=== PATIENT | female | born 1935 | race Caucasian/White ===

== ENCOUNTER 2016-07-18 23:09 | Inpatient (IN) ==
--- NOTE | 2016-07-18 23:34 | Emergency Department Note ---
Disposition Clinical Impression: Atrial fibrillation with RVR, COPD exacerbation, Hypoxia Disposition: Admitted As Inpatient Condition: Fair General Adult HPI - General Chief complaint: ED Shortness of Breath/Dyspnea Stated complaint: congestion,olivia,fever Time Seen by Provider: 07/18/16 23:32 Source: patient, family Limitations: no limitations - History of Present Illness Pain Scale: 4 - Related Data Home Medications Medication Instructions Recorded Confirmed Aclidinium [place] [Tudorza 400 mcg IH BID 09/21/15 03/23/16 Pressair] Albuterol Neb [Proventil Neb] 2.5 mg IH Q4HR 09/21/15 03/23/16 Albuterol Sulfate [Albuterol 2 puff IH Q6H PRN 09/21/15 03/23/16 Inhaler] Aspirin Enteric Coated [Aspirin EC] 81 mg PO DAILY 09/21/15 03/23/16 Lisinopril [Zestril] 20 mg PO DAILY 09/21/15 03/23/16 Sertraline [Zoloft] 50 mg PO HS 09/21/15 03/23/16 Tamsulosin [Flomax] 0.4 mg PO DAILY 09/21/15 03/23/16 Temazepam [Restoril] 15 mg PO HS 09/21/15 03/23/16 Previous Rx's Medication Instructions Recorded Docusate [Colace] 100 mg PO BID #30 capsule 09/21/15 Hydrocodone/Acetaminophen [[place] 1 tab PO Q6H PRN #25 tab 09/21/15 5-325 Tablet] HYDROcodone/Acet 5/325 mg [[place] 1 tab PO Q6H #20 tab 03/23/16 5-325 mg] Allergies Allergy/AdvReac Type Severity Reaction Status Date / Time No Known Allergies Allergy Verified 09/21/15 10:42 Past Medical History - Past Medical History Medical history: Reports: asthma, cancer, COPD, coronary artery disease, hypertension, valvular heart disease Surgical history: Reports: hysterectomy, other Psychiatric history: Reports: anxiety, bipolar, depression - Social History Smoking Status: Current every day smoker Smokeless Tobacco Status: No Alcohol use: Reports: none Drug use: Reports: none Physical Exam - General Limitations: no limitations General appearance: alert, in no apparent distress Course Vital Signs Temperature 98.7 F 07/18/16 23:11 Pulse Rate 106 07/18/16 23:11 Respiratory Rate 20 07/18/16 23:11 Blood Pressure 167/89 07/18/16 23:11 O2 Sat by Pulse Oximetry 94 07/18/16 23:11 Temperature 98.8 F 07/19/16 03:36 Pulse Rate 88 07/19/16 05:50 Respiratory Rate 16 07/19/16 03:36 Blood Pressure 121/63 07/19/16 05:50 O2 Sat by Pulse Oximetry 95 07/19/16 05:50 Oxygen Delivery Oxygen Delivery Nasal Cannula Medical Decision Making - Lab Data Result diagrams: 07/19/16 05:17 07/19/16 00:15 Lab Results 07/19/16 07/19/16 07/19/16 Range/Units 00:15 00:15 00:15 WBC 14.5 H (4.3-11.1) K/mcL RBC 4.08 (3.82-4.97) M/mcL Hgb 12.5 (11.5-15.4) g/dL Hct 38.0 (35.3-44.9) % MCV 93.1 (83.0-100.0) fL MCH 30.6 (28.0-33.3) pg MCHC 32.9 (31.6-35.5) g/dL RDW 14.1 (11.5-14.5) % Plt Count 384 (140-400) K/mcL MPV 10.1 (9.4-12.4) fL Immature Gran % 0.3 (0-4) % Seg Neutrophils % 85.1 % Lymphocytes % 7.5 % Monocytes % 6.4 % Eosinophils % 0.6 % Basophils % 0.1 % Neutrophils # 12.3 H (1.6-8.9) K/mcL Lymphocytes # 1.1 (0.6-4.6) K/mcL Monocytes # 0.9 (0.0-1.3) K/mcL Eosinophils # 0.1 (0.0-0.6) K/mcL Basophils # 0.0 (0.0-0.2) K/mcL Sodium 144 (136-145) mEq/L Potassium 4.1 (3.5-4.5) mEq/L Chloride 107 (98-109) mEq/L Carbon Dioxide 26 (19-29) mEq/L BUN 19 (7-20) mg/dL Creatinine 0.80 (0.57-1.11) mg/dL Est GFR ( Amer) > 60 (> 60) Est GFR (Non-Af Amer) > 60 (> 60) BUN/Creatinine Ratio 24 (6-26) Glucose 140 H (70-99) mg/dL Calculated Osmolality 303 H (280-300) Calcium 9.7 (8.6-10.8) mg/dL Troponin I 0.00 (0-0.03) ng/mL B-Natriuretic Peptide (0-100) pg/mL 07/19/16 Range/Units 00:15 WBC (4.3-11.1) K/mcL RBC (3.82-4.97) M/mcL Hgb (11.5-15.4) g/dL Hct (35.3-44.9) % MCV (83.0-100.0) fL MCH (28.0-33.3) pg MCHC (31.6-35.5) g/dL RDW (11.5-14.5) % Plt Count (140-400) K/mcL MPV (9.4-12.4) fL Immature Gran % (0-4) % Seg Neutrophils % % Lymphocytes % % Monocytes % % Eosinophils % % Basophils % % Neutrophils # (1.6-8.9) K/mcL Lymphocytes # (0.6-4.6) K/mcL Monocytes # (0.0-1.3) K/mcL Eosinophils # (0.0-0.6) K/mcL Basophils # (0.0-0.2) K/mcL Sodium (136-145) mEq/L Potassium (3.5-4.5) mEq/L Chloride (98-109) mEq/L Carbon Dioxide (19-29) mEq/L BUN (7-20) mg/dL Creatinine (0.57-1.11) mg/dL Est GFR ( Amer) (> 60) Est GFR (Non-Af Amer) (> 60) BUN/Creatinine Ratio (6-26) Glucose (70-99) mg/dL Calculated Osmolality (280-300) Calcium (8.6-10.8) mg/dL Troponin I (0-0.03) ng/mL B-Natriuretic Peptide 111 H (0-100) pg/mL Critical Care Time Critical Care Time: Yes Total Critical Care Time: 45 Attestation: Patient presented with dyspnea. ECG showed atrial fibrillation with rapid ventricular response. IV Cardizem drip initiated. Attestation Statement - Attestation Attestation: I examined this patient and my medical decision-making was reviewed with the HUMAN CAPITAL ANALYST/PA/Advanced Practice Nurse/Resident Physician. I agree with the documented findings, disposition and treatment plan as described except to the extent set forth below. [id number] time provided Patient presents with dyspnea. She has a history of non oxygen-dependent COPD. Appears in no acute respiratory distress on exam. Patient seen and evaluated in conjunction with resident physician Dr. Fabian
[2016-07-18] MEDS ORDERED: methylPREDNISolone 125 MG/2 ML VIAL IVP ONE (23:57)
[2016-07-18] MEDS ORDERED: Ipratropium/Albuterol Neb 3 ML IH ONE (23:58)
--- NOTE | 2016-07-19 00:03 | Emergency Department Note ---
Disposition Clinical Impression: Atrial fibrillation with RVR, COPD exacerbation, Hypoxia Disposition: Admitted As Inpatient Condition: Fair Referrals: NO,PCP [Primary Care Provider] - Forms: ED Satisfaction Letter SOB HPI - General Chief Complaint: ED Shortness of Breath/Dyspnea Stated Complaint: congestion,olivia,fever Time Seen by Provider: 07/18/16 23:32 Source: patient, family Limitations: no limitations Nursing Notes Reviewed: Yes Vital Signs Reviewed: Yes - History of Present Illness 80-year-old female with a history of COPD since to the emergency department with a chief complaint of shortness of breath. This has been progressive for months but over the last 2-3 weeks as become significant. She reports cough with thick, yellow sputum. Her was recently in the hospital with pneumonia. She does not want oxygen at home. No history of heart attack but was told she had a valvular problem. Denies any lower extremity swelling or calf pain. She reports subjective fevers and chills over the last 3 days. She reports significant shortness of breath at rest and with exertion. She reports a history of blood clot in her leg that happened years ago. She never had to be on blood thinners and she thinks it was in the distal lower leg. Denies any chest pain or pressure. Denies any syncope. - Related Data Home Medications Medication Instructions Recorded Confirmed Aclidinium [place] [Tudorza 400 mcg IH BID 09/21/15 03/23/16 Pressair] Albuterol Neb [Proventil Neb] 2.5 mg IH Q4HR 09/21/15 03/23/16 Albuterol Sulfate [Albuterol 2 puff IH Q6H PRN 09/21/15 03/23/16 Inhaler] Aspirin Enteric Coated [Aspirin EC] 81 mg PO DAILY 09/21/15 03/23/16 Lisinopril [Zestril] 20 mg PO DAILY 09/21/15 03/23/16 Sertraline [Zoloft] 50 mg PO HS 09/21/15 03/23/16 Tamsulosin [Flomax] 0.4 mg PO DAILY 09/21/15 03/23/16 Temazepam [Restoril] 15 mg PO HS 09/21/15 03/23/16 Previous Rx's Medication Instructions Recorded Docusate [Colace] 100 mg PO BID #30 capsule 09/21/15 Hydrocodone/Acetaminophen [[place] 1 tab PO Q6H PRN #25 tab 09/21/15 5-325 Tablet] HYDROcodone/Acet 5/325 mg [[place] 1 tab PO Q6H #20 tab 03/23/16 5-325 mg] Allergies Allergy/AdvReac Type Severity Reaction Status Date / Time No Known Allergies Allergy Verified 09/21/15 10:42 All systems ED: reviewed and negative except as stated. Constitutional: Reports: fever, chills Cardiovascular: Reports: dyspnea on exertion. Denies: chest pain Respiratory: Reports: cough, dyspnea, wheezes Gastrointestinal: Denies: abdominal pain, nausea, vomiting Musculoskeletal: Denies: neck pain Neurological: Denies: headache, weakness, numbness Endocrine: Reports: fatigue Past Medical History - Past Medical History Medical history: Reports: asthma, cancer, COPD, coronary artery disease, hypertension, valvular heart disease Surgical history: Reports: hysterectomy, other Psychiatric history: Reports: anxiety, bipolar, depression - Social History Smoking Status: Current every day smoker Smokeless Tobacco Status: No Alcohol use: Reports: none Drug use: Reports: none Physical Exam General: Elderly appearing female, thin and frail she is alert and oriented 3 Cardiovascular: Tachycardic but regular, S1, S2. No murmurs, rubs or gallops. Respiratory: Significantly diminished breath sounds bilaterally. Expiratory wheezing. Very tight. Breathing approximately 30 times per minute. No stridor. Breath sounds are present bilaterally Abdomen: Soft, nontender. No guarding, rebound or rigidity. Eyes: Conjunctivae are clear without drainage or discharge HENT: Moist mucous membranes, no oral mucosal lesions Neuro: Cranial nerves intact. No motor or sensory deficit. Musculoskeletal: There is no lower 70 swelling, edema, calf tenderness, asymmetry or any signs of DVT. Skin: No lesions. No diaphoresis. Normal turgor. Normal color Psych: Appropriate - General Limitations: no limitations General appearance: alert, in no apparent distress Course Course Narrative: 80-year-old presents with progressive dyspnea over the last several months. She is requiring supplemental O2 to remain above 90%. She is not oxygen dependent at home. History of COPD and continues to smoke. She was given several breathing treatments with some improvement. She was initially in a sinus rhythm but went into atrial fibrillation with a rate of 150. She was started on Cardizem which controlled her rate down to 100. No history of A. fib in the past. She was given aspirin. X-ray shows emphysema but no other acute changes. Patient will be treated with breathing treatments, IV steroids and antibiotics for COPD exacerbation. Patient will require admission for new onset atrial fibrillation, COPD exacerbation and hypoxia. I discussed with the on-call hospitalist Dr Nguyen who accepted for admission, no further orders at this time Vital Signs Temperature 98.7 F 07/18/16 23:11 Pulse Rate 106 07/18/16 23:11 Respiratory Rate 20 07/18/16 23:11 Blood Pressure 167/89 07/18/16 23:11 O2 Sat by Pulse Oximetry 94 07/18/16 23:11 Temperature 98.3 F 07/19/16 02:03 Pulse Rate 112 07/19/16 02:03 Respiratory Rate 30 07/19/16 02:03 Blood Pressure 137/80 07/19/16 02:03 O2 Sat by Pulse Oximetry 93 07/19/16 02:03 Oxygen Delivery Oxygen Delivery Nasal Cannula Shortness of Breath/Dyspnea - Lab Data Result diagrams: 07/19/16 00:15 07/19/16 00:15 Lab Results 07/19/16 07/19/16 07/19/16 Range/Units 00:15 00:15 00:15 WBC 14.5 H (4.3-11.1) K/mcL RBC 4.08 (3.82-4.97) M/mcL Hgb 12.5 (11.5-15.4) g/dL Hct 38.0 (35.3-44.9) % MCV 93.1 (83.0-100.0) fL MCH 30.6 (28.0-33.3) pg MCHC 32.9 (31.6-35.5) g/dL RDW 14.1 (11.5-14.5) % Plt Count 384 (140-400) K/mcL MPV 10.1 (9.4-12.4) fL Immature Gran % 0.3 (0-4) % Seg Neutrophils % 85.1 % Lymphocytes % 7.5 % Monocytes % 6.4 % Eosinophils % 0.6 % Basophils % 0.1 % Neutrophils # 12.3 H (1.6-8.9) K/mcL Lymphocytes # 1.1 (0.6-4.6) K/mcL Monocytes # 0.9 (0.0-1.3) K/mcL Eosinophils # 0.1 (0.0-0.6) K/mcL Basophils # 0.0 (0.0-0.2) K/mcL Sodium 144 (136-145) mEq/L Potassium 4.1 (3.5-4.5) mEq/L Chloride 107 (98-109) mEq/L Carbon Dioxide 26 (19-29) mEq/L BUN 19 (7-20) mg/dL Creatinine 0.80 (0.57-1.11) mg/dL Est GFR ( Amer) > 60 (> 60) Est GFR (Non-Af Amer) > 60 (> 60) BUN/Creatinine Ratio 24 (6-26) Glucose 140 H (70-99) mg/dL Calculated Osmolality 303 H (280-300) Calcium 9.7 (8.6-10.8) mg/dL Troponin I 0.00 (0-0.03) ng/mL B-Natriuretic Peptide (0-100) pg/mL 07/19/16 Range/Units 00:15 WBC (4.3-11.1) K/mcL RBC (3.82-4.97) M/mcL Hgb (11.5-15.4) g/dL Hct (35.3-44.9) % MCV (83.0-100.0) fL MCH (28.0-33.3) pg MCHC (31.6-35.5) g/dL RDW (11.5-14.5) % Plt Count (140-400) K/mcL MPV (9.4-12.4) fL Immature Gran % (0-4) % Seg Neutrophils % % Lymphocytes % % Monocytes % % Eosinophils % % Basophils % % Neutrophils # (1.6-8.9) K/mcL Lymphocytes # (0.6-4.6) K/mcL Monocytes # (0.0-1.3) K/mcL Eosinophils # (0.0-0.6) K/mcL Basophils # (0.0-0.2) K/mcL Sodium (136-145) mEq/L Potassium (3.5-4.5) mEq/L Chloride (98-109) mEq/L Carbon Dioxide (19-29) mEq/L BUN (7-20) mg/dL Creatinine (0.57-1.11) mg/dL Est GFR ( Amer) (> 60) Est GFR (Non-Af Amer) (> 60) BUN/Creatinine Ratio (6-26) Glucose (70-99) mg/dL Calculated Osmolality (280-300) Calcium (8.6-10.8) mg/dL Troponin I (0-0.03) ng/mL B-Natriuretic Peptide 111 H (0-100) pg/mL
[2016-07-19 00:21] LABS: Basophils % 0.1 %; Eosinophils # 0.1 K/mcL (0.0-0.6); Eosinophils % 0.6 %; Hemoglobin 12.5 g/dL (11.5-15.4); Immature Granulocytes % 0.3 % (0-4); Lymphocytes # 1.1 K/mcL (0.6-4.6); Lymphocytes % 7.5 %; Mean Corpuscular HGB Conc 32.9 g/dL (31.6-35.5); Mean Corpuscular Hemoglobin 30.6 pg (28.0-33.3); Mean Corpuscular Volume 93.1 fL (83.0-100.0); Mean Platelet Volume 10.1 fL (9.4-12.4); Monocytes # 0.9 K/mcL (0.0-1.3); Monocytes % 6.4 %; Neutrophils # 12.3 K/mcL (1.6-8.9); Platelet Count 384 K/mcL (140-400); Red Blood Count 4.08 M/mcL (3.82-4.97); Red Cell Distribution Width 14.1 % (11.5-14.5); Segmented Neutrophils % 85.1 %
[2016-07-19 00:35] LABS: BUN/Creatinine Ratio 24 (6-26); Blood Urea Nitrogen 19 mg/dL (7-20); Calcium 9.7 mg/dL (8.6-10.8); Carbon Dioxide 26 mEq/L (19-29); Chloride 107 mEq/L (98-109); Glucose 140 mg/dL (70-99); Osmolality,Calculated 303 (280-300); Potassium 4.1 mEq/L (3.5-4.5); Sodium 144 mEq/L (136-145); eGFR For African Americans > 60 (> 60); eGFR For Non-African Americans > 60 (> 60)
[2016-07-19] MEDS ORDERED: Aspirin 325 MG TABLET PO ONE (01:35)
[2016-07-19] MEDS ORDERED: *HR* HYDROcodone/Acet 10/325 mg TABLET PO ONE (02:11)
[2016-07-19] MEDS ORDERED: levoFLOXacin 500 MG TABLET PO ONE (03:09)
--- NOTE | 2016-07-19 04:36 | Internal Med History&Physical ---
Date of Encounter: 07/19/16 Time of Encounter: 04:34 Assessment and Plan (1) Atrial fibrillation with RVR Current visit: Yes Status: Acute In the context of COPD exacerbation and acute respiratory failure. Pt received multiple bronchodilators (pt was in sinus rhythm at presentation to the ER). Pt is on diltiazem infusion - continue and titrate. Check TSH level and troponin (2) COPD exacerbation Current visit: Yes Status: Acute Treat with solumedrol, levofloxacin, xopenex, mucinex. smoking cessation advised (3) Acute respiratory failure Current visit: Yes Status: Acute Likely due to COPD exacerbation versus CHF. Will obtain echocardiogram. Qualifiers: Respiratory failure complication: hypoxia Qualified Code(s): J96.01 - Acute respiratory failure with hypoxia (4) Leucocytosis Current visit: Yes Status: Acute Likely due to infective exacerbation of COPD. Continue antibiotics and monitor WBC count. CHeck CRP Qualifiers: Leukocytosis type: unspecified Qualified Code(s): D72.829 - Elevated white blood cell count, unspecified (5) Elevated brain natriuretic peptide (BNP) level Current visit: Yes Status: Acute Will obtain Echocardiogram (6) DVT prophylaxis Current visit: Yes Status: Acute Subcutaneous heparin Internal Medicine - H&P: HPI Chief complaint: Shortness of breath Admitted From: Emergency Dept Plans for Post Hospital Care: Home History of present illness: Ms. Cleainng is a 80 year old female With h/o COPD current smoker and is not on home oxygen, coronary artery disease, hypertension. She apparently has shortness of breath since the beginning of this year which got worse in the last week and again significantly worsened prior to this presentation. She was apparently wheezy and was struggling for breath prior to this presentation. She reports cough with greenish expectoration. She reports some back pain with cough, but no chest pain. She denies fever, chills, nausea, vomiting, abdominal pain, dysuria, hematuria, changes in bowel pattern. She was evaluated in the emergency department and was thought to have acute exacerbation of COPD. She was given multiple breathing treatments, with improvement of shortness of breath. She was noted to have atrial fibrillation with rapid ventricular response with heart rate of 150s. She was started on diltiazem infusion and admitted to the hospitalist service for further management. Past Med Surg Social Fam HX - Past Medical History Medical history: asthma, cancer, COPD, coronary artery disease, hypertension, valvular heart disease Psychiatric history: anxiety, depression - Past Surgical History Surgical History: hysterectomy, other - Social History Smoking Status: Current every day smoker Packs per day: 1 Smokeless Tobacco Status: No Alcohol use: none Drug use: none - Family History Mother Hx Family Cardiac Disorders: Yes Hx Family Endocrine Disorder: Yes (diabetes) Father Hx Family Cardiac Disorders: Yes Son Hx Family Cancer: Yes (lung) Hx Family Medical Disorders: Yes (blood clot) Internal Medicine - H&P: Meds Aclidinium [place] [Tudorza Pressair] 400 mcg IH BID 09/21/15 [History] Albuterol Neb [Proventil Neb] 2.5 mg IH Q4HR 09/21/15 [History] Albuterol Sulfate [Albuterol Inhaler] 2 puff IH Q6H PRN 09/21/15 [History] Aspirin Enteric Coated [Aspirin EC] 81 mg PO DAILY 09/21/15 [History] Docusate [Colace] 100 mg PO BID #30 capsule 09/21/15 [Rx] Hydrocodone/Acetaminophen [[place] 5-325 Tablet] 1 tab PO Q6H PRN #25 tab [Rx] Lisinopril [Zestril] 20 mg PO DAILY 09/21/15 [History] Sertraline [Zoloft] 50 mg PO HS 09/21/15 [History] Tamsulosin [Flomax] 0.4 mg PO DAILY 09/21/15 [History] Temazepam [Restoril] 15 mg PO HS 09/21/15 [History] HYDROcodone/Acet 5/325 mg [[place] 5-325 mg] 1 tab PO Q6H #20 tab 03/23/16 [Rx] Allergies No Known Allergies Allergy (Verified 09/21/15 10:42) All Systems PM: A 10-system review of systems was performed and is negative for pertinent findings except as documented above in the HPI. - Constitutional Vitals: Temp Pulse Resp BP Pulse Ox 98.8 F 100 16 148/74 95 07/19/16 03:36 07/19/16 03:36 07/19/16 03:36 07/19/16 03:36 07/19/16 04:03 Exam: General: Not in acute distress at the time of my evaluation. Thin built with BMI of 15 HEENT: Oral mucosa is moist. No conjunctival palor or scleral icterus Neck: No obvious neck swellings Lungs: Bilateral basal crackles. Occasional wheeze bilaterally. Cardiac: Irregular rate and rhythm. No significant murmurs Abdomen: Soft, non tender. Bowel sounds present Genitourinary: No rzao catheter Neurological: Alert and oriented. No gross localizing deficits Psych: Not aggressive or agitated Extremities: no significant leg edema Skin: No generalized rash Internal Med - H&P Results - Labs CBC & Chem 7: 07/19/16 00:15 07/19/16 00:15 - EKG Data -: EKG Interpreted by Myself - EKG Data EKG comments: Atrial fibrillation with rapid ventricular response 07/19/16 04:36 - Impressions ITS Impressions Chest X-Ray 07/19/16 23:58 IMPRESSION: No acute cardiopulmonary process. Emphysematous changes. D/ / Zain Figueroa MD / Zain Figueroa MD Interpreting Provider: Zain Figueroa MD
[2016-07-19] MEDS ORDERED: Naloxone 0.4 MG/ML INJ IVP PRN (04:39)
[2016-07-19] MEDS ORDERED: 0.9 % Sodium Chloride 250 ML ONE (05:09)
[2016-07-19] MEDS: MethylPREDNISolone 40 MG/ML VIAL IVP SCH ×2 (05:20→18:01)
[2016-07-19] MEDS: Levalbuterol Neb 1.25 MG/3 ML IH SCH ×4 (05:22→21:15)
[2016-07-19 05:56] LABS: Basophils % 0.1 %; Hematocrit 34.8 % (35.3-44.9); Hemoglobin 11.2 g/dL (11.5-15.4); Immature Granulocytes % 0.6 % (0-4); Lymphocytes # 0.3 K/mcL (0.6-4.6); Lymphocytes % 1.9 %; Mean Corpuscular HGB Conc 32.2 g/dL (31.6-35.5); Mean Corpuscular Volume 93.3 fL (83.0-100.0); Mean Platelet Volume 10.2 fL (9.4-12.4); Monocytes # 0.1 K/mcL (0.0-1.3); Monocytes % 0.9 %; Neutrophils # 15.7 K/mcL (1.6-8.9); Platelet Count 349 K/mcL (140-400); Red Blood Count 3.73 M/mcL (3.82-4.97); Red Cell Distribution Width 14.1 % (11.5-14.5); Segmented Neutrophils % 96.5 %
[2016-07-19 05:57] LABS: INR 1.2; Prothrombin Time 13.5 Seconds (9.4-12.1)
[2016-07-19] MEDS ORDERED: *HR* Heparin 5,000 UNIT/ML VIAL SQ SCH (06:00)
[2016-07-19 06:06] LABS: Magnesium 2.3 mg/dL (1.6-2.6)
[2016-07-19 06:09] LABS: Hemoglobin A1C 5.3 %
[2016-07-19 06:33] LABS: Thyroid Stimulating Hormone 1.025 mcIU/mL (0.350-4.840)
[2016-07-19] MEDS ORDERED: *HR* Heparin 5,000 UNIT/ML VIAL IVP ONE (11:26)
--- NOTE | 2016-07-19 11:29 | ECHO - Doppler Report ---
Echocardiogram Name: Estela Cleaning Date of Study: 07/19/2016 Date: 1935 Ht: 64.0 in Medical Record#: [id number] Age: 80 Wt: 91.0 lb Gender: Female BSA: 1.4 Order #: [id number] Location: [facility] Room #: 2A38 Reading Physician: Cassi Luna DO Stock Handler Floorperson: Graciela Shoemaker RVT Ordering Physician: Sheila Suggs MD Primary Physician: None Indications: A-fib with RVR, Possible CHF Impressions: LVEF 60%. Normal left ventricular size and systolic function. Indeterminate left venticular diastoic function Normal right ventricular size and function. Mild mitral regurgitation. No pulmonary hypertension. Left Ventricular Wall Motion: Rest Echo Findings All wall segments showed normal motion. Findings: Study Quality * Technically challenging exam. ECG Findings * Normal sinus rhythm. Left Atrium * Normal left atrial size. Mitral Valve * Normal mitral valve structure. * No mitral stenosis. * Mild mitral annular calcification * Mild mitral regurgitation. Tricuspid Valve * Trace tricuspid regurgitation. * Normal tricuspid valve structure. * Estimated RA pressure is 3 mmHg. * Estimated RVSP is 26 mmHg. * No pulmonary hypertension. Pulmonic Valve * Pulmonic valve is not well visualized. * No pulmonic stenosis. * No pulmonic regurgitation. Pulmonary Artery * Pulmonary artery not well visualized. Aortic Valve * Trileaflet (seen in SAX subcostal view). * Mild aortic regurgitation. * No aortic stenosis. * Mild to moderately calcified aortic valve leaflets. Right Ventricle * Normal right ventricular structure and function. Right Atrium * Normal right atrial size. Left Ventricle * LVEF 60%. * Normal LV chamber size, wall thickness and function. * Indeterminate diastolic function. Interatrial Septum * No evidence of PFO by color Doppler. Pericardium * There is no pericardial effusion present. IVC * The IVC is not dilated. * < 50% respiratory change. Aorta * Not well visualized. History Hypertension History of CAD/PTCA 11/22/2011 a Previous Echo was performed. Measurements: BP: 121/ 63 2D Normal Values RVIDd: 1.60 cm <2.7 cm IVSd: 1.20 cm 0.6 - 1.0 cm LVIDd: 3.90 cm 3.7 - 5.6 cm LVPWd: 1.20 cm 0.6 - 1.1 cm LVIDs: 2.30 cm 1.5 - 3.6 cm AO: 2.70 cm < 4.0 cm LA: 3.20 cm 2.0 - 4.0cm %FS: 41.00 cm >25 % LA volume: 30 Mitral Valve Peak E:1.04 m/sec Peak A:1.01 m/sec E/A Ratio:1 Peak E' Lat Diego:7.99 cm/s Peak E' Med [place]:5.85 cm/s E/E' Lat Ratio:13 E/E' Med Ratio:17.8 Tricuspid Valve TV Regurg Peak Grad: 23.00mmHg TV Regurg Peak Diego: 2.38m/sec Updated by Cassi Luna on 07/19/2016 11:23:09 AM electronically signed on 07/19/2016 11:24:51 AM with status of Final Wall Motion Bobby: 1=Normal, 2=Hypokinesis, 3=Akinesis, 4=Dyskinesis, 5=Aneurysmal, 6=Hyperkinetic, X=Not Visualized (Blank)=Missing
--- NOTE | 2016-07-19 11:34 | Event Note ---
Date of Encounter: 07/19/16 Time of Encounter: 11:32 Patient seen and examined at bedside. Resting in bed and reports of having history of Afib in the past during her prior hospitalization. Currently remains in afib but rate controlled on Cardizem gtt. Respiratory status improved. Pt noted to have CHADVASC: 5, will start anticoagulation with heparin gtt. Will obtain cardiology consultation. Will continue Systemic steroids and bronchodilator support for COPD exacerbation.
[2016-07-19 12:37] LABS: Hematocrit 34.4 % (35.3-44.9); Hemoglobin 11.2 g/dL (11.5-15.4); Mean Corpuscular HGB Conc 32.6 g/dL (31.6-35.5); Mean Corpuscular Hemoglobin 30.5 pg (28.0-33.3); Mean Corpuscular Volume 93.7 fL (83.0-100.0); Mean Platelet Volume 10.4 fL (9.4-12.4); Platelet Count 344 K/mcL (140-400); Red Blood Count 3.67 M/mcL (3.82-4.97); Red Cell Distribution Width 14.2 % (11.5-14.5)
[2016-07-19 12:40] LABS: INR 1.3; Prothrombin Time 14.6 Seconds (9.4-12.1)
[2016-07-19 12:42] LABS: Activated Partial Thrombo Time 31.8 Seconds (26.0-36.0)
[2016-07-19] MEDS: Heparin 25,000 UNIT/500 ML D5W 25,000 UNIT/500 ML MLS IVC SCH (12:54)
--- NOTE | 2016-07-19 14:03 | Cardiology Consult Note ---
Date of Encounter: 07/19/16 Time of Encounter: 13:59 Assessment and Plan (1) Atrial fibrillation with RVR Current Visit: Yes Status: Acute Presented in atrial fibrillation with RVR. Timing unknown. Denies palpitations. HR currently 80's on oral cardizem. AVg HR 88 bpm over last 12 hours. Convert to long acting prior to d/c. TTE EF 60%, mild MR. She is a CHADS VASc 5. Anticoagulation with coumadin or NOAC is recommended. I discussed coumadin or NOAC indication, risks, benefits, and alternatives with daughter and patient. They are agreeable to anticoagulation. They prefer NOAC once a day. I will send xarelto RX to [facility] to marshall check. CrCl is 44.9. Rx sent for xarelto 15 mg daily. Currently on heparin gtt. Discussion w patient/family: The assessment and plan as outlined above was discussed with the patient and/or family members who expressed understanding and agreement. All questions were answered. Thank you for involving us in the care of your patient. Please call with any questions. Assessment and plan discussed with Dr. William who will see patient. Changes to plan will be made as needed. History of Present Illness Consult date: 07/19/16 Requesting physician: Natalia Silva Consult reason: New onset atrial fibrillation Chief complaint: SOB History of present illness: Ms. Cleaning is a 80 year old female who presented with increasing SOB and cough productive of yellow sputum. She was admitted for COPD Exacerbation. She was noted to have atrial fibrillation with RVR HR in the 150's. She denies previous history. She has a past medical history of COPD, tobacco use, and hypertension. She denies chest pain or palpitations. Previous Cardiac Testing: [facility] 10/2011- Minimal CAD. Past Med Surg Social Fam HX - Past Medical History Medical history: asthma, cancer, COPD, coronary artery disease, hypertension, valvular heart disease Psychiatric history: anxiety, bipolar, depression - Past Surgical History Surgical History: hysterectomy, other - Social History Smoking Status: Current every day smoker Packs per day: 1 Smokeless Tobacco Status: No Alcohol use: none Drug use: none - Family History Mother Hx Family Cardiac Disorders: Yes Hx Family Endocrine Disorder: Yes (diabetes) Father Hx Family Cardiac Disorders: Yes Son Hx Family Cancer: Yes (lung) Hx Family Medical Disorders: Yes (blood clot) Medications and Allergies Aclidinium [place] [Tudorza Pressair] 400 mcg IH BID 09/21/15 [History] Albuterol Neb [Proventil Neb] 2.5 mg IH Q4HR 09/21/15 [History] Albuterol Sulfate [Albuterol Inhaler] 2 puff IH Q6H PRN 09/21/15 [History] Aspirin Enteric Coated [Aspirin EC] 81 mg PO DAILY 09/21/15 [History] Lisinopril [Zestril] 20 mg PO DAILY 09/21/15 [History] Sertraline [Zoloft] 50 mg PO HS 09/21/15 [History] Tamsulosin [Flomax] 0.4 mg PO DAILY 09/21/15 [History] Temazepam [Restoril] 15 mg PO HS 09/21/15 [History] Budesonide/Formoterol 160/4.5 [Symbicort 160/4.5] 2 puff IH BIDR 07/19/16 [ History] Allergies No Known Allergies Allergy (Verified 09/21/15 10:42) All Systems Review: A 10-system review of systems was performed and is negative for pertinent findings except as documented above in the HPI. Physical Examination Vital Signs, Last 4 Hours Temp Pulse Resp BP Pulse Ox 07/19/16 12:01 97.6 F 86 21 126/70 95 General: Conversant, No Apparent Distress, Other (Frail elderly female. ) HEENT: Atraumatic, Normocephaly, Mucus Membranes Moist Neck: No JVD, Normal carotid pulses Cardiac: Other (Irregularly irregular) Lungs: Normal Breath Sounds, No Wheeze, Rales, Rhonchi Neuro: Alert and responsive, No focal deficits noted Abdomen: Soft, Non-Tender Skin: No rashes noted on visualized skin Musculoskeletal: No Chest Wall Tenderness Extremities: No Clubbing, No Cyanosis, No Edema, Normal Pulses Results 07/19/16 11:55 07/19/16 00:15 Lab Results 07/19/16 07/19/16 07/19/16 05:17 05:17 05:19 WBC 16.3 H Hgb 11.2 L Hct 34.8 L Plt Count 349 INR 1.2 APTT Magnesium Troponin I 0.02 TSH 07/19/16 07/19/16 07/19/16 05:26 11:55 11:55 WBC 14.3 H Hgb 11.2 L Hct 34.4 L Plt Count 344 INR 1.3 APTT 31.8 Magnesium 2.3 Troponin I TSH 1.025 - Imaging and Cardiology Echo: report reviewed - EKG Interpretation EKG results cardiology: personally reviewed (atrial fibrillation with RVR, HR 152) Consult Discharge Plan - Plan Referrals: NO,PCP [Primary Care Provider] -
[2016-07-19] MEDS: Ipratropium Neb 0.5 MG NEBULIZER IH SCH ×2 (16:13→21:15)
[2016-07-19] MEDS ORDERED: 0.9 % Sodium Chloride 500 ML ONE (17:16)
--- NOTE | 2016-07-19 17:34 | Electrocardiograph Report ---
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
[2016-07-19] MEDS: Temazepam 15 MG CAPSULE PO SCH (20:16)
[2016-07-19] MEDS: *HR* Heparin 5,000 UNIT/ML VIAL IVP PRN (22:21)
[2016-07-20] MEDS: Levofloxacin 500 MG/100 ML 500 MG/100 ML BAG IVPB SCH (03:38)
[2016-07-20] MEDS: Ipratropium Neb 0.5 MG NEBULIZER IH SCH ×4 (03:52→21:47)
[2016-07-20] MEDS: Levalbuterol Neb 1.25 MG/3 ML IH SCH ×4 (03:52→21:47)
[2016-07-20 05:21] LABS: Basophils % 0.1 %; Hematocrit 32.3 % (35.3-44.9); Hemoglobin 10.5 g/dL (11.5-15.4); Immature Granulocytes % 0.8 % (0-4); Lymphocytes # 0.6 K/mcL (0.6-4.6); Lymphocytes % 3.5 %; Mean Corpuscular HGB Conc 32.5 g/dL (31.6-35.5); Mean Corpuscular Hemoglobin 30.6 pg (28.0-33.3); Mean Corpuscular Volume 94.2 fL (83.0-100.0); Mean Platelet Volume 10.5 fL (9.4-12.4); Monocytes # 0.4 K/mcL (0.0-1.3); Monocytes % 2.6 %; Neutrophils # 15.7 K/mcL (1.6-8.9); Platelet Count 359 K/mcL (140-400); Red Blood Count 3.43 M/mcL (3.82-4.97); Red Cell Distribution Width 14.3 % (11.5-14.5)
[2016-07-20 05:34] LABS: BUN/Creatinine Ratio 38 (6-26); Blood Urea Nitrogen 27 mg/dL (7-20); Calcium 9.1 mg/dL (8.6-10.8); Carbon Dioxide 26 mEq/L (19-29); Chloride 104 mEq/L (98-109); Glucose 173 mg/dL (70-99); Magnesium 1.8 mg/dL (1.6-2.6); Osmolality,Calculated 293 (280-300); Phosphorous 3.3 mg/dL (2.3-4.7); Potassium 4.2 mEq/L (3.5-4.5); Sodium 137 mEq/L (136-145); eGFR For African Americans > 60 (> 60); eGFR For Non-African Americans > 60 (> 60)
[2016-07-20] MEDS: MethylPREDNISolone 40 MG/ML VIAL IVP SCH ×2 (05:34→16:47)
[2016-07-20] MEDS: *HR* Heparin 5,000 UNIT/ML VIAL IVP PRN ×3 (05:34→20:57)
[2016-07-20] MEDS: Diltiazem CD (24hr) 120 MG CAPSULE PO SCH (09:28)
[2016-07-20] MEDS: Aspirin Enteric Coated 81 MG Tablet PO SCH (09:28)
[2016-07-20] MEDS: Lisinopril 20 MG TABLET PO SCH (09:29)
--- NOTE | 2016-07-20 11:24 | Electrocardiograph Report ---
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
--- NOTE | 2016-07-20 11:26 | Cardiology Progress Note ---
Date of Encounter: 07/20/16 Time of Encounter: 11:22 Assessment and Plan (1) Atrial fibrillation with RVR Current Visit: Yes Status: Acute Presented in atrial fibrillation with RVR. onset unknown. Denies palpitations. HR currently 80's on oral cardizem. Changed to long acting this morning. AVg HR 88 bpm over last 12 hours. TTE EF 60%, mild MR. She is a CHADS VASc 5. Anticoagulation with coumadin or NOAC is recommended. I discussed coumadin or NOAC indication, risks, benefits, and alternatives with daughters and patient yesterday. She has six living children. They are not all agreeable and patient is relying on them to make decision. At this point she strongly agrees that she does not want to take coumadin d/t frequent blood draws and concern for bleeding. Xarelto sent to [facility] yesterday and cost was $ 130 . I called for patient today to double check if they ran it through both insurances. Marshall is still 130$. I also sent to [facility] and marshall is 438 $ and the marshall will go up the next month. Continue asa for now. Increased risk of CVA discussed with patient and son's and they voiced understanding. Out patient f/u will be made for 1-2 weeks with [facility]. Call with questions. Cardiology will sign off. Discussion w patient/family: The assessment and plan as outlined above was discussed with the patient and/or family members who expressed understanding and agreement. All questions were answered. Thank you for involving us in the care of your patient. Please call with any questions. Assessment and plan discussed with Dr. William who will see patient. Changes to plan will be made as needed. Subjective Principal diagnosis: COPD, atrial fibrillation with RVR Interval history: Patient c/o increased SOB this morning that improved after 3 breathing treatments. Objective Vital Signs, Last 4 Hours Temp Pulse Resp BP Pulse Ox 07/20/16 10:52 98 F 92 18 165/80 94 07/20/16 10:08 20 95 07/20/16 07:26 97.4 F L 73 18 122/74 91 General: Conversant, No Apparent Distress HEENT: Atraumatic, Normocephaly, Mucus Membranes Moist Neck: No JVD, Normal carotid pulses Cardiac: Other (irregularly irregular) Lungs: Normal Breath Sounds, No Wheeze, Rales, Rhonchi Neuro: Alert and responsive, No focal deficits noted Abdomen: Soft, Non-Tender Skin: No rashes noted on visualized skin Musculoskeletal: No Chest Wall Tenderness Extremities: No Clubbing, No Cyanosis, No Edema, Normal Pulses Results 07/20/16 04:41 07/20/16 04:41 Lab Results 07/19/16 07/19/16 07/19/16 11:55 11:55 20:10 WBC 14.3 H Hgb 11.2 L Hct 34.4 L Plt Count 344 INR 1.3 APTT 31.8 28.8 Sodium Potassium Chloride Carbon Dioxide BUN Creatinine Glucose Calcium Magnesium 07/20/16 07/20/16 07/20/16 04:41 04:41 04:41 WBC 16.9 H Hgb 10.5 L Hct 32.3 L Plt Count 359 INR APTT 39.0 H Sodium 137 Potassium 4.2 Chloride 104 Carbon Dioxide 26 BUN 27 H Creatinine 0.71 Glucose 173 H Calcium 9.1 Magnesium 1.8 Consult Discharge Plan - Plan Referrals: NO,PCP [Primary Care Provider] -
[2016-07-20] MEDS: Heparin 25,000 UNIT/500 ML D5W 25,000 UNIT/500 ML MLS IVC SCH ×2 (13:27→23:53)
--- NOTE | 2016-07-20 14:46 | Internal Med Progress Note ---
Date of Encounter: 07/20/16 Time of Encounter: 12:25 - Assessment and plan (1) Atrial fibrillation with RVR Current Visit: Yes Status: Acute Assessment and plan: Pt and family in agreement to starting Coumadin therapy Will bridge with heparin and coumadin, to attain INR of 2-3 Rate controlled with Cardizem cardiology input appreciated 2D echo reported LVEF of 60% with mild MR. (2) COPD exacerbation Current Visit: Yes Status: Acute Assessment and plan: continue systemic steroids and bronchodilator support O2 supplementation O2 saturation goal: 89-92% Levofloxacin Guaifenesin/Dextromorphan prn will switch to Prednisone in am PT eval (3) DVT prophylaxis Current Visit: Yes Status: Acute Assessment and plan: anticoagulated with heparin gtt - Subjective Interval history: Pt seen and examined at bedside. Resting in bed and states that her daughter Vera Self takes care of all her medical issues and to consult her in regards to continuation of ferry terminal agent anticoagulation. I had a detailed discussion with Vera Self, the patient and the family were under the impression that the patient will need daily blood draws after discharge, once she was told that it would be on a weekly basis, she was in agreement to starting Coumadin therapy today. - Constitutional Vitals: Temp Pulse Resp BP Pulse Ox 98 F 92 18 165/80 95 07/20/16 10:52 07/20/16 10:52 07/20/16 10:52 07/20/16 10:52 07/20/16 11:58 General appearance: Present: A&O X 3, no acute distress, underweight, answers questions appropriately - Head Head exam: Present: atraumatic, normocephalic - Eye Eye exam: Present: normal appearance, conjuntiva pink, sclera anicteric - Respiratory Respiratory exam: Present: decreased breath sounds. Absent: accessory muscle use, rales, rhonchi, wheezes - Cardiovascular Cardiovascular exam: Present: RRR, +S1, +S2. Absent: diastolic murmur, gallop, rubs, systolic murmur - GI/Abdominal GI/Abdominal exam: Present: normal bowel sounds, soft, no peritoneal signs. Absent: distended, tenderness - Extremities Exam Extremities exam: Present: warm, radial pulses palpable and symetrical. Absent : calf tenderness, cyanotic, pedal edema - Neurological Exam Neurological exam: Present: alert, oriented X3 - Psychiatric Psychiatric exam: Present: normal affect, normal mood Internal Medicine: Result - Labs CBC & Chem 7: 07/20/16 04:41 07/20/16 04:41 Labs: Short CBC 07/20/16 Range/Units 04:41 WBC 16.9 H (4.3-11.1) K/mcL Hgb 10.5 L (11.5-15.4) g/dL Hct 32.3 L (35.3-44.9) % Plt Count 359 (140-400) K/mcL Neutrophils # 15.7 H (1.6-8.9) K/mcL BMP 07/20/16 04:41 Sodium 137 Potassium 4.2 Chloride 104 Carbon Dioxide 26 BUN 27 H Creatinine 0.71 Glucose 173 H Calcium 9.1 - ABG Interpretation ABG results: PT/INR, D-dimer PT 14.6 Seconds (9.4-12.1) H 07/19/16 11:55 Consult Discharge Plan - Plan Referrals: NO,PCP [Primary Care Provider] -
[2016-07-20] MEDS ORDERED: Warfarin perPT PO PRN (18:00)
[2016-07-20] MEDS ORDERED: *HR* Warfarin 3 MG TABLET PO SCH (18:00)
[2016-07-20] MEDS: Temazepam 15 MG CAPSULE PO SCH (20:56)
[2016-07-20] MEDS ORDERED: 0.9 % Sodium Chloride 500 ML ONE (23:49)
[2016-07-21 03:20] LABS: INR 1.1
[2016-07-21 03:28] LABS: BUN/Creatinine Ratio 43 (6-26); Blood Urea Nitrogen 32 mg/dL (7-20); Carbon Dioxide 28 mEq/L (19-29); Chloride 104 mEq/L (98-109); Glucose 296 mg/dL (70-99); Magnesium 1.7 mg/dL (1.6-2.6); Osmolality,Calculated 304 (280-300); Phosphorous 2.1 mg/dL (2.3-4.7); Potassium 3.9 mEq/L (3.5-4.5); Sodium 138 mEq/L (136-145); eGFR For African Americans > 60 (> 60); eGFR For Non-African Americans > 60 (> 60)
[2016-07-21 03:38] LABS: Basophils % 0.1 %; Hematocrit 31.1 % (35.3-44.9); Immature Granulocytes % 1.1 % (0-4); Lymphocytes # 0.6 K/mcL (0.6-4.6); Lymphocytes % 3.1 %; Mean Corpuscular HGB Conc 32.2 g/dL (31.6-35.5); Mean Corpuscular Hemoglobin 30.1 pg (28.0-33.3); Mean Corpuscular Volume 93.7 fL (83.0-100.0); Mean Platelet Volume 10.2 fL (9.4-12.4); Monocytes # 0.7 K/mcL (0.0-1.3); Monocytes % 3.9 %; Neutrophils # 16.2 K/mcL (1.6-8.9); Platelet Count 382 K/mcL (140-400); Red Blood Count 3.32 M/mcL (3.82-4.97); Red Cell Distribution Width 14.2 % (11.5-14.5); Segmented Neutrophils % 91.8 %
[2016-07-21] MEDS: Levofloxacin 500 MG/100 ML 500 MG/100 ML BAG IVPB SCH (03:48)
[2016-07-21] MEDS: Ipratropium Neb 0.5 MG NEBULIZER IH SCH ×4 (03:59→21:29)
[2016-07-21] MEDS: Levalbuterol Neb 1.25 MG/3 ML IH SCH ×4 (03:59→21:29)
[2016-07-21] MEDS: Lisinopril 20 MG TABLET PO SCH (09:42)
[2016-07-21] MEDS: predniSONE 20 MG TABLET PO SCH (09:42)
[2016-07-21] MEDS: Aspirin Enteric Coated 81 MG Tablet PO SCH (09:42)
[2016-07-21] MEDS: Diltiazem CD (24hr) 120 MG CAPSULE PO SCH (09:42)
[2016-07-21] MEDS ORDERED: *HR* Warfarin 5 MG TABLET PO ONE ×2 (11:48→18:00)
[2016-07-21] MEDS: Heparin 25,000 UNIT/500 ML D5W 25,000 UNIT/500 ML MLS IVC SCH (12:26)
--- NOTE | 2016-07-21 12:26 | Internal Med Progress Note ---
Date of Encounter: 07/21/16 Time of Encounter: 12:26 - Assessment and plan (1) Atrial fibrillation with RVR Current Visit: Yes Status: Acute Assessment and plan: Continue Coumadin Will bridge with heparin and coumadin, to attain INR of 2-3 Rate controlled with Cardizem cardiology input appreciated 2D echo reported LVEF of 60% with mild MR. (2) COPD exacerbation Current Visit: Yes Status: Acute Assessment and plan: continue systemic steroids and bronchodilator support O2 supplementation O2 saturation goal: 89-92% Levofloxacin Guaifenesin/Dextromorphan prn Started Prednisone (Day 03/05) (3) Hypertension Current Visit: Yes Status: Acute Assessment and plan: Noted to be hypertensive continue home medications added Hydralazine 10mg IV q6h PRN SBP>160 will closely monitor, if remains hypertensive, will adjust home medications accordingly Qualifiers: Hypertension type: essential hypertension Qualified Code(s): I10 - Essential (primary) hypertension (4) DVT prophylaxis Current Visit: Yes Status: Acute Assessment and plan: anticoagulated with heparin gtt - Subjective Interval history: Pt seen and examined at bedside. Reports of feeling better. No overnight issues reported. Started Coumadin therapy yesterday. Pt ambulating well around the room without discomfort. Discharge pending achievement of INR within therapeutic range - Constitutional Vitals: Temp Pulse Resp BP Pulse Ox 98.0 F 76 18 152/69 99 07/21/16 07:09 07/21/16 07:09 07/21/16 10:40 07/21/16 07:09 07/21/16 10:40 General appearance: Present: A&O X 3, no acute distress, underweight, answers questions appropriately - Head Head exam: Present: atraumatic, normocephalic - Eye Eye exam: Present: normal appearance, conjuntiva pink, sclera anicteric - Respiratory Respiratory exam: Absent: respiratory distress, wheezes - Cardiovascular Cardiovascular exam: Present: RRR, +S1, +S2. Absent: diastolic murmur, gallop, rubs, systolic murmur - GI/Abdominal GI/Abdominal exam: Present: normal bowel sounds, soft, no peritoneal signs. Absent: distended, tenderness - Extremities Exam Extremities exam: Present: warm, radial pulses palpable and symetrical. Absent : calf tenderness, cyanotic, pedal edema - Neurological Exam Neurological exam: Present: alert, oriented X3 - Psychiatric Psychiatric exam: Present: normal affect, normal mood Internal Medicine: Result - Labs CBC & Chem 7: 07/21/16 03:06 07/21/16 03:06 Labs: Short CBC 07/21/16 Range/Units 03:06 WBC 17.6 H (4.3-11.1) K/mcL Hgb 10.0 L (11.5-15.4) g/dL Hct 31.1 L (35.3-44.9) % Plt Count 382 (140-400) K/mcL Neutrophils # 16.2 H (1.6-8.9) K/mcL BMP 07/21/16 03:06 Sodium 138 Potassium 3.9 Chloride 104 Carbon Dioxide 28 BUN 32 H Creatinine 0.75 Glucose 296 H Calcium 9.0 - ABG Interpretation ABG results: PT/INR, D-dimer PT 12.0 Seconds (9.4-12.1) 07/21/16 03:06 Consult Discharge Plan - Plan Referrals: NO,PCP [Primary Care Provider] -
[2016-07-21] MEDS ORDERED: *HR* OxyCODONE/APAP 5/325 TABLET PO ONE (17:17)
[2016-07-21] MEDS: Temazepam 15 MG CAPSULE PO SCH (20:10)
[2016-07-22] MEDS: Heparin 25,000 UNIT/500 ML D5W 25,000 UNIT/500 ML MLS IVC SCH (02:12)
[2016-07-22] MEDS: Levofloxacin 500 MG/100 ML 500 MG/100 ML BAG IVPB SCH (03:00)
[2016-07-22] MEDS: Ipratropium Neb 0.5 MG NEBULIZER IH SCH ×4 (03:40→21:33)
[2016-07-22] MEDS: Levalbuterol Neb 1.25 MG/3 ML IH SCH ×4 (03:40→21:33)
[2016-07-22 05:21] LABS: INR 1.3; Prothrombin Time 13.7 Seconds (9.4-12.1)
[2016-07-22 07:59] LABS: Basophils % 0.3 %; Hematocrit 34.2 % (35.3-44.9); Hemoglobin 11.1 g/dL (11.5-15.4); Immature Granulocytes % 2.8 % (0-4); Lymphocytes # 1.6 K/mcL (0.6-4.6); Lymphocytes % 12.2 %; Mean Corpuscular HGB Conc 32.5 g/dL (31.6-35.5); Mean Corpuscular Hemoglobin 30.7 pg (28.0-33.3); Mean Corpuscular Volume 94.5 fL (83.0-100.0); Mean Platelet Volume 10.8 fL (9.4-12.4); Monocytes # 1.1 K/mcL (0.0-1.3); Neutrophils # 10.1 K/mcL (1.6-8.9); Platelet Count 388 K/mcL (140-400); Red Blood Count 3.62 M/mcL (3.82-4.97); Red Cell Distribution Width 14.4 % (11.5-14.5); Segmented Neutrophils % 76.7 %
[2016-07-22 08:06] LABS: BUN/Creatinine Ratio 31 (6-26); Calcium 8.9 mg/dL (8.6-10.8); Carbon Dioxide 30 mEq/L (19-29); Chloride 100 mEq/L (98-109); Glucose 123 mg/dL (70-99); Magnesium 1.7 mg/dL (1.6-2.6); Osmolality,Calculated 288 (280-300); Phosphorous 2.5 mg/dL (2.3-4.7); Potassium 3.8 mEq/L (3.5-4.5); Sodium 137 mEq/L (136-145); eGFR For African Americans > 60 (> 60); eGFR For Non-African Americans > 60 (> 60)
[2016-07-22 08:07] LABS: Blood Urea Nitrogen 21 mg/dL (7-20)
[2016-07-22] MEDS: Aspirin Enteric Coated 81 MG Tablet PO SCH (09:00)
[2016-07-22] MEDS: Diltiazem CD (24hr) 120 MG CAPSULE PO SCH (09:00)
[2016-07-22] MEDS: Lisinopril 20 MG TABLET PO SCH (09:00)
[2016-07-22] MEDS: predniSONE 20 MG TABLET PO SCH (09:00)
--- NOTE | 2016-07-22 10:20 | Internal Med Progress Note ---
Date of Encounter: 07/22/16 Time of Encounter: 09:25 - Assessment and plan (1) Atrial fibrillation with RVR Current Visit: Yes Status: Acute Assessment and plan: Continue Coumadin Will bridge with heparin and coumadin, to attain INR of 2-3 Rate controlled with Cardize cardiology input appreciated 2D echo reported LVEF of 60% with mild MR. (2) COPD exacerbation Current Visit: Yes Status: Acute Assessment and plan: continue systemic steroids and bronchodilator support O2 supplementation O2 saturation goal: 89-92% Levofloxacin Guaifenesin/Dextromorphan prn Continue Prednisone (Day 2/7) (3) Hypertension Current Visit: Yes Status: Acute Assessment and plan: BP better controlled continue home medications continue Hydralazine 10mg IV q6h PRN SBP>160 will closely monitor, if remains hypertensive, will adjust home medications accordingly Qualifiers: Hypertension type: essential hypertension Qualified Code(s): I10 - Essential (primary) hypertension (4) DVT prophylaxis Current Visit: Yes Status: Acute Assessment and plan: anticoagulated with heparin gtt (5) Back pain Current Visit: Yes Status: Acute Assessment and plan: Will obtain XRay of L spine Percocet 5/325 PO q6h prn moderate to severe pain pt encouraged to ambulate and get out of bed to chair Qualifiers: Back pain location: low back pain Chronicity: unspecified Back pain laterality: unspecified Sciatica presence: without sciatica Qualified Code(s ): M54.5 - Low back pain - Subjective Interval history: Pt seen and examined at bedside. Reports of worsening lower back pain. Patient encouraged to ambulate and get out of bed to chair. Received one time dose of Percocet 5/325 PO yesterday with adequate pain relief. No overnight issues were reproted. Discharge pending achievement of INR within therapeutic range - Constitutional Vitals: Temp Pulse Resp BP Pulse Ox 97.8 F 92 16 151/81 93 07/22/16 07:21 07/22/16 07:21 07/22/16 07:21 07/22/16 07:21 07/22/16 07:21 General appearance: Present: A&O X 3, no acute distress, underweight, answers questions appropriately - Head Head exam: Present: atraumatic, normocephalic - Eye Eye exam: Present: normal appearance, conjuntiva pink, sclera anicteric - Respiratory Respiratory exam: Present: CTAB. Absent: accessory muscle use, rales, rhonchi, wheezes - Cardiovascular Cardiovascular exam: Present: RRR, +S1, +S2. Absent: diastolic murmur, gallop, rubs, systolic murmur - GI/Abdominal GI/Abdominal exam: Present: normal bowel sounds, soft, no peritoneal signs. Absent: distended, tenderness - Extremities Exam Extremities exam: Present: warm, radial pulses palpable and symetrical. Absent : calf tenderness, cyanotic, pedal edema - Back Exam Back exam: Absent: paraspinal tenderness, tenderness, vertebral tenderness - Neurological Exam Neurological exam: Present: alert, oriented X3 - Psychiatric Psychiatric exam: Present: normal affect, normal mood Internal Medicine: Result - Labs CBC & Chem 7: 07/22/16 04:42 07/22/16 04:42 Labs: Short CBC 07/22/16 Range/Units 04:42 WBC 13.2 H (4.3-11.1) K/mcL Hgb 11.1 L (11.5-15.4) g/dL Hct 34.2 L (35.3-44.9) % Plt Count 388 (140-400) K/mcL Neutrophils # 10.1 H (1.6-8.9) K/mcL BMP 07/22/16 04:42 Sodium 137 Potassium 3.8 Chloride 100 Carbon Dioxide 30 H BUN 21 H D Creatinine 0.68 Glucose 123 H Calcium 8.9 - ABG Interpretation ABG results: PT/INR, D-dimer PT 13.7 Seconds (9.4-12.1) H 07/22/16 04:42 Consult Discharge Plan - Plan Referrals: NO,PCP [Primary Care Provider] -
[2016-07-22] MEDS: *HR* OxyCODONE/APAP 5/325 TABLET PO PRN ×2 (11:46→21:40)
[2016-07-22 14:04] LABS: Bilirubin,Urine Negative (Negative); Blood,Urine Negative (Negative); Clarity,Urine Clear (Clear); Color,Urine Yellow (Yellow); Glucose,Urine (UA) 100 mg/dL (Normal); Ketones,Urine Negative (Negative); Leukocyte Esterase,Urine Negative (Negative); Nitrite,Urine Negative (Negative); PH,Urine 7.5 pH Units (5.0-8.0); Protein,Urine Negative (Neg-Trace); Specific Gravity,Urine 1.014 (1.010-1.025); Urobilinogen,Urine Normal (Normal)
[2016-07-22] MEDS ORDERED: *HR* Warfarin 3 MG TABLET PO ONE (18:00)
[2016-07-22] MEDS: Temazepam 15 MG CAPSULE PO SCH (21:39)
[2016-07-23 01:29] LABS: Basophils % 0.3 %; Hematocrit 31.6 % (35.3-44.9); Hemoglobin 10.4 g/dL (11.5-15.4); Immature Granulocytes % 3.6 % (0-4); Lymphocytes # 1.1 K/mcL (0.6-4.6); Lymphocytes % 11.7 %; Mean Corpuscular HGB Conc 32.9 g/dL (31.6-35.5); Mean Corpuscular Hemoglobin 30.3 pg (28.0-33.3); Mean Corpuscular Volume 92.1 fL (83.0-100.0); Mean Platelet Volume 9.5 fL (9.4-12.4); Monocytes # 0.7 K/mcL (0.0-1.3); Neutrophils # 7.6 K/mcL (1.6-8.9); Platelet Count 329 K/mcL (140-400); Red Blood Count 3.43 M/mcL (3.82-4.97); Red Cell Distribution Width 14.3 % (11.5-14.5); Segmented Neutrophils % 77.4 %
[2016-07-23 01:39] LABS: INR 1.5; Prothrombin Time 16.3 Seconds (9.4-12.1)
[2016-07-23 01:43] LABS: BUN/Creatinine Ratio 36 (6-26); Blood Urea Nitrogen 28 mg/dL (7-20); Calcium 8.6 mg/dL (8.6-10.8); Carbon Dioxide 31 mEq/L (19-29); Chloride 100 mEq/L (98-109); Glucose 148 mg/dL (70-99); Magnesium 2.1 mg/dL (1.6-2.6); Osmolality,Calculated 290 (280-300); Phosphorous 3.5 mg/dL (2.3-4.7); Potassium 4.4 mEq/L (3.5-4.5); Sodium 136 mEq/L (136-145); eGFR For African Americans > 60 (> 60); eGFR For Non-African Americans > 60 (> 60)
[2016-07-23] MEDS ORDERED: 0.9 % Sodium Chloride 500 ML ONE (02:47)
[2016-07-23] MEDS: Levofloxacin 500 MG/100 ML 500 MG/100 ML BAG IVPB SCH (02:51)
[2016-07-23] MEDS: Heparin 25,000 UNIT/500 ML D5W 25,000 UNIT/500 ML MLS IVC SCH (03:15)
[2016-07-23] MEDS: Levalbuterol Neb 1.25 MG/3 ML IH SCH ×4 (04:34→22:04)
[2016-07-23] MEDS: Ipratropium Neb 0.5 MG NEBULIZER IH SCH ×4 (04:34→22:04)
[2016-07-23] MEDS: predniSONE 20 MG TABLET PO SCH (09:39)
[2016-07-23] MEDS: Aspirin Enteric Coated 81 MG Tablet PO SCH (09:40)
[2016-07-23] MEDS: Diltiazem CD (24hr) 120 MG CAPSULE PO SCH (09:40)
[2016-07-23] MEDS: Lisinopril 20 MG TABLET PO SCH (09:40)
--- NOTE | 2016-07-23 11:44 | Internal Med Progress Note ---
Date of Encounter: 07/23/16 Time of Encounter: 11:42 - Assessment and plan (1) Atrial fibrillation with RVR Current Visit: Yes Status: Acute Assessment and plan: Continue Coumadin Will bridge with heparin and coumadin, to attain INR of 2-3 Rate controlled with Cardize cardiology input appreciated 2D echo reported LVEF of 60% with mild MR. Discharge pending INR between 2-3 (2) COPD exacerbation Current Visit: Yes Status: Acute Assessment and plan: continue systemic steroids and bronchodilator support O2 supplementation O2 saturation goal: 89-92% Levofloxacin (day 5/7) Guaifenesin/Dextromorphan prn Continue Prednisone (Day 3/7) (3) Hypertension Current Visit: Yes Status: Acute Assessment and plan: BP better controlled continue home medications continue Hydralazine 10mg IV q6h PRN SBP>160 will closely monitor, if remains hypertensive, will adjust home medications accordingly Qualifiers: Hypertension type: essential hypertension Qualified Code(s): I10 - Essential (primary) hypertension (4) DVT prophylaxis Current Visit: Yes Status: Acute Assessment and plan: anticoagulated with heparin gtt (5) Back pain Current Visit: Yes Status: Acute Assessment and plan: XRay of L spine: no acute abnormalities, chronic degenerative changes reported continue Percocet 5/325 PO q6h prn moderate to severe pain pt encouraged to ambulate and get out of bed to chair Qualifiers: Back pain location: low back pain Chronicity: unspecified Back pain laterality: unspecified Sciatica presence: without sciatica Qualified Code(s ): M54.5 - Low back pain - Subjective Interval history: Pt seen and examined at bedside. Pain better controlled. Denies any discomfort at this time. No overnight issues were reported. Discharge pending achievement of INR within therapeutic range - Constitutional Vitals: Temp Pulse Resp BP Pulse Ox 98.2 F 98 17 137/63 93 07/23/16 10:33 07/23/16 10:33 07/23/16 10:33 07/23/16 10:33 07/23/16 10:33 General appearance: Present: A&O X 3, no acute distress, underweight, answers questions appropriately - Head Head exam: Present: atraumatic, normocephalic - Eye Eye exam: Present: conjuntiva pink, sclera anicteric - Respiratory Respiratory exam: Present: CTAB. Absent: accessory muscle use, rales, rhonchi, wheezes - Cardiovascular Cardiovascular exam: Present: RRR, +S1, +S2. Absent: diastolic murmur, gallop, rubs, systolic murmur - GI/Abdominal GI/Abdominal exam: Present: normal bowel sounds, soft, no peritoneal signs. Absent: distended, tenderness - Extremities Exam Extremities exam: Present: warm, radial pulses palpable and symetrical. Absent : calf tenderness, cyanotic, pedal edema - Neurological Exam Neurological exam: Present: alert, oriented X3 - Psychiatric Psychiatric exam: Present: normal affect, normal mood Internal Medicine: Result - Labs CBC & Chem 7: 07/23/16 01:21 07/23/16 01:21 Labs: Short CBC 07/23/16 Range/Units 01:21 WBC 9.8 (4.3-11.1) K/mcL Hgb 10.4 L (11.5-15.4) g/dL Hct 31.6 L (35.3-44.9) % Plt Count 329 (140-400) K/mcL Neutrophils # 7.6 (1.6-8.9) K/mcL BMP 07/23/16 01:21 Sodium 136 Potassium 4.4 Chloride 100 Carbon Dioxide 31 H BUN 28 H Creatinine 0.78 Glucose 148 H Calcium 8.6 Urine 07/22/16 Range/Units 12:15 Urine Color Yellow (Yellow) Urine Clarity Clear (Clear) Urine pH 7.5 (5.0-8.0) pH Units Ur Specific [place] 1.014 (1.010-1.025) Urine Protein Negative (Neg-Trace) mg/dL Urine Glucose (UA) 100 H (Normal) mg/dL - ABG Interpretation ABG results: PT/INR, D-dimer PT 16.3 Seconds (9.4-12.1) H 07/23/16 01:21 - Impressions Impressions Lumbar Spine X-Ray 07/22/16 10:16 IMPRESSION: No acute abnormality in the lumbar spine. Mild facet degenerative changes in the lower lumbar spine. D/ / 07/22/2016 11:45:09 Anthony Dixon MD / ramya Interpreting Provider: Anthony Dixon MD Consult Discharge Plan - Plan Referrals: Michaela Torres, [employer] [Advanced Practice Nurse] - (web request sent on 07/22/16 )
[2016-07-23] MEDS: Temazepam 15 MG CAPSULE PO SCH (21:18)
[2016-07-24] MEDS: Heparin 25,000 UNIT/500 ML D5W 25,000 UNIT/500 ML MLS IVC SCH (03:29)
[2016-07-24 03:43] LABS: Basophils # 0.1 K/mcL (0.0-0.2); Basophils % 0.5 %; Eosinophils % 0.2 %; Hematocrit 33.5 % (35.3-44.9); Hemoglobin 10.6 g/dL (11.5-15.4); Immature Granulocytes % 4.8 % (0-4); Lymphocytes # 1.6 K/mcL (0.6-4.6); Lymphocytes % 15.5 %; Mean Corpuscular HGB Conc 31.6 g/dL (31.6-35.5); Mean Corpuscular Hemoglobin 29.7 pg (28.0-33.3); Mean Corpuscular Volume 93.8 fL (83.0-100.0); Mean Platelet Volume 9.7 fL (9.4-12.4); Monocytes # 0.8 K/mcL (0.0-1.3); Monocytes % 7.4 %; Neutrophils # 7.4 K/mcL (1.6-8.9); Nucleated Red Blood Cells 0.2 /100 WBC (0); Platelet Count 381 K/mcL (140-400); Red Blood Count 3.57 M/mcL (3.82-4.97); Red Cell Distribution Width 14.4 % (11.5-14.5); Segmented Neutrophils % 71.6 %
[2016-07-24] MEDS: Levofloxacin 250 MG/50 ML 250 MG/50 ML BAG IVPB SCH (03:45)
[2016-07-24 03:48] LABS: INR 1.5; Prothrombin Time 16.6 Seconds (9.4-12.1)
[2016-07-24 03:58] LABS: BUN/Creatinine Ratio 39 (6-26); Blood Urea Nitrogen 30 mg/dL (7-20); Calcium 8.8 mg/dL (8.6-10.8); Carbon Dioxide 31 mEq/L (19-29); Chloride 102 mEq/L (98-109); Glucose 110 mg/dL (70-99); Magnesium 2.1 mg/dL (1.6-2.6); Osmolality,Calculated 295 (280-300); Phosphorous 3.6 mg/dL (2.3-4.7); Potassium 4.2 mEq/L (3.5-4.5); Sodium 139 mEq/L (136-145); eGFR For African Americans > 60 (> 60); eGFR For Non-African Americans > 60 (> 60)
[2016-07-24] MEDS: Levalbuterol Neb 1.25 MG/3 ML IH SCH ×4 (04:06→22:04)
[2016-07-24] MEDS: Ipratropium Neb 0.5 MG NEBULIZER IH SCH ×4 (04:06→22:04)
[2016-07-24 04:07] LABS: Platelet Estimate Normal (Normal); Reactive Lymphocytes Present (Not Present)
[2016-07-24 04:11] LABS: Poikilocytosis 1+ (Not Present); Schistocytes 1+ (Not Present)
[2016-07-24] MEDS ORDERED: *HR* Warfarin 5 MG TABLET PO ONE (08:30)
[2016-07-24] MEDS: Aspirin Enteric Coated 81 MG Tablet PO SCH (08:44)
[2016-07-24] MEDS: Diltiazem CD (24hr) 120 MG CAPSULE PO SCH (08:44)
[2016-07-24] MEDS: predniSONE 20 MG TABLET PO SCH (08:44)
[2016-07-24] MEDS: Lisinopril 20 MG TABLET PO SCH (08:45)
--- NOTE | 2016-07-24 11:13 | Internal Med Progress Note ---
Date of Encounter: 07/24/16 Time of Encounter: 11:11 - Assessment and plan (1) Atrial fibrillation with RVR Current Visit: Yes Status: Acute Assessment and plan: Continue Coumadin Will bridge with heparin and coumadin, to attain INR of 2-3 Rate controlled with Cardize cardiology input appreciated 2D echo reported LVEF of 60% with mild MR. Discharge pending INR between 2-3 (2) COPD exacerbation Current Visit: Yes Status: Acute Assessment and plan: continue systemic steroids and bronchodilator support O2 supplementation O2 saturation goal: 89-92% Levofloxacin (day 6/7) Guaifenesin/Dextromorphan prn Continue Prednisone (Day 4/7) (3) Hypertension Current Visit: Yes Status: Acute Assessment and plan: BP better controlled continue home medications continue Hydralazine 10mg IV q6h PRN SBP>160 will closely monitor, if remains hypertensive, will adjust home medications accordingly Qualifiers: Hypertension type: essential hypertension Qualified Code(s): I10 - Essential (primary) hypertension (4) DVT prophylaxis Current Visit: Yes Status: Acute Assessment and plan: anticoagulated with heparin gtt (5) Back pain Current Visit: Yes Status: Acute Assessment and plan: XRay of L spine: no acute abnormalities, chronic degenerative changes reported continue Percocet 5/325 PO q6h prn moderate to severe pain pt encouraged to ambulate and get out of bed to chair Qualifiers: Back pain location: low back pain Chronicity: unspecified Back pain laterality: unspecified Sciatica presence: without sciatica Qualified Code(s ): M54.5 - Low back pain - Subjective Interval history: Pt seen and examined at bedside. Resting in bed and reports of ambulating around the room and sitting in the chair. Pt was reported of not receiving her coumadin dose last night for unknown reason. PTT within therapeutic range and pt currently receiving heparin gtt. Discharge pending achievement of INR within therapeutic range - Constitutional Vitals: Temp Pulse Resp BP Pulse Ox 98.2 F 105 16 133/68 90 07/24/16 11:00 07/24/16 11:00 07/24/16 11:00 07/24/16 11:00 07/24/16 11:00 General appearance: Present: A&O X 3, no acute distress, underweight, answers questions appropriately - Head Head exam: Present: atraumatic, normocephalic - Eye Eye exam: Present: normal appearance, conjuntiva pink, sclera anicteric - Respiratory Respiratory exam: Present: CTAB. Absent: accessory muscle use, rales, rhonchi, wheezes - Cardiovascular Cardiovascular exam: Present: RRR, +S1, +S2. Absent: diastolic murmur, gallop, rubs, systolic murmur - GI/Abdominal GI/Abdominal exam: Present: normal bowel sounds, soft, no peritoneal signs. Absent: distended, tenderness - Extremities Exam Extremities exam: Present: warm, radial pulses palpable and symetrical. Absent : calf tenderness, cyanotic, pedal edema - Neurological Exam Neurological exam: Present: alert, oriented X3 - Psychiatric Psychiatric exam: Present: normal affect, normal mood Internal Medicine: Result - Labs CBC & Chem 7: 07/24/16 03:27 07/24/16 03:27 Labs: Short CBC 07/24/16 Range/Units 03:27 WBC 10.3 (4.3-11.1) K/mcL Hgb 10.6 L (11.5-15.4) g/dL Hct 33.5 L (35.3-44.9) % Plt Count 381 (140-400) K/mcL Neutrophils # 7.4 (1.6-8.9) K/mcL BMP 07/24/16 03:27 Sodium 139 Potassium 4.2 Chloride 102 Carbon Dioxide 31 H BUN 30 H Creatinine 0.77 Glucose 110 H Calcium 8.8 - ABG Interpretation ABG results: PT/INR, D-dimer PT 16.6 Seconds (9.4-12.1) H 07/24/16 03:27 Consult Discharge Plan - Plan Referrals: Michaela Torres, MILITARY TECHNOLOGY MANAGER [Advanced Practice Nurse] - (web request sent on 07/22/16 )
[2016-07-24] MEDS: Temazepam 15 MG CAPSULE PO SCH (21:30)
[2016-07-25] MEDS: Levalbuterol Neb 1.25 MG/3 ML IH SCH ×4 (03:55→21:24)
[2016-07-25] MEDS: Ipratropium Neb 0.5 MG NEBULIZER IH SCH ×4 (03:55→21:24)
[2016-07-25] MEDS: Levofloxacin 250 MG/50 ML 250 MG/50 ML BAG IVPB SCH (04:29)
[2016-07-25] MEDS: Heparin 25,000 UNIT/500 ML D5W 25,000 UNIT/500 ML MLS IVC SCH (05:17)
[2016-07-25 05:28] LABS: Hematocrit 33.2 % (35.3-44.9); Hemoglobin 10.8 g/dL (11.5-15.4); Mean Corpuscular HGB Conc 32.5 g/dL (31.6-35.5); Mean Corpuscular Hemoglobin 30.3 pg (28.0-33.3); Mean Corpuscular Volume 93.3 fL (83.0-100.0); Mean Platelet Volume 10.2 fL (9.4-12.4); Platelet Count 389 K/mcL (140-400); Red Blood Count 3.56 M/mcL (3.82-4.97); Red Cell Distribution Width 14.7 % (11.5-14.5)
[2016-07-25 05:34] LABS: INR 1.7; Prothrombin Time 18.2 Seconds (9.4-12.1)
[2016-07-25 06:19] LABS: Lymphocytes # 2.2 K/mcL (0.6-4.6); Monocytes # 1.2 K/mcL (0.0-1.3); Neutrophils # 6.7 K/mcL (1.6-8.9)
[2016-07-25 06:20] LABS: Platelet Estimate Normal (Normal); Reactive Lymphocytes Present (Not Present)
[2016-07-25 06:21] LABS: BUN/Creatinine Ratio 39 (6-26); Blood Urea Nitrogen 28 mg/dL (7-20); Calcium 8.6 mg/dL (8.6-10.8); Carbon Dioxide 31 mEq/L (19-29); Chloride 103 mEq/L (98-109); Glucose 98 mg/dL (70-99); Macrocytosis Present (Not Present); Magnesium 2.1 mg/dL (1.6-2.6); Osmolality,Calculated 295 (280-300); Phosphorous 4.1 mg/dL (2.3-4.7); Potassium 4.1 mEq/L (3.5-4.5); Sodium 140 mEq/L (136-145); eGFR For African Americans > 60 (> 60); eGFR For Non-African Americans > 60 (> 60)
[2016-07-25 06:22] LABS: Poikilocytosis 1+ (Not Present); Polychromasia 1+ (Not Present); Schistocytes 1+ (Not Present)
[2016-07-25] MEDS: Aspirin Enteric Coated 81 MG Tablet PO SCH (08:30)
[2016-07-25] MEDS: predniSONE 20 MG TABLET PO SCH (08:30)
[2016-07-25] MEDS: Diltiazem CD (24hr) 120 MG CAPSULE PO SCH (08:30)
[2016-07-25] MEDS: Lisinopril 20 MG TABLET PO SCH (08:30)
--- NOTE | 2016-07-25 13:22 | Internal Med Progress Note ---
Date of Encounter: 07/25/16 Time of Encounter: 12:30 - Assessment and plan (1) Atrial fibrillation with RVR Current Visit: Yes Status: Acute Assessment and plan: Continue Coumadin Will bridge with heparin and coumadin, to attain INR of 2-3 Rate controlled with Cardize cardiology input appreciated 2D echo reported LVEF of 60% with mild MR. Discharge pending INR between 2-3 (2) COPD exacerbation Current Visit: Yes Status: Acute Assessment and plan: continue systemic steroids and bronchodilator support O2 supplementation O2 saturation goal: 89-92% Levofloxacin (day 7) Guaifenesin/Dextromorphan prn Continue Prednisone (Day 07/03) (3) Hypertension Current Visit: Yes Status: Acute Assessment and plan: BP better controlled continue home medications continue Hydralazine 10mg IV q6h PRN SBP>160 will closely monitor, if remains hypertensive, will adjust home medications accordingly Qualifiers: Hypertension type: essential hypertension Qualified Code(s): I10 - Essential (primary) hypertension (4) DVT prophylaxis Current Visit: Yes Status: Acute Assessment and plan: anticoagulated with heparin gtt (5) Back pain Current Visit: Yes Status: Acute Assessment and plan: XRay of L spine: no acute abnormalities, chronic degenerative changes reported continue Percocet 5/325 PO q6h prn moderate to severe pain pt encouraged to ambulate and get out of bed to chair Qualifiers: Back pain location: low back pain Chronicity: unspecified Back pain laterality: unspecified Sciatica presence: without sciatica Qualified Code(s ): M54.5 - Low back pain - Subjective Interval history: Pt seen and examined at bedside. Resting in bed and reports of ambulating around the room and sitting in the chair. NO overnight issues reported Discharge pending achievement of INR within therapeutic range - Constitutional Vitals: Temp Pulse Resp BP Pulse Ox 98.3 F 104 16 150/80 92 07/25/16 10:42 07/25/16 10:42 07/25/16 10:42 07/25/16 10:42 07/25/16 10:42 General appearance: Present: A&O X 3, no acute distress, underweight, answers questions appropriately - Head Head exam: Present: atraumatic, normocephalic - Eye Eye exam: Present: normal appearance, conjuntiva pink, sclera anicteric - Respiratory Respiratory exam: Present: CTAB. Absent: accessory muscle use, rales, rhonchi, wheezes - Cardiovascular Cardiovascular exam: Present: RRR, +S1, +S2. Absent: diastolic murmur, gallop, rubs, systolic murmur - GI/Abdominal GI/Abdominal exam: Present: normal bowel sounds, soft, no peritoneal signs. Absent: distended, tenderness - Extremities Exam Extremities exam: Present: warm, radial pulses palpable and symetrical. Absent : calf tenderness, cyanotic, pedal edema - Neurological Exam Neurological exam: Present: alert, oriented X3 - Psychiatric Psychiatric exam: Present: normal affect, normal mood Internal Medicine: Result - Labs CBC & Chem 7: 07/25/16 04:18 07/25/16 04:18 Labs: Short CBC 07/25/16 Range/Units 04:18 WBC 10.1 (4.3-11.1) K/mcL Hgb 10.8 L (11.5-15.4) g/dL Hct 33.2 L (35.3-44.9) % Plt Count 389 (140-400) K/mcL Neutrophils # 6.7 (1.6-8.9) K/mcL BMP 07/25/16 04:18 Sodium 140 Potassium 4.1 Chloride 103 Carbon Dioxide 31 H BUN 28 H Creatinine 0.72 Glucose 98 Calcium 8.6 - ABG Interpretation ABG results: PT/INR, D-dimer PT 18.2 Seconds (9.4-12.1) H 07/25/16 04:18 Consult Discharge Plan - Plan Referrals: Michaela Torres, COMPLIANCE TECHNICIAN [Advanced Practice Nurse] - (web request sent on 07/22/16 )
[2016-07-25] MEDS ORDERED: *HR* Warfarin 3 MG TABLET PO ONE (18:00)
[2016-07-25 20:30] LABS: Activated Partial Thrombo Time 111.3 Seconds (26.0-36.0)
[2016-07-25 20:35] LABS: Heparin anti-factor XA UFH 0.82 IU/mL (0.30-0.70)
[2016-07-25] MEDS: Temazepam 15 MG CAPSULE PO SCH (21:58)
[2016-07-26] MEDS: Levofloxacin 250 MG/50 ML 250 MG/50 ML BAG IVPB SCH (03:09)
[2016-07-26 03:37] LABS: Basophils % 0.3 %; Eosinophils % 0.2 %; Hematocrit 32.5 % (35.3-44.9); Hemoglobin 10.5 g/dL (11.5-15.4); Immature Granulocytes % 4.6 % (0-4); Lymphocytes # 1.8 K/mcL (0.6-4.6); Lymphocytes % 16.8 %; Mean Corpuscular HGB Conc 32.3 g/dL (31.6-35.5); Mean Corpuscular Hemoglobin 30.2 pg (28.0-33.3); Mean Corpuscular Volume 93.4 fL (83.0-100.0); Mean Platelet Volume 9.7 fL (9.4-12.4); Monocytes # 0.9 K/mcL (0.0-1.3); Monocytes % 8.9 %; Neutrophils # 7.3 K/mcL (1.6-8.9); Platelet Count 364 K/mcL (140-400); Red Blood Count 3.48 M/mcL (3.82-4.97); Red Cell Distribution Width 14.9 % (11.5-14.5); Segmented Neutrophils % 69.2 %
[2016-07-26 03:43] LABS: INR 1.7; Prothrombin Time 18.1 Seconds (9.4-12.1)
[2016-07-26 03:45] LABS: Activated Partial Thrombo Time 83.3 Seconds (26.0-36.0)
[2016-07-26 03:53] LABS: BUN/Creatinine Ratio 40 (6-26); Blood Urea Nitrogen 29 mg/dL (7-20); Calcium 8.7 mg/dL (8.6-10.8); Carbon Dioxide 27 mEq/L (19-29); Chloride 103 mEq/L (98-109); Glucose 111 mg/dL (70-99); Magnesium 2.1 mg/dL (1.6-2.6); Osmolality,Calculated 295 (280-300); Phosphorous 4.3 mg/dL (2.3-4.7); Potassium 4.2 mEq/L (3.5-4.5); Sodium 139 mEq/L (136-145); eGFR For African Americans > 60 (> 60); eGFR For Non-African Americans > 60 (> 60)
[2016-07-26] MEDS: Ipratropium Neb 0.5 MG NEBULIZER IH SCH ×4 (05:23→21:52)
[2016-07-26] MEDS: Levalbuterol Neb 1.25 MG/3 ML IH SCH ×4 (05:23→21:52)
[2016-07-26] MEDS: Lisinopril 20 MG TABLET PO SCH (07:57)
[2016-07-26] MEDS: Diltiazem CD (24hr) 120 MG CAPSULE PO SCH (07:57)
[2016-07-26] MEDS: Aspirin Enteric Coated 81 MG Tablet PO SCH (07:57)
[2016-07-26] MEDS: predniSONE 20 MG TABLET PO SCH (07:58)
[2016-07-26] MEDS: Heparin 25,000 UNIT/500 ML D5W 25,000 UNIT/500 ML MLS IVC SCH (10:58)
[2016-07-26] MEDS ORDERED: 0.9 % Sodium Chloride 500 ML ONE (11:05)
--- NOTE | 2016-07-26 14:28 | Internal Med Progress Note ---
Date of Encounter: 07/26/16 Time of Encounter: 14:26 - Assessment and plan (1) Atrial fibrillation with RVR Current Visit: Yes Status: Acute Assessment and plan: Continue Coumadin Will bridge with heparin and coumadin, to attain INR of 2-3 Rate controlled with Cardize cardiology input appreciated 2D echo reported LVEF of 60% with mild MR. Discharge pending INR between 2-3 (2) COPD exacerbation Current Visit: Yes Status: Acute Assessment and plan: continue systemic steroids and bronchodilator support O2 supplementation O2 saturation goal: 89-92% Levofloxacin (day 09/02)-finished abx therapy Guaifenesin/Dextromorphan prn Continue Prednisone (Day 67) (3) Hypertension Current Visit: Yes Status: Acute Assessment and plan: BP better controlled continue home medications continue Hydralazine 10mg IV q6h PRN SBP>160 will closely monitor, if remains hypertensive, will adjust home medications accordingly Qualifiers: Hypertension type: essential hypertension Qualified Code(s): I10 - Essential (primary) hypertension (4) DVT prophylaxis Current Visit: Yes Status: Acute Assessment and plan: anticoagulated with heparin gtt (5) Back pain Current Visit: Yes Status: Acute Assessment and plan: XRay of L spine: no acute abnormalities, chronic degenerative changes reported continue Percocet 5/325 PO q6h prn moderate to severe pain pt encouraged to ambulate and get out of bed to chair added Senna plus PO BID for constipation and Miralax PRN Qualifiers: Back pain location: low back pain Chronicity: unspecified Back pain laterality: unspecified Sciatica presence: without sciatica Qualified Code(s ): M54.5 - Low back pain - Subjective Interval history: Pt seen and examined at bedside. Resting in bed and reports of ambulating around the room and sitting in the chair. NO overnight issues reported. Reports of being constipated. Discharge pending achievement of INR within therapeutic range - Constitutional Vitals: Temp Pulse Resp BP Pulse Ox 98.2 F 100 18 124/65 93 07/26/16 12:01 07/26/16 12:01 07/26/16 12:01 07/26/16 12:01 07/26/16 12:01 General appearance: Present: A&O X 3, no acute distress, underweight, answers questions appropriately - Head Head exam: Present: atraumatic, normocephalic - Eye Eye exam: Present: normal appearance, conjuntiva pink, sclera anicteric - Respiratory Respiratory exam: Present: CTAB. Absent: accessory muscle use, rales, rhonchi, wheezes - Cardiovascular Cardiovascular exam: Present: RRR, +S1, +S2. Absent: diastolic murmur, gallop, rubs, systolic murmur - GI/Abdominal GI/Abdominal exam: Present: normal bowel sounds, soft, no peritoneal signs. Absent: distended, tenderness - Extremities Exam Extremities exam: Present: warm, radial pulses palpable and symetrical. Absent : calf tenderness, cyanotic, pedal edema - Neurological Exam Neurological exam: Present: alert, oriented X3. Absent: pronater drift, facial droop, speech deficit - Psychiatric Psychiatric exam: Present: normal affect, normal mood Internal Medicine: Result - Labs CBC & Chem 7: 07/26/16 03:19 07/26/16 03:19 Labs: Short CBC 07/26/16 Range/Units 03:19 WBC 10.5 (4.3-11.1) K/mcL Hgb 10.5 L (11.5-15.4) g/dL Hct 32.5 L (35.3-44.9) % Plt Count 364 (140-400) K/mcL Neutrophils # 7.3 (1.6-8.9) K/mcL BMP 07/26/16 03:19 Sodium 139 Potassium 4.2 Chloride 103 Carbon Dioxide 27 BUN 29 H Creatinine 0.73 Glucose 111 H Calcium 8.7 - ABG Interpretation ABG results: PT/INR, D-dimer PT 18.1 Seconds (9.4-12.1) H 07/26/16 03:19 Consult Discharge Plan - Plan Referrals: Afshan Grimes ALMOND GRINDER [Advanced Practice Nurse] - 07/28/16 1:00 pm
[2016-07-26] MEDS ORDERED: *HR* Warfarin 5 MG TABLET PO ONE (18:00)
[2016-07-26] MEDS: Sennosides/Docusate Sodium TABLET PO SCH (19:57)
[2016-07-26] MEDS: Temazepam 15 MG CAPSULE PO SCH (19:57)
[2016-07-27 01:09] LABS: Basophils % 0.2 %; Eosinophils % 0.1 %; Hematocrit 30.9 % (35.3-44.9); Hemoglobin 10.1 g/dL (11.5-15.4); Immature Granulocytes % 4.4 % (0-4); Lymphocytes # 1.6 K/mcL (0.6-4.6); Lymphocytes % 14.9 %; Mean Corpuscular HGB Conc 32.7 g/dL (31.6-35.5); Mean Corpuscular Hemoglobin 30.5 pg (28.0-33.3); Mean Corpuscular Volume 93.4 fL (83.0-100.0); Mean Platelet Volume 10.1 fL (9.4-12.4); Monocytes # 1.1 K/mcL (0.0-1.3); Monocytes % 10.6 %; Neutrophils # 7.3 K/mcL (1.6-8.9); Platelet Count 370 K/mcL (140-400); Red Blood Count 3.31 M/mcL (3.82-4.97); Red Cell Distribution Width 14.8 % (11.5-14.5); Segmented Neutrophils % 69.8 %
[2016-07-27 01:19] LABS: INR 1.6; Prothrombin Time 17.8 Seconds (9.4-12.1)
[2016-07-27 01:22] LABS: BUN/Creatinine Ratio 47 (6-26); Blood Urea Nitrogen 35 mg/dL (7-20); Calcium 8.8 mg/dL (8.6-10.8); Carbon Dioxide 29 mEq/L (19-29); Chloride 101 mEq/L (98-109); Glucose 130 mg/dL (70-99); Osmolality,Calculated 296 (280-300); Phosphorous 4.6 mg/dL (2.3-4.7); Potassium 4.4 mEq/L (3.5-4.5); Sodium 138 mEq/L (136-145); eGFR For African Americans > 60 (> 60); eGFR For Non-African Americans > 60 (> 60)
[2016-07-27] MEDS: Ipratropium Neb 0.5 MG NEBULIZER IH SCH ×4 (04:21→22:41)
[2016-07-27] MEDS: Levalbuterol Neb 1.25 MG/3 ML IH SCH ×4 (04:21→22:41)
[2016-07-27 06:32] LABS: Activated Partial Thrombo Time 91.3 Seconds (26.0-36.0)
[2016-07-27] MEDS: predniSONE 20 MG TABLET PO SCH (08:09)
[2016-07-27] MEDS: Aspirin Enteric Coated 81 MG Tablet PO SCH (08:09)
[2016-07-27] MEDS: Sennosides/Docusate Sodium TABLET PO SCH ×2 (08:09→20:24)
[2016-07-27] MEDS: Diltiazem CD (24hr) 120 MG CAPSULE PO SCH (08:09)
[2016-07-27] MEDS: Lisinopril 20 MG TABLET PO SCH (08:09)
[2016-07-27 08:30] LABS: INR 1.7; Prothrombin Time 18.7 Seconds (9.4-12.1)
[2016-07-27] MEDS: *HR* Enoxaparin 60 MG/0.6 ML SYRINGE SQ SCH ×2 (09:48→20:24)
--- NOTE | 2016-07-27 11:54 | Internal Med Progress Note ---
Date of Encounter: 07/27/16 Time of Encounter: 11:52 - Assessment and plan (1) Atrial fibrillation with RVR Current Visit: Yes Status: Acute Assessment and plan: Continue Coumadin Started Lovenox SQ therapeutic dose BID bridge with coumadin to attain INR: 2-3 Rate controlled with Cardizem 2D echo reported LVEF of 60% with mild MR. Discharge pending INR between 2-3 and ECF placement (2) COPD exacerbation Current Visit: Yes Status: Acute Assessment and plan: continue systemic steroids and bronchodilator support O2 supplementation O2 saturation goal: 89-92% Levofloxacin (day 7)-finished abx therapy Guaifenesin/Dextromorphan prn Continue Prednisone (Day 09/02) (3) Hypertension Current Visit: Yes Status: Acute Assessment and plan: BP better controlled continue home medications continue Hydralazine 10mg IV q6h PRN SBP>160 will closely monitor, if remains hypertensive, will adjust home medications accordingly Qualifiers: Hypertension type: essential hypertension Qualified Code(s): I10 - Essential (primary) hypertension (4) DVT prophylaxis Current Visit: Yes Status: Acute Assessment and plan: lovenox (5) Back pain Current Visit: Yes Status: Acute Assessment and plan: XRay of L spine: no acute abnormalities, chronic degenerative changes reported continue Percocet 5/325 PO q6h prn moderate to severe pain pt encouraged to ambulate and get out of bed to chair Senna plus PO BID for constipation and Miralax PRN Qualifiers: Back pain location: low back pain Chronicity: unspecified Back pain laterality: unspecified Sciatica presence: without sciatica Qualified Code(s ): M54.5 - Low back pain - Subjective Interval history: Pt seen and examined at bedside. Denies any discomfort at this time d/c heparin SQ start therapeutic lovenox d/c planning ECF placement - Constitutional Vitals: Temp Pulse Resp BP Pulse Ox 98.0 F 98 16 106/67 93 07/27/16 11:23 07/27/16 11:23 07/27/16 11:23 07/27/16 11:23 07/27/16 11:23 General appearance: Present: A&O X 3 (frail appearing elderly female ), no acute distress, underweight, answers questions appropriately - Head Head exam: Present: atraumatic, normocephalic - Eye Eye exam: Present: normal appearance, conjuntiva pink, sclera anicteric - Respiratory Respiratory exam: Present: CTAB. Absent: respiratory distress, wheezes - Cardiovascular Cardiovascular exam: Present: RRR, +S1, +S2. Absent: diastolic murmur, gallop, rubs, systolic murmur - GI/Abdominal GI/Abdominal exam: Present: normal bowel sounds, soft, no peritoneal signs. Absent: distended, tenderness - Extremities Exam Extremities exam: Present: warm, radial pulses palpable and symetrical. Absent : calf tenderness, cyanotic, pedal edema Internal Medicine: Result - Labs CBC & Chem 7: 07/27/16 00:36 07/27/16 00:36 Labs: Short CBC 07/27/16 Range/Units 00:36 WBC 10.5 (4.3-11.1) K/mcL Hgb 10.1 L (11.5-15.4) g/dL Hct 30.9 L (35.3-44.9) % Plt Count 370 (140-400) K/mcL Neutrophils # 7.3 (1.6-8.9) K/mcL BMP 07/27/16 00:36 Sodium 138 Potassium 4.4 Chloride 101 Carbon Dioxide 29 BUN 35 H Creatinine 0.75 Glucose 130 H Calcium 8.8 - ABG Interpretation ABG results: PT/INR, D-dimer PT 18.7 Seconds (9.4-12.1) H 07/27/16 05:59 - Impressions Impressions Chest X-Ray 07/19/16 23:58 IMPRESSION: No acute cardiopulmonary process. Emphysematous changes. D/ / 07/19/2016 04:41:24 Zain Figueroa MD / kristy Interpreting Provider: Zain Figueroa MD Consult Discharge Plan - Plan Instructions: Warfarin (By mouth) Referrals: Afshan Grimes CNP [Advanced Practice Nurse] - 07/28/16 1:00 pm
[2016-07-27] MEDS ORDERED: *HR* Warfarin 5 MG TABLET PO ONE (18:00)
[2016-07-27] MEDS: Temazepam 15 MG CAPSULE PO SCH (20:24)
[2016-07-28] MEDS: Levalbuterol Neb 1.25 MG/3 ML IH SCH ×2 (03:53→10:11)
[2016-07-28] MEDS: Ipratropium Neb 0.5 MG NEBULIZER IH SCH ×2 (03:53→10:11)
[2016-07-28 06:36] LABS: Basophils % 0.2 %; Eosinophils % 0.4 %; Hematocrit 31.9 % (35.3-44.9); Hemoglobin 10.3 g/dL (11.5-15.4); Immature Granulocytes % 4.4 % (0-4); Lymphocytes # 2.2 K/mcL (0.6-4.6); Lymphocytes % 22.6 %; Mean Corpuscular HGB Conc 32.3 g/dL (31.6-35.5); Mean Corpuscular Hemoglobin 30.2 pg (28.0-33.3); Mean Corpuscular Volume 93.5 fL (83.0-100.0); Mean Platelet Volume 9.4 fL (9.4-12.4); Monocytes % 10.2 %; Platelet Count 359 K/mcL (140-400); Red Blood Count 3.41 M/mcL (3.82-4.97); Red Cell Distribution Width 15.2 % (11.5-14.5); Segmented Neutrophils % 62.2 %
[2016-07-28 06:46] LABS: BUN/Creatinine Ratio 36 (6-26); Blood Urea Nitrogen 29 mg/dL (7-20); Carbon Dioxide 34 mEq/L (19-29); Chloride 101 mEq/L (98-109); Glucose 92 mg/dL (70-99); Magnesium 2.1 mg/dL (1.6-2.6); Osmolality,Calculated 291 (280-300); Phosphorous 4.1 mg/dL (2.3-4.7); Potassium 4.7 mEq/L (3.5-4.5); Sodium 138 mEq/L (136-145); eGFR For African Americans > 60 (> 60); eGFR For Non-African Americans > 60 (> 60)
[2016-07-28] MEDS: Aspirin Enteric Coated 81 MG Tablet PO SCH (09:01)
[2016-07-28] MEDS: Sennosides/Docusate Sodium TABLET PO SCH (09:01)
[2016-07-28] MEDS: Lisinopril 20 MG TABLET PO SCH (09:01)
[2016-07-28] MEDS: Diltiazem CD (24hr) 120 MG CAPSULE PO SCH (09:02)
[2016-07-28] MEDS: *HR* Enoxaparin 60 MG/0.6 ML SYRINGE SQ SCH (09:02)
[2016-07-28 09:09] LABS: INR 2.1; Prothrombin Time 23.2 Seconds (9.4-12.1)
--- NOTE | 2016-07-28 10:39 | Discharge Summary ---
Date of Encounter: 07/28/16 Time of Encounter: 10:34 - Discharge Diagnosis (1) Atrial fibrillation with RVR Priority: Primary Status: Acute (2) COPD exacerbation Priority: Primary Status: Acute (3) Hypertension Priority: Secondary Status: Chronic Qualifiers: Hypertension type: essential hypertension Qualified Code(s): I10 - Essential (primary) hypertension (4) DVT prophylaxis Priority: Secondary Status: Acute (5) Back pain Priority: Secondary Status: Chronic Qualifiers: Back pain location: low back pain Chronicity: unspecified Back pain laterality: unspecified Sciatica presence: without sciatica Qualified Code(s ): M54.5 - Low back pain - Discharge Medications Prescriptions: Diltiazem CD (24hr) [Cardizem CD] 120 mg PO DAILY #30 cap.er.24h Sennosides/Docusate Sodium [Senna Plus] 2 each PO BID PRN #30 tablet PRN Reason: Constipation Warfarin [Coumadin] 4 mg PO DAILY #30 tablet Home Medications: Aclidinium [place] [Tudorza Pressair] 400 mcg IH BID 09/21/15 [History] Albuterol Neb [Proventil Neb] 2.5 mg IH Q4HR 09/21/15 [History] Albuterol Sulfate [Albuterol Inhaler] 2 puff IH Q6H PRN 09/21/15 [History] Aspirin Enteric Coated [Aspirin EC] 81 mg PO DAILY 09/21/15 [History] Lisinopril [Zestril] 20 mg PO DAILY 09/21/15 [History] Sertraline [Zoloft] 50 mg PO HS 09/21/15 [History] Tamsulosin [Flomax] 0.4 mg PO DAILY 09/21/15 [History] Temazepam [Restoril] 15 mg PO HS 09/21/15 [History] Budesonide/Formoterol 160/4.5 [Symbicort 160/4.5] 2 puff IH BIDR 07/19/16 [ History] Diltiazem CD (24hr) [Cardizem CD] 120 mg PO DAILY #30 cap.er.24h 07/28/16 [Rx] Sennosides/Docusate Sodium [Senna Plus] 2 each PO BID PRN #30 tablet 07/28/16 [ Rx] Warfarin [Coumadin] 4 mg PO DAILY #30 tablet 07/28/16 [Rx] Allergies/Adverse Reactions: Allergies No Known Allergies Allergy (Verified 09/21/15 10:42) Date of admission: 07/19/16 04:39 Primary care physician: PCP NO Consults: 07/26/16 10:51 Consult to Occupational Therapy [CONS] Routine Comment: Evaluate, develop and implement POC Reason for Consult: eval home needs Consult to Physical Therapy [CONS] Routine Comment: Evaluate, develop and implement POC Reason for Consult: eval home needs Discharging clinician: Natalia Silva Anticipated date of discharge: 07/28/16 - Patient Status Disposition: Home Health Service Condition: Good Functional capacity at discharge: uses cane/walker Overall status at discharge: patient is back to baseline - Discharge Instructions Instructions: Warfarin (By mouth) Follow Up With: Afshan Grimes CNP [Advanced Practice Nurse] - 07/28/16 1:00 pm Additional Instructions: Please follow up with your primary care physician within five days after your discharge from the hospital. Please follow up with Coumadin clinic within five days after your discharge from the hospital. Please follow up with cardiology within one to two weeks after your discharge from the hospital. Diltiazem 120mg once a day has been added to your home medications. Coumadin 4mg once a day has been added to your home medications. Please take these medications as prescribed. Your coumadin dose will be managed by the Coumadin clinic. If your notice any acute bleeding, please discontinue coumadin and seek medical help immediately. Please resume all your other home medications as prescribed by your primary care physician. - Diet and Activity Activity: as per physical therapy Diet: low salt diet Hospital course: Ms. Cleaning is a 80 year old female with PMH of COPD, CAD, HTN who was admitted for management of COPD exacerbation and was found to have new onset AFib with RVR. She was started on O2 supplementation, IV steroids, and bronchodilators. She was also started on heparin gtt for anticoagulation and HR was controlled with cardizem. Her hospital course was prolonged due to delay in achievement of therapeutic INR. She underwent O2 qualification test and she did not qualify for home oxygen. She was evaluated by physical therapy, initially she was recommended to go to ECF however after further evaluation, home health was recommended. Patient is hemodynamically stable, saturating well on room, finished her abx and steroid course, HR controlled, and INR within therapeutic range. She will be discharged to home with home health. Her coumadin clinic appt would be set up prior to her discharge. Patient demonstrates understanding of her diagnosis and agrees with the discharge care and plan. - Time Spent with Patient Total time spent providing and/or coordinating discharge services: Greater than 30 minutes - Constitutional Vitals: Temp Pulse Resp BP Pulse Ox 98.1 F 79 16 150/77 96 07/28/16 08:07 07/28/16 08:07 07/28/16 08:07 07/28/16 08:07 07/28/16 08:07 General appearance: Present: A&O X 3 (frail appearing elderly female ), no acute distress, underweight, answers questions appropriately - Head Head exam: Present: atraumatic, normocephalic - Eye Eye exam: Present: normal appearance, conjuntiva pink, sclera anicteric - Respiratory Respiratory exam: Present: CTAB. Absent: accessory muscle use, rales, rhonchi, wheezes - Cardiovascular Cardiovascular exam: Present: RRR, +S1, +S2. Absent: diastolic murmur, gallop, rubs, systolic murmur - GI/Abdominal GI/Abdominal exam: Present: normal bowel sounds, soft, no peritoneal signs. Absent: distended, tenderness - Extremities Exam Extremities exam: Present: warm, radial pulses palpable and symetrical. Absent : calf tenderness, pedal edema - Neurological Exam Neurological exam: Present: alert, oriented X3 - Psychiatric Psychiatric exam: Present: normal affect, normal mood
--- NOTE | 2016-07-28 10:53 | Physician Discharge Referral ---
Home Health/Hosp Referral Info Transfer to: Home Health Provider in Charge Post Discharge: PCP - Diagnosis (1) Atrial fibrillation with RVR Priority: Primary Status: Acute (2) COPD exacerbation Priority: Primary Status: Acute (3) Hypertension Priority: Secondary Status: Chronic (4) DVT prophylaxis Priority: Secondary Status: Acute (5) Back pain Priority: Secondary Status: Chronic - Respiratory Orders Smoking Cessation: Smoking cessation has been advised. For more information, call the [place] Tobacco Quit Line at 8-547-MFEU-NOW. - Services Needed Following services are medically necessary services: Nursing, Home Health Aide, Physical Therapy, Occupational Therapy - Transfer Medications Prescriptions: Diltiazem CD (24hr) [Cardizem CD] 120 mg PO DAILY #30 cap.er.24h Sennosides/Docusate Sodium [Senna Plus] 2 each PO BID PRN #30 tablet PRN Reason: Constipation Warfarin [Coumadin] 4 mg PO DAILY #30 tablet Home Medications: Aclidinium [place] [Tudorza Pressair] 400 mcg IH BID 09/21/15 [History] Albuterol Neb [Proventil Neb] 2.5 mg IH Q4HR 09/21/15 [History] Albuterol Sulfate [Albuterol Inhaler] 2 puff IH Q6H PRN 09/21/15 [History] Aspirin Enteric Coated [Aspirin EC] 81 mg PO DAILY 09/21/15 [History] Lisinopril [Zestril] 20 mg PO DAILY 09/21/15 [History] Sertraline [Zoloft] 50 mg PO HS 09/21/15 [History] Tamsulosin [Flomax] 0.4 mg PO DAILY 09/21/15 [History] Temazepam [Restoril] 15 mg PO HS 09/21/15 [History] Budesonide/Formoterol 160/4.5 [Symbicort 160/4.5] 2 puff IH BIDR 07/19/16 [ History] Diltiazem CD (24hr) [Cardizem CD] 120 mg PO DAILY #30 cap.er.24h 07/28/16 [Rx] Sennosides/Docusate Sodium [Senna Plus] 2 each PO BID PRN #30 tablet 07/28/16 [ Rx] Warfarin [Coumadin] 4 mg PO DAILY #30 tablet 07/28/16 [Rx] Allergies/Adverse Reactions: Allergies No Known Allergies Allergy (Verified 09/21/15 10:42) Certification: Further, I certify that my clinical findings support that this patient is homebound (i.e. absences from home require considerable and taxing effort and are for medical reasons or buddhism services or infrequently or short duration when for other reasons) because: Homebound Reason: Patient requires assistance of a person or device to safely leave home Attestation: My signature below is to certify that this patient is under my care and that I, or nurse practitioner, or a physician's ophthalmic surgical assistant working with me, has a face-to -face encounter with this patient.
[2016-07-28 11:31] VITALS: BP 119/69
[2016-07-28] MEDS ORDERED: *HR* Warfarin 4 MG TABLET PO ONE (18:00)
== END 2016-07-28 14:50 | disposition home health service (06) | DRG 308 ==
LOC: EMEROO 23:09 → 2ANU 23:09 → SUATTDRO 07-19 04:39
PROVIDERS: ADMIT Internal Medicine; ATTEND Internal Medicine

== ENCOUNTER 2016-10-06 19:36 | Inpatient (IN) ==
[2016-10-06 21:49] LABS: Basophils % 0.2 %; Eosinophils # 0.1 K/mcL (0.0-0.6); Eosinophils % 0.9 %; Hematocrit 37.1 % (35.3-44.9); Hemoglobin 11.7 g/dL (11.5-15.4); Immature Granulocytes % 0.3 % (0-4); Lymphocytes # 1.5 K/mcL (0.6-4.6); Lymphocytes % 22.9 %; Mean Corpuscular HGB Conc 31.5 g/dL (31.6-35.5); Mean Corpuscular Hemoglobin 29.3 pg (28.0-33.3); Mean Corpuscular Volume 92.8 fL (83.0-100.0); Mean Platelet Volume 10.4 fL (9.4-12.4); Monocytes # 0.5 K/mcL (0.0-1.3); Monocytes % 7.2 %; Neutrophils # 4.4 K/mcL (1.6-8.9); Platelet Count 286 K/mcL (140-400); Red Cell Distribution Width 15.1 % (11.5-14.5); Segmented Neutrophils % 68.5 %
[2016-10-06 21:54] LABS: INR 2.7; Prothrombin Time 30.3 Seconds (9.4-12.1)
[2016-10-06 21:57] LABS: Activated Partial Thrombo Time 42.1 Seconds (26.0-36.0)
[2016-10-06 22:03] LABS: BUN/Creatinine Ratio 26 (6-26); Blood Urea Nitrogen 22 mg/dL (7-20); Calcium 9.1 mg/dL (8.6-10.8); Carbon Dioxide 27 mEq/L (19-29); Chloride 107 mEq/L (98-109); Glucose 193 mg/dL (70-99); Osmolality,Calculated 301 (280-300); Sodium 141 mEq/L (136-145); eGFR For African Americans > 60 (> 60); eGFR For Non-African Americans > 60 (> 60)
[2016-10-06 22:36] LABS: Bilirubin,Urine Negative (Negative); Blood,Urine Negative (Negative); Clarity,Urine Turbid (Clear); Color,Urine Yellow (Yellow); Glucose,Urine (UA) Normal (Normal); Ketones,Urine Negative (Negative); Leukocyte Esterase,Urine Moderate (Negative); Nitrite,Urine Positive (Negative); PH,Urine 7.5 pH Units (5.0-8.0); Protein,Urine 30 mg/dL (Neg-Trace); Specific Gravity,Urine 1.022 (1.010-1.025); Urobilinogen,Urine Normal (Normal)
[2016-10-06 22:38] LABS: Bacteria,Urine Many per hpf (None-Few); Hyaline Casts,Urine None Seen per lpf (None-Few); RBC,Urine 0-3 per hpf (0-3); Squamous Epithelial Cell,Urine Many per lpf (None-Few); WBC,Urine 50-100 per hpf (0-3)
--- NOTE | 2016-10-06 23:11 | Emergency Department Note ---
Disposition Referrals: Michaela Torres CNP [Primary Care Provider] - Forms: ED Satisfaction Letter General Adult HPI - General Chief complaint: ED GI Bleed Stated complaint: Rectal Bleeding Time Seen by Provider: 10/06/16 19:50 Source: patient, family Mode of arrival: ambulatory Limitations: no limitations Nursing Notes Reviewed: Yes Vital Signs Reviewed: Yes - History of Present Illness HPI Narrative: Patient presents emergency room from home which he described as blood clots from her rectum. She has never had any like this before which she is currently on Coumadin secondary to A. fib. She has had issues of bleeding in the past and had an EGD and colonoscopy performed. They could not find any focal source to the bleeding at that time. Patient denies any recent trauma or injuries. Denies fevers chills nausea vomiting or diarrhea. Denies headache vision changes chest pain or shortness of breath. Onset (ago): day(s) Radiation: non-radiation Pain Severity: mild Pain Scale: 0 Consistency: intermittent Improves with: nothing Worsens with: nothing Associated symptoms: Reports: loss of appetite, malaise. Denies: chest pain, cough, diaphoresis, fever/chills, headaches, nausea/vomiting Treatments Prior to Arrival: none - Related Data Home Medications Medication Instructions Recorded Confirmed Aclidinium [place] [Tudorza 400 mcg IH BID 09/21/15 07/19/16 Pressair] Albuterol Neb [Proventil Neb] 2.5 mg IH Q4HR 09/21/15 07/19/16 Albuterol Sulfate [Albuterol 2 puff IH Q6H PRN 09/21/15 07/19/16 Inhaler] Aspirin Enteric Coated [Aspirin EC] 81 mg PO DAILY 09/21/15 07/19/16 Lisinopril [Zestril] 20 mg PO DAILY 09/21/15 07/19/16 Sertraline [Zoloft] 50 mg PO HS 09/21/15 07/19/16 Tamsulosin [Flomax] 0.4 mg PO DAILY 09/21/15 07/19/16 Temazepam [Restoril] 15 mg PO HS 09/21/15 07/19/16 Budesonide/Formoterol 160/4.5 2 puff IH BIDR 07/19/16 07/19/16 [Symbicort 160/4.5] Previous Rx's Medication Instructions Recorded Diltiazem CD (24hr) [Cardizem CD] 120 mg PO DAILY #30 cap.er.24h 07/28/16 Sennosides/Docusate Sodium [Senna 2 each PO BID PRN #30 tablet 07/28/16 Plus] Warfarin [Coumadin] 4 mg PO DAILY #30 tablet 07/28/16 Allergies Allergy/AdvReac Type Severity Reaction Status Date / Time No Known Allergies Allergy Verified 09/21/15 10:42 All systems ED: reviewed and negative except as stated. Review of Systems: As Per HPI Constitutional: Denies: fever, chills, weakness Cardiovascular: Denies: chest pain, palpitations, dyspnea on exertion Respiratory: Denies: cough, dyspnea, wheezes Gastrointestinal: Reports: abdominal pain, hematochezia. Denies: nausea, vomiting, diarrhea, constipation, hematemesis, melena Genitourinary: Denies: urgency, dysuria, frequency Musculoskeletal: Denies: back pain, neck pain Neurological: Denies: headache Endocrine: Denies: fatigue Hematological/Lymphatic: Reports: easy bleeding Past Medical History - Past Medical History Attestation: Yes The following information was validated with the patient. Source: patient Medical history: Reports: asthma, cancer, COPD, coronary artery disease, hypertension, valvular heart disease Surgical history: Reports: hysterectomy, other Psychiatric history: Reports: anxiety, bipolar, depression - Social History Smoking Status: Current every day smoker Smokeless Tobacco Status: No Alcohol use: Reports: none Drug use: Reports: none Physical Exam - General Limitations: no limitations General appearance: alert, in no apparent distress - Eye Eye exam: Present: normal appearance, PERRL, EOMI - Neck Neck exam: Present: normal inspection, full ROM, trachea midline - Chest Chest inspection: Present: normal inspection, symmetric chest wall rise. Absent : tenderness - Respiratory Respiratory exam: Present: normal lung sounds bilaterally. Absent: respiratory distress, accessory muscle use - Cardiovascular Cardiovascular exam: Present: regular rate, normal rhythm, normal heart sounds - Abdominal Exam Abdominal exam: Present: soft, Non-Tender, normal bowel sounds. Absent: tenderness, distention, guarding, rebound, rigidity, Lutz's sign, Rovsing's sign, tenderness at McBurney's Point - Extremities Exam Extremities exam: Present: normal inspection, full ROM, normal capillary refill. Absent: tenderness - Back Exam Back exam: Present: normal inspection, full ROM. Absent: tenderness - Neurological Exam Neurological exam: Present: alert, oriented X3, CN II-XII intact, normal gait - Psychiatric Psychiatric exam: Present: normal affect, normal mood - Skin Skin exam: Present: warm, dry, intact, normal color Course Vital Signs Temperature 98.4 F 10/06/16 19:37 Pulse Rate 92 10/06/16 19:37 Respiratory Rate 16 10/06/16 19:37 Blood Pressure 123/73 10/06/16 19:37 O2 Sat by Pulse Oximetry 94 10/06/16 19:37 Temperature 98.4 F 10/06/16 19:37 Pulse Rate 92 10/06/16 19:37 Respiratory Rate 16 10/06/16 19:37 Blood Pressure 123/73 10/06/16 19:37 O2 Sat by Pulse Oximetry 94 10/06/16 19:37 Oxygen Delivery Oxygen Delivery Room Air Medical Decision Making - Lab Data Result diagrams: 10/06/16 21:38 10/06/16 21:38 Lab Results 10/06/16 10/06/16 10/06/16 Range/Units 21:38 21:38 21:38 WBC 6.4 (4.3-11.1) K/mcL RBC 4.00 (3.82-4.97) M/mcL Hgb 11.7 (11.5-15.4) g/dL Hct 37.1 (35.3-44.9) % MCV 92.8 (83.0-100.0) fL MCH 29.3 (28.0-33.3) pg MCHC 31.5 L (31.6-35.5) g/dL RDW 15.1 H (11.5-14.5) % Plt Count 286 (140-400) K/mcL MPV 10.4 (9.4-12.4) fL Immature Gran % 0.3 (0-4) % Seg Neutrophils % 68.5 % Lymphocytes % 22.9 % Monocytes % 7.2 % Eosinophils % 0.9 % Basophils % 0.2 % Neutrophils # 4.4 (1.6-8.9) K/mcL Lymphocytes # 1.5 (0.6-4.6) K/mcL Monocytes # 0.5 (0.0-1.3) K/mcL Eosinophils # 0.1 (0.0-0.6) K/mcL Basophils # 0.0 (0.0-0.2) K/mcL PT 30.3 H (9.4-12.1) Seconds INR 2.7 APTT 42.1 H (26.0-36.0) Seconds Sodium 141 (136-145) mEq/L Potassium 4.0 (3.5-4.5) mEq/L Chloride 107 (98-109) mEq/L Carbon Dioxide 27 (19-29) mEq/L BUN 22 H (7-20) mg/dL Creatinine 0.86 (0.57-1.11) mg/dL Est GFR ( Amer) > 60 (> 60) Est GFR (Non-Af Amer) > 60 (> 60) BUN/Creatinine Ratio 26 (6-26) Glucose 193 H (70-99) mg/dL Calculated Osmolality 301 H (280-300) Calcium 9.1 (8.6-10.8) mg/dL Urine Color (Yellow) Urine Clarity (Clear) Urine pH (5.0-8.0) pH Units Ur Specific [place] (1.010-1.025) Urine Protein (Neg-Trace) mg/dL Urine Glucose (UA) (Normal) mg/dL Urine Ketones (Negative) mg/dL Urine Blood (Negative) Urine Nitrite (Negative) Urine Bilirubin (Negative) Urine Urobilinogen (Normal) mg/dL Ur Leukocyte Esterase (Negative) Urine Microscopic RBC (0-3) per hpf Urine Microscopic WBC (0-3) per hpf Ur Squamous Epith Cells (None-Few) per lpf Urine Bacteria (None-Few) per hpf Hyaline Casts (None-Few) per lpf Urine Yeast Ur Culture Indicated? (NO) Blood Type Antibody Screen 10/06/16 10/06/16 Range/Units 21:38 22:16 WBC (4.3-11.1) K/mcL RBC (3.82-4.97) M/mcL Hgb (11.5-15.4) g/dL Hct (35.3-44.9) % MCV (83.0-100.0) fL MCH (28.0-33.3) pg MCHC (31.6-35.5) g/dL RDW (11.5-14.5) % Plt Count (140-400) K/mcL MPV (9.4-12.4) fL Immature Gran % (0-4) % Seg Neutrophils % % Lymphocytes % % Monocytes % % Eosinophils % % Basophils % % Neutrophils # (1.6-8.9) K/mcL Lymphocytes # (0.6-4.6) K/mcL Monocytes # (0.0-1.3) K/mcL Eosinophils # (0.0-0.6) K/mcL Basophils # (0.0-0.2) K/mcL PT (9.4-12.1) Seconds INR APTT (26.0-36.0) Seconds Sodium (136-145) mEq/L Potassium (3.5-4.5) mEq/L Chloride (98-109) mEq/L Carbon Dioxide (19-29) mEq/L BUN (7-20) mg/dL Creatinine (0.57-1.11) mg/dL Est GFR ( Amer) (> 60) Est GFR (Non-Af Amer) (> 60) BUN/Creatinine Ratio (6-26) Glucose (70-99) mg/dL Calculated Osmolality (280-300) Calcium (8.6-10.8) mg/dL Urine Color Yellow (Yellow) Urine Clarity Turbid A (Clear) Urine pH 7.5 (5.0-8.0) pH Units Ur Specific [place] 1.022 (1.010-1.025) Urine Protein 30 H (Neg-Trace) mg/dL Urine Glucose (UA) Normal (Normal) mg/dL Urine Ketones Negative (Negative) mg/dL Urine Blood Negative (Negative) Urine Nitrite Positive A (Negative) Urine Bilirubin Negative (Negative) Urine Urobilinogen Normal (Normal) mg/dL Ur Leukocyte Esterase Moderate H (Negative) Urine Microscopic RBC 0-3 (0-3) per hpf Urine Microscopic WBC 50-100 H (0-3) per hpf Ur Squamous Epith Cells Many H (None-Few) per lpf Urine Bacteria Many H (None-Few) per hpf Hyaline Casts None Seen (None-Few) per lpf Urine Yeast Test Not Performed Ur Culture Indicated? YES A (NO) Blood Type O POSITIVE Antibody Screen NEGATIVE
[2016-10-07] MEDS ORDERED: Naloxone 0.4 MG/ML INJ IVP PRN (01:14)
--- NOTE | 2016-10-07 01:19 | Emergency Department Note ---
Disposition Clinical Impression: Hematochezia, Melena, Urinary tract infection Disposition: Admitted As Inpatient Condition: Good Referrals: Michaela Torres, PABLO [Primary Care Provider] - Forms: ED Satisfaction Letter Time of Disposition: 00:45 GI Bleed HPI - General Chief complaint: ED GI Bleed Stated complaint: Rectal Bleeding Time Seen by Provider: 10/06/16 19:50 Source: patient, family Mode of arrival: ambulatory Limitations: no limitations Nursing Notes Reviewed: Yes Vital Signs Reviewed: Yes - History of Present Illness HPI Narrative: Patient presents emergency room with abdominal pain as well as dark scar at school. She is concerned about possible GI bleed. She is currently on Coumadin and INR was elevated yesterday. Pt Subjective Complaint: melena, blood streaked stool Onset (ago): day(s) Number of episodes: 3 Consistency: constant Severity: severe Improves with: bowel movement Worsens with: nothing Context: anticoagulant use Associated symptoms: Reports: abdominal pain Treatments Prior to Arrival: none - Related Data Home Medications Medication Instructions Recorded Confirmed Aclidinium [place] [Tudorza 400 mcg IH BID 09/21/15 07/19/16 Pressair] Albuterol Neb [Proventil Neb] 2.5 mg IH Q4HR 09/21/15 07/19/16 Albuterol Sulfate [Albuterol 2 puff IH Q6H PRN 09/21/15 07/19/16 Inhaler] Aspirin Enteric Coated [Aspirin EC] 81 mg PO DAILY 09/21/15 07/19/16 Lisinopril [Zestril] 20 mg PO DAILY 09/21/15 07/19/16 Sertraline [Zoloft] 50 mg PO HS 09/21/15 07/19/16 Tamsulosin [Flomax] 0.4 mg PO DAILY 09/21/15 07/19/16 Temazepam [Restoril] 15 mg PO HS 09/21/15 07/19/16 Budesonide/Formoterol 160/4.5 2 puff IH BIDR 07/19/16 07/19/16 [Symbicort 160/4.5] Previous Rx's Medication Instructions Recorded Diltiazem CD (24hr) [Cardizem CD] 120 mg PO DAILY #30 cap.er.24h 07/28/16 Sennosides/Docusate Sodium [Senna 2 each PO BID PRN #30 tablet 07/28/16 Plus] Warfarin [Coumadin] 4 mg PO DAILY #30 tablet 07/28/16 Allergies Allergy/AdvReac Type Severity Reaction Status Date / Time No Known Allergies Allergy Verified 09/21/15 10:42 All systems ED: reviewed and negative except as stated. Review of Systems: As Per HPI Constitutional: Denies: fever, chills, weakness Cardiovascular: Denies: chest pain, palpitations, dyspnea on exertion Respiratory: Denies: cough, dyspnea, wheezes Gastrointestinal: Reports: abdominal pain, hematochezia. Denies: nausea, vomiting, diarrhea, constipation, hematemesis, melena Genitourinary: Denies: urgency, dysuria, frequency Musculoskeletal: Denies: back pain, neck pain Neurological: Denies: headache Endocrine: Denies: fatigue Hematological/Lymphatic: Reports: easy bleeding Past Medical History - Past Medical History Attestation: Yes The following information was validated with the patient. Source: patient Medical history: Reports: asthma, cancer, COPD, coronary artery disease, hypertension, valvular heart disease Surgical history: Reports: hysterectomy, other Psychiatric history: Reports: anxiety, bipolar, depression - Social History Smoking Status: Current every day smoker Smokeless Tobacco Status: No Alcohol use: Reports: none Drug use: Reports: none Physical Exam - General Limitations: no limitations General appearance: alert, in no apparent distress - Neck Neck exam: Present: normal inspection, full ROM, trachea midline. Absent: tenderness - Chest Chest inspection: Present: normal inspection, symmetric chest wall rise. Absent : tenderness - Respiratory Respiratory exam: Present: normal lung sounds bilaterally. Absent: respiratory distress, wheezes, accessory muscle use - Cardiovascular Cardiovascular exam: Present: regular rate, normal rhythm, normal heart sounds - Abdominal Exam Abdominal exam: Present: soft, Non-Tender, normal bowel sounds. Absent: tenderness, distention, guarding, rebound, rigidity - Extremities Exam Extremities exam: Present: normal inspection, full ROM, normal capillary refill. Absent: tenderness - Back Exam Back exam: Present: normal inspection, full ROM. Absent: tenderness - Neurological Exam Neurological exam: Present: alert, oriented X3, CN II-XII intact, normal gait - Skin Skin exam: Present: warm, dry, intact, normal color Course Course Narrative: Patient seen and examined the time of arrival. See history of present illness. 81-year-old female presents to our emergency room today with complaint of lower GI bleed. She had blood on her stool as well as dark-colored stool last several days. She is currently on Coumadin secondary to atrial fibrillation. Her most recent INR was greater than 3. Patient was concerned about the bleeding and wanted to have it evaluated here today. She denied any other symptoms or complaints. She has had generalized malaise but otherwise denied fevers chills nausea vomiting or diarrhea. Denied headache vision changes chest pain or shortness of breath. Her only complaint at this time is a hematochezia. Denies any recent abdominal trauma or injury. Vital signs reviewed and are otherwise stable. Patient is afebrile. Physical exam is benign this is a frail cachectic pale-appearing female that presents emergency room for evaluation of the abdominal discomfort possible GI bleed. Lungs are clear heart is regular abdomen is soft there is mild lower abdominal discomfort but no specific guarding rigidity or peritoneal like symptoms. Patient was off 4 extremities with purpose she has palpable pulses and she appears to be in no specific distress at this time. Patient will have CBC chemistry Hemoccult testing along with CT imaging of the abdomen fluids nausea medication type and screen completed. Urinalysis will also be resulted. Disposition pending this workup and treatment course. Expect patient will most likely need admission at the symptoms are consistent with a GI bleed. - Reevaluation(s) Reevaluation #1: Patient found to have an elevated INR 2.7 today. Her labs are otherwise unremarkable her hemoglobin is stable. Her kidney function is appropriate. She does not have any other acute pathology. CT imaging of the abdomen is negative for acute issues at this time. Urinalysis does not show any signs of blood but there is gross infection at this time. Hemoccult testing is still pending at this point. Patient has positive for blood in the stool that most likely she will require admission secondary to being on blood thinners with an infection. Patient family understands concerned patient is debating whether or not she was to be admitted. Will discuss the admission process once the Hemoccult testing is resulted Time: 23:55 Reevaluation #2: Patient found a grossly positive Hemoccult testing at this time. Proximal attendance is spent at the bedside with the family discussing the concern for GI bleed along with infectious etiology and her complaint of generalized malaise. Eventually the patient and the family accommodated with the admission requested this point. She understands my concern appreciates our efforts and concerning in the emergency room. Patient will be admitted to the hospitalist for definitive management. Patient was reviewed with the on-call hospitalist Dr. garrido. We reviewed the symptoms history medical intervention as well as the INR here today. No recommendation for reversal agent of the blood that at this point. Patient will be monitored to see if the bleeding resolved on its own. Otherwise urinary tract infection will be treated with antibiotics here in the emergency room. Patient family for their comfortable with this plan. Patient is otherwise stable and resting comfortably in the bed will be admitted to the hospitalist at this time Time: 00:35 Vital Signs Temperature 98.4 F 10/06/16 19:37 Pulse Rate 92 10/06/16 19:37 Respiratory Rate 16 10/06/16 19:37 Blood Pressure 123/73 10/06/16 19:37 O2 Sat by Pulse Oximetry 94 10/06/16 19:37 Temperature 98.4 F 10/06/16 19:37 Pulse Rate 65 10/07/16 00:15 Respiratory Rate 16 10/07/16 01:15 Blood Pressure 148/84 10/07/16 01:15 O2 Sat by Pulse Oximetry 96 10/07/16 00:15 Oxygen Delivery Oxygen Delivery Room Air GI Bleed - MDM Narrative Medical decision making narrative: GI bleed, elevated INR, urinary tract infection - Medical Records Medical records reviewed: Yes I reviewed the patient's medical records. - Lab Data Lab results reviewed: Yes I reviewed the patient's lab results. Result diagrams: 10/06/16 21:38 10/06/16 21:38 Lab Results 10/06/16 10/06/16 10/06/16 Range/Units 21:38 21:38 21:38 WBC 6.4 (4.3-11.1) K/mcL RBC 4.00 (3.82-4.97) M/mcL Hgb 11.7 (11.5-15.4) g/dL Hct 37.1 (35.3-44.9) % MCV 92.8 (83.0-100.0) fL MCH 29.3 (28.0-33.3) pg MCHC 31.5 L (31.6-35.5) g/dL RDW 15.1 H (11.5-14.5) % Plt Count 286 (140-400) K/mcL MPV 10.4 (9.4-12.4) fL Immature Gran % 0.3 (0-4) % Seg Neutrophils % 68.5 % Lymphocytes % 22.9 % Monocytes % 7.2 % Eosinophils % 0.9 % Basophils % 0.2 % Neutrophils # 4.4 (1.6-8.9) K/mcL Lymphocytes # 1.5 (0.6-4.6) K/mcL Monocytes # 0.5 (0.0-1.3) K/mcL Eosinophils # 0.1 (0.0-0.6) K/mcL Basophils # 0.0 (0.0-0.2) K/mcL PT 30.3 H (9.4-12.1) Seconds INR 2.7 APTT 42.1 H (26.0-36.0) Seconds Sodium 141 (136-145) mEq/L Potassium 4.0 (3.5-4.5) mEq/L Chloride 107 (98-109) mEq/L Carbon Dioxide 27 (19-29) mEq/L BUN 22 H (7-20) mg/dL Creatinine 0.86 (0.57-1.11) mg/dL Est GFR ( Amer) > 60 (> 60) Est GFR (Non-Af Amer) > 60 (> 60) BUN/Creatinine Ratio 26 (6-26) Glucose 193 H (70-99) mg/dL Calculated Osmolality 301 H (280-300) Calcium 9.1 (8.6-10.8) mg/dL Urine Color (Yellow) Urine Clarity (Clear) Urine pH (5.0-8.0) pH Units Ur Specific [place] (1.010-1.025) Urine Protein (Neg-Trace) mg/dL Urine Glucose (UA) (Normal) mg/dL Urine Ketones (Negative) mg/dL Urine Blood (Negative) Urine Nitrite (Negative) Urine Bilirubin (Negative) Urine Urobilinogen (Normal) mg/dL Ur Leukocyte Esterase (Negative) Urine Microscopic RBC (0-3) per hpf Urine Microscopic WBC (0-3) per hpf Ur Squamous Epith Cells (None-Few) per lpf Urine Bacteria (None-Few) per hpf Hyaline Casts (None-Few) per lpf Urine Yeast Ur Culture Indicated? (NO) Stool Occult Blood (Negative) Blood Type Antibody Screen 08/10/17 08/10/17 08/10/17 Range/Units 21:38 22:16 22:16 WBC (4.3-11.1) K/mcL RBC (3.82-4.97) M/mcL Hgb (11.5-15.4) g/dL Hct (35.3-44.9) % MCV (83.0-100.0) fL MCH (28.0-33.3) pg MCHC (31.6-35.5) g/dL RDW (11.5-14.5) % Plt Count (140-400) K/mcL MPV (9.4-12.4) fL Immature Gran % (0-4) % Seg Neutrophils % % Lymphocytes % % Monocytes % % Eosinophils % % Basophils % % Neutrophils # (1.6-8.9) K/mcL Lymphocytes # (0.6-4.6) K/mcL Monocytes # (0.0-1.3) K/mcL Eosinophils # (0.0-0.6) K/mcL Basophils # (0.0-0.2) K/mcL PT (9.4-12.1) Seconds INR APTT (26.0-36.0) Seconds Sodium (136-145) mEq/L Potassium (3.5-4.5) mEq/L Chloride (98-109) mEq/L Carbon Dioxide (19-29) mEq/L BUN (7-20) mg/dL Creatinine (0.57-1.11) mg/dL Est GFR ( Amer) (> 60) Est GFR (Non-Af Amer) (> 60) BUN/Creatinine Ratio (6-26) Glucose (70-99) mg/dL Calculated Osmolality (280-300) Calcium (8.6-10.8) mg/dL Urine Color Yellow (Yellow) Urine Clarity Turbid A (Clear) Urine pH 7.5 (5.0-8.0) pH Units Ur Specific [place] 1.022 (1.010-1.025) Urine Protein 30 H (Neg-Trace) mg/dL Urine Glucose (UA) Normal (Normal) mg/dL Urine Ketones Negative (Negative) mg/dL Urine Blood Negative (Negative) Urine Nitrite Positive A (Negative) Urine Bilirubin Negative (Negative) Urine Urobilinogen Normal (Normal) mg/dL Ur Leukocyte Esterase Moderate H (Negative) Urine Microscopic RBC 0-3 (0-3) per hpf Urine Microscopic WBC 50-100 H (0-3) per hpf Ur Squamous Epith Cells Many H (None-Few) per lpf Urine Bacteria Many H (None-Few) per hpf Hyaline Casts None Seen (None-Few) per lpf Urine Yeast Test Not Performed Ur Culture Indicated? YES A (NO) Stool Occult Blood Positive A (Negative) Blood Type O POSITIVE Antibody Screen NEGATIVE - Radiology Data Radiology results reviewed: Yes I reviewed the patient's radiology results. CT imaging the abdomen is negative for acute pathology at this time. - EKG Data EKG attestation: Yes I reviewed and interpreted this EKG. Rhythm: A.Fib When compared to previous EKG there are: no significant changes Interpretation: no acute changes, unchanged when compared to prior tracing (date ) (07/19/16)
--- NOTE | 2016-10-07 01:27 | Internal Med History&Physical ---
Date of Encounter: 10/07/16 Time of Encounter: 01:23 Assessment and Plan (1) Gastrointestinal hemorrhage with melena Current visit: Yes Status: Acute consult GI. Protonix gtt, IVF, NPO, type and screen, trend H&Hq6 for now (2) Afib Current visit: Yes Status: Acute continue dilt. Hold coumadin, ASA due to bleed Qualifiers: Qualified Code(s): I48.91 - Unspecified atrial fibrillation (3) Supratherapeutic INR Current visit: Yes Status: Acute trend INR. monitor off coumadin (4) Depression Current visit: Yes Status: Acute continue med Qualifiers: Depression Type: unspecified Qualified Code(s): F32.9 - Major depressive disorder, single episode, unspecified (5) Hypertension Current visit: No Status: Chronic continue medication Qualifiers: Hypertension type: essential hypertension Qualified Code(s): I10 - Essential (primary) hypertension Internal Medicine - H&P: HPI Chief complaint: GI bleed History of present illness: Ms. Cleaning is a 81 year old female with a history of iron deficiency anemia, A. fib on Coumadin who presents with acute episode of melena with some BRBPR suspicious for UGIB with some mixed LGIB. She is with the coumadin clinic with INR in the 3 s recently and developed acute onset dark melanotic stool this afternoon at around 330 pm associated with dark black clots. Of note, she had also been on Fe pills. However, in the ED she large a large BM with dark melanotic stool with some red tinged blood associated. She denies any belly ache. CT A/P was w/o acute findings. 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 PT check at 2.7, Hb 11.7. On review, her dtr suggested that she had fallen but repeated direct questioning to patient denied fall. She do not report of any body aches/pain/ ROM issues. Past Med Surg Social Fam HX - Past Medical History Medical history: asthma, cancer, COPD, coronary artery disease, hypertension, valvular heart disease Psychiatric history: anxiety, bipolar, depression - Past Surgical History Surgical History: hysterectomy, other - Social History Smoking Status: Current every day smoker Smokeless Tobacco Status: No Alcohol use: none Drug use: none - Family History Mother Hx Family Cardiac Disorders: Yes Hx Family Endocrine Disorder: Yes (diabetes) Father Hx Family Cardiac Disorders: Yes Son Hx Family Cancer: Yes (lung) Internal Medicine - H&P: Meds Aclidinium Winside [Tudorza Pressair] 400 mcg IH BID 09/21/15 [History] Albuterol Neb [Proventil Neb] 2.5 mg IH Q4HR 09/21/15 [History] Albuterol Sulfate [Albuterol Inhaler] 2 puff IH Q6H PRN 09/21/15 [History] Aspirin Enteric Coated [Aspirin EC] 81 mg PO DAILY 09/21/15 [History] Lisinopril [Zestril] 20 mg PO DAILY 09/21/15 [History] Sertraline [Zoloft] 50 mg PO HS 09/21/15 [History] Tamsulosin [Flomax] 0.4 mg PO DAILY 09/21/15 [History] Temazepam [Restoril] 15 mg PO HS 09/21/15 [History] Budesonide/Formoterol 160/4.5 [Symbicort 160/4.5] 2 puff IH BIDR 07/19/16 [ History] Diltiazem CD (24hr) [Cardizem CD] 120 mg PO DAILY #30 cap.er.24h 07/28/16 [Rx] Sennosides/Docusate Sodium [Senna Plus] 2 each PO BID PRN #30 tablet 07/28/16 [ Rx] Warfarin [Coumadin] 4 mg PO DAILY #30 tablet 07/28/16 [Rx] Allergies No Known Allergies Allergy (Verified 09/21/15 10:42) All Systems PM: A 10-system review of systems was performed and is negative for pertinent findings except as documented above in the HPI. Review of systems: ROS 14 point review of systems reviewed as best as possible given presentation. Pertinent positive or negative as per HPI or otherwise reviewed as negative - Constitutional Vitals: Temp Pulse Resp BP Pulse Ox 98.4 F 65 16 148/84 96 10/06/16 19:37 10/07/16 00:15 10/07/16 01:15 10/07/16 01:15 10/07/16 00:15 Exam: General - AAO x 3 Psych - Appropriate affect/speech. No agitation Eyes - KAMRAN. Eye lids intact. No scleral icterus ENT - Oral mucosa pink, dentition intact. External ear clear/dry/intact. No thyromegaly Lymphatics - No cervical/inguinal lympadenopathy Neuro - No gross peripheral or central neuro deficits with intact CN 2-12 exam Heart - Sinus. RRR. S1 and S2 present. No added HS/murmurs appreciated. No elevated JVD appreciated. No calf swellings/erythema Lung - Adequate air entry b/l, No crackes/wheezes appreciated GI - Soft, non-tender. No hepatosplenomegaly/ascities. BS+ - No CVA/suprapubic tenderness or palpable bladder distension Skin - skin dry MSK - Joints with normal ROM. No joint swellings Internal Med - H&P Results - Labs CBC & Chem 7: 10/06/16 21:38 10/06/16 21:38 - VTE Reasons for not Prescribing Prophylaxis: Not indicated-Anticoagulated or INR therapeutic
[2016-10-07] MEDS ORDERED: Pantoprazole 80 MG in 0.9 % Sodium Chloride 50 ML IVPB ONE (01:30)
[2016-10-07] MEDS: Ringers Solution, Lactated 1,000 ML IVC SCH ×2 (03:27→21:45)
[2016-10-07 03:36] LABS: Basophils % 0.3 %; Eosinophils # 0.1 K/mcL (0.0-0.6); Hematocrit 33.3 % (35.3-44.9); Hemoglobin 10.9 g/dL (11.5-15.4); Immature Granulocytes % 0.2 % (0-4); Lymphocytes # 1.9 K/mcL (0.6-4.6); Mean Corpuscular HGB Conc 32.7 g/dL (31.6-35.5); Mean Corpuscular Hemoglobin 30.3 pg (28.0-33.3); Mean Corpuscular Volume 92.5 fL (83.0-100.0); Mean Platelet Volume 10.9 fL (9.4-12.4); Monocytes # 0.6 K/mcL (0.0-1.3); Monocytes % 9.6 %; Neutrophils # 3.4 K/mcL (1.6-8.9); Platelet Count 250 K/mcL (140-400); Segmented Neutrophils % 55.9 %
[2016-10-07 03:42] LABS: INR 2.4; Prothrombin Time 27.1 Seconds (9.4-12.1)
[2016-10-07 03:51] LABS: BUN/Creatinine Ratio 28 (6-26); Blood Urea Nitrogen 21 mg/dL (7-20); Calcium 8.7 mg/dL (8.6-10.8); Carbon Dioxide 27 mEq/L (19-29); Chloride 108 mEq/L (98-109); Glucose 94 mg/dL (70-99); Osmolality,Calculated 295 (280-300); Potassium 3.6 mEq/L (3.5-4.5); Sodium 141 mEq/L (136-145); eGFR For African Americans > 60 (> 60); eGFR For Non-African Americans > 60 (> 60)
[2016-10-07] MEDS: Albuterol 2.5 MG/3 ML NEBULIZER IH SCH ×3 (03:53→10:50)
[2016-10-07] MEDS ORDERED: Temazepam 15 MG CAPSULE PO ONE (04:22)
[2016-10-07] MEDS: Pantoprazole 40 MG in 0.9 % Sodium Chloride Mini Bag 100 ML IVC SCH ×5 (07:07→21:57)
[2016-10-07] MEDS: Budesonide/Formoterol 160/4.5 MDI IH SCH ×2 (07:41→21:30)
[2016-10-07 07:58] LABS: Hematocrit 30.2 % (35.3-44.9); Hemoglobin 9.7 g/dL (11.5-15.4)
[2016-10-07] MEDS: Diltiazem CD (24hr) 120 MG CAPSULE PO SCH (08:29)
[2016-10-07] MEDS: Lisinopril 20 MG TABLET PO SCH (08:29)
[2016-10-07] MEDS: Tudorza Pressair 400 MCG IH SCH ×2 (10:20→21:42)
[2016-10-07] MEDS: Ipratropium/Albuterol Neb 3 ML IH SCH ×3 (10:54→21:30)
--- NOTE | 2016-10-07 10:54 | Event Note ---
<Sanket Mendoza - Last Filed: 10/07/16 12:42> Date of Encounter: 10/07/16 Time of Encounter: 10:51 Patient seen and examined. Reports feeling weak and tired. Denies BM since admission. Denies fevers/chills, chest pain, hematemesis, hemoptysis, N/V/D, dysuria, or leg pain/swelling. GI consulted. No abdominal tenderness/rigidity, normal bowel sounds. Will stop antibiotics since no urinary symptoms. Reports a possible increase from baseline sputum production, but denies increased dyspnea or cough. Will start scheduled duonebs Q6H. Afebrile, no elevated WBC. Lungs sound diminished with expiratory wheezes throughout. <Seng Luna - Last Filed: 10/07/16 17:30> Date of Encounter: 10/07/16 Pt admitted early this AM with acute GI bleed. She currently denies pain or other symptoms. Exam Alert an comfortable Abd soft H/H decreased - Plan Endoscopy tomorrow Vit K FFP Blood transfusion.
--- NOTE | 2016-10-07 11:45 | Gastroenterology Consult Note ---
<Dawit Murray Maude - Last Filed: 10/07/16 11:42> Date of Encounter: 10/07/16 Time of Encounter: 10:20 - Assessment and plan (1) GI bleed Current Visit: Yes Status: Acute Assessment and plan: Patient with melena and BRBPR. CT A/P with no acute findings. Plan for EGD and colonoscopy. INR will need to be 1.5 or less. Pt refused to sign concent for EGD and colonoscopy until her daughter was notified. I spoke to patient's daughter, Savanah Self, per patient request. I explained EGD and colonoscopy, and daughter is agreeable to procedures. Qualifiers: GI bleed type/associated pathology: unspecified gastrointestinal hemorrhage type Qualified Code(s): K92.2 - Gastrointestinal hemorrhage, unspecified (2) Supratherapeutic INR Current Visit: Yes Status: Acute Assessment and plan: INR 2.4, will need to be 1.5 or less for EGD/colonoscopy. Give 5 mg Vitamin K today. - Time Spent With Patient Total time spent is greater than 50% in coordination of care (as documented) at patient's floor/unit and/or counseling patient: GI History of Present Illness - Data of Consult Patient: new to practice Consult date: 10/07/16 Requesting Physician: Seng Luna DO - Consult Narrative Reason for consult: UGIB, some LGIB History of present illness: Ms. Cleaning is a 81 year old female with PMHx of iron deficiency anemia, A. fib on Coumadin, CAD, hypertension, COPD who presents with melena and some BRBPR. She developed acute onset dark melanotic stool yesterday afternoon associated with dark black clots. She had also been on Fe pills. However, in the ED she had a large BM with dark melanotic stool with some red tinged blood associated. She denies any fever, chills, chest pain, abdominal pain, nausea, vomiting, or diarrhea. CT A/P was with no acute findings. Procedures: EGD 08/22/2016 Dr. Vasquez: Hemorrhagic gastropathy NSAIDs: None Anticoagulation: Coumadin Past Med Surg Social Fam HX - Past Medical History Medical history: asthma, cancer, COPD, coronary artery disease, hypertension, valvular heart disease Psychiatric history: anxiety, bipolar, depression - Past Surgical History Surgical History: hysterectomy, other - Social History Smoking Status: Current every day smoker Packs per day: 1/2 Smokeless Tobacco Status: No Alcohol use: none Drug use: none - Family History Mother History Unknown: Yes Adopted: [place]: Padmaja Voss Age: 87 Family Member Ethnicity: Non- Living Status: Age at : 87 Hx Family Cardiac Disorders: (thinks she had heart issues but unsure) Hx Family Respiratory Disorders: No Hx Family Cancer: No Hx Family GI Disorders: No Hx Family Genitourinary Disorders: No Hx Family Endocrine Disorder: Yes Hx Family Musculoskeletal Disorders: No Hx Family Neuromuscular Disorders: No Hx Family Neurologic Disorders: No Hx Family HEENT Disorders: No Hx Family Autoimmune Disorders: No Hx Family Reproductive Disorders: No Hx Family Psychosocial Disorders: No Hx Family Medical Disorders: No Father Hx Family Cardiac Disorders: Yes Son History Unknown: Yes Adopted: [place]: Oskar Singh Age: 57 Family Member Ethnicity: Non- Living Status: Still Living Age at : 57 Hx Family Cardiac Disorders: No Hx Family Respiratory Disorders: No Hx Family Cancer: Yes (lung cancer) Hx Family GI Disorders: No Hx Family Genitourinary Disorders: No Hx Family Endocrine Disorder: No Hx Family Musculoskeletal Disorders: No Hx Family Neuromuscular Disorders: No Hx Family Neurologic Disorders: No Hx Family HEENT Disorders: No Hx Family Autoimmune Disorders: No Hx Family Reproductive Disorders: No Hx Family Psychosocial Disorders: No Hx Family Medical Disorders: No - Gastrointestinal Gastrointestinal: Present: as per HPI - Constitutional Constitutional: as per HPI - EENT Eyes: as per HPI Ears: Present: as per HPI Nose, mouth and throat: Present: as per HPI - Cardiovascular Cardiovascular ROS: Present: as per HPI - Respiratory Respiratory IM: Present: as per HPI - Genitourinary Genitourinary: Absent: change in color, Urinary frequency - Neurological ROS Neurological GI: Present: as per HPI - Hematologic/Lymphatic Hematologic/Lymphatic pediatric: Present: as per HPI - Musculoskeletal Musculoskeletal ROS GI: Present: as per HPI - Integumentary Integumentary GI: Present: as per HPI - Psychiatric ROS Psychiatric GI: Present: as per HPI - Endocrine Endocrine IM: Present: as per HPI - Constitutional Vitals: Temp Pulse Resp BP Pulse Ox 97.7 F 81 18 122/66 95 10/07/16 11:19 10/07/16 11:19 10/07/16 11:19 10/07/16 11:19 10/07/16 11:19 General appearance: Present: cooperative, A&O X 3, no acute distress, answers questions appropriately - Head Head exam: Present: atraumatic, normocephalic - Eye Eye exam: Present: normal appearance, sclera anicteric - ENT ENT exam: Present: mucous membranes dry - Neck Neck exam general surgery: Present: normal inspection, trachea midline - Respiratory Respiratory exam: Present: CTAB. Absent: rales, rhonchi - Cardiovascular Cardiovascular exam: Present: RRR, +S1, +S2 - GI/Abdominal GI/Abdominal exam: Present: soft, no peritoneal signs. Absent: distended, firm , guarding, tenderness - Rectal Rectal exam: Present: deferred - Extremities Exam Extremities exam: Present: warm - Neurological Exam Neurological exam: Present: no focal deficits - Psychiatric Psychiatric exam: Present: normal affect, normal mood - Skin Skin exam: Present: dry, intact, normal color, warm Results - Labs CBC & Chem 7: 10/07/16 07:42 10/07/16 03:22 Labs: Last Result Calcium 8.7 mg/dL (8.6-10.8) 10/07/16 03:22 Stool Occult Blood Positive (Negative) A 10/06/16 22:16 Entire Visit Hgb 9.7 g/dL (11.5-15.4) L 10/07/16 07:42 Hct 30.2 % (35.3-44.9) L 10/07/16 07:42 PT 27.1 Seconds (9.4-12.1) H 10/07/16 03:22 - ABG ABG results: PT/INR, D-dimer PT 27.1 Seconds (9.4-12.1) H 10/07/16 03:22 Consult Discharge Plan - Plan Referrals: Michaela Torres, WELDING MACHINE OPERATOR/TENDER [Primary Care Provider] - <Remberto Avalos - Last Filed: 10/07/16 12:41> Date of Encounter: 10/07/16 Time of Encounter: 11:00 - Time Spent With Patient Total time spent is greater than 50% in coordination of care (as documented) at patient's floor/unit and/or counseling patient: GI History of Present Illness - Data of Consult Requesting Physician: Seng Luna, DO - Consult Narrative History of present illness: Ms. Cleaning is a 81 year old female - Constitutional Vitals: Temp Pulse Resp BP Pulse Ox 97.7 F 81 18 122/66 95 10/07/16 11:19 10/07/16 11:19 10/07/16 11:19 10/07/16 11:19 10/07/16 11:19 Results - Labs CBC & Chem 7: 10/07/16 07:42 10/07/16 03:22 Labs: Last Result Calcium 8.7 mg/dL (8.6-10.8) 10/07/16 03:22 Stool Occult Blood Positive (Negative) A 10/06/16 22:16 Entire Visit Hgb 9.7 g/dL (11.5-15.4) L 10/07/16 07:42 Hct 30.2 % (35.3-44.9) L 10/07/16 07:42 PT 27.1 Seconds (9.4-12.1) H 10/07/16 03:22 - ABG ABG results: PT/INR, D-dimer PT 27.1 Seconds (9.4-12.1) H 10/07/16 03:22 - Attending Attestation I examined this patient and my medical decision-making was reviewed with the Resident Physician. I agree with the documented findings, disposition and treatment plan as described except to the extent set forth below. Patient with rectal bleeding. Bleeding seemed to be colonic in origin. Recommendation: Correction of her INR and EGD/Colon in the morning
[2016-10-07 14:21] LABS: Hemoglobin 8.5 g/dL (11.5-15.4)
--- NOTE | 2016-10-07 16:17 | Electrocardiograph Report ---
[place] [id number] Test Date: 2016-10-06 Pat Name: Estela Cleaning Department: 104 Room: [facility] Gender: F Geochemical Manager: BEAR : 1935 Requested By: Ismael Jackson Order Number: [id number] Reading MD: Kimberly Montgomery Measurements Intervals [place] Rate: 103 P: CT: 0 QRS: -11 QRSD: 94 T: 73 QT: 365 QTc: 425 Interpretive Statements NORMAL SINUS RHYTHM WITH PREMATURE SUPRAVENTRICULAR COMPLEXES POSSIBLE SEPTAL MYOCARDIAL INFARCTION, OF INDETERMINATE AGE Electronically Signed On 10-07-2016 16:15:41 EDT by Kimberly Montgomery
[2016-10-07] MEDS ORDERED: SODIUM CHLORIDE/NAHCO3/KCL/PEG 4,000 ML SOLN.RECON PO ONE (17:00)
[2016-10-07] MEDS ORDERED: 0.9 % Sodium Chloride 250 ML ONE ×2 (17:01→22:17)
[2016-10-07] MEDS: Temazepam 15 MG CAPSULE PO SCH ×2 (21:45→21:50)
[2016-10-08] MEDS ORDERED: 0.9 % Sodium Chloride 250 ML ONE (02:21)
[2016-10-08] MEDS: Ipratropium/Albuterol Neb 3 ML IH SCH ×3 (03:16→16:45)
[2016-10-08] MEDS: Ringers Solution, Lactated 1,000 ML IVC SCH (05:22)
[2016-10-08] MEDS: Pantoprazole 40 MG VIAL IVP SCH ×2 (05:22→17:36)
[2016-10-08 07:15] LABS: INR 1.5; Prothrombin Time 16.4 Seconds (9.4-12.1)
[2016-10-08 07:23] LABS: BUN/Creatinine Ratio 13 (6-26); Calcium 8.8 mg/dL (8.6-10.8); Carbon Dioxide 25 mEq/L (19-29); Chloride 112 mEq/L (98-109); Glucose 85 mg/dL (70-99); Osmolality,Calculated 294 (280-300); Potassium 3.4 mEq/L (3.5-4.5); Sodium 143 mEq/L (136-145); eGFR For African Americans > 60 (> 60); eGFR For Non-African Americans > 60 (> 60)
[2016-10-08 07:30] LABS: Blood Urea Nitrogen 9 mg/dL (7-20)
[2016-10-08 08:06] LABS: Hematocrit 37.3 % (35.3-44.9); Mean Corpuscular HGB Conc 32.2 g/dL (31.6-35.5); Mean Corpuscular Hemoglobin 29.4 pg (28.0-33.3); Mean Corpuscular Volume 91.4 fL (83.0-100.0); Mean Platelet Volume 10.3 fL (9.4-12.4); Platelet Count 218 K/mcL (140-400); Red Blood Count 4.08 M/mcL (3.82-4.97); Red Cell Distribution Width 15.9 % (11.5-14.5)
[2016-10-08] MEDS ORDERED: *HR* Midazolam HCl 5 MG/5 ML VIAL IVP ONE (08:25)
[2016-10-08] MEDS ORDERED: *HR* FentaNYL (PF) 100 MCG/2 ML VIAL ONE (08:25)
[2016-10-08] MEDS ORDERED: Simethicone 40 MG/0.6 ML MLS IR ONE (08:35)
[2016-10-08] MEDS ORDERED: Tetracaine/Benzocaine/Butamben 200MG/SPRAY (100SPY/BOT) MM ONE (08:35)
[2016-10-08] MEDS: *HR* FentaNYL (PF) 100 MCG/2 ML VIAL IVP PRN ×3 (08:52→09:04)
[2016-10-08] MEDS: *HR* Midazolam HCl 5 MG/5 ML VIAL IVP PRN ×3 (08:53→09:04)
[2016-10-08] MEDS: Diltiazem CD (24hr) 120 MG CAPSULE PO SCH (09:58)
[2016-10-08] MEDS: Lisinopril 20 MG TABLET PO SCH (09:58)
[2016-10-08] MEDS: Tudorza Pressair 400 MCG IH SCH (10:02)
--- NOTE | 2016-10-08 10:32 | Internal Med Progress Note ---
<Sanket Mendoza - Last Filed: 10/08/16 16:04> Date of Encounter: 10/08/16 Time of Encounter: 10:30 - Assessment and plan (1) Gastrointestinal hemorrhage with melena Current Visit: Yes Status: Acute Assessment and plan: Hx of melena with bright red blood presnent. Stool last PM: melena with dark red blood present Hgb dropped >3 in less than 24 hours -2 U pRBCs and 1 U FFP infused last PM - Hgb stable 12.0 then 11.9 - continue to monitor GI consulted: Endoscopy showed no acute bleeding or evidence of bleeding. Colonoscopy showed 2, 5mm non-bleeding polpys and diverticulosis throughout without abscess or bleeding Continue protonix. Hold coumadin and ASA for now - INR 1.5 currently (from 2.4) Plan for d/c tomorrow (2) Afib Current Visit: Yes Status: Acute Assessment and plan: Continue Diltiazem. Hold coumadin and ASA for now. Qualifiers: Atrial fibrillation type: unspecified Qualified Code(s): I48.91 - Unspecified atrial fibrillation (3) Hypertension Current Visit: No Status: Chronic Assessment and plan: Continue home meds. Hydralazine PRN Qualifiers: Hypertension type: essential hypertension Qualified Code(s): I10 - Essential (primary) hypertension (4) Depression Current Visit: Yes Status: Acute Assessment and plan: Continue Zoloft Add hydroxyzine for itching and anxiety Qualifiers: Depression Type: unspecified Qualified Code(s): F32.9 - Major depressive disorder, single episode, unspecified - Subjective Interval history: Patient seen and examined. Reports she stills feels weak and tired, but has no other complaints. Denies syncope, chest pain, dyspnea, cough, abdominal pain, N/ V/D, dysuria, or leg pain/swelling. - Constitutional Vitals: Temp Pulse Resp BP Pulse Ox 97.2 F L 55 16 157/80 97 10/08/16 08:44 10/08/16 09:50 10/08/16 09:50 10/08/16 09:50 10/08/16 09:50 General appearance: Present: A&O X 3, no acute distress, answers questions appropriately - Head Head exam: Present: atraumatic, normocephalic - Eye Eye exam: Present: sclera anicteric - ENT ENT exam: Present: mucous membranes moist - Respiratory Respiratory exam: Present: CTAB, wheezes (expiratory throughout). Absent: rales - Cardiovascular Cardiovascular exam: Present: RRR, +S1, +S2. Absent: diastolic murmur, systolic murmur - GI/Abdominal GI/Abdominal exam: Present: normal bowel sounds, soft. Absent: distended, rigid , tenderness - Extremities Exam Extremities exam: Present: warm. Absent: pedal edema, tenderness - Neurological Exam Neurological exam: Present: alert, CN II-XII intact, no focal deficits Internal Medicine: Result - Labs CBC & Chem 7: 10/08/16 13:33 10/08/16 06:52 Labs: Short CBC 10/07/16 10/08/16 Range/Units 13:37 06:52 WBC 5.8 (4.3-11.1) K/mcL Hgb 8.5 L 12.0 D (11.5-15.4) g/dL Hct 27.0 L 37.3 (35.3-44.9) % Plt Count 218 (140-400) K/mcL BMP 10/08/16 06:52 Sodium 143 Potassium 3.4 L Chloride 112 H Carbon Dioxide 25 BUN 9 D Creatinine 0.68 Glucose 85 Calcium 8.8 - ABG Interpretation ABG results: PT/INR, D-dimer PT 16.4 Seconds (9.4-12.1) H 10/08/16 06:52 - VTE Reasons for not Prescribing Prophylaxis: Not indicated-Anticoagulated or INR therapeutic Consult Discharge Plan - Plan Additional Instructions: Do NOT take Coumadin or aspirin until follow-up visit with your primary care provider Increase your activity as tolerated Eat and drink adequately to maintain strength Return to the hospital if your symptoms return or worsen Referrals: Michaela Torres, ADVERTISING PHOTOGRAPHER [Primary Care Provider] - <Seng Luna - Last Filed: 10/08/16 18:31> Date of Encounter: 10/08/16 - Constitutional Vitals: Temp Pulse Resp BP Pulse Ox 98.6 F 65 16 155/87 92 10/08/16 17:08 10/08/16 17:08 10/08/16 17:08 10/08/16 17:08 10/08/16 17:08 Internal Medicine: Result - Labs CBC & Chem 7: 10/08/16 13:33 10/08/16 06:52 Labs: Short CBC 10/08/16 10/08/16 Range/Units 06:52 13:33 WBC 5.8 (4.3-11.1) K/mcL Hgb 12.0 D 11.9 (11.5-15.4) g/dL Hct 37.3 37.3 (35.3-44.9) % Plt Count 218 (140-400) K/mcL BMP 10/08/16 06:52 Sodium 143 Potassium 3.4 L Chloride 112 H Carbon Dioxide 25 BUN 9 D Creatinine 0.68 Glucose 85 Calcium 8.8 - ABG Interpretation ABG results: PT/INR, D-dimer PT 16.4 Seconds (9.4-12.1) H 10/08/16 06:52 - Attending Attestation Please see discharge summary of this date.
[2016-10-08] MEDS: Budesonide/Formoterol 160/4.5 MDI IH SCH (11:22)
[2016-10-08 13:58] LABS: Hematocrit 37.3 % (35.3-44.9); Hemoglobin 11.9 g/dL (11.5-15.4)
[2016-10-08 17:08] VITALS: BP 155/87
--- NOTE | 2016-10-08 17:49 | Discharge Summary ---
<Sanket Mendoza R - Last Filed: 10/08/16 18:24> Date of Encounter: 10/08/16 Time of Encounter: 17:47 - Discharge Diagnosis (1) Gastrointestinal hemorrhage with melena Priority: Primary Status: Acute (2) Afib Priority: Secondary Status: Acute Qualifiers: Atrial fibrillation type: unspecified Qualified Code(s): I48.91 - Unspecified atrial fibrillation (3) Hypertension Priority: Secondary Status: Chronic Qualifiers: Hypertension type: essential hypertension Qualified Code(s): I10 - Essential (primary) hypertension (4) Depression Priority: Secondary Status: Acute Qualifiers: Depression Type: unspecified Qualified Code(s): F32.9 - Major depressive disorder, single episode, unspecified - Discharge Medications Home Medications: Aclidinium [place] [Tudorza Pressair] 400 mcg IH BID 09/21/15 [History] Albuterol Neb [Proventil Neb] 2.5 mg IH Q4HR 09/21/15 [History] Albuterol Sulfate [Albuterol Inhaler] 2 puff IH Q6H PRN 09/21/15 [History] Lisinopril [Zestril] 20 mg PO DAILY 09/21/15 [History] Sertraline [Zoloft] 50 mg PO HS 09/21/15 [History] Tamsulosin [Flomax] 0.4 mg PO DAILY 09/21/15 [History] Temazepam [Restoril] 15 mg PO HS 09/21/15 [History] Budesonide/Formoterol 160/4.5 [Symbicort 160/4.5] 2 puff IH BIDR 07/19/16 [ History] Diltiazem CD (24hr) [Cardizem CD] 120 mg PO DAILY #30 cap.er.24h 07/28/16 [Rx] Ferrous Sulfate [Iron] 325 mg PO DAILY 10/07/16 [History] Omeprazole 20 mg PO DAILY 10/07/16 [History] Allergies/Adverse Reactions: Allergies No Known Allergies Allergy (Verified 09/21/15 10:42) Date of admission: 10/07/16 01:32 Primary care physician: Michaela Torres CNP Consults: 10/07/16 02:58 Consult to Nutrition [CONS] Routine Comment: Consulting Provider: NUTRITION Reason for Dietary Consult: MST Score Consult to Glass Crusher [CONS] Routine Reason for SW Consult: Potential need for ECF Discharging clinician: Sanket Mendoza Anticipated date of discharge: 10/08/16 - Patient Status Disposition: Home, Self-Care Condition: Good Functional capacity at discharge: independent ambulation Overall status at discharge: patient is progressing back to baseline - Discharge Instructions Follow Up With: Michaela Torres CNP [Primary Care Provider] - Forms: ED Satisfaction Letter Additional Instructions: Do NOT take Coumadin or aspirin until follow-up visit with your primary care provider Increase your activity as tolerated Eat and drink adequately to maintain strength Return to the hospital if your symptoms return or worsen - Diet and Activity Activity: increase activity as tolerated, resume usual activities as tolerated Diet: advance to your usual diet Interval History: Patient seen and examined. Reports that she is feeling well with no complaints. Denies light-headedness, chest pain, dyspnea, cough, abdominal pain, N/V/D, melena, hematochezia, dysuria, or leg pain/swelling. Hospital course: Ms. Cleaning is a 81 year old female with melena, hematochezia, and acute blood loss. Coumadin and ASA held upon admission. She was given 2 U pRBCs and 1 U FFP during her hospitalization for a drop in Hgb from 11.7 to 8.5 in less than 24 hours. She was evaluated by GI. EGD showed no acute bleeding or evidence of bleeding. Colonoscopy showed 2, 5mm non-bleeding polpys and diverticulosis throughout without abscess or bleeding. Patient remained hemodynamically stable and Hgb remained stable after endoscopy. Given a GI bleed in the setting of Coumadin, we recommend holding the coumadin until follow-up evaluation as an out -patient can be completed. - Time Spent with Patient Total time spent providing and/or coordinating discharge services: - Constitutional Vitals: Temp Pulse Resp BP Pulse Ox 98.6 F 65 16 155/87 92 10/08/16 17:08 10/08/16 17:08 10/08/16 17:08 10/08/16 17:08 10/08/16 17:08 General appearance: Present: A&O X 3, no acute distress, answers questions appropriately - Head Head exam: Present: atraumatic, normocephalic - Eye Eye exam: Present: sclera anicteric - ENT ENT exam: Present: mucous membranes moist - Respiratory Respiratory exam: Present: CTAB, wheezes (expiratory throughout). Absent: rales , rhonchi - Cardiovascular Cardiovascular exam: Present: RRR, +S1, +S2. Absent: diastolic murmur, systolic murmur - GI/Abdominal GI/Abdominal exam: Present: normal bowel sounds, soft. Absent: distended, rigid , tenderness - Neurological Exam Neurological exam: Present: alert, CN II-XII intact, oriented X3, no focal deficits - VTE Reasons for not Prescribing Prophylaxis: Not indicated-Anticoagulated or INR therapeutic <Seng Luna - Last Filed: 10/08/16 18:38> Date of Encounter: 10/08/16 - Discharge Diagnosis (1) Diverticular hemorrhage Priority: Primary Status: Acute (2) Gastrointestinal hemorrhage with melena Status: Acute (3) Afib Status: Acute Qualifiers: Atrial fibrillation type: chronic Qualified Code(s): I48.2 - Chronic atrial fibrillation (4) Supratherapeutic INR Priority: Secondary Status: Resolved (5) Hypertension Status: Chronic Qualifiers: Hypertension type: essential hypertension Qualified Code(s): I10 - Essential (primary) hypertension (6) Depression Status: Acute Qualifiers: Depression Type: unspecified Qualified Code(s): F32.9 - Major depressive disorder, single episode, unspecified Date of admission: 10/07/16 01:32 Primary care physician: Michaela Torres CNP Consults: 10/07/16 02:58 Consult to Nutrition [CONS] Routine Comment: Consulting Provider: NUTRITION Reason for Dietary Consult: MST Score Consult to Glass Crusher [CONS] Routine Reason for SW Consult: Potential need for ECF Hospital course: Ms. Cleaning is a 81 year old female - Time Spent with Patient Total time spent providing and/or coordinating discharge services: 28 min - Constitutional Vitals: Temp Pulse Resp BP Pulse Ox 98.6 F 65 16 155/87 92 10/08/16 17:08 10/08/16 17:08 10/08/16 17:08 10/08/16 17:08 10/08/16 17:08 - Attending Attestation I examined this patient and my medical decision-making was reviewed with the Resident Physician on 10/08/16. I agree with the documented findings, disposition and treatment plan as described except to the extent set forth below. Ms. Cleaning was admitted for acute GI bleed. She underwent endoscopy and no acute bleeding noted. Presumed diverticular bleed that has stopped. Her hemoglobin improved post transfusion. She is afebrile with stable vitals and will be discharged home. Exam Alert. Comfortable Heart irreg Lungs clear Abd soft Plan D/C home Follow up Hold anticoag until seen by PCP Of note she was admitted inpatient at the time of admission as the assumption was that she would require 2 midnights. She has responded well to transfusion and has had no further bleeding therefore will be discharged prior to second midnight.
== END 2016-10-08 18:52 | disposition home or self-care (01) | DRG 378 ==
LOC: 3NENU 19:36 → EMEROO 19:36 → 3NENU 10-07 01:08 → SUATTDRO 10-07 01:32 → 3NENU 10-07 02:28
PROVIDERS: ADMIT Internal Medicine Hematology & Oncology; ATTEND Internal Medicine

== ENCOUNTER 2017-05-08 01:46 | Observation (INO) ==
[2017-05-08 02:31] LABS: Basophils % 0.1 %; Hematocrit 32.2 % (35.3-44.9); Hemoglobin 9.9 g/dL (11.5-15.4); Immature Granulocytes % 0.9 % (0-4); Lymphocytes # 0.3 K/mcL (0.6-4.6); Lymphocytes % 3.9 %; Mean Corpuscular HGB Conc 30.7 g/dL (31.6-35.5); Mean Corpuscular Hemoglobin 26.5 pg (28.0-33.3); Mean Corpuscular Volume 86.3 fL (83.0-100.0); Mean Platelet Volume 10.4 fL (9.4-12.4); Monocytes # 0.1 K/mcL (0.0-1.3); Monocytes % 0.9 %; Neutrophils # 8.2 K/mcL (1.6-8.9); Platelet Count 370 K/mcL (140-400); Red Blood Count 3.73 M/mcL (3.82-4.97); Red Cell Distribution Width 16.7 % (11.5-14.5); Segmented Neutrophils % 94.2 %
[2017-05-08] MEDS ORDERED: MethylPREDNISolone 40 MG/ML VIAL IVP ONE (02:39)
[2017-05-08] MEDS ORDERED: Ipratropium/Albuterol Neb 3 ML IH ONE (02:39)
--- NOTE | 2017-05-08 02:45 | Emergency Department Note ---
Disposition Clinical Impression: COPD exacerbation Dyspnea Qualifiers: Dyspnea type: unspecified Qualified Code(s): R06.00 - Dyspnea, unspecified Disposition: Admitted As Inpatient Condition: Good Time of Disposition: 04:02 SOB HPI - General Chief Complaint: ED Shortness of Breath/Dyspnea Stated Complaint: copd,back pain Time Seen by Provider: 05/08/17 01:58 Source: patient Limitations: no limitations Nursing Notes Reviewed: Yes Vital Signs Reviewed: Yes - History of Present Illness Pt Subjective Complaint: shortness of breath Onset (ago): day(s) Context: recent illness Consistency/Duration: constant Improves with: oxygen Worsens with: nothing Known history of: COPD Associated symptoms: Reports: cough, sputum production, other (Back pain). Denies: chest pain, pain with inspiration, fever, lower extremity pain, polyuria , polydipsia Treatment prior to arrival: bronchodilator, other (previous ED visit 2 days ago) Cough present: No - Related Data Home Medications Medication Instructions Recorded Confirmed Aclidinium [place] [Tudorza 400 mcg IH BID 09/21/15 10/07/16 Pressair] Albuterol Neb [Proventil Neb] 2.5 mg IH Q4HR 09/21/15 10/07/16 Albuterol Sulfate [Albuterol 2 puff IH Q6H PRN 09/21/15 10/07/16 Inhaler] Lisinopril [Zestril] 20 mg PO DAILY 09/21/15 10/07/16 Sertraline [Zoloft] 50 mg PO HS 09/21/15 10/07/16 Tamsulosin [Flomax] 0.4 mg PO DAILY 09/21/15 10/07/16 Temazepam [Restoril] 15 mg PO HS 09/21/15 10/07/16 Budesonide/Formoterol 160/4.5 2 puff IH BIDR 07/19/16 10/07/16 [Symbicort 160/4.5] Ferrous Sulfate [Iron] 325 mg PO DAILY 10/07/16 10/07/16 Omeprazole 20 mg PO DAILY 10/07/16 10/07/16 Previous Rx's Medication Instructions Recorded Diltiazem CD (24hr) [Cardizem CD] 120 mg PO DAILY #30 cap.er.24h 07/28/16 Amoxicillin 875 mg PO BID #14 tablet 01/12/17 predniSONE [PredniSONE] 0 mg PO DAILY #15 tablet 01/12/17 Doxycycline 100 mg PO BID #20 capsule 05/05/17 predniSONE [Prednisone] 50 mg PO DAILY #5 tablet 05/05/17 Allergies Allergy/AdvReac Type Severity Reaction Status Date / Time No Known Allergies Allergy Verified 05/05/17 01:17 All systems ED: reviewed and negative except as stated. Review of Systems: As Per HPI Constitutional: Denies: fever, chills Eyes: Denies: vision change ENT ED: Denies: throat pain Cardiovascular: Denies: palpitations Respiratory: Denies: dyspnea Gastrointestinal: Denies: abdominal pain, nausea, vomiting Genitourinary: Denies: dysuria Musculoskeletal: Reports: back pain Integumentary: Denies: rash Neurological: Denies: weakness Psychiatric: Denies: depression Endocrine: Denies: fatigue Hematological/Lymphatic: Denies: easy bleeding Allergic/Immunologic: Denies: facial swelling Past Medical History - Past Medical History Medical history: Reports: atrial fibrillation, cancer, COPD, other Surgical history: Reports: hysterectomy, other Psychiatric history: Reports: anxiety, bipolar, depression WIRE FRAME DIPPER history: Reports: no WIRE FRAME DIPPER history - Social History Smoking Status: Current every day smoker Smokeless Tobacco Status: No Alcohol use: Reports: none Drug use: Reports: none Physical Exam - General Limitations: no limitations General appearance: alert, in no apparent distress - Head Head exam: normocephalic - Eye Eye exam: Present: EOMI. Absent: conjunctival injection - ENT ENT exam: mucous membranes moist - Neck Neck exam: Present: normal inspection, full ROM - Chest Chest inspection: Present: symmetric chest wall rise - Respiratory Respiratory exam: Present: wheezes. Absent: respiratory distress - Cardiovascular Cardiovascular exam: Present: regular rate, normal rhythm - Abdominal Exam Abdominal exam: Present: soft, Non-Tender - Extremities Exam Extremities exam: Present: normal inspection, full ROM - Back Exam Back exam: Present: full ROM - Neurological Exam Neurological exam: Present: alert - Psychiatric Psychiatric exam: Present: normal affect, normal mood - Skin Skin exam: Present: warm, dry, intact, normal color. Absent: rash, cyanosis, diaphoresis Course Course Narrative: 81-year-old female with known history of COPD presents with difficulty breathing. She states she had been evaluated in this emergency department 2 days ago, and at that time she mentioned she was offered admission but declined due to her son currently fighting cancer. She now presents with similar symptoms, She mentions right flank pain. Patient denies any chest pain, fevers and chills. Pt has had sob related to her COPD but describes worsening in the past month. She says its worse with exertion. She limits the use of her inhalers because she doesn't like how it makes her feel. Otherwise she claims compliance with her medications. She denies CP. She mentions wt loss over the past year, increased stress related to her son's fight with stage 4 cancer. Patient was evaluated and diagnosed and discharged for COPD exacerbation, and UTI three days ago, as well as a mechanical fall that occured two days prior to being seen two days ago. CT head negative. . She was placed on doxycycline and prednisone patient states she has been compliant with these. Pt has c/o of some mild back pain. She fell approx 5 days ago. She also had a nitrite positive UA two days ago. She mentions her back pain is worse on her right flank. She has no midline tenderness, no neuro deficits, no bowel or bladder incontinence. Pt c/o RLE pain. There is a small 3cm skin tear on her right anterior ankle, she states is from her fall. It appears to be healing, with no concerning signs of infection. no bony tenderness or deformities to her extremities. Pt has chronic a-fib on coumadin and diltiazem. Workup initiated. Dueneb, solumedrol ordered. - Reevaluation(s) Reevaluation #1: Discussed EKG with Dr. Anne Almeida who is concerned for Wellens pattern on V2 V3. Comparison to EKG from three days ago shows bimodal Twave in V3 and can be seen in V2. Plan will be to admit to hospitalist after consult to cardiology. Time: 02:48 Reevaluation #2: CXR shows left lower lung capacity, radiologist has rec'd f/u CT. pt stable, denies, CP. CT ordered. Time: 03:33 Reevaluation #3: Pt discussed with and accepted by hospitalist Dr. Bhatia, who also requested lopressor or hydralyzine for elevated BP. Pt CT scan is still pending. Her vitals are stable. Pt safe for transfer to floor for further eval and treatment. Time: 04:02 - Consultations Consultation #1: Discussed pt and EKG with occupational therapist home based, Dr. Ulises Montgomery, who advised to continue with cardiac enzymes monitoring otherwise would not add anything different at this point. Time: 03:45 Vital Signs Temperature 98.2 F 05/08/17 02:02 Pulse Rate 80 05/08/17 02:02 Respiratory Rate 18 05/08/17 02:02 Blood Pressure 164/86 05/08/17 02:02 O2 Sat by Pulse Oximetry 98 05/08/17 02:02 Temperature 98.2 F 05/08/17 02:02 Pulse Rate 80 05/08/17 04:00 Respiratory Rate 18 05/08/17 04:36 Blood Pressure 179/87 05/08/17 04:36 O2 Sat by Pulse Oximetry 97 05/08/17 04:00 Oxygen Delivery Oxygen Delivery Nasal Cannula Shortness of Breath/Dyspnea - Lab Data Lab results reviewed: Yes I reviewed the patient's lab results. Result diagrams: 05/08/17 02:20 05/08/17 02:20 Lab Results 05/08/17 05/08/17 05/08/17 Range/Units 02:20 02:20 02:20 WBC 8.7 (4.3-11.1) K/mcL RBC 3.73 L (3.82-4.97) M/mcL Hgb 9.9 L (11.5-15.4) g/dL Hct 32.2 L (35.3-44.9) % MCV 86.3 (83.0-100.0) fL MCH 26.5 L (28.0-33.3) pg MCHC 30.7 L (31.6-35.5) g/dL RDW 16.7 H (11.5-14.5) % Plt Count 370 (140-400) K/mcL MPV 10.4 (9.4-12.4) fL Immature Gran % 0.9 (0-4) % Seg Neutrophils % 94.2 % Lymphocytes % 3.9 % Monocytes % 0.9 % Eosinophils % 0.0 % Basophils % 0.1 % Neutrophils # 8.2 (1.6-8.9) K/mcL Lymphocytes # 0.3 L (0.6-4.6) K/mcL Monocytes # 0.1 (0.0-1.3) K/mcL Eosinophils # 0.0 (0.0-0.6) K/mcL Basophils # 0.0 (0.0-0.2) K/mcL PT (9.4-12.1) Seconds INR APTT (26.0-36.0) Seconds Sodium 140 (136-145) mEq/L Potassium 3.8 (3.5-5.1) mEq/L Chloride 107 (98-107) mEq/L Carbon Dioxide 25 (23-29) mEq/L BUN 30 H (8-23) mg/dL Creatinine 1.02 (0.60-1.20) mg/dL Est GFR ( Amer) > 60 (> 60) Est GFR (Non-Af Amer) 52 L (> 60) BUN/Creatinine Ratio 29 H (6-26) Glucose 209 H (70-105) mg/dL Calculated Osmolality 302 H (280-300) Lactic Acid (0.5-2.2) mmol/L Calcium 9.4 (8.6-10.3) mg/dL Troponin I < 0.03 (< 0.04) ng/mL B-Natriuretic Peptide 191 H (Less than 100) pg/mL Urine Color (Yellow) Urine Clarity (Clear) Urine pH (5.0-8.0) pH Units Ur Specific Weir (1.010-1.025) Urine Protein (Neg-Trace) mg/dL Urine Glucose (UA) (Normal) mg/dL Urine Ketones (Negative) mg/dL Urine Blood (Negative) Urine Nitrite (Negative) Urine Bilirubin (Negative) Urine Urobilinogen (Normal) mg/dL Ur Leukocyte Esterase (Negative) Urine Microscopic RBC (0-3) per hpf Urine Microscopic WBC (0-3) per hpf Ur Squamous Epith Cells (None-Few) per lpf Urine Bacteria (None-Few) per hpf Hyaline Casts (None-Few) per lpf Ur Culture Indicated? (NO) 05/08/17 05/08/17 05/08/17 Range/Units 02:47 02:51 02:51 WBC (4.3-11.1) K/mcL RBC (3.82-4.97) M/mcL Hgb (11.5-15.4) g/dL Hct (35.3-44.9) % MCV (83.0-100.0) fL MCH (28.0-33.3) pg MCHC (31.6-35.5) g/dL RDW (11.5-14.5) % Plt Count (140-400) K/mcL MPV (9.4-12.4) fL Immature Gran % (0-4) % Seg Neutrophils % % Lymphocytes % % Monocytes % % Eosinophils % % Basophils % % Neutrophils # (1.6-8.9) K/mcL Lymphocytes # (0.6-4.6) K/mcL Monocytes # (0.0-1.3) K/mcL Eosinophils # (0.0-0.6) K/mcL Basophils # (0.0-0.2) K/mcL PT 24.9 H (9.4-12.1) Seconds INR 2.3 APTT 34.9 (26.0-36.0) Seconds Sodium (136-145) mEq/L Potassium (3.5-5.1) mEq/L Chloride (98-107) mEq/L Carbon Dioxide (23-29) mEq/L BUN (8-23) mg/dL Creatinine (0.60-1.20) mg/dL Est GFR ( Amer) (> 60) Est GFR (Non-Af Amer) (> 60) BUN/Creatinine Ratio (6-26) Glucose (70-105) mg/dL Calculated Osmolality (280-300) Lactic Acid 2.5 H (0.5-2.2) mmol/L Calcium (8.6-10.3) mg/dL Troponin I (< 0.04) ng/mL B-Natriuretic Peptide (Less than 100) pg/mL Urine Color Yellow (Yellow) Urine Clarity Cloudy A (Clear) Urine pH 6.0 (5.0-8.0) pH Units Ur Specific Weir 1.026 H (1.010-1.025) Urine Protein Trace (Neg-Trace) mg/dL Urine Glucose (UA) 100 H (Normal) mg/dL Urine Ketones Negative (Negative) mg/dL Urine Blood Trace H (Negative) Urine Nitrite Negative (Negative) Urine Bilirubin Negative (Negative) Urine Urobilinogen Normal (Normal) mg/dL Ur Leukocyte Esterase Small H (Negative) Urine Microscopic RBC 5-15 H (0-3) per hpf Urine Microscopic WBC 15-30 H (0-3) per hpf Ur Squamous Epith Cells Many H (None-Few) per lpf Urine Bacteria Few (None-Few) per hpf Hyaline Casts None Seen (None-Few) per lpf Ur Culture Indicated? NO. (NO) - Radiology Data Radiology results reviewed: Yes I reviewed the patient's radiology results. - EKG Data EKG attestation: Yes I reviewed and interpreted this EKG. EKG results narrative: Sinus rhythm, ventricular rate 75, [place] interval 199, QRS duration 100 QT/QTc 428/ 456 symmetric biphasic inverted t-waves in v2 and v3, that appear more pronounced than the inverted t-waves seen in EKG two days ago
[2017-05-08 02:55] LABS: BUN/Creatinine Ratio 29 (6-26); Blood Urea Nitrogen 30 mg/dL (8-23); Calcium 9.4 mg/dL (8.6-10.3); Carbon Dioxide 25 mEq/L (23-29); Chloride 107 mEq/L (98-107); Glucose 209 mg/dL (70-105); Osmolality,Calculated 302 (280-300); Potassium 3.8 mEq/L (3.5-5.1); Sodium 140 mEq/L (136-145); Troponin I < 0.03 ng/mL (< 0.04); eGFR For African Americans > 60 (> 60); eGFR For Non-African Americans 52 (> 60)
[2017-05-08 02:55] LABS: Bilirubin,Urine Negative (Negative); Blood,Urine Trace (Negative); Clarity,Urine Cloudy (Clear); Color,Urine Yellow (Yellow); Glucose,Urine (UA) 100 mg/dL (Normal); Ketones,Urine Negative (Negative); Leukocyte Esterase,Urine Small (Negative); Nitrite,Urine Negative (Negative); Protein,Urine Trace mg/dL (Neg-Trace); Specific Gravity,Urine 1.026 (1.010-1.025); Urobilinogen,Urine Normal (Normal)
[2017-05-08 02:57] LABS: Bacteria,Urine Few per hpf (None-Few); Hyaline Casts,Urine None Seen per lpf (None-Few); Squamous Epithelial Cell,Urine Many per lpf (None-Few); WBC,Urine 15-30 per hpf (0-3)
--- NOTE | 2017-05-08 02:59 | Emergency Department Note ---
START Narrative - START START: For this encounter, I have reviewed the LENS DOTTER or PA documentation, treatment plan, and medical decision making; and I have had face to face time with this patient. 81 yaer old female who was seen here a few days ago for COPD And chest pain and was advised to be admitted but she could no due to family issues presents to the ED again for chest pain and back pain with COPD. EKG is concerning for wellen's like pattern and we will admit to medicine after cardiopulmonary workup and consulting with cards for possible need for anticoagualtion therapy secondary to wellens like pattern on EKG which is present in V2,3 when compared to 05/05/17 this was not present on V2.
[2017-05-08 04:01] LABS: INR 2.3; Prothrombin Time 24.9 Seconds (9.4-12.1)
[2017-05-08 04:04] LABS: Activated Partial Thrombo Time 34.9 Seconds (26.0-36.0)
[2017-05-08] MEDS ORDERED: Albuterol 2.5 MG/3 ML NEBULIZER IH PRN (06:01)
[2017-05-08] MEDS ORDERED: Naloxone 0.4 MG/ML INJ IVP PRN (06:01)
[2017-05-08] MEDS ORDERED: *HR* HYDROcodone/Acet 5/325 mg TABLET PO PRN (06:01)
--- NOTE | 2017-05-08 06:19 | Internal Med History&Physical ---
Date of Encounter: 05/08/17 Time of Encounter: 06:12 Assessment and Plan (1) Pneumonia Current visit: Yes Status: Acute 1. Blood cultures obtained in ER. 2. Will place on IV Rocephin and Zithromax. 3. Wean oxygen as able. 4. IV steroids and scheduled aerosols for COPD symptoms exacerbated by pneumonia. Qualifiers: Pneumonia type: due to unspecified organism Laterality: right Lung location: lower lobe of lung Qualified Code(s): J18.1 - Lobar pneumonia, unspecified organism (2) Lung nodules Current visit: Yes Status: Acute 1. Outpatient follow up CT within 3 months. 2. To be arranged by PCP. 3. Patient and daughter both voiced understanding and agreement with the plan. (3) Weight loss Current visit: Yes Status: Acute 1. Given that she has unintentional weight loss, nodular densities in CT, and chronic smoking history, I worry that she may have underlying lung cancer. 2. I discussed with patient and her daughter that she needs close follow up with her PCP with follow up chest CT within 3 months. They both voiced understanding. 3. Smoking cessation well advised. (4) Urinary tract infection Current visit: Yes Status: Acute 1. I ordered STAT urine culture as it was not done in ER. 2. Antibiotics as above. Qualifiers: Urinary tract infection type: site unspecified Hematuria presence: without hematuria Qualified Code(s): N39.0 - Urinary tract infection, site not specified (5) Hypertension Current visit: No Status: Chronic 1. Continue home meds as appropriate once verified and updated. 2. Hydralazine PRN also ordered with parameters. 3. Monitor BP and adjust as necessary. Qualifiers: Hypertension type: essential hypertension Qualified Code(s): I10 - Essential (primary) hypertension (6) DVT prophylaxis Current visit: No Status: Acute 1. Patient on Coumadin chronically. 2. Will continue per pharmacy dosing. Internal Medicine - H&P: HPI Chief complaint: cough; fever; SOB; dysuria Admitted From: Emergency Dept Plans for Post Hospital Care: Home History of present illness: Ms. Cleaning is a 81 year old female who presents with a one to two-week history of coughing, fever, shortness of breath, weakness, malaise, and dysuria. She also has had a several month history of appetite and weight loss. Her daughter also reports a several year long history of dyspnea and coughing. Regarding acute events, it was very difficult to obtain details and symptom onset from patient and her daughter as they are both very vague and had a whole list of complaints going on for years. When I tried to narrow the complaints and specifics to the acute events that led to this ER visit, they still would not and could not give me appropriate details. As to what I can decipher was patient has been having worsening symptoms for roughly 1-2 weeks and dysuria for about the same time frame. Respiratory symptoms included coughing, fever, shortness of breath, wheezing, and appetite loss. Dysuria and decreased urine output and flank pain have been about the same timeframe as well. She also she has had some chest pain and tightness over last 2-3 days. Patient and her daughter also state she has had right leg calf pain and swelling after recent fall. 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 Past Med Surg Social Fam HX - Past Medical History Attestation: Yes The following information was validated with the patient. Source: patient, old records reviewed, obtained from family Medical history: atrial fibrillation, cancer, COPD, DVT Psychiatric history: anxiety, depression - Past Surgical History Surgical History: hysterectomy - Social History Smoking Status: Current every day smoker Packs per day: 1 Smokeless Tobacco Status: No Alcohol use: none Drug use: none Current living situation: Home, With Family Activity Level: Independent ambulation Recent Out of Country Travel Within the Last 8 Weeks: No - Family History Mother Adopted: No Family Member Ethnicity: Non- Living Status: Hx Family Cardiac Disorders: (thinks she had heart issues but unsure) Hx Family Respiratory Disorders: No Hx Family Cancer: No Hx Family GI Disorders: No Hx Family Endocrine Disorder: Yes Hx Family Neuromuscular Disorders: No Hx Family Neurologic Disorders: No Hx Family HEENT Disorders: No Hx Family Autoimmune Disorders: No Father Hx Family Cardiac Disorders: Yes Son Adopted: No Family Member Ethnicity: Non- Living Status: Still Living Hx Family Cardiac Disorders: No Hx Family Respiratory Disorders: No Hx Family Cancer: Yes (lung cancer) Hx Family GI Disorders: No Hx Family Endocrine Disorder: No Hx Family Neuromuscular Disorders: No Hx Family Neurologic Disorders: No Hx Family HEENT Disorders: No Hx Family Autoimmune Disorders: No Internal Medicine - H&P: Meds Aclidinium [place] [Tudorza Pressair] 400 mcg IH BID 09/21/15 [History] Albuterol Neb [Proventil Neb] 2.5 mg IH Q4HR 09/21/15 [History] Albuterol Sulfate [Albuterol Inhaler] 2 puff IH Q6H PRN 09/21/15 [History] Lisinopril [Zestril] 20 mg PO DAILY 09/21/15 [History] Sertraline [Zoloft] 50 mg PO HS 09/21/15 [History] Tamsulosin [Flomax] 0.4 mg PO DAILY 09/21/15 [History] Temazepam [Restoril] 15 mg PO HS 09/21/15 [History] Budesonide/Formoterol 160/4.5 [Symbicort 160/4.5] 2 puff IH BIDR 07/19/16 [ History] Diltiazem CD (24hr) [Cardizem CD] 120 mg PO DAILY #30 cap.er.24h 07/28/16 [Rx] Ferrous Sulfate [Iron] 325 mg PO DAILY 10/07/16 [History] Omeprazole 20 mg PO DAILY 10/07/16 [History] Amoxicillin 875 mg PO BID #14 tablet 01/12/17 [Rx] predniSONE [PredniSONE] 0 mg PO DAILY #15 tablet 01/12/17 [Rx] Doxycycline 100 mg PO BID #20 capsule 05/05/17 [Rx] predniSONE [Prednisone] 50 mg PO DAILY #5 tablet 05/05/17 [Rx] 3 Allergy/AdvReac Type Severity Reaction Status Date / Time No Known Allergies Allergy Verified 05/05/17 01:17 - Constitutional Constitutional: anorexia, chills, fever(s), malaise, weight loss, no night sweats - EENT Eyes: no blurry vision, no change in vision Ears: no ear pain, no tinnitus Nose, mouth and throat: no nasal congestion, no sinus pressure, no sore throat - Cardiovascular Cardiovascular ROS IM: chest pain, dyspnea, dyspnea on exertion, no palpitations , no paroxysmal nocturnal dyspnea, no syncope - Respiratory Respiratory: cough, dyspnea, dyspnea on exertion, wheezing, chest congestion, excessive phlegm production, change in phlegm color, pain with cough, no hemoptysis - Gastrointestinal Gastrointestinal: early satiety, nausea, no abdominal pain, no diarrhea, no hematemesis, no hematochezia, no melena, no vomiting - Genitourinary Genitourinary: no dysuria, no flank pain, no hematuria - Musculoskeletal Musculoskeletal ROS IM: no arthralgias, no back pain - Integumentary Integumentary IM: no rash, no jaundice - Neurological Neurological ROS: no dizziness, no focal weakness, no frequent falls, no headache(s), no weakness - Psychiatric Psychiatric: no anxiety, no depression - Endocrine Endocrine IM: cold intolerance, no heat intolerance, no polydipsia, no polyuria - Hematologic/Lymphatic Hematologic/Lymphatic: easy bruising, no lymphadenopathy - Allergic/Immunologic Allergic/Immunologic: wheezing, no GI upset with certain foods - Constitutional Vitals: Temp Pulse Resp BP Pulse Ox 98.0 F 68 18 180/81 98 05/08/17 05:08 05/08/17 05:08 05/08/17 05:08 05/08/17 05:08 05/08/17 05:08 General appearance: Present: cachectic, cooperative, mild distress, A&O X 3, pleasant, loss of weight - Head Head exam: Present: atraumatic, normal inspection - Eye Eye exam: Present: EOMI, normal appearance, PERRL. Absent: scleral icterus Pupils: Present: normal accommodation - ENT ENT exam: Present: mucous membranes dry, normal exam, normal oropharynx - Neck Neck exam general surgery: Present: full ROM, supple. Absent: lymphadenopathy, tenderness, nuchal rigidity - Respiratory Respiratory exam: Present: prolonged expiratory phase, rales (mostly right base) , rhonchi. Absent: chest wall tenderness, CTAB, respiratory distress - Cardiovascular Cardiovascular exam: Present: RRR, +S1, +S2. Absent: diastolic murmur, systolic murmur - GI/Abdominal GI/Abdominal exam: Present: normal bowel sounds, soft. Absent: hepatomegaly, mass, splenomegaly, tenderness - Extremities Exam Extremities exam: Present: calf tenderness (right calf), full ROM, normal capillary refill, pedal edema (R leg), warm, radial pulses palpable and symmetrical. Absent: joint swelling - Back Exam Back exam: Absent: CVA tenderness (L), CVA tenderness (R) - Neurological Exam Neurological exam: Present: alert, CN II-XII intact, oriented X3, strengths equal and symetr throughout - Psychiatric Psychiatric exam: Present: normal affect, normal mood - Skin Skin exam: Present: dry, warm Internal Med - H&P Results - Labs CBC & Chem 7: 05/08/17 02:20 05/08/17 02:20 - Diagnostic Studies CT scan - chest Status: image reviewed by me (nodular infiltrates RLL and lingula; report reviewed)
[2017-05-08] MEDS: 0.9 % Sodium Chloride w KCl 20 MEQ/1,000 ML MLS IVC SCH ×2 (06:37→09:01)
[2017-05-08] MEDS: Azithromycin 500 MG in D5% in Water 250 ML IVPB SCH (06:37)
[2017-05-08] MEDS: Ipratropium/Albuterol Neb 3 ML IH SCH ×4 (07:32→22:24)
[2017-05-08] MEDS: cefTRIAXone 1,000 MG in Water for inj. (sterile) 20 ML 10 ML IVP SCH (09:00)
[2017-05-08] MEDS: Lisinopril 20 MG TABLET PO SCH (12:50)
--- NOTE | 2017-05-08 17:08 | Internal Med Progress Note ---
Date of Encounter: 05/08/17 Time of Encounter: 11:50 - Assessment and plan (1) COPD exacerbation Current Visit: Yes Status: Acute Assessment and plan: Improving start tapering her IV steroids Cont JADE Duoneb + O 2 try to wean her off the oxygen as she tolerates (2) Acute respiratory failure with hypoxia Current Visit: Yes Status: Acute Assessment and plan: due to PNA + COPD exacerbation (3) Pneumonia Current Visit: Yes Status: Acute Assessment and plan: Reviewed CXr showed LLL PNA mostly bacteria cont empirical abx Rocephin + Azithromycin Qualifiers: Pneumonia type: due to unspecified organism Laterality: right Lung location: lower lobe of lung Qualified Code(s): J18.1 - Lobar pneumonia, unspecified organism (4) Paroxysmal A-fib Current Visit: Yes Status: Acute Assessment and plan: Rate controlled on Coumadin for anti coag (5) Lung nodules Current Visit: Yes Status: Acute Assessment and plan: Need close f/u as an out pt f.u CT of Chest (6) Urinary tract infection Current Visit: Yes Status: Acute Assessment and plan: Abnormal UA cont empirical abx Qualifiers: Urinary tract infection type: site unspecified Hematuria presence: without hematuria Qualified Code(s): N39.0 - Urinary tract infection, site not specified (7) Weight loss Current Visit: Yes Status: Acute (8) Tobacco dependence Current Visit: Yes Status: Acute Assessment and plan: Counseled to quit smoking placed on nicotine patch (9) Protein-calorie malnutrition, severe Current Visit: Yes Status: Acute Assessment and plan: Watch Engineer consulted for caloric count cont external nutritional supplements - Subjective Interval history: Ms. Cleaning is a 81 year old female with known past medical history of hypertension, Paroxysmal fibrillation, COPD, not on home oxygen dependent, DVT on Coumadin for anticoagulation pt who presented to ER with two-week history of coughing, fever, shortness of breath. Pt was admitted in the hospital for LLL Pneumonia and COPD exacerbation. She still smokes 1/2 PPD. Pt stated she is feeling litle better today. Still has moderate SOB and TAMAYO. Cough with expectoration +. - Constitutional Vitals: Temp Pulse Resp BP Pulse Ox 98.3 F 58 16 135/69 99 05/08/17 10:27 05/08/17 10:27 05/08/17 15:58 05/08/17 10:27 05/08/17 15:58 General appearance: Present: cachectic, A&O X 3, loss of weight - Head Head exam: Present: atraumatic, normal inspection - Neck Neck exam general surgery: Present: supple - Respiratory Respiratory exam: Present: decreased breath sounds. Absent: rales, respiratory distress, rhonchi, wheezes - Cardiovascular Cardiovascular exam: Present: RRR, +S1, +S2. Absent: tachycardia - GI/Abdominal GI/Abdominal exam: Present: normal bowel sounds, soft. Absent: rebound, rigid, tenderness - Extremities Exam Extremities exam: Absent: calf tenderness, pedal edema, tenderness - Back Exam Back exam: Absent: CVA tenderness (L), CVA tenderness (R) - Neurological Exam Neurological exam: Present: alert, oriented X3, no focal deficits - Psychiatric Psychiatric exam: Present: normal affect, normal mood Internal Medicine: Result - Labs CBC & Chem 7: 05/08/17 02:20 05/08/17 02:20 Labs: Cardiac Enzymes 05/08/17 05/08/17 Range/Units 07:49 13:48 Troponin I < 0.03 < 0.03 (< 0.04) ng/mL - ABG Interpretation ABG results: PT/INR, D-dimer PT 24.9 Seconds (9.4-12.1) H 05/08/17 02:51 Consult Discharge Plan - Plan
[2017-05-08] MEDS ORDERED: *HR* Warfarin 2 MG TABLET PO ONE (18:00)
[2017-05-08] MEDS ORDERED: methylPREDNISolone 125 MG/2 ML VIAL IVP SCH (18:00)
[2017-05-08] MEDS ORDERED: Warfarin perPT PO PRN (18:00)
[2017-05-08] MEDS: MethylPREDNISolone 40 MG/ML VIAL IVP SCH (18:10)
[2017-05-08] MEDS: *HR* Heparin 5,000 UNIT/ML VIAL SQ SCH (18:11)
--- NOTE | 2017-05-08 20:23 | Electrocardiograph Report ---
[address] [address] Test Date: 2017-05-08 Pat Name: Estela Cleaning Department: [id number] Room: 2A37 Gender: F Visual Designer: : 1935 Requested By: Louise Almeida Order Number: [id number] Reading MD: Giancarlo William MD Measurements Intervals [place] Rate: 75 P: 88 AL: 199 QRS: 25 QRSD: 100 T: 58 QT: 428 QTc: 456 Interpretive Statements SINUS RHYTHM BASELINE ARTIFACT Electronically Signed On 05-08-2017 20:21:46 EDT by Giancarlo William MD
[2017-05-09] MEDS ORDERED: 0.9 % Sodium Chloride w KCl 20 MEQ/1,000 ML MLS IVC ONE (00:18)
[2017-05-09] MEDS: Temazepam 15 MG CAPSULE PO PRN ×2 (00:21→20:59)
[2017-05-09] MEDS: Ipratropium/Albuterol Neb 3 ML IH SCH ×4 (04:23→21:37)
[2017-05-09] MEDS: MethylPREDNISolone 40 MG/ML VIAL IVP SCH (05:39)
[2017-05-09] MEDS: *HR* Heparin 5,000 UNIT/ML VIAL SQ SCH (05:39)
[2017-05-09 06:56] LABS: Basophils % 0.1 %; Hematocrit 27.1 % (35.3-44.9); Immature Granulocytes % 0.5 % (0-4); Lymphocytes # 0.7 K/mcL (0.6-4.6); Lymphocytes % 7.1 %; Mean Corpuscular HGB Conc 30.6 g/dL (31.6-35.5); Mean Corpuscular Hemoglobin 26.2 pg (28.0-33.3); Mean Corpuscular Volume 85.5 fL (83.0-100.0); Monocytes # 0.4 K/mcL (0.0-1.3); Monocytes % 4.3 %; Neutrophils # 8.6 K/mcL (1.6-8.9); Platelet Count 308 K/mcL (140-400); Red Blood Count 3.17 M/mcL (3.82-4.97); Red Cell Distribution Width 16.5 % (11.5-14.5)
[2017-05-09 06:59] LABS: INR 2.1
[2017-05-09 07:02] LABS: Hemoglobin 8.3 g/dL (11.5-15.4)
[2017-05-09 07:15] LABS: Alanine Aminotransferase 15 Units/L (7-52); Alkaline Phosphatase 75 Units/L (34-104); Aspartate Amino Transferase 14 Units/L (13-39); BUN/Creatinine Ratio 49 (6-26); Bilirubin,Total 0.2 mg/dL (0.3-1.0); Blood Urea Nitrogen 30 mg/dL (8-23); Carbon Dioxide 26 mEq/L (23-29); Chloride 107 mEq/L (98-107); Chol/HDL Ratio 3.1 (0-4.9); Cholesterol 135 mg/dL (< 200); Glucose 164 mg/dL (70-105); HDL Cholesterol 43 mg/dL (40-59); LDL Cholesterol,Calculated 81 mg/dL (0-99); Magnesium 2.1 mg/dL (1.6-2.6); Osmolality,Calculated 296 (280-300); Potassium 4.1 mEq/L (3.5-5.1); Sodium 138 mEq/L (136-145); Triglycerides 53 mg/dL (< 150); eGFR For African Americans > 60 (> 60); eGFR For Non-African Americans > 60 (> 60)
[2017-05-09] MEDS: Azithromycin 500 MG in D5% in Water 250 ML IVPB SCH (07:57)
[2017-05-09] MEDS: cefTRIAXone 1,000 MG in Water for inj. (sterile) 20 ML 10 ML IVP SCH (07:58)
[2017-05-09] MEDS: Lisinopril 20 MG TABLET PO SCH (07:58)
--- NOTE | 2017-05-09 17:06 | Internal Med Progress Note ---
Date of Encounter: 05/09/17 Time of Encounter: 11:20 - Assessment and plan (1) COPD exacerbation Current Visit: Yes Status: Acute Assessment and plan: Improving start tapering her IV steroids Cont JADE Duoneb + O 2 try to wean her off the oxygen as she tolerates (2) Acute respiratory failure with hypoxia Current Visit: Yes Status: Acute Assessment and plan: due to PNA + COPD exacerbation (3) Pneumonia Current Visit: Yes Status: Acute Assessment and plan: mostly bacteria cont empirical abx Rocephin + Azithromycin Qualifiers: Pneumonia type: due to unspecified organism Laterality: right Lung location: lower lobe of lung Qualified Code(s): J18.1 - Lobar pneumonia, unspecified organism (4) Paroxysmal A-fib Current Visit: Yes Status: Acute Assessment and plan: Rate controlled on Coumadin for anti coag INR therapeutic (5) Lung nodules Current Visit: Yes Status: Acute Assessment and plan: 1.6 x 1.3 CM size Rt upper lobe sub pleural nodule 0.9 x 0.9 cm size RLL Nodule (6) Urinary tract infection Current Visit: Yes Status: Acute Assessment and plan: Urine cx growing E . COli cont Abx Rocephin Qualifiers: Urinary tract infection type: site unspecified Hematuria presence: without hematuria Qualified Code(s): N39.0 - Urinary tract infection, site not specified (7) Weight loss Current Visit: Yes Status: Acute (8) Tobacco dependence Current Visit: Yes Status: Acute Assessment and plan: Counseled to quit smoking placed on nicotine patch (9) Protein-calorie malnutrition, severe Current Visit: Yes Status: Acute Assessment and plan: Physical Therapy Aide consulted for caloric count cont external nutritional supplements (10) Physical deconditioning Current Visit: Yes Status: Acute Assessment and plan: PT / OT eval May need ECF placement - Subjective Interval history: Ms. Cleaning is a 81 year old female with known past medical history of hypertension, Paroxysmal fibrillation, COPD, not on home oxygen dependent, DVT on Coumadin for anticoagulation pt who presented to ER with two-week history of coughing, fever, shortness of breath. Pt was admitted in the hospital for LLL Pneumonia and COPD exacerbation. She still smokes 1/2 PPD. Pt stated she is feeling little better today. Still has moderate SOB and TAMAYO. Cough with expectoration +. No events over night. - Constitutional Vitals: Temp Pulse Resp BP Pulse Ox 98.1 F 75 16 148/62 97 05/09/17 15:57 05/09/17 15:57 05/09/17 15:57 05/09/17 15:57 05/09/17 15:57 General appearance: Present: cachectic, A&O X 3, loss of weight - Head Head exam: Present: atraumatic, normal inspection - Neck Neck exam general surgery: Present: supple - Respiratory Respiratory exam: Present: decreased breath sounds, wheezes (moderate). Absent : rales, respiratory distress, rhonchi - Cardiovascular Cardiovascular exam: Present: RRR, +S1, +S2. Absent: tachycardia - GI/Abdominal GI/Abdominal exam: Present: normal bowel sounds, soft. Absent: rebound, rigid, tenderness - Extremities Exam Extremities exam: Absent: calf tenderness, pedal edema, tenderness - Back Exam Back exam: Absent: CVA tenderness (L), CVA tenderness (R) - Neurological Exam Neurological exam: Present: alert, oriented X3 - Psychiatric Psychiatric exam: Present: normal affect, normal mood - Skin Skin exam: Absent: rash Internal Medicine: Result - Labs CBC & Chem 7: 05/09/17 06:36 05/09/17 06:36 Labs: Short CBC 05/09/17 Range/Units 06:36 WBC 9.8 (4.3-11.1) K/mcL Hgb 8.3 L D (11.5-15.4) g/dL Hct 27.1 L (35.3-44.9) % Plt Count 308 (140-400) K/mcL Neutrophils # 8.6 (1.6-8.9) K/mcL BMP 05/09/17 06:36 Sodium 138 Potassium 4.1 Chloride 107 Carbon Dioxide 26 BUN 30 H Creatinine 0.61 Glucose 164 H Calcium 9.0 Liver Function 05/09/17 Range/Units 06:36 Total Bilirubin 0.2 L (0.3-1.0) mg/dL AST 14 (13-39) Units/L ALT 15 (7-52) Units/L Alkaline Phosphatase 75 (34-104) Units/L Albumin 3.0 L (3.5-5.7) g/dL - ABG Interpretation ABG results: PT/INR, D-dimer PT 23.0 Seconds (9.4-12.1) H 05/09/17 06:36 Consult Discharge Plan - Plan Referrals: Michaela Torres, [employer] SYSTEMS MAINTAINER [Primary Care Provider] -
[2017-05-09] MEDS: predniSONE 20 MG TABLET PO SCH (17:18)
[2017-05-09] MEDS ORDERED: predniSONE 20 MG TABLET PO SCH (18:00)
[2017-05-09] MEDS ORDERED: *HR* Warfarin 3 MG TABLET PO ONE (18:00)
[2017-05-09] MEDS ORDERED: *HR* Warfarin 2.5 MG TABLET PO ONE (18:00)
[2017-05-09] MEDS: Acetaminophen 325 MG TABLET PO PRN (21:02)
[2017-05-10] MEDS: Ipratropium/Albuterol Neb 3 ML IH SCH ×2 (04:38→10:17)
[2017-05-10 05:29] LABS: Basophils % 0.1 %; Hematocrit 27.8 % (35.3-44.9); Hemoglobin 8.8 g/dL (11.5-15.4); Immature Granulocytes % 1.3 % (0-4); Lymphocytes # 0.7 K/mcL (0.6-4.6); Lymphocytes % 6.4 %; Mean Corpuscular HGB Conc 31.7 g/dL (31.6-35.5); Mean Corpuscular Hemoglobin 26.7 pg (28.0-33.3); Mean Corpuscular Volume 84.2 fL (83.0-100.0); Mean Platelet Volume 10.8 fL (9.4-12.4); Monocytes # 0.5 K/mcL (0.0-1.3); Neutrophils # 9.3 K/mcL (1.6-8.9); Platelet Count 320 K/mcL (140-400); Red Cell Distribution Width 16.5 % (11.5-14.5); Segmented Neutrophils % 87.2 %
[2017-05-10 05:39] LABS: INR 1.6; Prothrombin Time 17.5 Seconds (9.4-12.1)
[2017-05-10] MEDS ORDERED: Azithromycin 250 MG TABLET PO SCH (09:00)
[2017-05-10] MEDS: predniSONE 20 MG TABLET PO SCH (09:20)
[2017-05-10] MEDS: cefTRIAXone 1,000 MG in Water for inj. (sterile) 20 ML 10 ML IVP SCH (09:20)
[2017-05-10] MEDS: Lisinopril 20 MG TABLET PO SCH (09:20)
[2017-05-10] MEDS: Acetaminophen 325 MG TABLET PO PRN (09:37)
--- NOTE | 2017-05-10 09:50 | Discharge Summary ---
- NOTES TO OUTPATIENT PROVIDER Notes to Outpatient Provider: Need to f/u with PCP in one week. You do have lung nodules 1.6 x 1.3 CM size Rt upper lobe sub pleural nodule, 0.9 x 0.9 cm size RLL Nodule found on CT of Chest, so you need f/u CT o Chest in 6- 8 weeks..Please talk to your PCP. Please quit smoking. Go for PT / INR in AM and dose COumadin accordingly Orders not resulted at time of discharge: Pending orders 05/11/17 07:00 PT/INR [Prothrombin Time INR] [COAG] DAILY 05/12/17 07:00 PT/INR [Prothrombin Time INR] [COAG] DAILY 05/13/17 07:00 PT/INR [Prothrombin Time INR] [COAG] DAILY Date of Encounter: 05/10/17 Time of Encounter: 09:48 - Discharge Diagnosis (1) COPD exacerbation Priority: Primary Status: Acute (2) Acute respiratory failure with hypoxia Priority: Primary Status: Acute (3) Pneumonia Priority: Primary Status: Acute Qualifiers: Pneumonia type: due to unspecified organism Laterality: right Lung location: lower lobe of lung Qualified Code(s): J18.1 - Lobar pneumonia, unspecified organism (4) Paroxysmal A-fib Priority: Secondary Status: Acute (5) Lung nodules Priority: Secondary Status: Acute (6) Urinary tract infection Priority: Secondary Status: Acute Qualifiers: Urinary tract infection type: site unspecified Hematuria presence: without hematuria Qualified Code(s): N39.0 - Urinary tract infection, site not specified (7) Weight loss Priority: Secondary Status: Acute (8) Tobacco dependence Priority: Secondary Status: Acute (9) Protein-calorie malnutrition, severe Priority: Secondary Status: Acute (10) Physical deconditioning Priority: Secondary Status: Acute Hospital course: Ms. Cleaning is a 81 year old female with known past medical history of hypertension, Paroxysmal fibrillation, COPD, not on home oxygen dependent, DVT on Coumadin for anticoagulation pt who presented to ER with two-week history of coughing, fever, shortness of breath. Pt was admitted in the hospital for LLL Pneumonia and COPD exacerbation. She still smokes 1/2 PPD. Pt stated she is feeling little better today. Still has moderate SOB and TAMAYO. Cough with expectoration +. No events over night. Patient was started on empirical antibiotic with the Rocephin and azithromycin. Also patient was placed on high-dose IV steroids for COPD exacerbation. Patient symptoms seems to be improving slowly. Patient also have urinary tract infection with culture growing E. coli. Patient's symptoms improved. She is tolerating PO intake well. Patient still on 2 liter oxygen. Patient does have severe physical deconditioning for which she was evaluated with PT, OT and recommended for ECF placement for short-term physical therapy. So we will discharge her to ECF today in a stable condition. She does have lung nodules on the CT of the chest 1.6 x 1.3 CM size Rt upper lobe sub pleural nodule 0.9 x 0.9 cm size RLL Nodule. [place] to quit smoking and follow up with PCP for follow-up CT of the chest in 6-8 weeks. - Time Spent with Patient Total time spent providing and/or coordinating discharge services: - Discharge Medications Home Medications: Aclidinium [place] [Tudorza Pressair] 400 mcg IH BID 09/21/15 [History] Albuterol Neb [Proventil Neb] 2.5 mg IH Q4HR 09/21/15 [History] Albuterol Sulfate [Albuterol Inhaler] 2 puff IH Q6H PRN 09/21/15 [History] Lisinopril [Zestril] 20 mg PO DAILY 09/21/15 [History] Sertraline [Zoloft] 50 mg PO HS 09/21/15 [History] Tamsulosin [Flomax] 0.4 mg PO DAILY 09/21/15 [History] Temazepam [Restoril] 15 mg PO HS 09/21/15 [History] Budesonide/Formoterol 160/4.5 [Symbicort 160/4.5] 2 puff IH BIDR 07/19/16 [ History] Omeprazole 20 mg PO DAILY 10/07/16 [History] Warfarin [Coumadin] 2 mg PO SUMOWEFR 05/08/17 [History] Warfarin [Coumadin] 4 mg PO TUTHSA 05/08/17 [History] Albuterol Neb [Proventil Neb] 2.5 mg IH Q4H PRN inhsol 05/10/17 [Rx] Doxycycline 100 mg PO BID 4 Days #8 capsule 05/10/17 [Rx] Ipratropium/Albuterol Neb [Duoneb] 3 ml IH Q4HR PRN 14 Days inhsol 05/10/17 [Rx ] predniSONE [PredniSONE] 40 mg PO DAILY #10 tablet 05/10/17 [Rx] Allergies/Adverse Reactions: 3 Allergy/AdvReac Type Severity Reaction Status Date / Time No Known Allergies Allergy Verified 05/08/17 10:47 Date of admission: 05/08/17 06:03 Primary care physician: Michaela Torres CNP Consults: 05/08/17 11:54 Consult to Physical Therapy [CONS] Routine Comment: Evaluate, develop and implement POC Reason for Consult: Generalized weakness Does patient have active BEDREST order?: Yes Is patient medically & hemodynamically stable?: Yes OT [Consult to Occupational Therapy] [CONS] Routine Comment: Evaluate, develop and implement POC Reason for Consult: Generalized weakness Does patient have active BEDREST order?: Yes Is patient medically & hemodynamically stable?: Yes - Constitutional Vitals: Temp Pulse Resp BP Pulse Ox 98.8 F 73 16 174/79 98 05/10/17 07:29 05/10/17 07:29 05/10/17 07:29 05/10/17 07:29 05/10/17 09:25 General appearance: Present: cachectic, A&O X 3, loss of weight - Head Head exam: Present: atraumatic, normal inspection - Neck Neck exam general surgery: Present: supple - Respiratory Respiratory exam: Present: decreased breath sounds, wheezes (mild). Absent: respiratory distress, stridor - Cardiovascular Cardiovascular exam: Present: RRR, +S1, +S2. Absent: tachycardia - GI/Abdominal GI/Abdominal exam: Present: normal bowel sounds, soft. Absent: rigid, tenderness - Extremities Exam Extremities exam: Absent: calf tenderness, pedal edema, tenderness - Back Exam Back exam: Absent: CVA tenderness (L), CVA tenderness (R) - Psychiatric Psychiatric exam: Present: depressed - Patient Status Disposition: Transfer SNF Condition: Good Overall status at discharge: patient is back to baseline - Discharge Instructions Follow Up With: Michaela Torres CNP [Primary Care Provider] - Forms: ED Satisfaction Letter - Diet and Activity Activity: as per physical therapy, increase activity as tolerated, wear oxygen at all times (2 lit) Diet: low salt diet
--- NOTE | 2017-05-10 09:58 | Physician Discharge Referral ---
ExtendedCare Referral Info Transfer To: ECF Provider in Charge after Transfer: PCP Institutional Level of Care: Skilled (Daily weights Check PT / INR tomorrow) - Diagnosis (1) COPD exacerbation Status: Acute (2) Acute respiratory failure with hypoxia Status: Acute (3) Pneumonia Status: Acute (4) Paroxysmal A-fib Status: Acute (5) Lung nodules Status: Acute (6) Urinary tract infection Status: Acute (7) Weight loss Status: Acute (8) Tobacco dependence Status: Acute (9) Protein-calorie malnutrition, severe Status: Acute (10) Physical deconditioning Status: Acute - Transfer Medications Home Medications: Aclidinium [place] [Tudorza Pressair] 400 mcg IH BID 09/21/15 [History] Albuterol Neb [Proventil Neb] 2.5 mg IH Q4HR 09/21/15 [History] Albuterol Sulfate [Albuterol Inhaler] 2 puff IH Q6H PRN 09/21/15 [History] Lisinopril [Zestril] 20 mg PO DAILY 09/21/15 [History] Sertraline [Zoloft] 50 mg PO HS 09/21/15 [History] Tamsulosin [Flomax] 0.4 mg PO DAILY 09/21/15 [History] Temazepam [Restoril] 15 mg PO HS 09/21/15 [History] Budesonide/Formoterol 160/4.5 [Symbicort 160/4.5] 2 puff IH BIDR 07/19/16 [ History] Omeprazole 20 mg PO DAILY 10/07/16 [History] Warfarin [Coumadin] 2 mg PO SUMOWEFR 05/08/17 [History] Warfarin [Coumadin] 4 mg PO TUTHSA 05/08/17 [History] Albuterol Neb [Proventil Neb] 2.5 mg IH Q4H PRN inhsol 05/10/17 [Rx] Doxycycline 100 mg PO BID 4 Days #8 capsule 05/10/17 [Rx] Ipratropium/Albuterol Neb [Duoneb] 3 ml IH Q4HR PRN 14 Days inhsol 05/10/17 [Rx ] predniSONE [PredniSONE] 40 mg PO DAILY #10 tablet 05/10/17 [Rx] Allergies/Adverse Reactions: 3 Allergy/AdvReac Type Severity Reaction Status Date / Time No Known Allergies Allergy Verified 05/08/17 10:47 - Respiratory Orders Smoking Cessation: Smoking cessation has been advised. For more information, call the [place] Tobacco Quit Line at 0-645-XNAG-NOW. CERTIFICATION: I certify that the transfer of the above named patient to an Extended Care Facility is necessary for the continuing treatment of the diagnosis listed. The above information is true and accurate reflection of patient's current condition. Confidential - Redisclosure prohibited without a patient's written consent.
[2017-05-10 11:58] VITALS: BP 143/62
--- NOTE | 2017-05-10 12:42 | Physician Discharge Referral ---
Home Health/Hosp Referral Info Transfer to: Home Health Provider in Charge Post Discharge: PCP - Diagnosis (1) COPD exacerbation Status: Acute (2) Acute respiratory failure with hypoxia Status: Acute (3) Pneumonia Status: Acute (4) Paroxysmal A-fib Status: Acute (5) Lung nodules Status: Acute (6) Urinary tract infection Status: Acute (7) Weight loss Status: Acute (8) Tobacco dependence Status: Acute (9) Protein-calorie malnutrition, severe Status: Acute (10) Physical deconditioning Status: Acute - Respiratory Orders Smoking Cessation: Smoking cessation has been advised. For more information, call the [place] Tobacco Quit Line at 4-856-SMWS-NOW. - Services Needed Following services are medically necessary services: Nursing, Physical Therapy, Occupational Therapy - Transfer Medications Home Medications: Aclidinium [place] [Tudorza Pressair] 400 mcg IH BID 09/21/15 [History] Albuterol Neb [Proventil Neb] 2.5 mg IH Q4HR 09/21/15 [History] Albuterol Sulfate [Albuterol Inhaler] 2 puff IH Q6H PRN 09/21/15 [History] Lisinopril [Zestril] 20 mg PO DAILY 09/21/15 [History] Sertraline [Zoloft] 50 mg PO HS 09/21/15 [History] Tamsulosin [Flomax] 0.4 mg PO DAILY 09/21/15 [History] Temazepam [Restoril] 15 mg PO HS 09/21/15 [History] Budesonide/Formoterol 160/4.5 [Symbicort 160/4.5] 2 puff IH BIDR 07/19/16 [ History] Omeprazole 20 mg PO DAILY 10/07/16 [History] Warfarin [Coumadin] 2 mg PO SUMOWEFR 05/08/17 [History] Warfarin [Coumadin] 4 mg PO TUTHSA 05/08/17 [History] Albuterol Neb [Proventil Neb] 2.5 mg IH Q4H PRN inhsol 05/10/17 [Rx] Doxycycline 100 mg PO BID 4 Days #8 capsule 05/10/17 [Rx] Ipratropium/Albuterol Neb [Duoneb] 3 ml IH Q4HR PRN 14 Days inhsol 05/10/17 [Rx ] predniSONE [PredniSONE] 40 mg PO DAILY #10 tablet 05/10/17 [Rx] Allergies/Adverse Reactions: 3 Allergy/AdvReac Type Severity Reaction Status Date / Time No Known Allergies Allergy Verified 05/08/17 10:47 Certification: Further, I certify that my clinical findings support that this patient is homebound (i.e. absences from home require considerable and taxing effort and are for medical reasons or synagogue services or infrequently or short duration when for other reasons) because: Homebound Reason: Patient requires assistance of a person or device to safely leave home Attestation: My signature below is to certify that this patient is under my care and that I, or nurse practitioner, or a physician's surgeon's assistant working with me, has a face-to -face encounter with this patient.
[2017-05-10] MEDS ORDERED: *HR* Warfarin 4 MG TABLET PO ONE (14:00)
== END 2017-05-10 15:30 | disposition home health service (06) | DRG 193 ==
LOC: 2ANU 01:46 → EMEROO 01:46 → 2ANU 04:37
PROVIDERS: ADMIT Internal Medicine; ATTEND Internal Medicine

== ENCOUNTER 2017-07-04 18:01 | Observation (INO) ==
[2017-07-04] MEDS ORDERED: methylPREDNISolone 125 MG/2 ML VIAL IVP ONE (18:17)
[2017-07-04] MEDS ORDERED: Ipratropium/Albuterol Neb 3 ML IH ONE (18:17)
--- NOTE | 2017-07-04 18:33 | Emergency Department Note ---
Disposition Clinical Impression: COPD exacerbation, Chest pain Disposition: Admitted As Inpatient Condition: Fair General Adult HPI - General Chief complaint: ED Chest Pain Stated complaint: CP / ADELE Time Seen by Provider: 07/04/17 18:09 - History of Present Illness Pain Scale: 9 - Related Data Home Medications Medication Instructions Recorded Confirmed Aclidinium [place] [Tudorza 400 mcg IH BID 09/21/15 07/04/17 Pressair] Albuterol Sulfate [Albuterol 2 puff IH Q6H PRN 09/21/15 07/04/17 Inhaler] Lisinopril [Zestril] 20 mg PO DAILY 09/21/15 07/04/17 Sertraline [Zoloft] 50 mg PO HS 09/21/15 07/04/17 Tamsulosin [Flomax] 0.4 mg PO DAILY 09/21/15 07/04/17 Temazepam [Restoril] 15 mg PO HS 09/21/15 07/04/17 Budesonide/Formoterol 160/4.5 2 puff IH BIDR 07/19/16 07/04/17 [Symbicort 160/4.5] Warfarin [Coumadin] 2 mg PO TUSA 05/08/17 07/04/17 Warfarin [Coumadin] 4 mg PO SUMOWETHFR 05/08/17 07/04/17 Diltiazem HCl [Diltiazem 12Hr ER] 120 mg PO DAILY 07/04/17 07/04/17 Previous Rx's Medication Instructions Recorded Albuterol Neb [Proventil Neb] 2.5 mg IH Q4H PRN inhsol 05/10/17 Ipratropium/Albuterol Neb [Duoneb] 3 ml IH Q4HR PRN 14 Days inhsol 05/10/17 Allergies Allergy/AdvReac Type Severity Reaction Status Date / Time No Known Allergies Allergy Verified 07/04/17 18:59 Past Medical History - Past Medical History Medical history: Reports: atrial fibrillation, cancer, COPD, DVT Surgical history: Reports: hysterectomy Psychiatric history: Reports: anxiety, depression 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 CASHIER 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 history - Social History Smoking Status: Current every day smoker Smokeless Tobacco Status: No Alcohol use: Reports: none Drug use: Reports: none Course Vital Signs Temperature 98.1 F 07/04/17 18:06 Pulse Rate 88 07/04/17 18:06 Respiratory Rate 16 07/04/17 18:06 Blood Pressure 170/77 07/04/17 18:06 O2 Sat by Pulse Oximetry 95 07/04/17 18:06 Temperature 98.0 F 07/05/17 00:03 Pulse Rate 85 07/05/17 00:03 Respiratory Rate 24 07/05/17 00:03 Blood Pressure 145/68 07/05/17 00:03 O2 Sat by Pulse Oximetry 98 07/05/17 00:03 Oxygen Delivery Oxygen Delivery Room Air Medical Decision Making - Lab Data Result diagrams: 07/04/17 18:29 07/04/17 18:29 Lab Results 07/04/17 07/04/17 07/04/17 Range/Units 18:28 18:28 18:29 WBC (4.3-11.1) K/mcL RBC (3.82-4.97) M/mcL Hgb (11.5-15.4) g/dL Hct (35.3-44.9) % MCV (83.0-100.0) fL MCH (28.0-33.3) pg MCHC (31.6-35.5) g/dL RDW (11.5-14.5) % Plt Count (140-400) K/mcL MPV (9.4-12.4) fL Immature Gran % (0-4) % Seg Neutrophils % % Lymphocytes % % Monocytes % % Eosinophils % % Basophils % % Neutrophils # (1.6-8.9) K/mcL Lymphocytes # (0.6-4.6) K/mcL Monocytes # (0.0-1.3) K/mcL Eosinophils # (0.0-0.6) K/mcL Basophils # (0.0-0.2) K/mcL Nucleated RBCs/100 WBC (0) /100 WBC PT 18.4 H (9.4-12.1) Seconds INR 1.7 Sodium (136-145) mEq/L Potassium (3.5-5.1) mEq/L Chloride (98-107) mEq/L Carbon Dioxide (23-29) mEq/L BUN (8-23) mg/dL Creatinine (0.60-1.20) mg/dL Est GFR ( Amer) (> 60) Est GFR (Non-Af Amer) (> 60) BUN/Creatinine Ratio (6-26) Glucose (70-105) mg/dL Calculated Osmolality (280-300) Lactic Acid 1.5 (0.5-2.2) mmol/L Calcium (8.6-10.3) mg/dL Troponin I (< 0.04) ng/mL B-Natriuretic Peptide 293 H (Less than 100) pg/mL 07/04/17 07/04/17 Range/Units 18:29 18:29 WBC 7.3 (4.3-11.1) K/mcL RBC 3.57 L (3.82-4.97) M/mcL Hgb 9.7 L (11.5-15.4) g/dL Hct 30.2 L (35.3-44.9) % MCV 84.6 (83.0-100.0) fL MCH 27.2 L (28.0-33.3) pg MCHC 32.1 (31.6-35.5) g/dL RDW 17.5 H (11.5-14.5) % Plt Count 282 (140-400) K/mcL MPV 9.5 (9.4-12.4) fL Immature Gran % 0.3 (0-4) % Seg Neutrophils % 75.5 % Lymphocytes % 13.0 % Monocytes % 5.9 % Eosinophils % 5.2 % Basophils % 0.1 % Neutrophils # 5.5 (1.6-8.9) K/mcL Lymphocytes # 1.0 (0.6-4.6) K/mcL Monocytes # 0.4 (0.0-1.3) K/mcL Eosinophils # 0.4 (0.0-0.6) K/mcL Basophils # 0.0 (0.0-0.2) K/mcL Nucleated RBCs/100 WBC 0.3 H (0) /100 WBC PT (9.4-12.1) Seconds INR Sodium 141 (136-145) mEq/L Potassium 3.9 (3.5-5.1) mEq/L Chloride 109 H (98-107) mEq/L Carbon Dioxide 24 (23-29) mEq/L BUN 16 (8-23) mg/dL Creatinine 0.71 (0.60-1.20) mg/dL Est GFR ( Amer) > 60 (> 60) Est GFR (Non-Af Amer) > 60 (> 60) BUN/Creatinine Ratio 23 (6-26) Glucose 119 H (70-105) mg/dL Calculated Osmolality 294 (280-300) Lactic Acid (0.5-2.2) mmol/L Calcium 8.8 (8.6-10.3) mg/dL Troponin I < 0.03 (< 0.04) ng/mL B-Natriuretic Peptide (Less than 100) pg/mL Attestation Statement - Attestation Attestation: I examined this patient and my medical decision-making was reviewed with the Resident Physician. I agree with the documented findings, disposition and treatment plan as described except to the extent set forth below. [id number] time provided Patient arrives complaining of dyspnea. She has a history of COPD, oxygen dependent. She appears mildly dyspneic on exam. Home neb therapy ineffective and completely abating her symptoms
[2017-07-04 18:42] LABS: Basophils % 0.1 %; Eosinophils # 0.4 K/mcL (0.0-0.6); Eosinophils % 5.2 %; Hematocrit 30.2 % (35.3-44.9); Hemoglobin 9.7 g/dL (11.5-15.4); Immature Granulocytes % 0.3 % (0-4); Mean Corpuscular HGB Conc 32.1 g/dL (31.6-35.5); Mean Corpuscular Hemoglobin 27.2 pg (28.0-33.3); Mean Corpuscular Volume 84.6 fL (83.0-100.0); Mean Platelet Volume 9.5 fL (9.4-12.4); Monocytes # 0.4 K/mcL (0.0-1.3); Monocytes % 5.9 %; Neutrophils # 5.5 K/mcL (1.6-8.9); Nucleated Red Blood Cells 0.3 /100 WBC (0); Platelet Count 282 K/mcL (140-400); Red Blood Count 3.57 M/mcL (3.82-4.97); Red Cell Distribution Width 17.5 % (11.5-14.5); Segmented Neutrophils % 75.5 %
[2017-07-04 19:03] LABS: Troponin I < 0.03 ng/mL (< 0.04)
[2017-07-04 19:04] LABS: BUN/Creatinine Ratio 23 (6-26); Blood Urea Nitrogen 16 mg/dL (8-23); Calcium 8.8 mg/dL (8.6-10.3); Carbon Dioxide 24 mEq/L (23-29); Chloride 109 mEq/L (98-107); Glucose 119 mg/dL (70-105); Osmolality,Calculated 294 (280-300); Potassium 3.9 mEq/L (3.5-5.1); Sodium 141 mEq/L (136-145); eGFR For African Americans > 60 (> 60); eGFR For Non-African Americans > 60 (> 60)
[2017-07-04] MEDS ORDERED: Levofloxacin 500 MG/100 ML 500 MG/100 ML BAG IVPB ONE (19:10)
--- NOTE | 2017-07-04 19:12 | Emergency Department Note ---
Disposition Clinical Impression: COPD exacerbation Chest pain Qualifiers: Chest pain type: unspecified Qualified Code(s): R07.9 - Chest pain, unspecified Disposition: Admitted As Inpatient Condition: Fair Forms: ED Satisfaction Letter Time of Disposition: 19:47 Chest Pain HPI - General Chief Complaint: ED Chest Pain Stated Complaint: CP / ADELE Time Seen by Provider: 07/04/17 18:09 Vital Signs Reviewed: Yes Nursing Notes Reviewed: Yes - History of Present Illness HPI Narrative: Patient is a 81-year-old female who presents to [facility] ED with a chief complaint of chest pain and difficulty breathing. Past medical history significant for COPD in which she is on albuterol nebulizers and 2 L nasal cannula oxygen. Patient states that her breathing has been worsening over the last couple days. Also started having some chest pains yesterday evening. Denies any nausea, vomiting, fever or chills. Patient states she thinks she has pneumonia. No abdominal pain, problems with urination or bowel movements. Pt complaint: chest pain Onset (ago): day(s) (2) Duration: constant Onset: during rest Pain Location: substernal Severity: moderate Severity scale (1-10): 9 Quality: tightness Pain Radiation: none Improves with: nothing Worsens with: nothing Associated symptoms: Reports: dyspnea, cough. Denies: nausea, vomiting Treatments prior to arrival chest pain: none - Related Data Home Medications Medication Instructions Recorded Confirmed Aclidinium [place] [Tudorza 400 mcg IH BID 09/21/15 05/08/17 Pressair] Albuterol Sulfate [Albuterol 2 puff IH Q6H PRN 09/21/15 05/08/17 Inhaler] Lisinopril [Zestril] 20 mg PO DAILY 09/21/15 05/08/17 Sertraline [Zoloft] 50 mg PO HS 09/21/15 05/08/17 Tamsulosin [Flomax] 0.4 mg PO DAILY 09/21/15 05/08/17 Temazepam [Restoril] 15 mg PO HS 09/21/15 05/08/17 Budesonide/Formoterol 160/4.5 2 puff IH BIDR 07/19/16 05/08/17 [Symbicort 160/4.5] Warfarin [Coumadin] 2 mg PO SUMOWEFR 05/08/17 05/08/17 Warfarin [Coumadin] 4 mg PO TUTHSA 05/08/17 05/08/17 Diltiazem HCl [Diltiazem 12Hr ER] 120 mg PO DAILY 07/04/17 07/04/17 Previous Rx's Medication Instructions Recorded Albuterol Neb [Proventil Neb] 2.5 mg IH Q4H PRN inhsol 05/10/17 Ipratropium/Albuterol Neb [Duoneb] 3 ml IH Q4HR PRN 14 Days inhsol 05/10/17 Allergies Allergy/AdvReac Type Severity Reaction Status Date / Time No Known Allergies Allergy Verified 07/04/17 18:59 All systems ED: reviewed and negative except as stated. 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 - Social History Smoking Status: Current every day smoker Alcohol use: Reports: none Drug use: Reports: none Physical Exam - General Limitations: no limitations General appearance: alert, in no apparent distress - Head Head exam: atraumatic, normocephalic, normal inspection - Eye Eye exam: Present: normal appearance, EOMI - ENT ENT exam: normal exam, normal oropharynx, mucous membranes moist - Neck Neck exam: Present: normal inspection, full ROM, trachea midline - Chest Chest inspection: Present: normal inspection, symmetric chest wall rise - Respiratory Respiratory exam: Present: wheezes - Cardiovascular Cardiovascular exam: Present: regular rate, normal rhythm, normal heart sounds - Abdominal Exam Abdominal exam: Present: soft, Non-Tender. Absent: tenderness, distention, guarding, rebound, rigidity - Extremities Exam Extremities exam: Present: normal inspection, full ROM. Absent: tenderness, pedal edema - Back Exam Back exam: Present: normal inspection, full ROM. Absent: tenderness - Neurological Exam Neurological exam: Present: alert, oriented X3 - Psychiatric Psychiatric exam: Present: normal affect, normal mood - Skin Skin exam: Present: warm, dry, intact, normal color Course Course Narrative: Patient seen and examined. Difficulty breathing and chest pain on the last couple days. History of COPD. Triple DuoNeb ordered as well as 125 mg of Solu- Medrol. Cardiopulmonary workup initiated. - Reevaluation(s) Reevaluation #1: Labwork shows signs of anemia that appears to be chronic. No other acute abnormalities. Chest x-ray shows improving infiltrate. Levaquin ordered. We will admit for COPD exacerbation and chest pain. I discussed with the hospitalist who has accepted patient for admission. Time: 19:45 Vital Signs Temperature 98.1 F 07/04/17 18:06 Pulse Rate 88 07/04/17 18:06 Respiratory Rate 16 07/04/17 18:06 Blood Pressure 170/77 07/04/17 18:06 O2 Sat by Pulse Oximetry 95 07/04/17 18:06 Temperature 98.1 F 07/04/17 18:06 Pulse Rate 88 07/04/17 18:06 Respiratory Rate 16 07/04/17 18:32 Blood Pressure 170/77 07/04/17 18:06 O2 Sat by Pulse Oximetry 95 07/04/17 18:32 Oxygen Delivery Oxygen Delivery Room Air Chest Pain - Medical Records Medical records reviewed: Yes I reviewed the patient's medical records. - Lab Data Lab results reviewed: Yes I reviewed the patient's lab results. - Radiology Data Radiology results reviewed: Yes I reviewed the patient's radiology results. Chest X-Ray 07/04/17 18:16 IMPRESSION: Previously noted focal opacity in the left perihilar region is less conspicuous on today's study. Nodules/nodular opacities seen on prior chest are also not well seen on this study. No other acute cardiopulmonary findings. D/ / 07/04/2017 18:47:53 Amanda Odonnell MD / ilir Interpreting Provider: Amanda Odonnell MD - EKG Data EKG attestation: Yes I reviewed and interpreted this EKG. EKG results narrative: EKG done at 1813 shows normal sinus rhythm with a rate of [address] elevation or depression noted. Normal axis. Unchanged from prior EKG done 01/2018. Heart Score - Score History: Slightly Suspicious EKG: Normal Age: Greater than 65 Risk Factors: Equal/Greater than 3 risk factor or history of atherosclerotic disease Troponin: Less than normal limit HEART Score Total: 4
[2017-07-04] MEDS ORDERED: Naloxone 0.4 MG/ML INJ IVP PRN (20:26)
[2017-07-04] MEDS ORDERED: Ipratropium/Albuterol Neb 3 ML IH PRN (20:33)
--- NOTE | 2017-07-04 20:54 | Internal Med History&Physical ---
Date of Encounter: 07/04/17 Time of Encounter: 19:30 Internal Medicine - H&P: HPI Chief complaint: Shortness of breath Admitted From: Home Plans for Post Hospital Care: Home History of present illness: Ms. Cleaning is a 81 year old female present to ER for shortness of breath. Past medical history is significant for hypertension, A. fib, breast cancer, UTI , and COPD. Patient said she has increased the shortness of breath and increased oxygen requirement for several days, gradually getting worse. Patient also has a mild dry cough. She denies fever. Patient also complaining of chest pain, the pain located on left chest, sharp, constant, no radiation. Patient denies nausea. Patient has sometimes diaphoresis. In the emergency room, patient was found wheezing, she was treated with antibiotic, IV steroids, and DuoNeb. After treatment, her shortness of breath has improved. EKG unremarkable. Patient was admitted for COPD exacerbation. Past Med Surg Social Fam HX - Past Medical History Medical history: atrial fibrillation, cancer, COPD, DVT Psychiatric history: anxiety, depression - Past Surgical History Surgical History: hysterectomy - Social History Smoking Status: Current every day smoker Smokeless Tobacco Status: No Alcohol use: none Drug use: none - Family History Mother Adopted: No Family Member Ethnicity: Non- Living Status: Hx Family Cardiac Disorders: (thinks she had heart issues but unsure) Hx Family Respiratory Disorders: No Hx Family Cancer: No Hx Family GI Disorders: No Hx Family Endocrine Disorder: Yes Hx Family Neuromuscular Disorders: No Hx Family Neurologic Disorders: No Hx Family HEENT Disorders: No Hx Family Autoimmune Disorders: No Father Hx Family Cardiac Disorders: Yes Son Adopted: No Family Member Ethnicity: Non- Living Status: Still Living Hx Family Cardiac Disorders: No Hx Family Respiratory Disorders: No Hx Family Cancer: Yes (lung cancer) Hx Family GI Disorders: No Hx Family Endocrine Disorder: No Hx Family Neuromuscular Disorders: No Hx Family Neurologic Disorders: No Hx Family HEENT Disorders: No Hx Family Autoimmune Disorders: No Internal Medicine - H&P: Meds Aclidinium [place] [Tudorza Pressair] 400 mcg IH BID 09/21/15 [History] Albuterol Sulfate [Albuterol Inhaler] 2 puff IH Q6H PRN 09/21/15 [History] Lisinopril [Zestril] 20 mg PO DAILY 09/21/15 [History] Sertraline [Zoloft] 50 mg PO HS 09/21/15 [History] Tamsulosin [Flomax] 0.4 mg PO DAILY 09/21/15 [History] Temazepam [Restoril] 15 mg PO HS 09/21/15 [History] Budesonide/Formoterol 160/4.5 [Symbicort 160/4.5] 2 puff IH BIDR 07/19/16 [ History] Warfarin [Coumadin] 2 mg PO TUSA 05/08/17 [History] Warfarin [Coumadin] 4 mg PO SUMOWETHFR 05/08/17 [History] Albuterol Neb [Proventil Neb] 2.5 mg IH Q4H PRN inhsol 05/10/17 [Rx] Ipratropium/Albuterol Neb [Duoneb] 3 ml IH Q4HR PRN 14 Days inhsol 05/10/17 [Rx ] Diltiazem HCl [Diltiazem 12Hr ER] 120 mg PO DAILY 07/04/17 [History] 3 Allergy/AdvReac Type Severity Reaction Status Date / Time No Known Allergies Allergy Verified 07/04/17 18:59 All Systems PM: A 10-system review of systems was performed and is negative for pertinent findings except as documented above in the HPI. - Constitutional Vitals: Temp Pulse Resp BP Pulse Ox 98.7 F 90 28 157/73 97 07/04/17 20:32 07/04/17 20:32 07/04/17 20:32 07/04/17 20:32 07/04/17 20:32 General appearance: Present: mild distress, A&O X 3, answers questions appropriately - Head Head exam: Present: atraumatic, normocephalic - Eye Eye exam: Present: PERRL, conjuntiva pink, sclera anicteric Pupils: Present: PERRL - Neck Neck exam general surgery: Present: supple, trachea midline. Absent: lymphadenopathy - Respiratory Respiratory exam: Present: chest wall tenderness (On the left side chest wall), CTAB, wheezes (Bilateral diffused wheezes). Absent: accessory muscle use, rales , rhonchi - Cardiovascular Cardiovascular exam: Present: RRR, +S1, +S2. Absent: diastolic murmur, gallop, rubs, systolic murmur - GI/Abdominal GI/Abdominal exam: Present: normal bowel sounds, soft, no peritoneal signs. Absent: distended, tenderness - Extremities Exam Extremities exam: Present: warm, radial pulses palpable and symmetrical. Absent : calf tenderness, cyanotic, pedal edema - Neurological Exam Neurological exam: Present: CN II-XII intact, oriented X3, no focal deficits. Absent: pronater drift, facial droop, speech deficit - Skin Skin exam: Present: dry, intact Internal Med - H&P Results - Labs CBC & Chem 7: 07/04/17 18:29 07/04/17 18:29 - Assessment and plan (1) COPD exacerbation Current Visit: No Status: Acute Assessment and plan: Patient has increased shortness of breath with bilateral wheezes. History of COPD and smoking. Consider COPD exacerbation. - We will treat patient with antibiotic, steroid, and bronchodilator. - Closely monitor patient. (2) Acute respiratory failure Current Visit: No Status: Acute Assessment and plan: Due to COPD exacerbation. Will closely monitor patient and treat underlying disease. Qualifiers: Respiratory failure complication: hypoxia Qualified Code(s): J96.01 - Acute respiratory failure with hypoxia (3) DVT prophylaxis Current Visit: No Status: Acute Assessment and plan: Patient is on Coumadin. Will closely monitor PT/INR. (4) Hypertension Current Visit: No Status: Chronic Assessment and plan: Continue home medications Qualifiers: Hypertension type: essential hypertension Qualified Code(s): I10 - Essential (primary) hypertension (5) Afib Current Visit: No Status: Acute Assessment and plan: Heart rate is well controlled. Will continue Cardizem and Coumadin. Qualifiers: Atrial fibrillation type: paroxysmal Qualified Code(s): I48.0 - Paroxysmal atrial fibrillation (6) Tobacco dependence Current Visit: No Status: Acute Assessment and plan: Smoking cessation education. Nicotine patch (7) Chest pain Current Visit: Yes Status: Acute Assessment and plan: Patient has constant chest pain with chest wall tenderness. Most likely muscular pain due to cough or labored breathing. Patient has no history of CAD. - We will continuous monitor patient in telemetry. - Track 3 sets of troponin. - Pain control as needed Qualifiers: Chest pain type: intercostal pain Qualified Code(s): R07.82 - Intercostal pain - Time Spent With Patient Total time spent is greater than 50% in coordination of care (as documented) at patient's floor/unit and/or counseling patient: 40 minutes Greater than 35 minutes
[2017-07-04 21:00] LABS: INR 1.7; Prothrombin Time 18.4 Seconds (9.4-12.1)
[2017-07-04] MEDS: Ipratropium/Albuterol Neb 3 ML IH SCH (21:42)
[2017-07-04] MEDS: Budesonide/Formoterol 160/4.5 MDI IH SCH (21:43)
[2017-07-04] MEDS: Nicotine 14 MG PATCH.TD24 TD SCH (21:43)
[2017-07-04] MEDS: Acetaminophen 325 MG TABLET PO PRN (22:53)
[2017-07-04] MEDS: Temazepam 15 MG CAPSULE PO SCH (22:53)
[2017-07-04] MEDS: methylPREDNISolone 125 MG/2 ML VIAL IVP SCH (22:53)
[2017-07-05 01:13] LABS: Basophils % 0.2 %; Hematocrit 27.9 % (35.3-44.9); Hemoglobin 8.6 g/dL (11.5-15.4); Immature Granulocytes % 0.2 % (0-4); Lymphocytes # 0.1 K/mcL (0.6-4.6); Lymphocytes % 2.4 %; Mean Corpuscular HGB Conc 30.8 g/dL (31.6-35.5); Mean Corpuscular Hemoglobin 26.2 pg (28.0-33.3); Mean Corpuscular Volume 85.1 fL (83.0-100.0); Mean Platelet Volume 11.1 fL (9.4-12.4); Monocytes % 0.4 %; Platelet Count 259 K/mcL (140-400); Red Blood Count 3.28 M/mcL (3.82-4.97); Red Cell Distribution Width 17.4 % (11.5-14.5); Segmented Neutrophils % 96.8 %
[2017-07-05 01:18] LABS: Neutrophils # 5.1 K/mcL (1.6-8.9)
[2017-07-05 01:19] LABS: Prothrombin Time 21.7 Seconds (9.4-12.1)
[2017-07-05 01:29] LABS: BUN/Creatinine Ratio 24 (6-26); Blood Urea Nitrogen 19 mg/dL (8-23); Calcium 8.6 mg/dL (8.6-10.3); Carbon Dioxide 24 mEq/L (23-29); Chloride 107 mEq/L (98-107); Glucose 254 mg/dL (70-105); Magnesium 1.9 mg/dL (1.6-2.6); Osmolality,Calculated 297 (280-300); Potassium 3.7 mEq/L (3.5-5.1); Sodium 138 mEq/L (136-145); eGFR For African Americans > 60 (> 60); eGFR For Non-African Americans > 60 (> 60)
[2017-07-05 01:55] LABS: Anisocytosis 1+ (Not Present); Hypochromasia Present (Not Present); Platelet Estimate Normal (Normal)
[2017-07-05] MEDS: Ipratropium/Albuterol Neb 3 ML IH SCH ×4 (03:12→22:22)
[2017-07-05] MEDS: methylPREDNISolone 125 MG/2 ML VIAL IVP SCH ×4 (05:47→23:41)
[2017-07-05] MEDS: Diltiazem CD (24hr) 120 MG CAPSULE PO SCH (07:54)
[2017-07-05] MEDS: Nicotine 14 MG PATCH.TD24 TD SCH (07:54)
[2017-07-05] MEDS: Budesonide/Formoterol 160/4.5 MDI IH SCH ×2 (10:28→22:21)
[2017-07-05] MEDS: Lisinopril 20 MG TABLET PO SCH (11:10)
--- NOTE | 2017-07-05 11:10 | Internal Med Progress Note ---
Date of Encounter: 07/05/17 Time of Encounter: 11:00 - Assessment and plan (1) COPD exacerbation Current Visit: No Status: Acute Assessment and plan: Has diffuse wheezes bilaterally. Start on nebs, steroids and antibiotics (2) Acute respiratory failure Current Visit: No Status: Acute Assessment and plan: Due to COPD exacerbation. Will closely monitor patient and treat underlying disease. Continue nebs , steroids Qualifiers: Respiratory failure complication: hypoxia Qualified Code(s): J96.01 - Acute respiratory failure with hypoxia (3) DVT prophylaxis Current Visit: No Status: Acute Assessment and plan: Patient is on Coumadin. Will closely monitor PT/INR. (4) Hypertension Current Visit: No Status: Chronic Assessment and plan: Continue home medications Qualifiers: Hypertension type: essential hypertension Qualified Code(s): I10 - Essential (primary) hypertension (5) Afib Current Visit: No Status: Acute Assessment and plan: Heart rate is well controlled. Will continue Cardizem and Coumadin. Qualifiers: Atrial fibrillation type: paroxysmal Qualified Code(s): I48.0 - Paroxysmal atrial fibrillation (6) Tobacco dependence Current Visit: No Status: Acute Assessment and plan: Smoking cessation education. Nicotine patch (7) Chest pain Current Visit: Yes Status: Acute Assessment and plan: Likely musculoskeletal. Troponins negative. Pain control PRN Qualifiers: Chest pain type: intercostal pain Qualified Code(s): R07.82 - Intercostal pain - Time Spent With Patient Total time spent is greater than 50% in coordination of care (as documented) at patient's floor/unit and/or counseling patient: - Subjective Interval history: No acute events overnight - Constitutional Vitals: Temp Pulse Resp BP Pulse Ox 97.6 F 78 20 146/68 98 07/05/17 10:37 07/05/17 10:37 07/05/17 10:37 07/05/17 10:37 07/05/17 10:37 General appearance: Present: mild distress, A&O X 3, answers questions appropriately - Head Head exam: Present: atraumatic, normocephalic - Eye Eye exam: Present: PERRL, conjuntiva pink, sclera anicteric Pupils: Present: PERRL - Neck Neck exam general surgery: Present: supple, trachea midline. Absent: lymphadenopathy - Respiratory Respiratory exam: Absent: accessory muscle use, rales, rhonchi, wheezes Additional comments: Has expiratory wheezes bilaterally - Cardiovascular Cardiovascular exam: Present: RRR, +S1, +S2. Absent: diastolic murmur, gallop, rubs, systolic murmur - GI/Abdominal GI/Abdominal exam: Present: normal bowel sounds, soft, no peritoneal signs. Absent: distended, tenderness - Extremities Exam Extremities exam: Present: warm, radial pulses palpable and symmetrical. Absent : calf tenderness, cyanotic, pedal edema - Neurological Exam Neurological exam: Present: CN II-XII intact, oriented X3, no focal deficits. Absent: pronater drift, facial droop, speech deficit - Skin Skin exam: Present: dry, intact Internal Medicine: Result - Labs CBC & Chem 7: 07/05/17 00:58 07/05/17 00:58 Labs: Short CBC 07/05/17 Range/Units 00:58 WBC 5.3 (4.3-11.1) K/mcL Hgb 8.6 L (11.5-15.4) g/dL Hct 27.9 L (35.3-44.9) % Plt Count 259 (140-400) K/mcL Neutrophils # 5.1 (1.6-8.9) K/mcL BMP 07/05/17 00:58 Sodium 138 Potassium 3.7 Chloride 107 Carbon Dioxide 24 BUN 19 Creatinine 0.79 Glucose 254 H Calcium 8.6 Cardiac Enzymes 07/05/17 07/05/17 Range/Units 00:58 05:22 Troponin I < 0.03 < 0.03 (< 0.04) ng/mL - ABG Interpretation ABG results: PT/INR, D-dimer PT 21.7 Seconds (9.4-12.1) H 07/05/17 00:58 Consult Discharge Plan - Plan Referrals: Micheala Torres, JIG HAND [Primary Care Provider] -
[2017-07-05] MEDS: levoFLOXacin 500 MG TABLET PO SCH (17:50)
[2017-07-05] MEDS ORDERED: Warfarin perPT PO PRN (18:00)
[2017-07-05] MEDS ORDERED: *HR* Warfarin 2 MG TABLET PO ONE (18:00)
[2017-07-05] MEDS ORDERED: Levofloxacin 750 MG/150 ML 750 MG/150 ML BAG IVPB SCH (19:00)
[2017-07-05] MEDS: Acetaminophen 325 MG TABLET PO PRN (22:12)
[2017-07-05] MEDS: Temazepam 15 MG CAPSULE PO SCH (22:12)
[2017-07-06 01:59] LABS: Basophils % 0.1 %; Hematocrit 25.3 % (35.3-44.9); Immature Granulocytes % 0.7 % (0-4); Lymphocytes # 0.3 K/mcL (0.6-4.6); Mean Corpuscular HGB Conc 31.6 g/dL (31.6-35.5); Mean Corpuscular Hemoglobin 26.9 pg (28.0-33.3); Mean Corpuscular Volume 85.2 fL (83.0-100.0); Mean Platelet Volume 11.2 fL (9.4-12.4); Monocytes # 0.3 K/mcL (0.0-1.3); Monocytes % 2.1 %; Platelet Count 281 K/mcL (140-400); Red Blood Count 2.97 M/mcL (3.82-4.97); Red Cell Distribution Width 17.5 % (11.5-14.5); Segmented Neutrophils % 95.1 %
[2017-07-06] MEDS: Ipratropium/Albuterol Neb 3 ML IH SCH ×4 (04:25→21:48)
[2017-07-06 06:02] LABS: INR 2.2; Prothrombin Time 24.3 Seconds (9.4-12.1)
[2017-07-06] MEDS: methylPREDNISolone 125 MG/2 ML VIAL IVP SCH (06:10)
[2017-07-06 06:11] LABS: Neutrophils # 14.7 K/mcL (1.6-8.9)
[2017-07-06 07:38] LABS: BUN/Creatinine Ratio 41 (6-26); Blood Urea Nitrogen 33 mg/dL (8-23); Calcium 8.9 mg/dL (8.6-10.3); Carbon Dioxide 25 mEq/L (23-29); Chloride 105 mEq/L (98-107); Glucose 178 mg/dL (70-105); Magnesium 1.9 mg/dL (1.6-2.6); Osmolality,Calculated 300 (280-300); Phosphorous 2.2 mg/dL (2.7-4.5); Potassium 4.1 mEq/L (3.5-5.1); Sodium 139 mEq/L (136-145); eGFR For African Americans > 60 (> 60); eGFR For Non-African Americans > 60 (> 60)
--- NOTE | 2017-07-06 08:38 | Internal Med Progress Note ---
Date of Encounter: 07/06/17 Time of Encounter: 08:30 - Assessment and plan (1) COPD exacerbation Current Visit: No Status: Acute Assessment and plan: Has diffuse wheezes bilaterally. Start on nebs, steroids and antibiotics. SOB improved this am (2) Acute respiratory failure Current Visit: No Status: Acute Assessment and plan: Due to COPD exacerbation. Will closely monitor patient and treat underlying disease. Continue nebs , steroids Qualifiers: Respiratory failure complication: hypoxia Qualified Code(s): J96.01 - Acute respiratory failure with hypoxia (3) DVT prophylaxis Current Visit: No Status: Acute Assessment and plan: Patient is on Coumadin. Will closely monitor PT/INR. (4) Hypertension Current Visit: No Status: Chronic Assessment and plan: Continue home medications Qualifiers: Hypertension type: essential hypertension Qualified Code(s): I10 - Essential (primary) hypertension (5) Afib Current Visit: No Status: Acute Assessment and plan: Heart rate is well controlled. Will continue Cardizem and Coumadin. Qualifiers: Atrial fibrillation type: paroxysmal Qualified Code(s): I48.0 - Paroxysmal atrial fibrillation (6) Tobacco dependence Current Visit: No Status: Acute Assessment and plan: Smoking cessation education. Nicotine patch (7) Chest pain Current Visit: Yes Status: Acute Assessment and plan: Likely musculoskeletal. Troponins negative. Pain control PRN Qualifiers: Chest pain type: intercostal pain Qualified Code(s): R07.82 - Intercostal pain - Time Spent With Patient Total time spent is greater than 50% in coordination of care (as documented) at patient's floor/unit and/or counseling patient: - Subjective Interval history: No acute events overnight - Constitutional Vitals: Temp Pulse Resp BP Pulse Ox 97.9 F 83 18 137/68 93 07/06/17 07:37 07/06/17 07:37 07/06/17 07:37 07/06/17 07:37 07/06/17 07:37 General appearance: Present: mild distress, A&O X 3, answers questions appropriately Exam: Frail elderly lady. No acute distress - Head Head exam: Present: atraumatic, normocephalic - Respiratory Additional comments: mild wheezing. No accessory muscle use - Cardiovascular Cardiovascular exam: Present: RRR, +S1, +S2. Absent: diastolic murmur, gallop, rubs, systolic murmur - Extremities Exam Extremities exam: Present: warm, radial pulses palpable and symmetrical. Absent : calf tenderness, cyanotic, pedal edema Internal Medicine: Result - Labs CBC & Chem 7: 07/06/17 01:07 07/06/17 01:07 Labs: Short CBC 07/06/17 Range/Units 01:07 WBC 15.4 H D (4.3-11.1) K/mcL Hgb 8.0 L (11.5-15.4) g/dL Hct 25.3 L (35.3-44.9) % Plt Count 281 (140-400) K/mcL Neutrophils # 14.7 H (1.6-8.9) K/mcL BMP 07/06/17 01:07 Sodium 139 Potassium 4.1 Chloride 105 Carbon Dioxide 25 BUN 33 H Creatinine 0.80 Glucose 178 H Calcium 8.9 - ABG Interpretation ABG results: PT/INR, D-dimer PT 24.3 Seconds (9.4-12.1) H 07/06/17 01:07 Consult Discharge Plan - Plan Referrals: Michaela Torres TOOL PLANER SET UP OPERATOR [Primary Care Provider] -
[2017-07-06] MEDS: Nicotine 14 MG PATCH.TD24 TD SCH (08:50)
[2017-07-06] MEDS: Lisinopril 20 MG TABLET PO SCH (08:50)
[2017-07-06] MEDS: Diltiazem CD (24hr) 120 MG CAPSULE PO SCH (08:50)
[2017-07-06] MEDS: predniSONE 20 MG TABLET PO SCH (08:50)
[2017-07-06] MEDS: Budesonide/Formoterol 160/4.5 MDI IH SCH ×2 (10:26→21:48)
--- NOTE | 2017-07-06 15:21 | Electrocardiograph Report ---
[address] [place] [address] Test Date: 2017-07-04 Pat Name: Estela Cleaning Department: 103 Room: 2A36 Gender: F Chocolate Molder: : 1935 Requested By: Aliyah Coleman Order Number: [id number] Reading MD: Cassi Luna Measurements Intervals [place] Rate: 89 P: OR: 0 QRS: 12 QRSD: 97 T: 78 QT: 389 QTc: 435 Interpretive Statements ATRIAL FIBRILLATION ANTEROSEPTAL MYOCARDIAL INFARCTION [40+ ms Q WAVE IN V1-V4], OF INDETERMINATE AGE Electronically Signed On 07-06-2017 15:20:02 EDT by Cassi Luna
[2017-07-06] MEDS ORDERED: *HR* Warfarin 2 MG TABLET PO ONE (18:00)
[2017-07-06] MEDS: levoFLOXacin 500 MG TABLET PO SCH (18:09)
[2017-07-06] MEDS: Temazepam 15 MG CAPSULE PO SCH (22:01)
[2017-07-07] MEDS: Ipratropium/Albuterol Neb 3 ML IH SCH ×2 (03:46→11:07)
[2017-07-07 04:28] LABS: Basophils % 0.1 %; Hematocrit 24.9 % (35.3-44.9); Immature Granulocytes % 0.8 % (0-4); Lymphocytes # 0.6 K/mcL (0.6-4.6); Lymphocytes % 4.4 %; Mean Corpuscular HGB Conc 32.1 g/dL (31.6-35.5); Mean Corpuscular Volume 84.1 fL (83.0-100.0); Mean Platelet Volume 11.6 fL (9.4-12.4); Monocytes # 0.6 K/mcL (0.0-1.3); Monocytes % 4.3 %; Neutrophils # 13.1 K/mcL (1.6-8.9); Platelet Count 294 K/mcL (140-400); Red Blood Count 2.96 M/mcL (3.82-4.97); Red Cell Distribution Width 17.5 % (11.5-14.5); Segmented Neutrophils % 90.4 %
[2017-07-07 04:32] LABS: INR 1.7; Prothrombin Time 18.5 Seconds (9.4-12.1)
[2017-07-07 04:50] LABS: BUN/Creatinine Ratio 53 (6-26); Blood Urea Nitrogen 33 mg/dL (8-23); Calcium 8.7 mg/dL (8.6-10.3); Carbon Dioxide 29 mEq/L (23-29); Chloride 105 mEq/L (98-107); Glucose 142 mg/dL (70-105); Osmolality,Calculated 298 (280-300); Potassium 3.8 mEq/L (3.5-5.1); Sodium 139 mEq/L (136-145); eGFR For African Americans > 60 (> 60); eGFR For Non-African Americans > 60 (> 60)
[2017-07-07 07:15] VITALS: BP 120/55
--- NOTE | 2017-07-07 08:08 | Discharge Summary ---
Orders not resulted at time of discharge: Pending orders 07/07/17 08:04 POC Urinalysis [POC] Routine Date of Encounter: 07/07/17 Time of Encounter: 08:00 - Discharge Diagnosis (1) COPD exacerbation Priority: Primary Status: Acute Assessment and Plan: Pt came in with shortness of breath and diffuse wheezes bilaterally. She was started on nebs, steroids and antibiotics. Her IV steroids were tapered to PO and she was discharged home in a stable condition (2) Acute respiratory failure Priority: Secondary Status: Acute Assessment and Plan: Due to COPD exacerbation. Will closely monitor patient and treat underlying disease. Continue nebs , steroids Qualifiers: Respiratory failure complication: hypoxia Qualified Code(s): J96.01 - Acute respiratory failure with hypoxia (3) DVT prophylaxis Priority: Secondary Status: Acute Assessment and Plan: Patient is on Coumadin. Will closely monitor PT/INR. (4) Hypertension Priority: Secondary Status: Chronic Assessment and Plan: Continue home medications Qualifiers: Hypertension type: essential hypertension Qualified Code(s): I10 - Essential (primary) hypertension (5) Afib Priority: Secondary Status: Acute Assessment and Plan: Heart rate is well controlled. Will continue Cardizem and Coumadin. Qualifiers: Atrial fibrillation type: paroxysmal Qualified Code(s): I48.0 - Paroxysmal atrial fibrillation (6) Tobacco dependence Priority: Secondary Status: Acute Assessment and Plan: Smoking cessation education. Nicotine patch (7) Chest pain Priority: Secondary Status: Acute Assessment and Plan: Likely musculoskeletal. Troponins negative. Pain control PRN Qualifiers: Chest pain type: intercostal pain Qualified Code(s): R07.82 - Intercostal pain (8) Urinary tract infection Priority: Secondary Status: Acute Assessment and Plan: She was discharged on a course of bactrim Qualifiers: Urinary tract infection type: acute cystitis Qualified Code(s): N30.00 - Acute cystitis without hematuria Hospital course: Ms. Cleaning is a 81 year old female - Time Spent with Patient Total time spent providing and/or coordinating discharge services: - Discharge Medications Prescriptions: Nicotine Patch [Nicoderm] 14 mg TD DAILY #60 patch.td24 predniSONE [PredniSONE] 40 mg PO DAILY #5 tablet Sulfamethoxazole/Trimeth DS [Bactrim DS] 1 each PO BID 3 Days #6 tablet Home Medications: Aclidinium [place] [Tudorza Pressair] 400 mcg IH BID 09/21/15 [History] Albuterol Sulfate [Albuterol Inhaler] 2 puff IH Q6H PRN 09/21/15 [History] Lisinopril [Zestril] 20 mg PO DAILY 09/21/15 [History] Sertraline [Zoloft] 50 mg PO HS 09/21/15 [History] Tamsulosin [Flomax] 0.4 mg PO DAILY 09/21/15 [History] Temazepam [Restoril] 15 mg PO HS 09/21/15 [History] Budesonide/Formoterol 160/4.5 [Symbicort 160/4.5] 2 puff IH BIDR 07/19/16 [ History] Warfarin [Coumadin] 2 mg PO TUSA 05/08/17 [History] Warfarin [Coumadin] 4 mg PO SUMOWETHFR 05/08/17 [History] Albuterol Neb [Proventil Neb] 2.5 mg IH Q4H PRN inhsol 05/10/17 [Rx] Ipratropium/Albuterol Neb [Duoneb] 3 ml IH Q4HR PRN 14 Days inhsol 05/10/17 [Rx ] Diltiazem HCl [Diltiazem 12Hr ER] 120 mg PO DAILY 07/04/17 [History] Nicotine Patch [Nicoderm] 14 mg TD DAILY #60 patch.td24 07/07/17 [Rx] Sulfamethoxazole/Trimeth DS [Bactrim DS] 1 each PO BID 3 Days #6 tablet [Rx] predniSONE [PredniSONE] 40 mg PO DAILY #5 tablet 07/07/17 [Rx] Allergies/Adverse Reactions: 3 Allergy/AdvReac Type Severity Reaction Status Date / Time No Known Allergies Allergy Verified 07/04/17 18:59 Date of admission: 07/04/17 19:25 Primary care physician: Michaela Torres CNP Consults: 07/04/17 22:13 Consult to Nutrition [CONS] Routine Comment: Consulting Provider: NUTRITION Reason for Dietary Consult: MST Score Consult to Podiatric Medicine Doctor [CONS] Routine Reason for SW Consult: Finicial concerns with billing - Constitutional Vitals: Temp Pulse Resp BP Pulse Ox 98.2 F 59 16 120/55 99 07/07/17 07:14 07/07/17 07:14 07/07/17 07:14 07/07/17 07:14 07/07/17 07:14 General appearance: Present: mild distress, A&O X 3, answers questions appropriately - Patient Status Disposition: Home, Self-Care Condition: Fair - Discharge Instructions Instructions: Chronic Obstructive Pulmonary Disease (DC) Follow Up With: Michaela Torres CNP [Primary Care Provider] - (web request 07/07/2017)
[2017-07-07] MEDS: Lisinopril 20 MG TABLET PO SCH (08:09)
[2017-07-07] MEDS: Nicotine 14 MG PATCH.TD24 TD SCH (08:09)
[2017-07-07] MEDS: predniSONE 20 MG TABLET PO SCH (08:09)
[2017-07-07] MEDS: Diltiazem CD (24hr) 120 MG CAPSULE PO SCH (08:09)
[2017-07-07] MEDS: Budesonide/Formoterol 160/4.5 MDI IH SCH (11:07)
[2017-07-07] MEDS ORDERED: *HR* Warfarin 4 MG TABLET PO ONE (18:00)
== END 2017-07-07 11:39 | disposition home or self-care (01) ==
LOC: 2ANU 18:01 → EMEROO 18:01 → 2ANU 20:27
PROVIDERS: ADMIT Internal Medicine; ATTEND Internal Medicine

== ENCOUNTER 2017-09-30 18:36 | Inpatient (IN) ==
[2017-09-30] MEDS ORDERED: Isovue-370 500 ML INFUS..BTL IV ONE (19:04)
[2017-09-30] MEDS ORDERED: Ipratropium/Albuterol Neb 3 ML IH ONE (19:11)
[2017-09-30] MEDS ORDERED: predniSONE 20 MG TABLET PO ONE (19:13)
--- NOTE | 2017-09-30 19:17 | Emergency Department Note ---
Disposition Clinical Impression: Back pain of thoracolumbar region Dyspnea Qualifiers: Dyspnea type: shortness of breath Qualified Code(s): R06.02 - Shortness of breath; R06.00 - Dyspnea, unspecified; R06.01 - Orthopnea Fall Qualifiers: Encounter type: initial encounter Qualified Code(s): W19.XXXA - Unspecified fall, initial encounter Disposition: Still a Patient Condition: Fair Referrals: Michaela Torres LOZENGE DOUGH MIXER [Primary Care Provider] - Forms: ED Satisfaction Letter Time of Disposition: 20:21 General Adult HPI - General Chief complaint: ED Back Pain/Injury Stated complaint: "Fall/back pain,olivia" Time Seen by Provider: 09/30/17 18:41 Source: patient, family Mode of arrival: private vehicle Limitations: no limitations Nursing Notes Reviewed: Yes Vital Signs Reviewed: Yes - History of Present Illness HPI Narrative: 82 year old white female presents for fall with back pain and difficulty in breathing. She fell around 2-3pm today while walking around the house. According to family, house is crowded and patient thinks she tripped over something. She hit coffee table and hurt her back. She denies loss of consciousness and denies hitting her head. Patient states she started having difficulty breathing after the fall. Family states that she's also been "sick" and "not eating great" for about a week. Patient believes she has pneumonia. She is coughing productive for green sputum, and reports fever and chills. Family states they believe she's had a 10 pound weight loss. Medical history of COPD on home O2 - 2L, Afib on coumadin, fall requiring vertebroplasty, and breast cancer. Last smoked 3-4 weeks ago. Denies chest pain, abdominal pain, pain in extremities. Pain Scale: 9 - Related Data Home Medications Medication Instructions Recorded Confirmed Aclidinium [place] [Tudorza 400 mcg IH BID 09/21/15 08/24/17 Pressair] Albuterol Sulfate [Albuterol 2 puff IH Q6H PRN 09/21/15 08/24/17 Inhaler] Lisinopril [Zestril] 20 mg PO DAILY 09/21/15 08/24/17 Sertraline [Zoloft] 50 mg PO HS 09/21/15 08/24/17 Tamsulosin [Flomax] 0.4 mg PO DAILY 09/21/15 08/24/17 Temazepam [Restoril] 15 mg PO HS 09/21/15 08/24/17 Budesonide/Formoterol 160/4.5 2 puff IH BIDR 07/19/16 08/24/17 [Symbicort 160/4.5] Warfarin [Coumadin] 2 mg PO TUSA 05/08/17 08/24/17 Warfarin [Coumadin] 4 mg PO SUMOWETHFR 05/08/17 08/24/17 Diltiazem HCl [Diltiazem 12Hr ER] 120 mg PO DAILY 07/04/17 08/24/17 Previous Rx's Medication Instructions Recorded Albuterol Neb [Proventil Neb] 2.5 mg IH Q4H PRN inhsol 05/10/17 Ipratropium/Albuterol Neb [Duoneb] 3 ml IH Q4HR PRN 14 Days inhsol 05/10/17 Nicotine Patch [Nicoderm] 14 mg TD DAILY #60 patch.td24 07/07/17 Sulfamethoxazole/Trimeth DS 1 each PO BID 3 Days #6 tablet 07/07/17 [Bactrim DS] predniSONE [PredniSONE] 40 mg PO DAILY #5 tablet 07/07/17 PredniSONE [Deltasone] 20 mg PO DAILY #12 tablet 08/24/17 Allergies Allergy/AdvReac Type Severity Reaction Status Date / Time No Known Allergies Allergy Verified 08/24/17 20:02 All systems ED: reviewed and negative except as stated. Past Medical History - Past Medical History Medical history: Reports: COPD, coronary artery disease, other Surgical history: Reports: hysterectomy Psychiatric history: Reports: anxiety, depression HOTEL LOBBY CONCIERGE history: Reports: no HOTEL LOBBY CONCIERGE history - Social History Smoking Status: Former smoker Smokeless Tobacco Status: No Alcohol use: Reports: none Drug use: Reports: none Physical Exam - General Limitations: no limitations General appearance: alert, other (Appears frail and weak ) - Head Head exam: atraumatic, normocephalic, normal inspection - Chest Chest inspection: Present: normal inspection, symmetric chest wall rise - Respiratory Respiratory exam: Present: wheezes, other (Dyspneic, difficulty speaking due to dyspnea. Crackles bilaterally, worse in R mid-lung). Absent: normal lung sounds bilaterally - Cardiovascular Cardiovascular exam: Present: regular rate, normal rhythm, normal heart sounds - Abdominal Exam Abdominal exam: Present: soft, Non-Tender, normal bowel sounds. Absent: tenderness, distention, guarding, rebound, rigidity - Extremities Exam Extremities exam: Present: normal inspection, full ROM, other (Sensation intact. Motor strength 5/5 bilaterally. Still able to walk. ). Absent: tenderness, pedal edema - Back Exam Back exam: Present: tenderness (tender to palpation along right thoracic and lumbar back) - Neurological Exam Neurological exam: Present: alert, oriented X3 - Psychiatric Psychiatric exam: Present: normal affect, normal mood - Skin Skin exam: Present: warm, dry, intact, normal color Course Course Narrative: 82 year old female presents for fall with back pain and difficulty breathing. Patient has history of COPD on home oxygen, Afib on coumadin, and previous fall requiring vertebroplasty. Patient is alert and oriented and hemodynamically stable, but is dyspneic with difficulty speaking due to shortness of breath. Patient complains of pain to right back with even light palpation. Patient does not report pain anywhere else. Has increased crackles in right lung. Will order CXR, CT head/neck/thoracic/lumbar, CTA chest, and labwork. Will order DuoNeb and steroid for dyspnea. Tylenol and lidoderm patch available for pain. - Reevaluation(s) Reevaluation #1: Elevated WBC 18.6, will provide levaquin for presumed community acquired pneumonia. Checking on patient at 20:17, patient is no longer dyspneic and appears comfortable laying in bed. Will sign out to Dr. Ashwin Almeida. Time: 20:18 Vital Signs Temperature 97.7 F 09/30/17 18:39 Pulse Rate 109 09/30/17 18:39 Respiratory Rate 20 09/30/17 18:39 Blood Pressure 125/69 09/30/17 18:39 O2 Sat by Pulse Oximetry 93 09/30/17 18:39 Temperature 97.7 F 09/30/17 18:48 Pulse Rate 100 09/30/17 18:56 Respiratory Rate 24 09/30/17 18:56 Blood Pressure 131/79 09/30/17 18:56 O2 Sat by Pulse Oximetry 98 09/30/17 18:56 Oxygen Delivery Oxygen Delivery Nasal Cannula Medical Decision Making - Medical Records Medical records reviewed: Yes I reviewed the patient's medical records. - Lab Data Lab results reviewed: Yes I reviewed the patient's lab results. Result diagrams: 09/30/17 19:31 09/30/17 19:31 Lab Results 09/30/17 09/30/17 09/30/17 Range/Units 19:31 19:31 19:31 WBC 18.6 H (4.3-11.1) K/mcL RBC 2.95 L (3.82-4.97) M/mcL Hgb 7.0 L (11.5-15.4) g/dL Hct 23.1 L (35.3-44.9) % MCV 78.3 L (83.0-100.0) fL MCH 23.7 L (28.0-33.3) pg MCHC 30.3 L (31.6-35.5) g/dL RDW 19.1 H (11.5-14.5) % Plt Count 515 H (140-400) K/mcL MPV 10.2 (9.4-12.4) fL Immature Gran % 1.5 (0-4) % Seg Neutrophils % 89.5 % Lymphocytes % 3.9 % Monocytes % 4.9 % Eosinophils % 0.1 % Basophils % 0.1 % Neutrophils # 16.6 H (1.6-8.9) K/mcL Lymphocytes # 0.7 (0.6-4.6) K/mcL Monocytes # 0.9 (0.0-1.3) K/mcL Eosinophils # 0.0 (0.0-0.6) K/mcL Basophils # 0.0 (0.0-0.2) K/mcL Sodium 138 (136-145) mEq/L Potassium 3.8 (3.5-5.1) mEq/L Chloride 102 (98-107) mEq/L Carbon Dioxide 27 (23-29) mEq/L BUN 24 H (8-23) mg/dL Creatinine 0.69 (0.60-1.20) mg/dL Est GFR ( Amer) > 60 (> 60) Est GFR (Non-Af Amer) > 60 (> 60) BUN/Creatinine Ratio 35 H (6-26) Glucose 160 H (70-105) mg/dL Calculated Osmolality 293 (280-300) Lactic Acid 1.5 (0.5-2.2) mmol/L Calcium 9.1 (8.6-10.3) mg/dL - Radiology Data Radiology results reviewed: Yes I reviewed the patient's radiology results. CXR 09/30/2017. Chronic changes of COPD. No acute process. - EKG Data EKG #1 EKG attestation: Yes I reviewed and interpreted this EKG. EKG results narrative: EKG 09/30/2017 19:42. Atrial fibrillation. Heart rate 103. No ST segment depression or elevation. No comparison EKG.
[2017-09-30 19:45] LABS: Basophils % 0.1 %; Eosinophils % 0.1 %; Hematocrit 23.1 % (35.3-44.9); Immature Granulocytes % 1.5 % (0-4); Lymphocytes # 0.7 K/mcL (0.6-4.6); Lymphocytes % 3.9 %; Mean Corpuscular HGB Conc 30.3 g/dL (31.6-35.5); Mean Corpuscular Hemoglobin 23.7 pg (28.0-33.3); Mean Corpuscular Volume 78.3 fL (83.0-100.0); Mean Platelet Volume 10.2 fL (9.4-12.4); Monocytes # 0.9 K/mcL (0.0-1.3); Monocytes % 4.9 %; Neutrophils # 16.6 K/mcL (1.6-8.9); Platelet Count 515 K/mcL (140-400); Red Blood Count 2.95 M/mcL (3.82-4.97); Red Cell Distribution Width 19.1 % (11.5-14.5); Segmented Neutrophils % 89.5 %
[2017-09-30] MEDS ORDERED: levoFLOXacin 500 MG TABLET PO ONE (19:50)
--- NOTE | 2017-09-30 19:55 | Emergency Department Note ---
Disposition Clinical Impression: Sepsis Qualifiers: Sepsis type: sepsis due to unspecified organism Qualified Code(s): A41.9 - Sepsis, unspecified organism Disposition: Admitted As Inpatient Referrals: Michaela Torres CNP [Primary Care Provider] - Forms: ED Satisfaction Letter General Adult HPI - General Chief complaint: ED Back Pain/Injury Stated complaint: "Fall/back pain,adele" Time Seen by Provider: 09/30/17 18:41 Source: patient, family Mode of arrival: private vehicle Limitations: no limitations - History of Present Illness Pain Scale: 9 - Related Data Home Medications Medication Instructions Recorded Confirmed Aclidinium [place] [Tudorza 400 mcg IH BID 09/21/15 08/24/17 Pressair] Albuterol Sulfate [Albuterol 2 puff IH Q6H PRN 09/21/15 08/24/17 Inhaler] Lisinopril [Zestril] 20 mg PO DAILY 09/21/15 08/24/17 Sertraline [Zoloft] 50 mg PO HS 09/21/15 08/24/17 Tamsulosin [Flomax] 0.4 mg PO DAILY 09/21/15 08/24/17 Temazepam [Restoril] 15 mg PO HS 09/21/15 08/24/17 Budesonide/Formoterol 160/4.5 2 puff IH BIDR 07/19/16 08/24/17 [Symbicort 160/4.5] Warfarin [Coumadin] 2 mg PO TUSA 05/08/17 08/24/17 [facility]] [facility] 05/08/17 08/24/17 Diltiazem HCl [Diltiazem 12Hr ER] 120 mg PO DAILY 07/04/17 08/24/17 Previous Rx's Medication Instructions Recorded Albuterol Neb [Proventil Neb] 2.5 mg IH Q4H PRN inhsol 05/10/17 Ipratropium/Albuterol Neb [Duoneb] 3 ml IH Q4HR PRN 14 Days inhsol 05/10/17 Nicotine Patch [Nicoderm] 14 mg TD DAILY #60 patch.td24 07/07/17 Sulfamethoxazole/Trimeth DS 1 each PO BID 3 Days #6 tablet 07/07/17 [Bactrim DS] predniSONE [PredniSONE] 40 mg PO DAILY #5 tablet 07/07/17 PredniSONE [Deltasone] 20 mg PO DAILY #12 tablet 08/24/17 Allergies Allergy/AdvReac Type Severity Reaction Status Date / Time No Known Allergies Allergy Verified 08/24/17 20:02 Past Medical History - Past Medical History Medical history: Reports: COPD, coronary artery disease, other Surgical history: Reports: hysterectomy Psychiatric history: Reports: anxiety, depression PHOTOSTAT OPERATOR history: Reports: no PHOTOSTAT OPERATOR history - Social History Smoking Status: Former smoker Smokeless Tobacco Status: No Alcohol use: Reports: none Drug use: Reports: none Physical Exam - General Limitations: no limitations General appearance: alert, other (Appears frail and weak ) Course Vital Signs Temperature 97.7 F 09/30/17 18:39 Pulse Rate 109 09/30/17 18:39 Respiratory Rate 20 09/30/17 18:39 Blood Pressure 125/69 09/30/17 18:39 O2 Sat by Pulse Oximetry 93 09/30/17 18:39 Temperature 97.7 F 09/30/17 18:48 Pulse Rate 100 09/30/17 18:56 Respiratory Rate 24 09/30/17 18:56 Blood Pressure 131/79 09/30/17 18:56 O2 Sat by Pulse Oximetry 98 09/30/17 18:56 Oxygen Delivery Oxygen Delivery Nasal Cannula Medical Decision Making - Lab Data Result diagrams: 09/30/17 19:31 Lab Results 09/30/17 Range/Units 19:31 WBC 18.6 H (4.3-11.1) K/mcL RBC 2.95 L (3.82-4.97) M/mcL Hgb 7.0 L (11.5-15.4) g/dL Hct 23.1 L (35.3-44.9) % MCV 78.3 L (83.0-100.0) fL MCH 23.7 L (28.0-33.3) pg MCHC 30.3 L (31.6-35.5) g/dL RDW 19.1 H (11.5-14.5) % Plt Count 515 H (140-400) K/mcL MPV 10.2 (9.4-12.4) fL Immature Gran % 1.5 (0-4) % Seg Neutrophils % 89.5 % Lymphocytes % 3.9 % Monocytes % 4.9 % Eosinophils % 0.1 % Basophils % 0.1 % Neutrophils # 16.6 H (1.6-8.9) K/mcL Lymphocytes # 0.7 (0.6-4.6) K/mcL Monocytes # 0.9 (0.0-1.3) K/mcL Eosinophils # 0.0 (0.0-0.6) K/mcL Basophils # 0.0 (0.0-0.2) K/mcL Attestation Statement - Attestation Attestation: I examined this patient and my medical decision-making was reviewed with the Resident Physician. I agree with the documented findings, disposition and treatment plan as described except to the extent set forth below. 82 year old female presents to the ED [facility] complaints of ADELE weakness and recent fall with low back pain and is currenlty on blood thinners for afib. Ellyn tats that she felll and is unsure if she hit her head and is having all over spinal pain. Rosenent is tachypneic at bedside and and tachycaridac to 103-109 in chrnic afib and is conerend that she may have pneumoina and now has an elevated wBC. We will start levauqin and now meets SIRS criteria and will be treated for sepsis and admitted to [facility]
[2017-09-30] MEDS ORDERED: Acetaminophen 325 MG TABLET PO ONE (19:59)
[2017-09-30 20:07] LABS: BUN/Creatinine Ratio 35 (6-26); Blood Urea Nitrogen 24 mg/dL (8-23); Calcium 9.1 mg/dL (8.6-10.3); Carbon Dioxide 27 mEq/L (23-29); Chloride 102 mEq/L (98-107); Glucose 160 mg/dL (70-105); Osmolality,Calculated 293 (280-300); Potassium 3.8 mEq/L (3.5-5.1); Sodium 138 mEq/L (136-145); eGFR For Non-African Americans > 60 (> 60)
[2017-09-30 20:08] LABS: Troponin I < 0.03 ng/mL (< 0.04)
[2017-09-30 20:49] LABS: ABG Base Excess 7 mEq/L (-2 to 3); ABG HCO3 32 mEq/L (21-27); ABG Oxygen Saturation 95 % (95-98); ABG PCO2 47 mmHg (35-45); ABG PH 7.44 pH Units (7.32-7.45); ABG PO2 75 mmHg (85-104); ABG TCO2 33 mEq/L (20-26)
[2017-09-30 23:23] LABS: Activated Partial Thrombo Time 54.8 Seconds (26.0-36.0)
[2017-09-30 23:29] LABS: INR 8.8; Prothrombin Time 99.6 Seconds (9.4-12.1)
[2017-09-30] MEDS ORDERED: *HR* FentaNYL (PF) 100 MCG/2 ML VIAL IVP ONE (23:29)
[2017-09-30] MEDS ORDERED: Naloxone 0.4 MG/ML INJ IVP PRN (23:50)
--- NOTE | 2017-10-01 00:04 | Emergency Department Note ---
Disposition Clinical Impression: Back pain of thoracolumbar region, Acute bronchitis with COPD, Supratherapeutic INR Dyspnea Qualifiers: Dyspnea type: shortness of breath Qualified Code(s): R06.02 - Shortness of breath Fall Qualifiers: Encounter type: initial encounter Qualified Code(s): W19.XXXA - Unspecified fall, initial encounter Pulmonary embolism Qualifiers: Pulmonary embolism type: other Chronicity: acute Acute cor pulmonale presence: without acute cor pulmonale Qualified Code(s): I26.99 - Other pulmonary embolism without acute cor pulmonale Anemia Qualifiers: Anemia type: unspecified type Qualified Code(s): D64.9 - Anemia, unspecified GI bleeding Qualifiers: GI bleed type/associated pathology: unspecified gastrointestinal hemorrhage type Qualified Code(s): K92.2 - Gastrointestinal hemorrhage, unspecified Aortic aneurysm Qualifiers: Aortic location: abdominal aorta Presence of rupture: without rupture Qualified Code(s): I71.4 - Abdominal aortic aneurysm, without rupture Disposition: Admitted As Inpatient Condition: Fair General Adult HPI - General Chief complaint: ED Back Pain/Injury Stated complaint: "Fall/back pain,olivia" Time Seen by Provider: 09/30/17 18:41 Source: patient, family Mode of arrival: private vehicle Limitations: no limitations Nursing Notes Reviewed: Yes Vital Signs Reviewed: Yes - History of Present Illness Pain Scale: 3 - Related Data Home Medications Medication Instructions Recorded Confirmed Aclidinium [place] [Tudorza 400 mcg IH BID 09/21/15 08/24/17 Pressair] Albuterol Sulfate [Albuterol 2 puff IH Q6H PRN 09/21/15 08/24/17 Inhaler] Lisinopril [Zestril] 20 mg PO DAILY 09/21/15 08/24/17 Sertraline [Zoloft] 50 mg PO HS 09/21/15 08/24/17 Tamsulosin [Flomax] 0.4 mg PO DAILY 09/21/15 08/24/17 Temazepam [Restoril] 15 mg PO HS 09/21/15 08/24/17 Budesonide/Formoterol 160/4.5 2 puff IH BIDR 07/19/16 08/24/17 [Symbicort 160/4.5] Warfarin [Coumadin] 2 mg PO TUSA 05/08/17 08/24/17 Warfarin [Coumadin] 4 mg PO SUMOWETHFR 05/08/17 08/24/17 Diltiazem HCl [Diltiazem 12Hr ER] 120 mg PO DAILY 07/04/17 08/24/17 Previous Rx's Medication Instructions Recorded Albuterol Neb [Proventil Neb] 2.5 mg IH Q4H PRN inhsol 05/10/17 Ipratropium/Albuterol Neb [Duoneb] 3 ml IH Q4HR PRN 14 Days inhsol 05/10/17 Nicotine Patch [Nicoderm] 14 mg TD DAILY #60 patch.td24 07/07/17 Sulfamethoxazole/Trimeth DS 1 each PO BID 3 Days #6 tablet 07/07/17 [Bactrim DS] predniSONE [PredniSONE] 40 mg PO DAILY #5 tablet 07/07/17 PredniSONE [Deltasone] 20 mg PO DAILY #12 tablet 08/24/17 Allergies Allergy/AdvReac Type Severity Reaction Status Date / Time No Known Allergies Allergy Verified 08/24/17 20:02 Past Medical History - Past Medical History Medical history: Reports: COPD, coronary artery disease, other Surgical history: Reports: hysterectomy Psychiatric history: Reports: anxiety, depression GYNAECOLOGICAL ONCOLOGIST history: Reports: no GYNAECOLOGICAL ONCOLOGIST history - Social History Smoking Status: Former smoker Smokeless Tobacco Status: No Alcohol use: Reports: none Drug use: Reports: none Physical Exam - General Limitations: no limitations General appearance: alert, other (Appears frail and weak ) Course Vital Signs Temperature 97.7 F 09/30/17 18:39 Pulse Rate 109 09/30/17 18:39 Respiratory Rate 20 09/30/17 18:39 Blood Pressure 125/69 09/30/17 18:39 O2 Sat by Pulse Oximetry 93 09/30/17 18:39 Temperature 97.7 F 10/01/17 00:21 Pulse Rate 119 10/01/17 00:21 Respiratory Rate 19 10/01/17 00:21 Blood Pressure 121/73 10/01/17 00:21 O2 Sat by Pulse Oximetry 97 10/01/17 00:21 Oxygen Delivery Oxygen Delivery Nasal Cannula Medical Decision Making - MDM Narrative Medical decision making narrative: I, Ashwin Almeida, examined this patient and my medical decision-making was reviewed with the CMO & PRESIDENT/PA/Advanced Practice Nurse/Resident Physician. I agree with the documented findings, disposition and treatment plan as described except to the extent set forth below. 82-year-old female received in sign out at 9 PM pending imaging studies to evaluate for possible PE versus cancer. Patient is an 82-year-old female who had a fall earlier today with resultant low back pain but is also complained of increasing shortness of breath over the past few days. Patient has a history of COPD and had significant amount wheezing on initial evaluation. Breathing improved with albuterol treatment in the emergency department. Patient does have elevation of her white blood cell count at 18.6 in the emergency department and she was tachycardic, however chest x-ray and CT did not show evidence of infiltrate. She was given levofloxacin prior to my arrival. A blood cell count may be elevated secondary to the recent use of steroids as outpatient . Patient had multiple CTs performed in the emergency department. She denies have evidence of intracranial hemorrhage or fracture. CT of the cervical, thoracic and lumbar spine did not show evidence of acute traumatic injury however she did have an incidentally noted infrarenal AAA. Chest CTA did show a tiny filling defect identified in the right middle lobe lateral segmental pulmonary artery compatible with a small pulmonary embolism. She does also have evidence of severe emphysema. They were reticulonodular opacities throughout both lungs, greater within the periphery. Some of those likely represented fibrosis per the radiology report as they were visualized previously however they did appear increased on today's exam and had a component of possible infection/inflammation. Patient already takes Coumadin for previous DVTs. Daughter states that her INR dropped to 1.0 for an extended period of time while she is taking antibiotics. They had increased the amount of Coumadin ingestion and now on a repeat laboratory evaluation she has a hemoglobin of 7 which is significantly lower than her previous and her INR is significantly elevated. I did not give vitamin K or attempts to reverse the INR as patient does have a current PE. Rectal exam showed guaiac positive brown formed stool. Patient may require a transfusion for her low hemoglobin while on Coumadin. She will be admitted to the hospital for further care and evaluation. CRITICAL CARE TIME The high probability of a clinically significant, sudden or life threatening deterioration of the cardiovascular, hematologic, respiratory system(s) required my full and direct attention, intervention and personal management. The aggregate critical care time was 31 minutes. This time is in addition to time spent performing reported procedures but includes the following: x Data Review and interpretation x Patient assessment and monitoring of vital signs x Documentation x Medication orders and management - Medical Records Medical records reviewed: Yes I reviewed the patient's medical records. - Lab Data Lab results reviewed: Yes I reviewed the patient's lab results. Result diagrams: 09/30/17 19:31 09/30/17 19:31 Lab Results 09/30/17 09/30/17 09/30/17 Range/Units 19:31 19:31 19:31 WBC 18.6 H (4.3-11.1) K/mcL RBC 2.95 L (3.82-4.97) M/mcL Hgb 7.0 L (11.5-15.4) g/dL Hct 23.1 L (35.3-44.9) % MCV 78.3 L (83.0-100.0) fL MCH 23.7 L (28.0-33.3) pg MCHC 30.3 L (31.6-35.5) g/dL RDW 19.1 H (11.5-14.5) % Plt Count 515 H (140-400) K/mcL MPV 10.2 (9.4-12.4) fL Immature Gran % 1.5 (0-4) % Seg Neutrophils % 89.5 % Lymphocytes % 3.9 % Monocytes % 4.9 % Eosinophils % 0.1 % Basophils % 0.1 % Neutrophils # 16.6 H (1.6-8.9) K/mcL Lymphocytes # 0.7 (0.6-4.6) K/mcL Monocytes # 0.9 (0.0-1.3) K/mcL Eosinophils # 0.0 (0.0-0.6) K/mcL Basophils # 0.0 (0.0-0.2) K/mcL PT (9.4-12.1) Seconds INR APTT (26.0-36.0) Seconds Sample Site ABG pH (7.32-7.45) pH Units ABG pCO2 (35-45) mmHg ABG pO2 (85-104) mmHg ABG HCO3 (21-27) mEq/L ABG Total CO2 (20-26) mEq/L ABG O2 Saturation (95-98) % ABG Base Excess (-2 to 3) mEq/L [place] Test O2 Delivery Device Inspired O2 (1-15=lpm [id number]=%) Sodium 138 (136-145) mEq/L Potassium 3.8 (3.5-5.1) mEq/L Chloride 102 (98-107) mEq/L Carbon Dioxide 27 (23-29) mEq/L BUN 24 H (8-23) mg/dL Creatinine 0.69 (0.60-1.20) mg/dL Est GFR ( Amer) > 60 (> 60) Est GFR (Non-Af Amer) > 60 (> 60) BUN/Creatinine Ratio 35 H (6-26) Glucose 160 H (70-105) mg/dL Calculated Osmolality 293 (280-300) Lactic Acid 1.5 (0.5-2.2) mmol/L Calcium 9.1 (8.6-10.3) mg/dL Troponin I < 0.03 (< 0.04) ng/mL 09/30/17 09/30/17 Range/Units 19:31 20:39 WBC (4.3-11.1) K/mcL RBC (3.82-4.97) M/mcL Hgb (11.5-15.4) g/dL Hct (35.3-44.9) % MCV (83.0-100.0) fL MCH (28.0-33.3) pg MCHC (31.6-35.5) g/dL RDW (11.5-14.5) % Plt Count (140-400) K/mcL MPV (9.4-12.4) fL Immature Gran % (0-4) % Seg Neutrophils % % Lymphocytes % % Monocytes % % Eosinophils % % Basophils % % Neutrophils # (1.6-8.9) K/mcL Lymphocytes # (0.6-4.6) K/mcL Monocytes # (0.0-1.3) K/mcL Eosinophils # (0.0-0.6) K/mcL Basophils # (0.0-0.2) K/mcL PT 99.6 H* (9.4-12.1) Seconds INR 8.8 H* APTT 54.8 H (26.0-36.0) Seconds Sample Site L Radial ABG pH 7.44 (7.32-7.45) pH Units ABG pCO2 47 H (35-45) mmHg ABG pO2 75 L (85-104) mmHg ABG HCO3 32 H (21-27) mEq/L ABG Total CO2 33 H (20-26) mEq/L ABG O2 Saturation 95 (95-98) % ABG Base Excess 7 H (-2 to 3) mEq/L [place]on Test N/A O2 Delivery Device Cannula Inspired O2 28.0 (1-15=lpm [id number]=%) Sodium (136-145) mEq/L Potassium (3.5-5.1) mEq/L Chloride (98-107) mEq/L Carbon Dioxide (23-29) mEq/L BUN (8-23) mg/dL Creatinine (0.60-1.20) mg/dL Est GFR ( Amer) (> 60) Est GFR (Non-Af Amer) (> 60) BUN/Creatinine Ratio (6-26) Glucose (70-105) mg/dL Calculated Osmolality (280-300) Lactic Acid (0.5-2.2) mmol/L Calcium (8.6-10.3) mg/dL Troponin I (< 0.04) ng/mL - Radiology Data Radiology results reviewed: Yes I reviewed the patient's radiology results.
[2017-10-01 00:59] LABS: Hematocrit 21.4 % (35.3-44.9); Hemoglobin 6.5 g/dL (11.5-15.4); Immature Granulocytes % 1.2 % (0-4); Lymphocytes # 0.3 K/mcL (0.6-4.6); Lymphocytes % 1.5 %; Mean Corpuscular HGB Conc 30.4 g/dL (31.6-35.5); Mean Corpuscular Hemoglobin 23.5 pg (28.0-33.3); Mean Corpuscular Volume 77.3 fL (83.0-100.0); Mean Platelet Volume 10.4 fL (9.4-12.4); Monocytes # 0.2 K/mcL (0.0-1.3); Monocytes % 0.9 %; Neutrophils # 16.5 K/mcL (1.6-8.9); Platelet Count 453 K/mcL (140-400); Red Blood Count 2.77 M/mcL (3.82-4.97); Segmented Neutrophils % 96.4 %
--- NOTE | 2017-10-01 01:01 | Internal Med History&Physical ---
Date of Encounter: 10/01/17 Time of Encounter: 00:50 Internal Medicine - H&P: HPI Chief complaint: Fall today, shortness of breath, coughing and wheezing for about 2 weeks History of present illness: Ms. Cleaning is a 82 year old female with pmh of COPD, CAd presenting with complaints of fall today, as well as shortness of breath, coughing and greenish phlegm for about 2 weeks duration. Patient complains of falling over her coffee table today and on to the floor at home. She is unable to say whether she was dizzy or stumbled leading to the fall. She complains of hurting all over. Fall was unwitnessed. She says she was able to get up by herself. She called her daughter who brought her to the ER. She also notes that for the past 2 weeks, she hasn't been feeling well and has been having increased shortness of breath, coughing and wheezing. Her coughing has been productive of green phlegm. About 3-4 weeks ago she experienced similar respiratory symptoms and was at Urgent care. She says she was discharged from urgent care on oral antibiotics and steroids. She also notes that they had told her INR was low and recommended she increase the dose of her coumadin for a week and to resume taking her regular dose afterwards. When she arrived to the ER today, INR was noted to be 8.8 and hemoglobin had dropped to 7.0 from her baseline of 8-9. she denies any active bleeding but hemoccult blood was positive in the ER. A CT scan was also done showing aright middle lobe filling defect. She did not receive any anticoagulation reversal agents in the ED. She is being admitted for further management Past Med Surg Social Fam HX - Past Medical History Medical history: COPD, coronary artery disease, other Additional medical history: breast cancer Psychiatric history: anxiety, depression - Past Surgical History Surgical History: hysterectomy Additional surgical history: breast sx on right side - Social History Smoking Status: Former smoker Smokeless Tobacco Status: No Alcohol use: none Drug use: none - Family History Mother Adopted: No Family Member Ethnicity: Non- Living Status: Hx Family Cardiac Disorders: (thinks she had heart issues but unsure) Hx Family Respiratory Disorders: No Hx Family Cancer: No Hx Family GI Disorders: No Hx Family Endocrine Disorder: Yes Hx Family Neuromuscular Disorders: No Hx Family Neurologic Disorders: No Hx Family HEENT Disorders: No Hx Family Autoimmune Disorders: No Father Hx Family Cardiac Disorders: Yes Son Adopted: No Family Member Ethnicity: Non- Living Status: Still Living Hx Family Cardiac Disorders: No Hx Family Respiratory Disorders: No Hx Family Cancer: Yes (lung cancer) Hx Family GI Disorders: No Hx Family Endocrine Disorder: No Hx Family Neuromuscular Disorders: No Hx Family Neurologic Disorders: No Hx Family HEENT Disorders: No Hx Family Autoimmune Disorders: No Internal Medicine - H&P: Meds Aclidinium [place] [Tudorza Pressair] 400 mcg IH BID 09/21/15 [History] Albuterol Sulfate [Albuterol Inhaler] 2 puff IH Q6H PRN 09/21/15 [History] Lisinopril [Zestril] 20 mg PO DAILY 09/21/15 [History] Sertraline [Zoloft] 50 mg PO HS 09/21/15 [History] Tamsulosin [Flomax] 0.4 mg PO DAILY 09/21/15 [History] Temazepam [Restoril] 15 mg PO HS 09/21/15 [History] Budesonide/Formoterol 160/4.5 [Symbicort 160/4.5] 2 puff IH BIDR 07/19/16 [ History] Warfarin [Coumadin] 2 mg PO TUSA 05/08/17 [History] Warfarin [Coumadin] 4 mg PO SUMOWETHFR 05/08/17 [History] Albuterol Neb [Proventil Neb] 2.5 mg IH Q4H PRN inhsol 05/10/17 [Rx] Ipratropium/Albuterol Neb [Duoneb] 3 ml IH Q4HR PRN 14 Days inhsol 05/10/17 [Rx ] Diltiazem HCl [Diltiazem 12Hr ER] 120 mg PO DAILY 07/04/17 [History] Nicotine Patch [Nicoderm] 14 mg TD DAILY #60 patch.td24 07/07/17 [Rx] Sulfamethoxazole/Trimeth DS [Bactrim DS] 1 each PO BID 3 Days #6 tablet [Rx] predniSONE [PredniSONE] 40 mg PO DAILY #5 tablet 07/07/17 [Rx] PredniSONE [Deltasone] 20 mg PO DAILY #12 tablet 08/24/17 [Rx] 3 Allergy/AdvReac Type Severity Reaction Status Date / Time No Known Allergies Allergy Verified 08/24/17 20:02 All Systems PM: A 10-system review of systems was performed and is negative for pertinent findings except as documented above in the HPI. - Constitutional Constitutional: fatigue, fever(s) - EENT Eyes: no change in vision, no discharge, no pain, no photophobia Ears: no ear discharge, no ear pain, no tinnitus Nose, mouth and throat: no dysphagia, no nasal discharge, no neck pain, no sore throat - Cardiovascular Cardiovascular ROS IM: no chest pain, no diaphoresis, no dyspnea, no lightheadedness, no palpitations, no syncope - Respiratory Respiratory: cough, dyspnea, excessive phlegm production, no wheezing - Gastrointestinal Gastrointestinal: no abdominal pain, no diarrhea, no hematemesis, no hematochezia, no melena, no nausea, no vomiting - Genitourinary Genitourinary: no change in urinary stream, no dysuria, no flank pain, no hematuria - Musculoskeletal Musculoskeletal ROS IM: no numbness, no tingling - Integumentary Integumentary IM: no rash, no unusual bruising - Neurological Neurological ROS: no confusion, no convulsions, no focal weakness, no numbness, no tingling, no tremor(s) - Hematologic/Lymphatic Hematologic/Lymphatic: no easy bruising - Constitutional Vitals: Temp Pulse Resp BP Pulse Ox 97.7 F 119 19 121/73 97 10/01/17 00:21 10/01/17 00:21 10/01/17 00:21 10/01/17 00:21 10/01/17 00:21 Exam: cachectic elderly female - Head Head exam: Present: atraumatic, normocephalic - Eye Eye exam: Present: PERRL, conjuntiva pink, sclera anicteric Pupils: Present: PERRL - Neck Neck exam general surgery: Present: supple, trachea midline. Absent: lymphadenopathy - Respiratory Respiratory exam: Present: wheezes. Absent: accessory muscle use, rales, rhonchi Additional comments: Decreased air entry and diffuse wheezing - Cardiovascular Cardiovascular exam: Present: RRR, +S1, +S2. Absent: diastolic murmur, gallop, rubs, systolic murmur - GI/Abdominal GI/Abdominal exam: Present: normal bowel sounds, soft, no peritoneal signs. Absent: distended, tenderness - Extremities Exam Extremities exam: Present: warm, radial pulses palpable and symmetrical. Absent : calf tenderness, cyanotic, pedal edema - Neurological Exam Neurological exam: Present: CN II-XII intact, oriented X3, no focal deficits. Absent: pronater drift, facial droop, speech deficit - Skin Skin exam: Present: dry, intact Internal Med - H&P Results - Labs CBC & Chem 7: 10/01/17 00:48 09/30/17 19:31 - Assessment and plan (1) Acute GI bleeding Current Visit: Yes Status: Acute Assessment and plan: Pt has positive occult blood with an acute drop in her hemoglobin to 7.0 from 8- 9 on previous admissions. Repeat CBC came back at 6.5 . will transfuse 2 units of PRBC, one unit of FFP. Will start on fluids and pronix 40mg IV BID. Surgery and hematology have been consulted. Obtain CBC q 8hrs (2) Supratherapeutic INR Current Visit: Yes Status: Acute Assessment and plan: Pt notes she was instructed at urgent care about 3-4 weeks ago to increase her dosing of coumadin for one week and return to her regular dosing after her INR was found to be low. INR was 8.8 today. Discussed with hematology. Will transfuse 2 units PRBC and one unit FFP. Repeat INR in am (3) Acute pulmonary embolism Current Visit: Yes Status: Acute Assessment and plan: CT scan in ER showed filling defect within right middle lobe. Patient is supratherapeutic at this time, and PE was noted as a tiny filling defect. Discussed with hematology, will give 1 unit of FFP tonight and 2 units of PRBC , monitor INR. Patient can resume warfarin when clear by hematology Qualifiers: Pulmonary embolism type: other Qualified Code(s): I26.99 - Other pulmonary embolism without acute cor pulmonale (4) Community acquired pneumonia Current Visit: Yes Status: Acute Assessment and plan: Community acquired pneumonia with sepsis. Has bee n on po steroids but pt has a WBC of 18 and is tachycardic and has been complaining of fevers at home. Started on zosyn. Follow up blood cultures, urine legionella and streptococcal antigens. CT chest shows opacities in lower lungs Qualifiers: Lung location: lower lobe of lung Qualified Code(s): J18.1 - Lobar pneumonia, unspecified organism (5) Sepsis Current Visit: Yes Status: Acute Assessment and plan: likely 2/2 to community acquired pneumonia. On zosyn. f/u cultures Qualifiers: Qualified Code(s): A41.9 - Sepsis, unspecified organism (6) COPD exacerbation Current Visit: Yes Status: Acute Assessment and plan: On round the clock nebs, steroids and antibiotics (7) Atrial fibrillation Current Visit: Yes Status: Acute Assessment and plan: Continue diltiazem, hold warfarin Qualifiers: Qualified Code(s): I48.91 - Unspecified atrial fibrillation (8) Hypertension Current Visit: Yes Status: Acute Assessment and plan: Continue lisinopril Qualifiers: Qualified Code(s): I10 - Essential (primary) hypertension (9) DVT prophylaxis Current Visit: Yes Status: Acute Assessment and plan: INR is supratherapeutic - Time Spent With Patient Total time spent is greater than 50% in coordination of care (as documented) at patient's floor/unit and/or counseling patient:
[2017-10-01] MEDS ORDERED: 0.9 % Sodium Chloride 1,000 ML IVC SCH (01:15)
[2017-10-01] MEDS: Pantoprazole 40 MG VIAL IVP SCH ×3 (01:35→17:40)
[2017-10-01] MEDS: Piperacillin/Tazobactam 3.375 GM in 0.9 % Sodium Chloride Mini Bag 100 ML IVPB SCH ×3 (01:36→17:40)
[2017-10-01] MEDS ORDERED: 0.9 % Sodium Chloride 250 ML ONE ×3 (02:19→14:05)
[2017-10-01] MEDS: Ipratropium/Albuterol Neb 3 ML IH SCH ×6 (03:40→23:29)
[2017-10-01] MEDS: Budesonide/Formoterol 160/4.5 MDI IH SCH ×3 (03:41→19:31)
[2017-10-01 04:45] LABS: Basophils % 0.1 %; Monocytes % 0.9 %
[2017-10-01 04:46] LABS: Hematocrit 19.2 % (35.3-44.9); Immature Granulocytes % 1.4 % (0-4); Lymphocytes # 0.3 K/mcL (0.6-4.6); Mean Corpuscular HGB Conc 30.7 g/dL (31.6-35.5); Mean Corpuscular Hemoglobin 23.6 pg (28.0-33.3); Mean Corpuscular Volume 76.8 fL (83.0-100.0); Mean Platelet Volume 10.3 fL (9.4-12.4); Monocytes # 0.2 K/mcL (0.0-1.3); Neutrophils # 15.5 K/mcL (1.6-8.9); Platelet Count 436 K/mcL (140-400); Red Cell Distribution Width 18.9 % (11.5-14.5); Segmented Neutrophils % 95.6 %
[2017-10-01 04:55] LABS: INR 5.4; Prothrombin Time 61.1 Seconds (9.4-12.1)
[2017-10-01 04:57] LABS: Hemoglobin 5.9 g/dL (11.5-15.4)
[2017-10-01 05:05] LABS: BUN/Creatinine Ratio 35 (6-26); Blood Urea Nitrogen 21 mg/dL (8-23); Calcium 8.6 mg/dL (8.6-10.3); Carbon Dioxide 28 mEq/L (23-29); Chloride 104 mEq/L (98-107); Glucose 207 mg/dL (70-105); Osmolality,Calculated 297 (280-300); Potassium 3.8 mEq/L (3.5-5.1); Sodium 139 mEq/L (136-145); eGFR For Non-African Americans > 60 (> 60)
[2017-10-01 05:13] LABS: Anisocytosis 1+ (Not Present); Platelet Estimate Normal (Normal)
[2017-10-01] MEDS: MethylPREDNISolone 40 MG/ML VIAL IVP SCH ×2 (08:02→17:40)
[2017-10-01] MEDS: Lisinopril 20 MG TABLET PO SCH (08:03)
[2017-10-01] MEDS: Diltiazem CD (24hr) 120 MG CAPSULE PO SCH (08:03)
[2017-10-01] MEDS: Nicotine 14 MG PATCH.TD24 TD SCH (08:03)
--- NOTE | 2017-10-01 11:24 | Event Note ---
<Sanket Mendoza - Last Filed: 10/01/17 11:07> Date of Encounter: 10/01/17 Time of Encounter: 11:07 82-year-old female admitted with GI bleed, supratherapeutic INR, PE, and sepsis secondary to pneumonia. This morning she reports fatigue, generalized weakness , dyspnea, productive cough, and back pain. She had a fall at home but she is unsure what led to the fall. No acute fractures found on EGD workup. His dyspnea, cough, and wheezing over the past 3-4 weeks. Previously on by mouth antibiotics and steroids. Urgent care had also increased her Coumadin for a week. She was anemic with hemoglobin of 7.0 initially. She denies hemoptysis, hematemesis, or melena. Last colonoscopy was 1 year ago with 25 mm nonbleeding polyps in the descending colon that were removed, diverticulosis, and otherwise normal mucosa. She is receiving fresh frozen plasma and 2 units PRBCs. She denies other symptoms at this time. Denies fevers, chills, chest pain, abdominal pain, nausea, vomiting, constipation, diarrhea, dysuria, or lower extremity edema. Exam: GEN: No acute distress, cachectic appearing, A&O3 HEAD: Atraumatic, normocephalic EYES: Pupils symmetric, sclera white, conjunctiva pink HEART: RRR, normal S1 and S2, no murmurs LUNGS: Diminished bilaterally, diffuse wheezing ABD: Soft, nontender, nondistended, bowel sounds present EXT: No edema noted, pulses 2/4 NEURO: No focal deficits, cooperative with exam A/P: GI bleed - occult positive stools, hemoglobin down to 5.9, currently receiving 2 units PRBCs, received 1 unit FFP. On fluids and Protonix. Surgery and hematology consult. If repeat H&H is low we will transfuse PRBCs again Supratherapeutic INR - initially 8.8, down to 5.4. If continuing to remain high upon recheck will give vitamin K. Hold Coumadin Pulmonary embolism - small filling defect, supratherapeutic INR. Plan to resume Coumadin when able Sepsis secondary to pneumonia - reticulonodular opacities throughout lungs concerning for infection. On Zosyn. Leukocytosis decreasing. Patient is afebrile - BCx, Legionella, and strep pneumo pending COPD exacerbation - duo nebs, steroids, antibiotics A. fib - appears regular on my exam, rate controlled. Continue diltiazem. Hold Coumadin <Micha New - Last Filed: 10/01/17 15:58> Date of Encounter: 10/01/17 I have seen and examined this patient independently. I have discussed with resident physician Dr. Mendoza regarding the management plan. Agree with the documentation. Appreciated oncology input. Will follow recommendations.
[2017-10-01] MEDS ORDERED: Furosemide 20 MG/2 ML VIAL IVP ONE (11:29)
--- NOTE | 2017-10-01 12:13 | General Surgery Consult Note ---
Date of Encounter: 10/01/17 Time of Encounter: 12:09 Assessment and Plan (1) Melena Current Visit: Yes Status: Acute 82F with concern for LGIB; found to have small PE trend h/h reverse INR currently stable will wait prior to performing any endoscopy until INR and h/h are stable/ improved History of Present Illness Consult date: 10/01/17 Reason for consult: other (Lower GI bleed) History of present illness: Ms. Cleaning is a 82 year old female PMH significant for COPD, CAd presents after falling. She is unable to state whether or not she fell due to dizziness or chest pain or whether it was related to a mechanical fall. She was found to have occult blood on exam, h/h was at 7 and INR at 8. Per the patient, her coumadin dose was doubled for a week prior to her fall. Surgery was consulted for management recommendations; Past Med Surg Social Fam HX - Past Medical History Medical history: COPD, coronary artery disease, other Additional medical history: breast cancer Psychiatric history: anxiety, depression - Past Surgical History Surgical History: hysterectomy Additional surgical history: breast sx on right side - Social History Smoking Status: Former smoker Smokeless Tobacco Status: No Alcohol use: none Drug use: none - Family History Mother Adopted: No Family Member Ethnicity: Non- Living Status: Hx Family Cardiac Disorders: (thinks she had heart issues but unsure) Hx Family Respiratory Disorders: No Hx Family Cancer: No Hx Family GI Disorders: No Hx Family Endocrine Disorder: Yes Hx Family Neuromuscular Disorders: No Hx Family Neurologic Disorders: No Hx Family HEENT Disorders: No Hx Family Autoimmune Disorders: No Father Hx Family Cardiac Disorders: Yes Son Adopted: No Family Member Ethnicity: Non- Living Status: Still Living Hx Family Cardiac Disorders: No Hx Family Respiratory Disorders: No Hx Family Cancer: Yes (lung cancer) Hx Family GI Disorders: No Hx Family Endocrine Disorder: No Hx Family Neuromuscular Disorders: No Hx Family Neurologic Disorders: No Hx Family HEENT Disorders: No Hx Family Autoimmune Disorders: No Medications and Allergies Lisinopril [Zestril] 20 mg PO DAILY 09/21/15 [History] Sertraline [Zoloft] 50 mg PO HS 09/21/15 [History] Temazepam [Restoril] 15 mg PO HS 09/21/15 [History] Budesonide/Formoterol 160/4.5 [Symbicort 160/4.5] 2 puff IH BIDR 07/19/16 [ History] Warfarin [Coumadin] 2 mg PO SUTH 05/08/17 [History] Warfarin [Coumadin] 4 mg PO MOTUWEFRSA 05/08/17 [History] Diltiazem HCl [Diltiazem 12Hr ER] 120 mg PO DAILY 07/04/17 [History] Omeprazole [PriLOSEC] 20 mg PO DAILY 10/01/17 [History] Tamsulosin [Flomax] 0.4 mg PO DAILY 10/01/17 [History] 3 Allergy/AdvReac Type Severity Reaction Status Date / Time No Known Allergies Allergy Verified 08/24/17 20:02 Review of Systems All systems PM: The remainder of the systems were reviewed and are negative General Surgery Exam Initial Vital Signs Temp Pulse Resp BP Pulse Ox 97.7 F 109 20 125/69 93 09/30/17 18:39 09/30/17 18:39 09/30/17 18:39 09/30/17 18:39 09/30/17 18:39 - General physical appearance no distress - Eyes normal ocular movement - ENT normocephalic - Neck no lymphadectomy - Respiratory normal expansion, normal respiratory effort - Abdomen Abdomen general surgery: Present: soft - Neurologic Present: CN 2-12 grossly intact - Psychiatric Psychiatric general surgery: Present: appropriate Exam Initial Vital Signs Temp Pulse Resp BP Pulse Ox 97.7 F 109 20 125/69 93 09/30/17 18:39 09/30/17 18:39 09/30/17 18:39 09/30/17 18:39 09/30/17 18:39 Results - Labs 10/01/17 03:58 10/01/17 03:58 Abnormal lab results WBC 16.2 K/mcL (4.3-11.1) H 10/01/17 03:58 RBC 2.50 M/mcL (3.82-4.97) L 10/01/17 03:58 Hgb 5.9 g/dL (11.5-15.4) L* 10/01/17 03:58 Hct 19.2 % (35.3-44.9) L 10/01/17 03:58 MCV 76.8 fL (83.0-100.0) L 10/01/17 03:58 MCH 23.6 pg (28.0-33.3) L 10/01/17 03:58 MCHC 30.7 g/dL (31.6-35.5) L 10/01/17 03:58 RDW 18.9 % (11.5-14.5) H 10/01/17 03:58 Plt Count 436 K/mcL (140-400) H 10/01/17 03:58 Neutrophils # 15.5 K/mcL (1.6-8.9) H 10/01/17 03:58 Lymphocytes # 0.3 K/mcL (0.6-4.6) L 10/01/17 03:58 Anisocytosis 1+ (Not Present) A 10/01/17 03:58 PT 61.1 Seconds (9.4-12.1) H* 10/01/17 03:58 INR 5.4 H* 10/01/17 03:58 APTT 54.8 Seconds (26.0-36.0) H 09/30/17 19:31 ABG pCO2 47 mmHg (35-45) H 09/30/17 20:39 ABG pO2 75 mmHg (85-104) L 09/30/17 20:39 ABG HCO3 32 mEq/L (21-27) H 09/30/17 20:39 ABG Total CO2 33 mEq/L (20-26) H 09/30/17 20:39 ABG Base Excess 7 mEq/L (-2 to 3) H 09/30/17 20:39 BUN/Creatinine Ratio 35 (6-26) H 10/01/17 03:58 Glucose 207 mg/dL (70-105) H 10/01/17 03:58 Diabetes panel 10/01/17 Range/Units 03:58 Sodium 139 (136-145) mEq/L Potassium 3.8 (3.5-5.1) mEq/L Chloride 104 (98-107) mEq/L Carbon Dioxide 28 (23-29) mEq/L BUN 21 (8-23) mg/dL Creatinine 0.60 (0.60-1.20) mg/dL Glucose 207 H (70-105) mg/dL Calcium 8.6 (8.6-10.3) mg/dL Calcium panel 10/01/17 Range/Units 03:58 Calcium 8.6 (8.6-10.3) mg/dL Phosphorus 3.0 (2.7-4.5) mg/dL Pituitary panel 10/01/17 Range/Units 03:58 Sodium 139 (136-145) mEq/L Potassium 3.8 (3.5-5.1) mEq/L Chloride 104 (98-107) mEq/L Carbon Dioxide 28 (23-29) mEq/L BUN 21 (8-23) mg/dL Creatinine 0.60 (0.60-1.20) mg/dL Glucose 207 H (70-105) mg/dL Calcium 8.6 (8.6-10.3) mg/dL Adrenal panel 10/01/17 Range/Units 03:58 Sodium 139 (136-145) mEq/L Potassium 3.8 (3.5-5.1) mEq/L Chloride 104 (98-107) mEq/L Carbon Dioxide 28 (23-29) mEq/L BUN 21 (8-23) mg/dL Creatinine 0.60 (0.60-1.20) mg/dL Glucose 207 H (70-105) mg/dL Calcium 8.6 (8.6-10.3) mg/dL All other labs normal. - Imaging CT scan - chest: report reviewed, image reviewed Consult Discharge Plan - Plan Referrals: Michaela Torres, PABLO [Primary Care Provider] -
[2017-10-01 12:17] LABS: Basophils % 0.1 %; Hematocrit 26.7 % (35.3-44.9); Immature Granulocytes % 1.3 % (0-4); Lymphocytes # 0.4 K/mcL (0.6-4.6); Mean Corpuscular HGB Conc 31.8 g/dL (31.6-35.5); Mean Corpuscular Hemoglobin 25.8 pg (28.0-33.3); Mean Corpuscular Volume 81.2 fL (83.0-100.0); Mean Platelet Volume 9.9 fL (9.4-12.4); Monocytes # 0.2 K/mcL (0.0-1.3); Monocytes % 1.6 %; Neutrophils # 11.5 K/mcL (1.6-8.9); Platelet Count 360 K/mcL (140-400); Red Blood Count 3.29 M/mcL (3.82-4.97)
[2017-10-01 12:21] LABS: Hemoglobin 8.5 g/dL (11.5-15.4)
[2017-10-01 12:24] LABS: INR 6.4; Prothrombin Time 72.8 Seconds (9.4-12.1)
[2017-10-01] MEDS ORDERED: *HR* Phytonadione 10 MG/ML AMPUL SQ ONE (12:37)
[2017-10-01] MEDS ORDERED: *HR* Phytonadione 5 MG TABLET PO ONE (13:31)
--- NOTE | 2017-10-01 13:49 | Oncology Inp Consult Note ---
Date of Encounter: 10/01/17 Time of Encounter: 13:41 Assessment and Plan (1) Acute GI bleeding Status: Acute Assessment and plan: PLan for endoscopic evaluation with EGD and colonoscopy. (2) Acute pulmonary embolism Status: Acute Assessment and plan: It is small. Recoimmend U/S of the legs. If those are negative then would recommend no further anticoagulation. Qualifiers: Pulmonary embolism type: other Acute cor pulmonale presence: without acute cor pulmonale Qualified Code(s): I26.99 - Other pulmonary embolism without acute cor pulmonale (3) Anemia Status: Acute Assessment and plan: She is microcytic indicating iron deficiency. It does not seem an iron panel was drawn prior to blood transfusion. Recommend transfusing as necessary to maintain stable Hgb > 7.5. Qualifiers: Anemia type: iron deficiency Iron deficiency anemia type: unspecified iron deficiency Qualified Code(s): D50.9 - Iron deficiency anemia, unspecified (4) Atrial fibrillation Status: Acute Assessment and plan: Stop anticoagulation. I ordered oral vitamin K. subcutaneous Vitamin K in general has very unpredictable pharmacokinetics. furthermore, given her body habitus, it would be difficult to exactly ascertain how effective it would be. If there is no DVT, I would recommend discontinuing all anticoagulation in her given her age, her comorbidities, and her active bleeding. Qualifiers: Atrial fibrillation type: paroxysmal Qualified Code(s): I48.0 - Paroxysmal atrial fibrillation - Data of Consult Patient: new to practice Requesting Physician: Maye Lancaster MD Primary Care Provider: Michaela Torres CNP - Consult Narrative Reason for consult: PE and anemia History of present illness: Ms. Cleaning is a 82 year old female with PMH significnat for A-fib on chronic anticoagulation with warfarin and was in NSMS until 2 weeks ago when she went to urgent care. It was difficult eliciting why she went to urgent care and what happened thereafter. However, per the notes, she apparently was on abx and she increased her warfarin dose. On the day of admission, she fell and came to the ER where she was found to have significant anemia and supratherapeutic INR of 8.8. She was also found to have as small incidental PE. We are consulted regarding the anemia and continued anticoagulation. Past Med Surg Social Fam HX - Past Medical History Medical history: COPD, coronary artery disease, other Additional medical history: breast cancer Psychiatric history: anxiety, depression - Past Surgical History Surgical History: hysterectomy Additional surgical history: breast sx on right side - Social History Smoking Status: Former smoker Smokeless Tobacco Status: No Alcohol use: none Drug use: none - Family History Mother Adopted: No Family Member Ethnicity: Non- Living Status: Hx Family Cardiac Disorders: (thinks she had heart issues but unsure) Hx Family Respiratory Disorders: No Hx Family Cancer: No Hx Family GI Disorders: No Hx Family Endocrine Disorder: Yes Hx Family Neuromuscular Disorders: No Hx Family Neurologic Disorders: No Hx Family HEENT Disorders: No Hx Family Autoimmune Disorders: No Father Hx Family Cardiac Disorders: Yes Son Adopted: No Family Member Ethnicity: Non- Living Status: Still Living Hx Family Cardiac Disorders: No Hx Family Respiratory Disorders: No Hx Family Cancer: Yes (lung cancer) Hx Family GI Disorders: No Hx Family Endocrine Disorder: No Hx Family Neuromuscular Disorders: No Hx Family Neurologic Disorders: No Hx Family HEENT Disorders: No Hx Family Autoimmune Disorders: No Medications and Allergies Lisinopril [Zestril] 20 mg PO DAILY 09/21/15 [History] Sertraline [Zoloft] 50 mg PO HS 09/21/15 [History] Temazepam [Restoril] 15 mg PO HS 09/21/15 [History] Budesonide/Formoterol 160/4.5 [Symbicort 160/4.5] 2 puff IH BIDR 07/19/16 [ History] Warfarin [Coumadin] 2 mg PO SUTH 05/08/17 [History] Warfarin [Coumadin] 4 mg PO MOTUWEFRSA 05/08/17 [History] Diltiazem HCl [Diltiazem 12Hr ER] 120 mg PO DAILY 07/04/17 [History] Omeprazole [PriLOSEC] 20 mg PO DAILY 10/01/17 [History] Tamsulosin [Flomax] 0.4 mg PO DAILY 10/01/17 [History] 3 Allergy/AdvReac Type Severity Reaction Status Date / Time No Known Allergies Allergy Verified 08/24/17 20:02 Oncology - Exam - Constitutional Vitals: Temp Pulse Resp BP Pulse Ox 98.2 F 84 14 134/74 96 10/01/17 11:48 10/01/17 11:48 10/01/17 11:48 10/01/17 11:48 10/01/17 11:48 General appearance: thin, no average body habitus Exam: cachectic - Head Head exam: Present: atraumatic - Eye Eye exam: Present: EOMI - Respiratory Respiratory exam: Present: prolonged expiratory phase, tachypnea - Cardiovascular Cardiovascular exam: Present: irregular rhythm - GI/Abdominal GI/Abdominal exam: Present: soft - Extremities Exam Extremities exam: Absent: joint swelling, pedal edema - Neurological Exam Neurological exam: Present: alert, oriented X3 Oncology - Results Labs: 3 10/01/17 10/01/17 10/01/17 12:02 12:02 03:58 WBC 12.2 H RBC 3.29 L Hgb 8.5 L D Hct 26.7 L MCV 81.2 L MCH 25.8 L MCHC 31.8 RDW 18.0 H Plt Count 360 MPV 9.9 Immature Gran % 1.3 Seg Neutrophils % 94.0 Lymphocytes % 3.0 Monocytes % 1.6 Eosinophils % 0.0 Basophils % 0.1 Neutrophils # 11.5 H Lymphocytes # 0.4 L Monocytes # 0.2 Eosinophils # 0.0 Basophils # 0.0 Platelet Estimate Anisocytosis PT 72.8 H* 61.1 H* INR 6.4 H* 5.4 H* Sodium Potassium Chloride Carbon Dioxide BUN Creatinine Est GFR ( Amer) Est GFR (Non-Af Amer) BUN/Creatinine Ratio Glucose Calculated Osmolality Calcium Phosphorus Magnesium Blood Type Antibody Screen Crossmatch 3 10/01/17 10/01/17 10/01/17 03:58 03:58 00:48 WBC 16.2 H RBC 2.50 L Hgb 5.9 L* Hct 19.2 L MCV 76.8 L MCH 23.6 L MCHC 30.7 L RDW 18.9 H Plt Count 436 H MPV 10.3 Immature Gran % 1.4 Seg Neutrophils % 95.6 Lymphocytes % 2.0 Monocytes % 0.9 Eosinophils % 0.0 Basophils % 0.1 Neutrophils # 15.5 H Lymphocytes # 0.3 L Monocytes # 0.2 Eosinophils # 0.0 Basophils # 0.0 Platelet Estimate Normal Anisocytosis 1+ A PT INR Sodium 139 Potassium 3.8 Chloride 104 Carbon Dioxide 28 BUN 21 Creatinine 0.60 Est GFR ( Amer) > 60 Est GFR (Non-Af Amer) > 60 BUN/Creatinine Ratio 35 H Glucose 207 H Calculated Osmolality 297 Calcium 8.6 Phosphorus 3.0 Magnesium 2.0 Blood Type O POSITIVE Antibody Screen NEGATIVE Crossmatch See Detail 3 10/01/17 00:48 WBC 17.1 H RBC 2.77 L Hgb 6.5 L Hct 21.4 L MCV 77.3 L MCH 23.5 L MCHC 30.4 L RDW 19.0 H Plt Count 453 H MPV 10.4 Immature Gran % 1.2 Seg Neutrophils % 96.4 Lymphocytes % 1.5 Monocytes % 0.9 Eosinophils % 0.0 Basophils % 0.0 Neutrophils # 16.5 H Lymphocytes # 0.3 L Monocytes # 0.2 Eosinophils # 0.0 Basophils # 0.0 Platelet Estimate Anisocytosis PT INR Sodium Potassium Chloride Carbon Dioxide BUN Creatinine Est GFR ( Amer) Est GFR (Non-Af Amer) BUN/Creatinine Ratio Glucose Calculated Osmolality Calcium Phosphorus Magnesium Blood Type Antibody Screen Crossmatch Consult Discharge Plan - Plan Referrals: Michaela Torres, [employer] [Primary Care Provider] -
[2017-10-01 18:02] LABS: Basophils % 0.1 %; Hematocrit 26.7 % (35.3-44.9); Hemoglobin 8.6 g/dL (11.5-15.4); Immature Granulocytes % 1.6 % (0-4); Lymphocytes # 0.4 K/mcL (0.6-4.6); Lymphocytes % 3.3 %; Mean Corpuscular HGB Conc 32.2 g/dL (31.6-35.5); Mean Corpuscular Hemoglobin 25.8 pg (28.0-33.3); Mean Corpuscular Volume 80.2 fL (83.0-100.0); Mean Platelet Volume 10.3 fL (9.4-12.4); Monocytes # 0.4 K/mcL (0.0-1.3); Monocytes % 3.3 %; Neutrophils # 10.8 K/mcL (1.6-8.9); Nucleated Red Blood Cells 0.2 /100 WBC (0); Platelet Count 370 K/mcL (140-400); Red Blood Count 3.33 M/mcL (3.82-4.97); Red Cell Distribution Width 17.9 % (11.5-14.5); Segmented Neutrophils % 91.7 %
[2017-10-01] MEDS ORDERED: Temazepam 15 MG CAPSULE PO ONE (21:30)
[2017-10-02] MEDS: MethylPREDNISolone 40 MG/ML VIAL IVP SCH ×3 (00:38→17:05)
[2017-10-02] MEDS: Piperacillin/Tazobactam 3.375 GM in 0.9 % Sodium Chloride Mini Bag 100 ML IVPB SCH ×3 (00:38→17:03)
[2017-10-02 00:53] LABS: Basophils % 0.1 %; Hematocrit 24.3 % (35.3-44.9); Hemoglobin 7.8 g/dL (11.5-15.4); Immature Granulocytes % 1.6 % (0-4); Lymphocytes # 0.4 K/mcL (0.6-4.6); Mean Corpuscular HGB Conc 32.1 g/dL (31.6-35.5); Mean Corpuscular Hemoglobin 25.8 pg (28.0-33.3); Mean Corpuscular Volume 80.5 fL (83.0-100.0); Mean Platelet Volume 9.9 fL (9.4-12.4); Monocytes # 0.4 K/mcL (0.0-1.3); Platelet Count 340 K/mcL (140-400); Red Blood Count 3.02 M/mcL (3.82-4.97); Red Cell Distribution Width 18.2 % (11.5-14.5); Segmented Neutrophils % 92.3 %
[2017-10-02 01:02] LABS: INR 1.4; Prothrombin Time 15.8 Seconds (9.4-12.1)
[2017-10-02 01:10] LABS: BUN/Creatinine Ratio 35 (6-26); Blood Urea Nitrogen 25 mg/dL (8-23); Calcium 8.7 mg/dL (8.6-10.3); Carbon Dioxide 31 mEq/L (23-29); Chloride 103 mEq/L (98-107); Glucose 204 mg/dL (70-105); Osmolality,Calculated 300 (280-300); Potassium 3.4 mEq/L (3.5-5.1); Sodium 140 mEq/L (136-145); eGFR For Non-African Americans > 60 (> 60)
[2017-10-02] MEDS: Ipratropium/Albuterol Neb 3 ML IH SCH ×6 (03:44→23:48)
[2017-10-02] MEDS: Pantoprazole 40 MG VIAL IVP SCH ×2 (05:28→17:05)
[2017-10-02] MEDS: Budesonide/Formoterol 160/4.5 MDI IH SCH ×2 (07:35→19:39)
[2017-10-02 09:00] LABS: Basophils % 0.1 %; Hematocrit 24.6 % (35.3-44.9); Hemoglobin 7.6 g/dL (11.5-15.4); Lymphocytes # 0.4 K/mcL (0.6-4.6); Lymphocytes % 3.1 %; Mean Corpuscular HGB Conc 30.9 g/dL (31.6-35.5); Mean Corpuscular Hemoglobin 24.8 pg (28.0-33.3); Mean Corpuscular Volume 80.1 fL (83.0-100.0); Mean Platelet Volume 10.6 fL (9.4-12.4); Monocytes # 0.3 K/mcL (0.0-1.3); Monocytes % 2.8 %; Neutrophils # 10.8 K/mcL (1.6-8.9); Platelet Count 381 K/mcL (140-400); Red Blood Count 3.07 M/mcL (3.82-4.97); Red Cell Distribution Width 18.6 % (11.5-14.5)
[2017-10-02] MEDS: Lisinopril 20 MG TABLET PO SCH (09:04)
[2017-10-02] MEDS: Diltiazem CD (24hr) 120 MG CAPSULE PO SCH (09:04)
--- NOTE | 2017-10-02 09:08 | General Surgery Progress Note ---
<Ekaterina Jorgensen E - Last Filed: 10/02/17 09:18> Date of Encounter: 10/02/17 Time of Encounter: 09:02 - Assessment and Plan (1) Melena Current Visit: Yes Status: Acute We will continue to trend H&H If this stabilizes Surgery recommends return for outpatient endoscopy and colonoscopy We will continue to follow Subjective Patient reports: no new complaints (Patient states she has not had any bloody bowel movements that she knows of. No stomach pain but having some pain in the left lower ribs after her fall. ) Objective Vital Signs - Last 8 Hours Temp Pulse Resp BP Pulse Ox 10/02/17 07:41 98.6 F 70 16 127/41 98 10/02/17 03:46 16 97 10/02/17 03:45 97.2 F L 70 16 138/75 99 Intake and Output 10/01/17 10/02/17 10/02/17 23:59 07:59 15:59 Intake Total 438 / 438 200 / 200 Balance 438 / 438 200 / 200 Intake: IV Fluids 200 / 200 Zosyn 3.375 GM In 0.9 % Sodium 200 / 200 Chloride (Mini-Bag +) 100 ML @ 25 mls/hr IVPB Q8HR REPLACED BY [facility] Rx#: [id number] Oral 100 / 100 Blood Product 338 / 338 Plasma Unit [id number] 338 / 338 Other: Weight 40.3 kg Patient Weight 10/02/17 23:59 Weight 40.3 kg - General physical appearance well developed, cachectic, chronically ill - Respiratory normal expansion, normal respiratory effort, other crackles: right (lower lobe) - Cardiovascular Cardiovascular exam: Present: RRR, no murmurs/rubs/gallops - Abdomen Abdomen: Present: bowel sounds present, soft, non tender - Integumentary no rash, no growths, no abnormal pigmentation - Musculoskeletal normal posture - Psychiatric oriented to time, oriented to person, oriented to place - Labs 10/02/17 08:29 10/02/17 00:41 Diabetes panel 10/02/17 Range/Units 00:41 Sodium 140 (136-145) mEq/L Potassium 3.4 L (3.5-5.1) mEq/L Chloride 103 (98-107) mEq/L Carbon Dioxide 31 H (23-29) mEq/L BUN 25 H (8-23) mg/dL Creatinine 0.71 (0.60-1.20) mg/dL Glucose 204 H (70-105) mg/dL Calcium 8.7 (8.6-10.3) mg/dL Calcium panel 10/02/17 Range/Units 00:41 Calcium 8.7 (8.6-10.3) mg/dL Pituitary panel 10/02/17 Range/Units 00:41 Sodium 140 (136-145) mEq/L Potassium 3.4 L (3.5-5.1) mEq/L Chloride 103 (98-107) mEq/L Carbon Dioxide 31 H (23-29) mEq/L BUN 25 H (8-23) mg/dL Creatinine 0.71 (0.60-1.20) mg/dL Glucose 204 H (70-105) mg/dL Calcium 8.7 (8.6-10.3) mg/dL Adrenal panel 10/02/17 Range/Units 00:41 Sodium 140 (136-145) mEq/L Potassium 3.4 L (3.5-5.1) mEq/L Chloride 103 (98-107) mEq/L Carbon Dioxide 31 H (23-29) mEq/L BUN 25 H (8-23) mg/dL Creatinine 0.71 (0.60-1.20) mg/dL Glucose 204 H (70-105) mg/dL Calcium 8.7 (8.6-10.3) mg/dL Consult Discharge Plan - Plan Referrals: Michaela Torres, [employer] [Primary Care Provider] - <Chris Hayes - Last Filed: 10/02/17 10:03> Date of Encounter: 10/02/17 - Assessment and Plan (1) Melena Current Visit: Yes Status: Acute Objective Vital Signs - Last 8 Hours Temp Pulse Resp BP Pulse Ox 10/02/17 07:41 98.6 F 70 16 127/41 98 10/02/17 03:46 16 97 10/02/17 03:45 97.2 F L 70 16 138/75 99 Intake and Output 10/01/17 10/02/17 10/02/17 23:59 07:59 15:59 Intake Total 438 / 438 200 / 200 120 / 120 Balance 438 / 438 200 / 200 120 / 120 Intake: IV Fluids 200 / 200 Zosyn 3.375 GM In 0.9 % Sodium 200 / 200 Chloride (Mini-Bag +) 100 ML @ 25 mls/hr IVPB Q8HR REPLACED BY [facility] Rx#: [id number] Oral 100 / 100 120 / 120 Blood Product 338 / 338 Plasma Unit [id number] 338 / 338 Other: # Urine Diapers 1 Weight 40.3 kg Patient Weight 10/02/17 23:59 Weight 40.3 kg - Labs 10/02/17 08:29 10/02/17 00:41 Diabetes panel 10/02/17 Range/Units 00:41 Sodium 140 (136-145) mEq/L Potassium 3.4 L (3.5-5.1) mEq/L Chloride 103 (98-107) mEq/L Carbon Dioxide 31 H (23-29) mEq/L BUN 25 H (8-23) mg/dL Creatinine 0.71 (0.60-1.20) mg/dL Glucose 204 H (70-105) mg/dL Calcium 8.7 (8.6-10.3) mg/dL Calcium panel 10/02/17 Range/Units 00:41 Calcium 8.7 (8.6-10.3) mg/dL Pituitary panel 10/02/17 Range/Units 00:41 Sodium 140 (136-145) mEq/L Potassium 3.4 L (3.5-5.1) mEq/L Chloride 103 (98-107) mEq/L Carbon Dioxide 31 H (23-29) mEq/L BUN 25 H (8-23) mg/dL Creatinine 0.71 (0.60-1.20) mg/dL Glucose 204 H (70-105) mg/dL Calcium 8.7 (8.6-10.3) mg/dL Adrenal panel 10/02/17 Range/Units 00:41 Sodium 140 (136-145) mEq/L Potassium 3.4 L (3.5-5.1) mEq/L Chloride 103 (98-107) mEq/L Carbon Dioxide 31 H (23-29) mEq/L BUN 25 H (8-23) mg/dL Creatinine 0.71 (0.60-1.20) mg/dL Glucose 204 H (70-105) mg/dL Calcium 8.7 (8.6-10.3) mg/dL - Attending Attestation I have personally seen and examined the patient. I have reviewed pertinent labs , imaging, progress notes, including this one. I agree with the above assessment and plan.
[2017-10-02] MEDS: Nicotine 14 MG PATCH.TD24 TD SCH (09:11)
--- NOTE | 2017-10-02 10:30 | Internal Med Progress Note ---
<Emerita Parrishheath Deras - Last Filed: 10/02/17 15:04> Hospitalist Progress Note - Encounter Date of Encounter: 10/02/17 Time of Encounter: 10:28 - Subjective Interval History: Patient is an 82 yo F with history of CHF, cAD, and DM who presented to the ED on 09/30/17 after a fall with complaints of shortness of breath. Today patient is doing well, has been breathing comfortably on 2L NC, patient is on home oxygen at baseline. Patient complains today of right upper rib pain that is sharp and localized, reproducible with palpation. Patient denies vision changes, hearing changes, headaches, fevers, chills, chest pain, SOB, difficulty breathing, sputum production, hemoptysis, abdominal pain, nausea, vomiting, dysuria, joint pain. Patient is still coughing, wheezing , with complains of constipation. - Exam Vitals: Temp Pulse Resp BP Pulse Ox 98.6 F 70 16 127/41 98 10/02/17 07:41 10/02/17 07:41 10/02/17 07:41 10/02/17 07:41 10/02/17 07:41 Exam: General: white cachectic female laying in bed. Conversant, No Apparent Distress , able to speak in full sentences and follow commands. Intermittently pauses after questions, frequently have to repeat questions for her to answer Neck: No JVD, trachea midline HEENT: PERRL, normocephalic, atraumatic Cardiac: irregularly irregular rhythm, normal rate, Normal S1 and S2, No murmurs appreciated Pulmonary: Inspiratory and expiratory wheezing throughout. No Rales or Rhonchi, Not in respiratory distress, on 2L nasal cannula Abdomen: soft, tontender, no bruits, no guarding Neuro: Alert and responsive, No focal deficits noted Vascular: Normal capillary refill Skin: No rashes noted on visualized skin. Musculoskeletal: Right sided posterior chest wall tenderness Extremities: No Clubbing, No Cyanosis, Trace peripheral edema, Normal Pulses Psych: Normal mood, pleasant, conversant - Assessment and Plan (1) COPD exacerbation Current Visit: No Status: Acute Assessment and Plan: * Chronic * Patient on 2L NC, in-patient DuoNebs q 4, continues to have wheezing but not hypoxic * On solumedrol 40mg q 8, will decrease today to BID (2) Acute GI bleeding Current Visit: Yes Status: Acute Assessment and Plan: * Patient positive for occult blood. Patient came in with HgB of 7.0, has received PRBCx2 and FFPx2. * Most recent HgB: 7.8, Hct: 24.3 * Continue to monitor H&H with CBCs q 12, continue IV protonix 40mg BID, per heme/onc will transfuse if Hemoglobin <7.5 * Oncology recommended EGD and Colonoscopy workup. * Surgery recommends EGD and Colonoscopy be done outpatient as a return visit. Surgery continuing to follow H&H. (3) Pulmonary embolism Current Visit: Yes Status: Acute Assessment and Plan: * CTA was done and showed a tiny filling defect in the right middle lobe. Patient's INR is now 1.4. Duplex U/S bilateral LE was normal per preliminary report from highway engineering technician. * Oncology recommended no further anticoagulation for patient given multiple comorbidities, falls, and active GI bleed * Warfarin discontinued (4) Fall Current Visit: Yes Status: Acute Assessment and Plan: * Patient continues to complain of right rib pain, tramadol 50mg QID prn for pain * PT/OT consulted, pending evaluation * Patient lives at home with her son who is being treated for lung cancer, will also obtain social work consult should she require placement * Will follow recommendations for discharge (5) Atrial fibrillation with RVR Current Visit: No Status: Acute Assessment and Plan: * Continue home Diltiazem 120mg * Per oncology recommendation will d/c Coumadin * Start patient on daily aspirin upon discharge given elevated CT/Stroke risk and discontinuance of coumadin (6) Hypokalemia Current Visit: Yes Status: Acute Assessment and Plan: * Patients most recent K 3.4 * Supplemented 40 mEq K, recheck level with BMP. (7) Hypertension Current Visit: No Status: Chronic Assessment and Plan: * Continue home Lisinopril 20mg (8) Supratherapeutic INR Current Visit: Yes Status: Resolved Assessment and Plan: * Upon admission, was 8.8, likely secondary to increased Coumadin dose as instructed by urgent care * Patient has received PRBCx2 and FFPx2, and oral vitamin K while in hospital, oncology has recommended no further anticoagulation * Most recent INR 1.4, continue to monitor daily labs (9) Community acquired pneumonia Current Visit: Yes Status: Acute Assessment and Plan: * Chest CT showed opacities in lower lungs * Patient no longer has chills, fatigue, weakness, fevers, sputum production. Still coughing and wheezing, has underlying COPD. WBC count is trending down, most recent 11.9 but she is notably also on steroids * Continue Zosyn for 1 more day, de-escalate antibiotic coverage pending blood culture results. * Awaiting legionella and strep antigens. (10) DVT prophylaxis Current Visit: Yes Status: Acute Assessment and Plan: * Patient previously on coumadin for Afib, now discontinued due to acute GI bleed (11) Tobacco dependence Current Visit: No Status: Acute Assessment and Plan: * On nicotine patch - Time Spent with Patient Total time spent is greater than 50% in coordination of care (as documented) at patient's floor/unit and/or counseling patient: 25 - 35 minutes Plan of Care Discussed with: patient Internal Medicine: Result - Labs CBC & Chem 7: 10/02/17 08:29 10/02/17 00:41 Labs: Short CBC 10/01/17 10/01/17 10/02/17 Range/Units 12:02 17:54 00:41 WBC 12.2 H 11.8 H 11.9 H (4.3-11.1) K/mcL Hgb 8.5 L D 8.6 L 7.8 L (11.5-15.4) g/dL Hct 26.7 L 26.7 L 24.3 L (35.3-44.9) % Plt Count 360 370 340 (140-400) K/mcL Neutrophils # 11.5 H 10.8 H 11.0 H (1.6-8.9) K/mcL 10/02/17 Range/Units 08:29 WBC 11.6 H (4.3-11.1) K/mcL Hgb 7.6 L (11.5-15.4) g/dL Hct 24.6 L (35.3-44.9) % Plt Count 381 (140-400) K/mcL Neutrophils # 10.8 H (1.6-8.9) K/mcL BMP 10/02/17 00:41 Sodium 140 Potassium 3.4 L Chloride 103 Carbon Dioxide 31 H BUN 25 H Creatinine 0.71 Glucose 204 H Calcium 8.7 - ABG Interpretation ABG results: ABG ABG pH 7.44 pH Units (7.32-7.45) 09/30/17 20:39 ABG pCO2 47 mmHg (35-45) H 09/30/17 20:39 ABG pO2 75 mmHg (85-104) L 09/30/17 20:39 ABG O2 Saturation 95 % (95-98) 09/30/17 20:39 PT/INR, D-dimer PT 15.8 Seconds (9.4-12.1) H D 10/02/17 00:41 Consult Discharge Plan - Plan Referrals: Michaela Torres, STOCK CLERK [employer] [Primary Care Provider] - <Micha New - Last Filed: 10/02/17 17:20> Hospitalist Progress Note - Encounter Date of Encounter: 10/02/17 - Exam Vitals: Temp Pulse Resp BP Pulse Ox 97.9 F 69 16 120/69 99 10/02/17 15:47 10/02/17 15:47 10/02/17 15:47 10/02/17 15:47 10/02/17 15:47 - Assessment and Plan (1) Acute GI bleeding Current Visit: Yes Status: Acute (2) Supratherapeutic INR Current Visit: Yes Status: Acute (3) Acute pulmonary embolism Current Visit: Yes Status: Acute (4) Community acquired pneumonia Current Visit: Yes Status: Acute (5) Sepsis Current Visit: Yes Status: Acute (6) COPD exacerbation Current Visit: Yes Status: Acute (7) Atrial fibrillation Current Visit: Yes Status: Acute (8) Hypertension Current Visit: Yes Status: Acute (9) DVT prophylaxis Current Visit: Yes Status: Acute - Time Spent with Patient Total time spent is greater than 50% in coordination of care (as documented) at patient's floor/unit and/or counseling patient: Internal Medicine: Result - Labs CBC & Chem 7: 10/02/17 15:21 10/02/17 00:41 Labs: Short CBC 10/01/17 10/02/17 10/02/17 Range/Units 17:54 00:41 08:29 WBC 11.8 H 11.9 H 11.6 H (4.3-11.1) K/mcL Hgb 8.6 L 7.8 L 7.6 L (11.5-15.4) g/dL Hct 26.7 L 24.3 L 24.6 L (35.3-44.9) % Plt Count 370 340 381 (140-400) K/mcL Neutrophils # 10.8 H 11.0 H 10.8 H (1.6-8.9) K/mcL 10/02/17 Range/Units 15:21 WBC 13.0 H (4.3-11.1) K/mcL Hgb 8.0 L (11.5-15.4) g/dL Hct 25.5 L (35.3-44.9) % Plt Count 371 (140-400) K/mcL Neutrophils # 12.1 H (1.6-8.9) K/mcL BMP 10/02/17 00:41 Sodium 140 Potassium 3.4 L Chloride 103 Carbon Dioxide 31 H BUN 25 H Creatinine 0.71 Glucose 204 H Calcium 8.7 - ABG Interpretation ABG results: ABG ABG pH 7.44 pH Units (7.32-7.45) 09/30/17 20:39 ABG pCO2 47 mmHg (35-45) H 09/30/17 20:39 ABG pO2 75 mmHg (85-104) L 09/30/17 20:39 ABG O2 Saturation 95 % (95-98) 09/30/17 20:39 PT/INR, D-dimer PT 15.8 Seconds (9.4-12.1) H D 10/02/17 00:41 - Attending Attestation I have seen and examined this patient independently. I have discussed with the resident physician Dr. Keene regarding the management plan. Agree with the documentation. <Micha New - Last Filed: 10/02/17 17:20> (3) Acute pulmonary embolism Qualifiers: Pulmonary embolism type: other Acute cor pulmonale presence: without acute cor pulmonale Qualified Code(s): I26.99 - Other pulmonary embolism without acute cor pulmonale (4) Community acquired pneumonia Qualifiers: Lung location: lower lobe of lung (5) Sepsis Qualifiers: Qualified Code(s): A41.9 - Sepsis, unspecified organism (7) Atrial fibrillation Qualifiers: Atrial fibrillation type: paroxysmal Qualified Code(s): I48.0 - Paroxysmal atrial fibrillation (8) Hypertension Qualifiers: Qualified Code(s): I10 - Essential (primary) hypertension
--- NOTE | 2017-10-02 15:04 | Oncology Inp Progress Note ---
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-also reports no appetite, recent unintended weight loss, history of right breast cancer treated in 2000 with mastectomy/chemotherapy-patient unsure of other diagnosis details Reports increased constipation worsening over past month requiring digital disimpaction at times Plan: Hgb trend shows initial response to PRBC, now with 1 gm drop in past 24 hours Strongly recommend endoscopy evaluation with upper and lower prior to discharge Check nutritional stores in AM with iron profile, ferritin, B12 and folate Continue to monitor CBC, transfuse as needed to maintain hgb >7.5 (2) Acute pulmonary embolism Current Visit: Yes Status: Acute Assessment and plan: CTA reveals Tiny filling defect identified within the right middle lobe lateral segmental pulmonary artery compatible with a small pulmonary embolism. Preliminary bilateral venous doppler LE is negative for DVT. O2 at 2L Primary team treating COPD exacerbation/Community acquired pneumonia Plan: Unable to anticoagulate as she appears to have/recently had acute anemia related to acute blood loss Recommendations as above Plan for anticoagulation TBD pending further workup for acute blood loss anemia Qualifiers: Pulmonary embolism type: other Acute cor pulmonale presence: without acute cor pulmonale Qualified Code(s): I26.99 - Other pulmonary embolism without acute cor pulmonale (3) Atrial fibrillation Current Visit: Yes Status: Acute Assessment and plan: Continues to take home Diltiazem 120mg Anticoagulation on hold at this time secondary to anemia Consider holding AC indefinitely secondary to age, comorbidities and history of bleed Qualifiers: Atrial fibrillation type: paroxysmal Qualified Code(s): I48.0 - Paroxysmal atrial fibrillation Oncology: Subj Interval history: MS. Cleaning is resting in her chair. She reports intermittent right flank pain that is worse with coughing/movement and pain with coughing. She reports SOB on exertion. She denies hemoptysis, nausea, vomiting, confusion, diarrhea or any s/ s bleeding. She has not had a BM since before admission. She is passing gas. - Constitutional Vitals: Vital Signs Temp Pulse Resp BP Pulse Ox 10/02/17 11:19 16 96 10/02/17 11:16 97.9 F 78 16 139/78 96 10/02/17 07:41 98.6 F 70 16 127/41 98 10/02/17 03:46 16 97 10/02/17 03:45 97.2 F L 70 16 138/75 99 10/02/17 00:32 98.2 F 83 16 134/69 95 10/01/17 23:32 16 98 10/01/17 21:30 98 10/01/17 19:41 97.9 F 79 16 141/73 99 10/01/17 19:34 16 98 10/01/17 16:28 98.6 F 96 16 131/66 96 10/01/17 16:00 98.3 F 89 16 136/46 97 10/01/17 15:21 20 98 Intake and Output 10/01/17 10/02/17 10/02/17 23:59 07:59 15:59 Intake Total 438 / 438 200 / 200 700 / 700 Balance 438 / 438 200 / 200 700 / 700 Intake: IV Fluids 200 / 200 100 / 100 Zosyn 3.375 GM In 0.9 % Sodium 200 / 200 100 / 100 Chloride (Mini-Bag +) 100 ML @ 25 mls/hr IVPB Q8HR [facility] Rx#: [id number] Oral 100 / 100 600 / 600 Blood Product 338 / 338 Plasma Unit [id number] 338 / 338 Other: Meal Lunch Percent of Meal Consumed 90% # Urine Diapers 1 Weight 40.3 kg Patient Weight 10/02/17 23:59 Weight 40.3 kg General appearance: cooperative, no acute distress, thin, no febrile Exam: chronically ill appearing, cachectic - Head Head exam: Present: atraumatic - ENT ENT exam: Present: mucous membranes moist - Respiratory Respiratory exam: Present: wheezes. Absent: respiratory distress - Cardiovascular Cardiovascular exam: Present: RRR, +S1, +S2 - GI/Abdominal GI/Abdominal exam: Present: normal bowel sounds, soft. Absent: guarding, rebound, tenderness - Extremities Exam Extremities exam: Absent: calf tenderness - Neurological Exam Neurological exam: Present: alert, oriented X3, no focal deficits, strengths equal and symetr throughout - Psychiatric Psychiatric exam: Present: normal affect, normal mood - Skin Skin exam: Present: dry, intact, pallor, warm Oncology: Obj Data - Labs CBC & Chem 7: 10/02/17 15:21 10/02/17 00:41 - ABG Interpretation ABG results: ABG ABG pH 7.44 pH Units (7.32-7.45) 09/30/17 20:39 ABG pCO2 47 mmHg (35-45) H 09/30/17 20:39 ABG pO2 75 mmHg (85-104) L 09/30/17 20:39 ABG O2 Saturation 95 % (95-98) 09/30/17 20:39 PT/INR, D-dimer PT 15.8 Seconds (9.4-12.1) H D 10/02/17 00:41 Consult Discharge Plan - Plan Referrals: Michaela Torres, INVENTORY CONTROL MANAGER [Primary Care Provider] - <Ray Dickinson S - Last Filed: 10/02/17 21:39> Date of Encounter: 10/02/17 - Constitutional Vitals: Vital Signs Temp Pulse Resp BP Pulse Ox 10/02/17 19:57 98 10/02/17 19:52 98.4 F 84 17 161/69 98 10/02/17 19:43 16 98 10/02/17 15:47 97.9 F 69 16 120/69 99 10/02/17 15:36 16 96 10/02/17 11:19 16 96 10/02/17 11:16 97.9 F 78 16 139/78 96 10/02/17 07:41 98.6 F 70 16 127/41 98 10/02/17 03:46 16 97 10/02/17 03:45 97.2 F L 70 16 138/75 99 10/02/17 00:32 98.2 F 83 16 134/69 95 10/01/17 23:32 16 98 Intake and Output 10/02/17 10/02/17 10/03/17 08:59 16:59 00:59 Intake Total 100 / 100 940 / 940 100 / 100 Balance 100 / 100 940 / 940 100 / 100 Intake: IV Fluids 100 / 100 100 / 100 Zosyn 3.375 GM In 0.9 % Sodium 100 / 100 100 / 100 Chloride (Mini-Bag +) 100 ML @ 25 mls/hr IVPB Q8HR [facility] Rx#: [id number] Oral 840 / 840 100 / 100 Other: Meal Lunch Percent of Meal Consumed 90% # Urine Diapers 1 Oncology: Obj Data - Labs CBC & Chem 7: 10/02/17 15:21 10/02/17 00:41 Labs: Laboratory Results - last 24 hr 10/02/17 10/02/17 10/02/17 00:41 00:41 00:41 WBC 11.9 H RBC 3.02 L Hgb 7.8 L Hct 24.3 L MCV 80.5 L MCH 25.8 L MCHC 32.1 RDW 18.2 H Plt Count 340 MPV 9.9 Immature Gran % 1.6 Seg Neutrophils % 92.3 Lymphocytes % 3.0 Monocytes % 3.0 Eosinophils % 0.0 Basophils % 0.1 Neutrophils # 11.0 H Lymphocytes # 0.4 L Monocytes # 0.4 Eosinophils # 0.0 Basophils # 0.0 PT 15.8 H D INR 1.4 D Sodium 140 Potassium 3.4 L Chloride 103 Carbon Dioxide 31 H BUN 25 H Creatinine 0.71 Est GFR ( Amer) > 60 Est GFR (Non-Af Amer) > 60 BUN/Creatinine Ratio 35 H Glucose 204 H Calculated Osmolality 300 Calcium 8.7 10/02/17 10/02/17 08:29 15:21 WBC 11.6 H 13.0 H RBC 3.07 L 3.10 L Hgb 7.6 L 8.0 L Hct 24.6 L 25.5 L MCV 80.1 L 82.3 L MCH 24.8 L 25.8 L MCHC 30.9 L 31.4 L RDW 18.6 H 18.8 H Plt Count 381 371 MPV 10.6 9.9 Immature Gran % 1.0 1.4 Seg Neutrophils % 93.0 93.2 Lymphocytes % 3.1 1.8 Monocytes % 2.8 3.5 Eosinophils % 0.0 0.0 Basophils % 0.1 0.1 Neutrophils # 10.8 H 12.1 H Lymphocytes # 0.4 L 0.2 L Monocytes # 0.3 0.5 Eosinophils # 0.0 0.0 Basophils # 0.0 0.0 PT INR Sodium Potassium Chloride Carbon Dioxide BUN Creatinine Est GFR ( Amer) Est GFR (Non-Af Amer) BUN/Creatinine Ratio Glucose Calculated Osmolality Calcium - ABG Interpretation ABG results: ABG ABG pH 7.44 pH Units (7.32-7.45) 09/30/17 20:39 ABG pCO2 47 mmHg (35-45) H 09/30/17 20:39 ABG pO2 75 mmHg (85-104) L 09/30/17 20:39 ABG O2 Saturation 95 % (95-98) 09/30/17 20:39 PT/INR, D-dimer PT 15.8 Seconds (9.4-12.1) H D 10/02/17 00:41 - Attending Attestation I examined this patient and my medical decision-making was reviewed with the Advanced Practice Nurse. I agree with the documented findings, disposition and treatment plan as described except to the extent set forth below. This patient presented with acute gastrointestinal hemorrhage in the setting of supratherapeutic INR. Anticoagulation has been discontinued and the effect has been reversed with FFP and vitamin K. As she is currently hospitalized with severe anemia, I would recommend EGD and colonoscopy prior to discharge. I think this would be the patient's best interest. In addition, I think it may be possible to reinitiate anticoagulation in the future depending upon these findings. This can be discussed as an outpatient. No new recommendations for today.
[2017-10-02 15:37] LABS: Basophils % 0.1 %; Hematocrit 25.5 % (35.3-44.9); Immature Granulocytes % 1.4 % (0-4); Lymphocytes # 0.2 K/mcL (0.6-4.6); Lymphocytes % 1.8 %; Mean Corpuscular HGB Conc 31.4 g/dL (31.6-35.5); Mean Corpuscular Hemoglobin 25.8 pg (28.0-33.3); Mean Corpuscular Volume 82.3 fL (83.0-100.0); Mean Platelet Volume 9.9 fL (9.4-12.4); Monocytes # 0.5 K/mcL (0.0-1.3); Monocytes % 3.5 %; Neutrophils # 12.1 K/mcL (1.6-8.9); Platelet Count 371 K/mcL (140-400); Red Cell Distribution Width 18.8 % (11.5-14.5); Segmented Neutrophils % 93.2 %
[2017-10-02] MEDS ORDERED: Ipratropium/Albuterol Neb 3 ML IH PRN (15:44)
[2017-10-02] MEDS ORDERED: Temazepam 15 MG CAPSULE PO ONE (21:30)
[2017-10-03] MEDS: Piperacillin/Tazobactam 3.375 GM in 0.9 % Sodium Chloride Mini Bag 100 ML IVPB SCH ×4 (00:15→23:39)
[2017-10-03 00:40] LABS: Basophils % 0.1 %; Hematocrit 24.8 % (35.3-44.9); Hemoglobin 7.6 g/dL (11.5-15.4); Immature Granulocytes % 1.4 % (0-4); Lymphocytes # 0.4 K/mcL (0.6-4.6); Lymphocytes % 2.7 %; Mean Corpuscular HGB Conc 30.6 g/dL (31.6-35.5); Mean Corpuscular Volume 81.6 fL (83.0-100.0); Mean Platelet Volume 10.9 fL (9.4-12.4); Monocytes # 0.4 K/mcL (0.0-1.3); Monocytes % 3.3 %; Neutrophils # 11.8 K/mcL (1.6-8.9); Platelet Count 365 K/mcL (140-400); Red Blood Count 3.04 M/mcL (3.82-4.97); Red Cell Distribution Width 19.1 % (11.5-14.5); Segmented Neutrophils % 92.5 %
[2017-10-03 00:48] LABS: Bilirubin,Urine Negative (Negative); Blood,Urine Negative (Negative); Clarity,Urine Clear (Clear); Color,Urine Yellow (Yellow); Glucose,Urine (UA) Normal (Normal); Ketones,Urine Negative (Negative); Leukocyte Esterase,Urine Negative (Negative); Nitrite,Urine Negative (Negative); Protein,Urine Trace mg/dL (Neg-Trace); Specific Gravity,Urine 1.026 (1.010-1.025); Urobilinogen,Urine Normal (Normal)
[2017-10-03 00:51] LABS: Bacteria,Urine None Seen per hpf (None-Few); Hyaline Casts,Urine None Seen per lpf (None-Few); RBC,Urine 0-3 per hpf (0-3); Squamous Epithelial Cell,Urine Many per lpf (None-Few); WBC,Urine 0-3 per hpf (0-3)
[2017-10-03 00:56] LABS: % Iron Saturation 3 % (15-50); Iron 10 mcg/dL (50-170); Transferrin 212 mg/dL (203-362)
[2017-10-03 01:14] LABS: Ferritin 62 ng/mL (10-120)
[2017-10-03 01:17] LABS: Alanine Aminotransferase 25 Units/L (7-52); Albumin/Globulin Ratio 0.9 (1.1-2.2); Alkaline Phosphatase 71 Units/L (34-104); Aspartate Amino Transferase 18 Units/L (13-39); BUN/Creatinine Ratio 54 (6-26); Bilirubin,Total 0.3 mg/dL (0.3-1.0); Blood Urea Nitrogen 37 mg/dL (8-23); Calcium 8.9 mg/dL (8.6-10.3); Carbon Dioxide 28 mEq/L (23-29); Chloride 105 mEq/L (98-107); Globulin 3.2 g/dL (2.4-3.5); Glucose 207 mg/dL (70-105); Osmolality,Calculated 299 (280-300); Potassium 4.7 mEq/L (3.5-5.1); Sodium 137 mEq/L (136-145); Total Protein 6.2 g/dL (6.4-8.9); eGFR For Non-African Americans > 60 (> 60)
[2017-10-03 01:20] LABS: Folate 7.8 ng/mL (3.0-16.0)
[2017-10-03] MEDS: Ipratropium/Albuterol Neb 3 ML IH SCH ×6 (03:55→22:52)
[2017-10-03] MEDS: Pantoprazole 40 MG VIAL IVP SCH ×2 (04:58→16:23)
[2017-10-03] MEDS: MethylPREDNISolone 40 MG/ML VIAL IVP SCH ×2 (04:58→16:23)
[2017-10-03] MEDS: Budesonide/Formoterol 160/4.5 MDI IH SCH ×2 (07:40→19:40)
[2017-10-03 07:50] LABS: Basophils % 0.1 %; Hematocrit 25.8 % (35.3-44.9); Hemoglobin 7.8 g/dL (11.5-15.4); Immature Granulocytes % 1.5 % (0-4); Lymphocytes # 0.3 K/mcL (0.6-4.6); Lymphocytes % 2.4 %; Mean Corpuscular HGB Conc 30.2 g/dL (31.6-35.5); Mean Corpuscular Hemoglobin 25.2 pg (28.0-33.3); Mean Corpuscular Volume 83.5 fL (83.0-100.0); Mean Platelet Volume 9.9 fL (9.4-12.4); Monocytes # 0.6 K/mcL (0.0-1.3); Neutrophils # 12.6 K/mcL (1.6-8.9); Platelet Count 351 K/mcL (140-400); Red Blood Count 3.09 M/mcL (3.82-4.97); Red Cell Distribution Width 19.3 % (11.5-14.5)
[2017-10-03] MEDS ORDERED: Albuterol 2.5 MG/3 ML NEBULIZER IH PRN (08:05)
[2017-10-03] MEDS: traMADol 50 MG TABLET PO PRN ×2 (08:08→21:23)
[2017-10-03] MEDS: Lisinopril 20 MG TABLET PO SCH (08:08)
[2017-10-03] MEDS: Diltiazem CD (24hr) 120 MG CAPSULE PO SCH (08:08)
[2017-10-03] MEDS: Nicotine 14 MG PATCH.TD24 TD SCH (08:09)
--- NOTE | 2017-10-03 08:35 | General Surgery Progress Note ---
<Ekaterina Jorgensen E - Last Filed: 10/03/17 09:04> Date of Encounter: 10/03/17 Time of Encounter: 08:32 - Assessment and Plan (1) Melena Current Visit: Yes Status: Acute Patient and nursing staff report no bloody or black stools Appointment Scheduled for discussion of endoscopy and colonoscopy with Dr. Hayes October 16 at 11am. Further care as per primary Surgery will sign off at this time, thank you for involving us in this patient' s care, if you have any further questions of concerns please feel free to contact us. Subjective Patient reports: other (Patient states she ahs not had any bloody or black stools, deneis abdominal pain, does have right rib pain from her fall. ) Objective Vital Signs - Last 8 Hours Temp Pulse Resp BP Pulse Ox 10/03/17 07:49 97.5 F L 79 19 154/72 100 10/03/17 04:47 97.6 F 78 17 138/62 96 10/03/17 03:58 16 97 10/03/17 00:39 97.9 F 75 16 142/70 94 Intake and Output 10/02/17 10/03/17 10/03/17 23:59 07:59 15:59 Intake Total 200 / 200 100 / 100 Output Total 175 / 175 Balance 200 / 200 -75 / -75 Intake: IV Fluids 100 / 100 100 / 100 Zosyn 3.375 GM In 0.9 % Sodium 100 / 100 100 / 100 Chloride (Mini-Bag +) 100 ML @ 25 mls/hr IVPB Q8HR [facility] Rx#: [id number] Oral 100 / 100 Output: Straight Cath 175 / 175 Other: # Urine Diapers 2 1 Weight 43.6 kg Patient Weight 10/03/17 23:59 Weight 43.6 kg - General physical appearance well developed, no distress, cachectic - Respiratory normal expansion, normal respiratory effort crackles: bilateral (upper lobes) - Cardiovascular Cardiovascular exam: Present: RRR, no murmurs/rubs/gallops - Abdomen Abdomen: Present: bowel sounds present, soft, non tender - Musculoskeletal normal posture - Psychiatric oriented to time, oriented to person, oriented to place - Labs 10/03/17 07:35 10/03/17 00:21 Diabetes panel 10/03/17 Range/Units 00:21 Sodium 137 (136-145) mEq/L Potassium 4.7 D (3.5-5.1) mEq/L Chloride 105 (98-107) mEq/L Carbon Dioxide 28 (23-29) mEq/L BUN 37 H (8-23) mg/dL Creatinine 0.68 (0.60-1.20) mg/dL Glucose 207 H (70-105) mg/dL Calcium 8.9 (8.6-10.3) mg/dL AST 18 (13-39) Units/L ALT 25 (7-52) Units/L Alkaline Phosphatase 71 (34-104) Units/L Albumin 3.0 L (3.5-5.7) g/dL Calcium panel 10/03/17 Range/Units 00:21 Calcium 8.9 (8.6-10.3) mg/dL Albumin 3.0 L (3.5-5.7) g/dL Pituitary panel 10/03/17 Range/Units 00:21 Sodium 137 (136-145) mEq/L Potassium 4.7 D (3.5-5.1) mEq/L Chloride 105 (98-107) mEq/L Carbon Dioxide 28 (23-29) mEq/L BUN 37 H (8-23) mg/dL Creatinine 0.68 (0.60-1.20) mg/dL Glucose 207 H (70-105) mg/dL Calcium 8.9 (8.6-10.3) mg/dL Adrenal panel 10/03/17 Range/Units 00:21 Sodium 137 (136-145) mEq/L Potassium 4.7 D (3.5-5.1) mEq/L Chloride 105 (98-107) mEq/L Carbon Dioxide 28 (23-29) mEq/L BUN 37 H (8-23) mg/dL Creatinine 0.68 (0.60-1.20) mg/dL Glucose 207 H (70-105) mg/dL Calcium 8.9 (8.6-10.3) mg/dL Total Bilirubin 0.3 (0.3-1.0) mg/dL AST 18 (13-39) Units/L ALT 25 (7-52) Units/L Alkaline Phosphatase 71 (34-104) Units/L Albumin 3.0 L (3.5-5.7) g/dL Consult Discharge Plan - Plan Referrals: Michaela Torres, ADMINISTRATIVE MEDICAL DIRECTOR [Primary Care Provider] - <Chris Hayes - Last Filed: 10/03/17 12:42> Date of Encounter: 10/03/17 - Assessment and Plan (1) Melena Current Visit: Yes Status: Acute Objective Vital Signs - Last 8 Hours Temp Pulse Resp BP Pulse Ox 10/03/17 11:35 97.9 F 61 18 161/67 100 10/03/17 11:32 98.4 F 86 19 104/69 96 10/03/17 07:49 97.5 F L 79 19 154/72 100 10/03/17 04:47 97.6 F 78 17 138/62 96 Intake and Output 10/02/17 10/03/17 10/03/17 23:59 07:59 15:59 Intake Total 200 / 200 100 / 100 120 / 120 Output Total 175 / 175 Balance 200 / 200 -75 / -75 120 / 120 Intake: IV Fluids 100 / 100 100 / 100 Zosyn 3.375 GM In 0.9 % Sodium 100 / 100 100 / 100 Chloride (Mini-Bag +) 100 ML @ 25 mls/hr IVPB Q8HR [facility] Rx#: [id number] Oral 100 / 100 120 / 120 Output: Straight Cath 175 / 175 Other: Meal Breakfast Percent of Meal Consumed 20% # Urine Diapers 2 1 1 Weight 43.6 kg Patient Weight 10/03/17 23:59 Weight 43.6 kg - Labs 10/03/17 07:35 10/03/17 00:21 Diabetes panel 10/03/17 Range/Units 00:21 Sodium 137 (136-145) mEq/L Potassium 4.7 D (3.5-5.1) mEq/L Chloride 105 (98-107) mEq/L Carbon Dioxide 28 (23-29) mEq/L BUN 37 H (8-23) mg/dL Creatinine 0.68 (0.60-1.20) mg/dL Glucose 207 H (70-105) mg/dL Calcium 8.9 (8.6-10.3) mg/dL AST 18 (13-39) Units/L ALT 25 (7-52) Units/L Alkaline Phosphatase 71 (34-104) Units/L Albumin 3.0 L (3.5-5.7) g/dL Calcium panel 10/03/17 Range/Units 00:21 Calcium 8.9 (8.6-10.3) mg/dL Albumin 3.0 L (3.5-5.7) g/dL Pituitary panel 10/03/17 Range/Units 00:21 Sodium 137 (136-145) mEq/L Potassium 4.7 D (3.5-5.1) mEq/L Chloride 105 (98-107) mEq/L Carbon Dioxide 28 (23-29) mEq/L BUN 37 H (8-23) mg/dL Creatinine 0.68 (0.60-1.20) mg/dL Glucose 207 H (70-105) mg/dL Calcium 8.9 (8.6-10.3) mg/dL Adrenal panel 10/03/17 Range/Units 00:21 Sodium 137 (136-145) mEq/L Potassium 4.7 D (3.5-5.1) mEq/L Chloride 105 (98-107) mEq/L Carbon Dioxide 28 (23-29) mEq/L BUN 37 H (8-23) mg/dL Creatinine 0.68 (0.60-1.20) mg/dL Glucose 207 H (70-105) mg/dL Calcium 8.9 (8.6-10.3) mg/dL Total Bilirubin 0.3 (0.3-1.0) mg/dL AST 18 (13-39) Units/L ALT 25 (7-52) Units/L Alkaline Phosphatase 71 (34-104) Units/L Albumin 3.0 L (3.5-5.7) g/dL - Attending Attestation patient seen and examined. i have reviewed all labs, imaging, and notes. i agree with the above assessment and plan and wish to add the following... plan for follow up in clinic for outpatient EGD and colonoscopy
--- NOTE | 2017-10-03 12:51 | Internal Med Progress Note ---
Hospitalist Progress Note - Encounter Date of Encounter: 10/03/17 Time of Encounter: 12:49 - Subjective Interval History: Patient seen and examined at bedside. Patient no overnight events. Patient just got back in bed from sitting in chair. Patient states that she continues to be short of breath especially with exertion. Patient states that she continues to have a cough and that sometime she is breathing thick sputum up. Patient states that she is having no abdominal pain or nausea. Patient denies any bloody or dark stools. Patient denies any chest pain. Patient admits to right-sided rib pain. Patient's hemoglobin has been stable Gen. surgery has signed off and will evaluate for endoscopy and colonoscopy as an outpatient appointment has been made. - Exam Vitals: Temp Pulse Resp BP Pulse Ox 97.9 F 61 18 161/67 100 10/03/17 11:35 10/03/17 11:35 10/03/17 11:35 10/03/17 11:35 10/03/17 11:35 Exam: Constitutional: No acute distress, Alert, frail Psych: AAO x 3 Cardio: regular rate and rhythm, +s1s2, no murmurs/rubs/gallops, no JVD Resp: No respiratory distress, no accessory muscle use, not tachypneic, very diminished breath sounds bilaterally with inspiratory and expirator wheezes Abd: soft, non tender/non distended, positive bowel sounds, no gaurding/reboud/ ridgitity Extremities: no clubbing/cyanosis/edema appreciated Neuro: no focal deficits appreciated - Assessment and Plan (1) COPD exacerbation Current Visit: Yes Status: Acute Assessment and Plan: -Acute exacerbation of COPD -Continues to have significant wheezing and conversational dyspnea -Steroids have been slowly weaned now at 40 mg twice a day -We will continue IV steroids twice a day for now; may need a prolonged taper of oral antibiotics at discharge -Not yet ready for discharge -Continue duo nebs (2) Acute GI bleeding Current Visit: Yes Status: Acute Assessment and Plan: -Pt has positive occult blood with an acute drop in her hemoglobin to 5.9 from 8 -9 on previous admissions. -was transfused 2 units of PRBC, 2 units of FFP. -HBG stable today at 7.8 from 8.0 -No further reported melena, hematochezia, hematemesis, nausea or abdominal pain -Surgery recommended outpatient evaluation for upper endoscopy and colonoscopy -Oncology recommends diascopy for evaluation of bleeding -Warfarin has been discontinued and will likely not be restarted per hematology recs 2/2 bleeding, falls, and multiple comorbidities -check AM CBC (3) Supratherapeutic INR Current Visit: Yes Status: Acute Assessment and Plan: -Patient had supratherapeutic INR on admission with severe anemia and GI bleed -Patient was given 2 units of FFP and 2 units of packed red blood cells -Last INR was within normal range -Plan for now is to discontinue Coumadin pending outpatient endoscopy and colonoscopy findings (4) Acute pulmonary embolism Current Visit: Yes Status: Acute Assessment and Plan: -CT imaging revealed tiny filling defect in the right middle lobe consistent with very small pulmonary embolism -Oncology following who recommended discontinuing warfarin comparing to comorbidities and bleeding and falls -Long-term anticoagulation to be determined based on endoscopy results which will likely happen as an outpatient if the patient's hemoglobin remains stable -We will likely have to accept the risk of stroke and further thrombosis until endoscopy and colonoscopy is performed (5) Community acquired pneumonia Current Visit: Yes Status: Acute Assessment and Plan: -Community acquired pneumonia with sepsis on admission -Remains on Zosyn however continues to have cough with thick sputum -Leukocytosis has improved from admission of 18.6 to 13.7 today; likely remains elevated secondary to steroid use -Continue IV Zosyn for now and will continue with her adding azithromycin for atypical coverage if no continued improvement -Blood cultures have been negative to date (6) Sepsis Current Visit: Yes Status: Acute Assessment and Plan: -Secondary to community-acquired pneumonia -Resolved -Remains on Zosyn -Cultures negative to date (7) Atrial fibrillation Current Visit: Yes Status: Acute Assessment and Plan: -Continue diltiazem, hold warfarin - will likely not be on anticoagulation due to bleeding comorbidities and falls (8) Hypertension Current Visit: Yes Status: Acute Assessment and Plan: Continue lisinopril (9) DVT prophylaxis Current Visit: Yes Status: Acute Assessment and Plan: -scds -no heparin for now 2/2 bleeding -can likely resume sq heparin soon DVT Prophylaxis: SCDs, can likely resume subcutaneous heparin soon if hemoglobin stable but currently held secondary to bleeding - Time Spent with Patient Total time spent is greater than 50% in coordination of care (as documented) at patient's floor/unit and/or counseling patient: 25 - 35 minutes Internal Medicine: Result - Labs CBC & Chem 7: 10/03/17 07:35 10/03/17 00:21 Labs: Short CBC 10/02/17 10/03/17 10/03/17 Range/Units 15:21 00:21 07:35 WBC 13.0 H 12.8 H 13.7 H (4.3-11.1) K/mcL Hgb 8.0 L 7.6 L 7.8 L (11.5-15.4) g/dL Hct 25.5 L 24.8 L 25.8 L (35.3-44.9) % Plt Count 371 365 351 (140-400) K/mcL Neutrophils # 12.1 H 11.8 H 12.6 H (1.6-8.9) K/mcL BMP 10/03/17 00:21 Sodium 137 Potassium 4.7 D Chloride 105 Carbon Dioxide 28 BUN 37 H Creatinine 0.68 Glucose 207 H Calcium 8.9 Liver Function 10/03/17 Range/Units 00:21 Total Bilirubin 0.3 (0.3-1.0) mg/dL AST 18 (13-39) Units/L ALT 25 (7-52) Units/L Alkaline Phosphatase 71 (34-104) Units/L Albumin 3.0 L (3.5-5.7) g/dL Urine 10/03/17 Range/Units 00:30 Urine Color Yellow (Yellow) Urine Clarity Clear (Clear) Urine pH 6.0 (5.0-8.0) pH Units Ur Specific [place] 1.026 H (1.010-1.025) Urine Protein Trace (Neg-Trace) mg/dL Urine Glucose (UA) Normal (Normal) mg/dL - ABG Interpretation ABG results: ABG ABG pH 7.44 pH Units (7.32-7.45) 09/30/17 20:39 ABG pCO2 47 mmHg (35-45) H 09/30/17 20:39 ABG pO2 75 mmHg (85-104) L 09/30/17 20:39 ABG O2 Saturation 95 % (95-98) 09/30/17 20:39 PT/INR, D-dimer PT 15.8 Seconds (9.4-12.1) H D 10/02/17 00:41 Consult Discharge Plan - Plan Referrals: Michaela Torres, AUTOMOBILE MECHANIC SUPERVISOR [Primary Care Provider] - (4) Acute pulmonary embolism Qualifiers: Pulmonary embolism type: other Acute cor pulmonale presence: without acute cor pulmonale Qualified Code(s): I26.99 - Other pulmonary embolism without acute cor pulmonale (5) Community acquired pneumonia Qualifiers: Lung location: lower lobe of lung (6) Sepsis Qualifiers: Qualified Code(s): A41.9 - Sepsis, unspecified organism (7) Atrial fibrillation Qualifiers: Atrial fibrillation type: paroxysmal Qualified Code(s): I48.0 - Paroxysmal atrial fibrillation (8) Hypertension Qualifiers: Qualified Code(s): I10 - Essential (primary) hypertension
--- NOTE | 2017-10-03 13:26 | Oncology Inp Progress Note ---
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-also reports no appetite, recent unintended weight loss, history of right breast cancer treated in 2000 with mastectomy/chemotherapy-patient unsure of other diagnosis details Reports increased constipation worsening over past month requiring digital disimpaction at times Plan: Hgb trend shows initial response to PRBC with subsequent decrease, now stable Recommend endoscopy evaluation with upper and lower prior to discharge-Surgery has signed off, planning for outpatient endoscopy on 10/16 Iron deficiency anemia-ordered venofer 400 mg x1 Continue to monitor CBC, transfuse as needed to maintain hgb >7.5 (2) Acute pulmonary embolism Current Visit: Yes Status: Acute Assessment and plan: CTA reveals Tiny filling defect identified within the right middle lobe lateral segmental pulmonary artery compatible with a small pulmonary embolism. Preliminary bilateral venous doppler LE is negative for DVT. O2 at 2L-not above baseline Primary team treating COPD exacerbation/Community acquired pneumonia. Patient does report an increase in SOB today. Plan: Unable to anticoagulate as she appears to have/recently had acute anemia related to acute blood loss Recommendations as above Plan for anticoagulation TBD pending further workup for acute blood loss anemia Qualifiers: Pulmonary embolism type: other Acute cor pulmonale presence: without acute cor pulmonale Qualified Code(s): I26.99 - Other pulmonary embolism without acute cor pulmonale (3) Atrial fibrillation Current Visit: Yes Status: Acute Assessment and plan: Continues to take home Diltiazem 120mg Anticoagulation on hold at this time secondary to anemia Recommend to continue to hold AC until GIB can be ruled out with endoscopy Qualifiers: Atrial fibrillation type: paroxysmal Qualified Code(s): I48.0 - Paroxysmal atrial fibrillation Oncology: Subj Interval history: Ms. Cleaning is resting in her chair, she continues to report pain to her right flank/posterior ribs, pain is worse with inspiration. She reports SOB, wheezing and constipation. She denies chest cintron, hemoptysis, s/s bleeding, abdominal pain. - Constitutional Vitals: Vital Signs Temp Pulse Resp BP Pulse Ox 10/03/17 11:35 97.9 F 61 18 161/67 100 10/03/17 11:32 98.4 F 86 19 104/69 96 10/03/17 07:49 97.5 F L 79 19 154/72 100 10/03/17 04:47 97.6 F 78 17 138/62 96 10/03/17 03:58 16 97 10/03/17 00:39 97.9 F 75 16 142/70 94 10/02/17 23:49 17 98 10/02/17 19:57 98 10/02/17 19:52 98.4 F 84 17 161/69 98 10/02/17 19:43 16 98 10/02/17 15:47 97.9 F 69 16 120/69 99 10/02/17 15:36 16 96 Intake and Output 10/02/17 10/03/17 10/03/17 23:59 07:59 15:59 Intake Total 200 / 200 100 / 100 360 / 360 Output Total 175 / 175 Balance 200 / 200 -75 / -75 360 / 360 Intake: IV Fluids 100 / 100 100 / 100 Zosyn 3.375 GM In 0.9 % Sodium 100 / 100 100 / 100 Chloride (Mini-Bag +) 100 ML @ 25 mls/hr IVPB Q8HR [facility] Rx#: [id number] Oral 100 / 100 360 / 360 Output: Straight Cath 175 / 175 Other: Meal Lunch Percent of Meal Consumed 80% # Urine Diapers 2 1 1 Weight 43.6 kg Patient Weight 10/03/17 23:59 Weight 43.6 kg General appearance: cooperative, no acute distress, no febrile Exam: cachectic, chronically ill appearing - Head Head exam: Present: atraumatic - ENT ENT exam: Present: mucous membranes moist - Respiratory Respiratory exam: Present: wheezes. Absent: respiratory distress - Cardiovascular Cardiovascular exam: Present: RRR, +S1, +S2 - GI/Abdominal GI/Abdominal exam: Present: normal bowel sounds, soft. Absent: guarding, rebound, tenderness - Extremities Exam Extremities exam: Absent: calf tenderness - Neurological Exam Neurological exam: Present: alert, oriented X3, no focal deficits, strengths equal and symetr throughout - Skin Skin exam: Present: dry, intact, normal color, warm - Additional findings Additional findings: left breast exam without palpable mass or lymphadenopathy, left nipple without abnormality or discharge. No palpable abnormality to right mastectomy. Oncology: Obj Data - Labs CBC & Chem 7: 10/03/17 16:18 10/03/17 00:21 - ABG Interpretation ABG results: ABG ABG pH 7.44 pH Units (7.32-7.45) 09/30/17 20:39 ABG pCO2 47 mmHg (35-45) H 09/30/17 20:39 ABG pO2 75 mmHg (85-104) L 09/30/17 20:39 ABG O2 Saturation 95 % (95-98) 09/30/17 20:39 PT/INR, D-dimer PT 15.8 Seconds (9.4-12.1) H D 10/02/17 00:41 Consult Discharge Plan - Plan Referrals: Michaela Torres, DIRECTOR OF EXHIBITS [Primary Care Provider] - <Ray Dickinson - Last Filed: 10/04/17 08:01> Date of Encounter: 10/03/17 - Constitutional Vitals: Vital Signs Temp Pulse Resp BP Pulse Ox 10/04/17 07:49 97.6 F 93 26 158/88 90 10/04/17 07:19 16 93 10/04/17 05:36 97.5 F L 70 16 155/82 91 10/04/17 04:15 16 91 10/04/17 01:04 97.6 F 74 16 149/81 94 10/03/17 22:52 15 93 10/03/17 20:48 98 F 96 17 159/73 96 10/03/17 19:52 98 10/03/17 19:40 15 94 10/03/17 15:57 16 98 10/03/17 15:46 97.8 F 100 18 119/65 96 10/03/17 11:35 97.9 F 61 18 161/67 100 10/03/17 11:32 98.4 F 86 19 104/69 96 10/03/17 11:18 18 99 Intake and Output 10/03/17 10/04/17 10/04/17 16:59 00:59 08:59 Intake Total 460 / 460 490 / 490 100 / 100 Balance 460 / 460 490 / 490 100 / 100 Intake: IV Fluids 100 / 100 370 / 370 100 / 100 Venofer 400 MG In 0.9 % Sodium 270 / 270 Chloride 250 ML @ 108 mls/hr IVPB ONCE ONE Rx#:[id number] Zosyn 3.375 GM In 0.9 % Sodium 100 / 100 100 / 100 100 / 100 Chloride (Mini-Bag +) 100 ML @ 25 mls/hr IVPB Q8HR [facility] Rx#: [id number] Oral 360 / 360 120 / 120 Other: Meal Lunch Dinner Percent of Meal Consumed 80% 50% # Urine Diapers 1 1 1 Weight 43.6 kg Patient Weight 10/05/17 00:59 Weight 43.6 kg Oncology: Obj Data - Labs CBC & Chem 7: 10/04/17 04:34 10/04/17 04:34 Labs: Laboratory Results - last 24 hr 10/03/17 10/04/17 10/04/17 16:18 04:34 04:34 WBC 13.4 H 13.9 H RBC 3.15 L 3.39 L Hgb 8.2 L 8.7 L Hct 26.3 L 28.3 L MCV 83.5 83.5 MCH 26.0 L 25.7 L MCHC 31.2 L 30.7 L RDW 19.4 H 19.7 H Plt Count 406 H 396 MPV 10.8 10.5 Immature Gran % 2.8 5.6 H Seg Neutrophils % 90.6 85.1 Lymphocytes % 2.5 2.5 Monocytes % 4.0 6.6 Eosinophils % 0.0 0.0 Basophils % 0.1 0.2 Neutrophils # 12.1 H 11.8 H Lymphocytes # 0.3 L 0.4 L Monocytes # 0.5 0.9 Eosinophils # 0.0 0.0 Basophils # 0.0 0.0 Nucleated RBCs/100 WBC 0.3 H Toxic Granulation Present A Platelet Estimate Normal Hypochromasia Present A Anisocytosis 1+ A Sodium 140 Potassium 4.5 Chloride 102 Carbon Dioxide 33 H BUN 33 H Creatinine 0.64 Est GFR ( Amer) > 60 Est GFR (Non-Af Amer) > 60 BUN/Creatinine Ratio 52 H Glucose 179 H Calculated Osmolality 302 H Calcium 8.8 - ABG Interpretation ABG results: ABG ABG pH 7.44 pH Units (7.32-7.45) 09/30/17 20:39 ABG pCO2 47 mmHg (35-45) H 09/30/17 20:39 ABG pO2 75 mmHg (85-104) L 09/30/17 20:39 ABG O2 Saturation 95 % (95-98) 09/30/17 20:39 PT/INR, D-dimer PT 15.8 Seconds (9.4-12.1) H D 10/02/17 00:41 - Attending Attestation I examined this patient and my medical decision-making was reviewed with the Advanced Practice Nurse. I agree with the documented findings, disposition and treatment plan as described except to the extent set forth below. She is doing well. No further bleeding. Hemoglobin remains stable. We would continue to hold anticoagulation for the time being. Again, it would be ideal to pursue colonoscopy and EGD while hospitalized given her debility and presentation. As of now, this is scheduled for an outpatient procedure in 2 weeks. We will continue with rehabilitation with PT and OT. Transfuse for hemoglobin less than 7 or if symptomatic. I will schedule follow-up in my office after discharge. We will otherwise sign off.
[2017-10-03 16:37] LABS: Basophils % 0.1 %; Hematocrit 26.3 % (35.3-44.9); Hemoglobin 8.2 g/dL (11.5-15.4); Immature Granulocytes % 2.8 % (0-4); Lymphocytes # 0.3 K/mcL (0.6-4.6); Lymphocytes % 2.5 %; Mean Corpuscular HGB Conc 31.2 g/dL (31.6-35.5); Mean Corpuscular Volume 83.5 fL (83.0-100.0); Mean Platelet Volume 10.8 fL (9.4-12.4); Monocytes # 0.5 K/mcL (0.0-1.3); Neutrophils # 12.1 K/mcL (1.6-8.9); Platelet Count 406 K/mcL (140-400); Red Blood Count 3.15 M/mcL (3.82-4.97); Red Cell Distribution Width 19.4 % (11.5-14.5); Segmented Neutrophils % 90.6 %
[2017-10-03] MEDS ORDERED: Iron Sucrose Complex 400 MG in 0.9 % Sodium Chloride 250 ML IVPB ONE (18:00)
[2017-10-04] MEDS: Ipratropium/Albuterol Neb 3 ML IH SCH ×6 (04:15→23:41)
[2017-10-04] MEDS: MethylPREDNISolone 40 MG/ML VIAL IVP SCH (04:57)
[2017-10-04] MEDS: Pantoprazole 40 MG VIAL IVP SCH (04:57)
[2017-10-04 05:31] LABS: Basophils % 0.2 %; Hematocrit 28.3 % (35.3-44.9); Hemoglobin 8.7 g/dL (11.5-15.4); Immature Granulocytes % 5.6 % (0-4); Lymphocytes # 0.4 K/mcL (0.6-4.6); Lymphocytes % 2.5 %; Mean Corpuscular HGB Conc 30.7 g/dL (31.6-35.5); Mean Corpuscular Hemoglobin 25.7 pg (28.0-33.3); Mean Corpuscular Volume 83.5 fL (83.0-100.0); Mean Platelet Volume 10.5 fL (9.4-12.4); Monocytes # 0.9 K/mcL (0.0-1.3); Monocytes % 6.6 %; Neutrophils # 11.8 K/mcL (1.6-8.9); Nucleated Red Blood Cells 0.3 /100 WBC (0); Platelet Count 396 K/mcL (140-400); Red Blood Count 3.39 M/mcL (3.82-4.97); Red Cell Distribution Width 19.7 % (11.5-14.5); Segmented Neutrophils % 85.1 %
[2017-10-04 05:48] LABS: BUN/Creatinine Ratio 52 (6-26); Blood Urea Nitrogen 33 mg/dL (8-23); Calcium 8.8 mg/dL (8.6-10.3); Carbon Dioxide 33 mEq/L (23-29); Chloride 102 mEq/L (98-107); Glucose 179 mg/dL (70-105); Osmolality,Calculated 302 (280-300); Potassium 4.5 mEq/L (3.5-5.1); Sodium 140 mEq/L (136-145); eGFR For Non-African Americans > 60 (> 60)
[2017-10-04 05:56] LABS: Hypochromasia Present (Not Present)
[2017-10-04 05:57] LABS: Anisocytosis 1+ (Not Present); Platelet Estimate Normal (Normal); Toxic Granulation Present (Not Present)
[2017-10-04] MEDS: Budesonide/Formoterol 160/4.5 MDI IH SCH ×2 (07:19→19:49)
[2017-10-04] MEDS: Lisinopril 20 MG TABLET PO SCH (08:06)
[2017-10-04] MEDS: Diltiazem CD (24hr) 120 MG CAPSULE PO SCH (08:06)
[2017-10-04] MEDS: Piperacillin/Tazobactam 3.375 GM in 0.9 % Sodium Chloride Mini Bag 100 ML IVPB SCH (08:06)
[2017-10-04] MEDS: Nicotine 14 MG PATCH.TD24 TD SCH (08:07)
--- NOTE | 2017-10-04 11:03 | Internal Med Progress Note ---
Hospitalist Progress Note - Encounter Date of Encounter: 10/04/17 Time of Encounter: 11:01 - Subjective Interval History: Patient seen and examined at bedside. Patient no overnight events. Patient states that her breathing is a little improved. Patient states that she feels very weak and unstable on her feet. Denies any chest pain, nausea, vomiting, diarrhea, abdominal pain. Patient is afebrile. Hemoglobin is stable today. He denies any melena, hematochezia. Patient and family yesterday stated they have did not want ECF placement for rehabilitation however patient is more agreeable to this today and will discuss with her daughter. I feel this is the safest discharge plan if they will agree. Told the patient that she would likely be stable for discharge tomorrow. - Exam Vitals: Temp Pulse Resp BP Pulse Ox 97.6 F 93 26 158/88 90 10/04/17 07:49 10/04/17 07:49 10/04/17 07:49 10/04/17 07:49 10/04/17 07:49 Exam: Constitutional: No acute distress, Alert Psych: AAO x 3 Cardio: Irregularly irregular with normal rate, no murmurs appreciated Resp: Improved air exchange from yesterday, faint expiratory wheezing, nonlabored Abd: soft, non tender/non distended, positive bowel sounds, no gaurding/reboud/ ridgitity Extremities: no clubbing/cyanosis/edema appreciated Neuro: no focal deficits appreciated - Assessment and Plan (1) COPD exacerbation Current Visit: Yes Status: Acute Assessment and Plan: -Acute exacerbation of COPD -Respiratory status improved today -We will change steroids to prednisone 40 mg daily -We will need to slow taper at discharge -Continue duo nebs -Anticipate discharge in 24 hours (2) Acute GI bleeding Current Visit: Yes Status: Acute Assessment and Plan: -Pt has positive occult blood with an acute drop in her hemoglobin to 5.9 from 8 -9 on previous admissions. -was transfused 2 units of PRBC, 2 units of FFP. -HBG stable today at 8.7 -No further reported melena, hematochezia, hematemesis, nausea or abdominal pain -Surgery recommended outpatient evaluation for upper endoscopy and colonoscopy -Oncology recommends endoscopy and colonoscopy for evaluation of bleeding -Warfarin has been discontinued and will likely not be restarted per hematology recs 2/2 bleeding, falls, and multiple comorbidities; however final anticoagulation recommendations will come after outpatient endoscopy and colonoscopy -check AM CBC (3) Supratherapeutic INR Current Visit: Yes Status: Acute Assessment and Plan: -Patient had supratherapeutic INR on admission with severe anemia and GI bleed -Patient was given 2 units of FFP and 2 units of packed red blood cells -Last INR was within normal range -Plan for now is to discontinue Coumadin pending outpatient endoscopy and colonoscopy findings (4) Acute pulmonary embolism Current Visit: Yes Status: Acute Assessment and Plan: -CT imaging revealed tiny filling defect in the right middle lobe consistent with very small pulmonary embolism -Oncology following who recommended discontinuing warfarin comparing to comorbidities and bleeding and falls -Long-term anticoagulation to be determined based on endoscopy results which will likely happen as an outpatient if the patient's hemoglobin remains stable -We will likely have to accept the risk of stroke and further thrombosis until endoscopy and colonoscopy is performed -Patient states she understands this (5) Community acquired pneumonia Current Visit: Yes Status: Acute Assessment and Plan: -Community acquired pneumonia with sepsis on admission -She states her cough and sputum has improved -Leukocytosis has improved from admission and is currently slightly elevated secondary to steroids -Discontinue IV Zosyn and changed to by mouth Levaquin; today is day 4 of antibiotics, likely continue for a total of 7 days (6) Sepsis Current Visit: Yes Status: Acute Assessment and Plan: -Secondary to community-acquired pneumonia -Resolved -On by mouth Levaquin -Cultures negative to date (7) Atrial fibrillation Current Visit: Yes Status: Acute Assessment and Plan: -Continue diltiazem, hold warfarin - will likely not be on anticoagulation due to bleeding comorbidities and falls ; however long-term anticoagulation to be determined after endoscopy and colonoscopy as outpatient (8) Hypertension Current Visit: Yes Status: Acute Assessment and Plan: Continue lisinopril (9) DVT prophylaxis Current Visit: Yes Status: Acute Assessment and Plan: -scds -no heparin for now 2/2 bleeding -can likely resume sq heparin soon - Summary of Assessment and Plan Summary of Assessment and Plan: Patient's functional status and deconditioning are worrisome for patient's ability to be safe at home. Yesterday patient and family did not want to go to [facility] per therapeutic case manager and social work; however the patient is more agreeable today and will discuss with her daughter. I told her I believe this is the safest plan of action; however she will likely be stable for discharge tomorrow if her hemoglobin is stable and her respiratory status continues to be stable. If patient refuses ECF will go home with home health care. - Time Spent with Patient Total time spent is greater than 50% in coordination of care (as documented) at patient's floor/unit and/or counseling patient: 25 - 35 minutes Plan of Care Discussed with: patient Internal Medicine: Result - Labs CBC & Chem 7: 10/04/17 04:34 10/04/17 04:34 Labs: Short CBC 10/03/17 10/04/17 Range/Units 16:18 04:34 WBC 13.4 H 13.9 H (4.3-11.1) K/mcL Hgb 8.2 L 8.7 L (11.5-15.4) g/dL Hct 26.3 L 28.3 L (35.3-44.9) % Plt Count 406 H 396 (140-400) K/mcL Neutrophils # 12.1 H 11.8 H (1.6-8.9) K/mcL BMP 10/04/17 04:34 Sodium 140 Potassium 4.5 Chloride 102 Carbon Dioxide 33 H BUN 33 H Creatinine 0.64 Glucose 179 H Calcium 8.8 - ABG Interpretation ABG results: ABG ABG pH 7.44 pH Units (7.32-7.45) 09/30/17 20:39 ABG pCO2 47 mmHg (35-45) H 09/30/17 20:39 ABG pO2 75 mmHg (85-104) L 09/30/17 20:39 ABG O2 Saturation 95 % (95-98) 09/30/17 20:39 PT/INR, D-dimer PT 15.8 Seconds (9.4-12.1) H D 10/02/17 00:41 Consult Discharge Plan - Plan Referrals: Michaela Torres, AGRICULTURAL ENGINEERING TECHNOLOGIST [Primary Care Provider] - (4) Acute pulmonary embolism Qualifiers: Pulmonary embolism type: other Acute cor pulmonale presence: without acute cor pulmonale Qualified Code(s): I26.99 - Other pulmonary embolism without acute cor pulmonale (5) Community acquired pneumonia Qualifiers: Lung location: lower lobe of lung (6) Sepsis Qualifiers: Qualified Code(s): A41.9 - Sepsis, unspecified organism (7) Atrial fibrillation Qualifiers: Atrial fibrillation type: paroxysmal Qualified Code(s): I48.0 - Paroxysmal atrial fibrillation (8) Hypertension Qualifiers: Qualified Code(s): I10 - Essential (primary) hypertension
[2017-10-04] MEDS ORDERED: levoFLOXacin 750 MG TABLET PO SCH (11:15)
--- NOTE | 2017-10-04 14:40 | Electrocardiograph Report ---
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
[2017-10-04] MEDS: traMADol 50 MG TABLET PO PRN (17:29)
[2017-10-05] MEDS ORDERED: Melatonin 3 MG TABLET PO ONE (00:30)
[2017-10-05] MEDS: Ipratropium/Albuterol Neb 3 ML IH SCH ×6 (03:36→23:02)
[2017-10-05 04:46] LABS: Basophils % 0.2 %; Eosinophils % 0.1 %; Hematocrit 30.7 % (35.3-44.9); Hemoglobin 9.5 g/dL (11.5-15.4); Immature Granulocytes % 5.5 % (0-4); Lymphocytes % 6.6 %; Mean Corpuscular HGB Conc 30.9 g/dL (31.6-35.5); Mean Corpuscular Hemoglobin 25.8 pg (28.0-33.3); Mean Corpuscular Volume 83.4 fL (83.0-100.0); Mean Platelet Volume 10.2 fL (9.4-12.4); Monocytes # 1.2 K/mcL (0.0-1.3); Nucleated Red Blood Cells 1.7 /100 WBC (0); Platelet Count 422 K/mcL (140-400); Red Blood Count 3.68 M/mcL (3.82-4.97); Red Cell Distribution Width 20.4 % (11.5-14.5); Segmented Neutrophils % 79.6 %
[2017-10-05 04:47] LABS: Neutrophils # 11.9 K/mcL (1.6-8.9)
[2017-10-05 05:17] LABS: Anisocytosis 2+ (Not Present); Hypochromasia Present (Not Present); Platelet Estimate Increased (Normal)
[2017-10-05] MEDS: Budesonide/Formoterol 160/4.5 MDI IH SCH ×2 (07:38→19:46)
[2017-10-05] MEDS: Nicotine 14 MG PATCH.TD24 TD SCH (09:14)
[2017-10-05] MEDS: Lisinopril 20 MG TABLET PO SCH (09:14)
[2017-10-05] MEDS: Diltiazem CD (24hr) 120 MG CAPSULE PO SCH (09:14)
[2017-10-05] MEDS: predniSONE 20 MG TABLET PO SCH (09:14)
--- NOTE | 2017-10-05 10:53 | Internal Med Progress Note ---
Hospitalist Progress Note - Encounter Date of Encounter: 10/05/17 Time of Encounter: 10:52 - Subjective Interval History: Patient seen and examined at bedside. Patient no overnight events. Patient states that her breathing is a little improved. Patient states that she feels very weak and unstable on her feet. Denies any chest pain, nausea, vomiting, diarrhea, abdominal pain. Patient is afebrile. Hemoglobin is stable today. He denies any melena, hematochezia. Patient and family yesterday stated they have did not want ECF placement for rehabilitation however patient is more agreeable to this today and will discuss with her daughter. I feel this is the safest discharge plan if they will agree. Told the patient that she would likely be stable for discharge tomorrow. - Exam Vitals: Temp Pulse Resp BP Pulse Ox 98.1 F 109 18 115/66 94 10/05/17 10:48 10/05/17 10:48 10/05/17 10:48 10/05/17 10:48 10/05/17 10:48 - Assessment and Plan (1) COPD exacerbation Current Visit: Yes Status: Acute (2) Acute GI bleeding Current Visit: Yes Status: Acute (3) Supratherapeutic INR Current Visit: Yes Status: Acute (4) Acute pulmonary embolism Current Visit: Yes Status: Acute (5) Community acquired pneumonia Current Visit: Yes Status: Acute (6) Sepsis Current Visit: Yes Status: Acute (7) Atrial fibrillation Current Visit: Yes Status: Acute (8) Hypertension Current Visit: Yes Status: Acute (9) DVT prophylaxis Current Visit: Yes Status: Acute - Time Spent with Patient Total time spent is greater than 50% in coordination of care (as documented) at patient's floor/unit and/or counseling patient: Internal Medicine: Result - Labs CBC & Chem 7: 10/05/17 04:32 10/04/17 04:34 Labs: Short CBC 10/05/17 Range/Units 04:32 WBC 14.9 H (4.3-11.1) K/mcL Hgb 9.5 L (11.5-15.4) g/dL Hct 30.7 L (35.3-44.9) % Plt Count 422 H (140-400) K/mcL Neutrophils # 11.9 H (1.6-8.9) K/mcL - ABG Interpretation ABG results: ABG ABG pH 7.44 pH Units (7.32-7.45) 09/30/17 20:39 ABG pCO2 47 mmHg (35-45) H 09/30/17 20:39 ABG pO2 75 mmHg (85-104) L 09/30/17 20:39 ABG O2 Saturation 95 % (95-98) 09/30/17 20:39 PT/INR, D-dimer PT 15.8 Seconds (9.4-12.1) H D 10/02/17 00:41 Consult Discharge Plan - Plan Referrals: Michaela Torres, PLASTIC EYE TECHNICIAN [Primary Care Provider] - (4) Acute pulmonary embolism Qualifiers: Pulmonary embolism type: other Acute cor pulmonale presence: without acute cor pulmonale Qualified Code(s): I26.99 - Other pulmonary embolism without acute cor pulmonale (5) Community acquired pneumonia Qualifiers: Lung location: lower lobe of lung (6) Sepsis Qualifiers: Qualified Code(s): A41.9 - Sepsis, unspecified organism (7) Atrial fibrillation Qualifiers: Atrial fibrillation type: paroxysmal Qualified Code(s): I48.0 - Paroxysmal atrial fibrillation (8) Hypertension Qualifiers: Qualified Code(s): I10 - Essential (primary) hypertension
--- NOTE | 2017-10-05 11:53 | Discharge Summary ---
- NOTES TO OUTPATIENT PROVIDER Notes to Outpatient Provider: The patient was found to have small right middle lobe pulmonary embolism however presented with hemoglobin of 7 and INR of 8.8. Due to small size of PE and comorbidities and fall risk the patient was not started on anticoagulation per hematology and will not be until patient has endoscopy and colonoscopy to evaluate for GI bleeding. Patient will follow-up with surgery on 10/16/2017 to discuss upper endoscopy and colonoscopy pending those results if performed there will need to be a discussion to determine long- term anticoagulation between primary care physician and hematology. Patient and family aware of risk of not being anticoagulated due to pulmonary embolism and atrial fibrillation. Surgery and hematology appointments made prior to discharge. Was discharged with 2 additional days of Levaquin for pneumonia and a prednisone taper for COPD exacerbation. Patient and daughter refused ECF placement and will be discharged home with daughter who is states she will be with her 19/09. Date of Encounter: 10/05/17 Time of Encounter: 11:49 - Discharge Diagnosis (1) COPD exacerbation Priority: Primary Status: Acute (2) Acute GI bleeding Priority: Secondary Status: Acute (3) Supratherapeutic INR Priority: Secondary Status: Acute (4) Acute pulmonary embolism Priority: Secondary Status: Acute Qualifiers: Pulmonary embolism type: other Acute cor pulmonale presence: without acute cor pulmonale Qualified Code(s): I26.99 - Other pulmonary embolism without acute cor pulmonale (5) Community acquired pneumonia Priority: Secondary Status: Acute Qualifiers: Laterality: unspecified laterality Qualified Code(s): J18.9 - Pneumonia, unspecified organism (6) Sepsis Priority: Secondary Status: Acute Qualifiers: Qualified Code(s): A41.9 - Sepsis, unspecified organism (7) Atrial fibrillation Priority: Secondary Status: Acute Qualifiers: Atrial fibrillation type: paroxysmal Qualified Code(s): I48.0 - Paroxysmal atrial fibrillation (8) Hypertension Priority: Secondary Status: Acute Qualifiers: Qualified Code(s): I10 - Essential (primary) hypertension (9) DVT prophylaxis Priority: Secondary Status: Acute Hospital course: Ms. Cleaning is a 82 year old female who presented to the emergency department for shortness of breath coughing and wheezing. He was found to have pneumonia, and imaging revealed small healing defect in the right middle lobe consistent with very small pulmonary embolism. The patient has been on Coumadin for atrial fibrillation and patient's INR was 8.8 on admission and her hemoglobin was 7 from a baseline of 8-9. The patient was transfused 2 units packed red blood cells and 1 unit of FFP and patient was seen by hematology and surgery. The patient's Coumadin was stopped and not continued due to the patient's comorbidities fall risk and small size of the pulmonary embolism per hematology. Patient was seen by surgery who recommended due to hemodynamic stability outpatient follow-up for evaluation for upper endoscopy and colonoscopy the patient has an appointment on October 16 to discuss these procedures and schedule if necessary. Hematology recommended endoscopy and colonoscopy prior to discharge however surgery would like to do these procedures as an outpatient. The patient's hemoglobin stabilized prior to discharge and day of discharge hemoglobin is 9.5. Patient denies any melena or hematochezia. The patient will be sent with 2 additional days of by mouth Levaquin to complete a 7 day course for her pneumonia. The patient and family state they understand the risk of not being on anticoagulation which include propagation of pulmonary embolism and elevated stroke risk for atrial fibrillation. Based on the results of outpatient endoscopy and colonoscopy primary care physician in conjunction with hematology will decide on further long-term anticoagulation. The patient has generalized weakness and ECF was recommended however patient and daughter adamantly refuses and the patient will be discharged home with home health care however will only be seen by nursing as the patient and daughter do not want physical therapy at home. They request a walker prescription which will be provided. Physical therapy recommended ECF placement as well this was communicated to the patient and family however they do not with to be discharged to ECF. The patient and daughter were instructed that should she develop any worsening shortness of breath any chest pain or further weakness or any signs of bleeding she should return to the emergency department immediately. It was communicated many times that the safest plan of discharge would be to discharge to ECF however this currently plan to be discharged home with home health care is the safest discharge plan that can be arranged due to the patient and her daughter's wishes. She will be discharged on a prednisone taper for COPD. Patient and daughter were agreeable to discharge and all questions were answered prior to discharge. Patient given order to have CBC checked in 4 days and follow-up with primary care physician. Not discharged on aspirin secondary to GI bleed until follow-up with endoscopy and colonoscopy. Discharge discussed with: patient, family, nurse - Time Spent with Patient Total time spent providing and/or coordinating discharge services: Greater than 30 minutes - Discharge Medications Prescriptions: levoFLOXacin [Levaquin] 750 mg PO DAILY 2 Days #2 tablet predniSONE [PredniSONE] 10 mg PO DAILY 5 Days #21 tablet Home Medications: Lisinopril [Zestril] 20 mg PO DAILY 09/21/15 [History] Sertraline [Zoloft] 50 mg PO HS 09/21/15 [History] Temazepam [Restoril] 15 mg PO HS 09/21/15 [History] Budesonide/Formoterol 160/4.5 [Symbicort 160/4.5] 2 puff IH BIDR 07/19/16 [ History] Diltiazem HCl [Diltiazem 12Hr ER] 120 mg PO DAILY 07/04/17 [History] Omeprazole [PriLOSEC] 20 mg PO DAILY 10/01/17 [History] Tamsulosin [Flomax] 0.4 mg PO DAILY 10/01/17 [History] levoFLOXacin [Levaquin] 750 mg PO DAILY 2 Days #2 tablet 10/05/17 [Rx] predniSONE [PredniSONE] 10 mg PO DAILY 5 Days #21 tablet 10/05/17 [Rx] Allergies/Adverse Reactions: 3 Allergy/AdvReac Type Severity Reaction Status Date / Time No Known Allergies Allergy Verified 08/24/17 20:02 Date of admission: 09/30/17 23:57 Primary care physician: Michaela Torres CNP Consults: 10/01/17 00:06 Consult to Oncology Hematology [CONS] Routine Consulting Provider: Molly Sutton Reason for Consult: tiny acute PE, GI bleed, supratherapeutic INR Call Completed: Yes 10/01/17 00:15 Consult to Surgery [CONS] Routine Consulting Provider: Surgery [facility] Reason for Consult: acute GI bleed Call Completed: Yes 10/02/17 11:16 Consult to Occupational Therapy [CONS] Routine Comment: Evaluate, develop and implement POC Reason for Consult: dyspnea, on 2L at baseline, recent fall, lives at home with son who has lung cancer Does patient have active BEDREST order?: No Is patient medically & hemodynamically stable?: Yes Consult to Physical Therapy [CONS] Routine Comment: Evaluate, develop and implement POC Reason for Consult: dyspnea, on 2L at baseline, recent fall, lives at home with son who has lung cancer Does patient have active BEDREST order?: No Is patient medically & hemodynamically stable?: Yes Consult to Supervisor [place] [CONS] Routine Reason for SW Consult: dyspnea, on 2L at baseline, recent fall, lives at home with son who has lung cancer - Constitutional Vitals: Temp Pulse Resp BP Pulse Ox 98.1 F 109 18 115/66 94 10/05/17 10:48 10/05/17 10:48 10/05/17 10:48 10/05/17 10:48 10/05/17 10:48 Exam: Constitutional: No acute distress, Alert, frail and cachectic Psych: AAO x 3 HEENT: NCAT, EOMI Neck: supple, Cardio: Irregularly irregular rhythm with controlled rate, +s1s2, no murmurs Resp: Patient with coarse breath sounds however wheezing is nearly resolved; there is no accessory muscle use and no labored breathing Abd: soft, non tender/non distended, positive bowel sounds, no gaurding/reboud/ ridgitity Extremities: no clubbing/cyanosis/edema appreciated Neuro: no focal deficits appreciated - Patient Status Disposition: Home Health Service Condition: Fair Functional capacity at discharge: independent ambulation (Will give prescription for walker) Overall status at discharge: patient is progressing back to baseline - Discharge Instructions Instructions: Pulmonary Embolism (DC) Follow Up With: Michaela Torres CNP [Primary Care Provider] - Forms: ED Satisfaction Letter - Diet and Activity Activity: as per physical therapy, increase activity as tolerated Diet: advance to your usual diet, low salt diet
--- NOTE | 2017-10-05 12:24 | Physician Discharge Referral ---
Home Health/Hosp Referral Info Transfer to: Home Health (needs nursing) Provider in Charge Post Discharge: PCP - Diagnosis (1) COPD exacerbation Status: Acute (2) Acute GI bleeding Status: Acute (3) Supratherapeutic INR Status: Acute (4) Acute pulmonary embolism Status: Acute (5) Community acquired pneumonia Status: Acute (6) Sepsis Status: Acute (7) Atrial fibrillation Status: Acute (8) Hypertension Status: Acute (9) DVT prophylaxis Status: Acute - Respiratory Orders Smoking Cessation: Smoking cessation has been advised. For more information, call the [place] Tobacco Quit Line at 5-952-XUQJ-NOW. - Transfer Medications Prescriptions: levoFLOXacin [Levaquin] 750 mg PO DAILY 2 Days #2 tablet predniSONE [PredniSONE] 10 mg PO DAILY 5 Days #21 tablet Home Medications: Lisinopril [Zestril] 20 mg PO DAILY 09/21/15 [History] Sertraline [Zoloft] 50 mg PO HS 09/21/15 [History] Temazepam [Restoril] 15 mg PO HS 09/21/15 [History] Budesonide/Formoterol 160/4.5 [Symbicort 160/4.5] 2 puff IH BIDR 07/19/16 [ History] Diltiazem HCl [Diltiazem 12Hr ER] 120 mg PO DAILY 07/04/17 [History] Omeprazole [PriLOSEC] 20 mg PO DAILY 10/01/17 [History] Tamsulosin [Flomax] 0.4 mg PO DAILY 10/01/17 [History] levoFLOXacin [Levaquin] 750 mg PO DAILY 2 Days #2 tablet 10/05/17 [Rx] predniSONE [PredniSONE] 10 mg PO DAILY 5 Days #21 tablet 10/05/17 [Rx] Allergies/Adverse Reactions: 3 Allergy/AdvReac Type Severity Reaction Status Date / Time No Known Allergies Allergy Verified 08/24/17 20:02 Certification: Further, I certify that my clinical findings support that this patient is homebound (i.e. absences from home require considerable and taxing effort and are for medical reasons or buddhist services or infrequently or short duration when for other reasons) because: Homebound Reason: Patient requires assistance of a person or device to safely leave home Attestation: My signature below is to certify that this patient is under my care and that I, or nurse practitioner, or a physician's quality assistant working with me, has a face-to -face encounter with this patient.
[2017-10-05] MEDS ORDERED: Melatonin 3 MG TABLET PO PRN (23:06)
[2017-10-06] MEDS: Ipratropium/Albuterol Neb 3 ML IH SCH ×2 (03:44→07:36)
[2017-10-06] MEDS: Budesonide/Formoterol 160/4.5 MDI IH SCH (07:37)
--- NOTE | 2017-10-06 07:38 | Internal Med Progress Note ---
Hospitalist Progress Note - Encounter Date of Encounter: 10/06/17 Time of Encounter: 07:36 - Subjective Interval History: Agency and examined at bedside. Patient was discharged yesterday however had an episode of atrial fibrillation with rapid ventricular response. Patient was given 5 mg of IV Cardizem as well as 2 doses of oral immediate release Cardizem 30 mg yesterday Patient's heart rate has been more controlled overnight and the patient is asymptomatic. The patient's oral Cardizem dose has been increased to 180 mg for this morning. The patient will be discharged with the same plan as yesterday however will give prescription for new dose of Cardizem. Patient states that she is currently mildly short of breath however she wishes walking to the bathroom and back states that she did well overnight. Patient denies any chest pain. Patient denies any nausea, vomiting, diarrhea. Patient continues to have some mild inspiratory discomfort on the right side of her chest however this is not worsening. Has been afebrile. - Exam Vitals: Temp Pulse Resp BP Pulse Ox 98.1 F 84 15 151/82 96 10/06/17 04:10 10/06/17 04:10 10/06/17 04:10 10/06/17 04:10 10/06/17 04:10 Exam: Constitutional: No acute distress, Alert, frail and cachectic Psych: AAO x 3 Neck: supple Cardio: Irregularly irregular rhythm with controlled rate, +s1s2, no murmurs Resp: Patient with coarse breath sounds with no wheezing today, there is no accessory muscle use and no labored breathing Abd: soft, non tender/non distended, positive bowel sounds, no gaurding/reboud/ ridgitity Extremities: no clubbing/cyanosis/edema appreciated - Assessment and Plan (1) COPD exacerbation Current Visit: Yes Status: Acute Assessment and Plan: -Acute exacerbation of COPD -Respiratory status improved -Discharge with plan for steroid taper as described in discharge summary yesterday -Continue duo nebs (2) Acute GI bleeding Current Visit: Yes Status: Acute Assessment and Plan: -Pt has positive occult blood with an acute drop in her hemoglobin to 5.9 from 8 -9 on previous admissions. -was transfused 2 units of PRBC, 2 units of FFP. -HBG stable -No further reported melena, hematochezia, hematemesis, nausea or abdominal pain -Surgery recommended outpatient evaluation for upper endoscopy and colonoscopy -Oncology recommends endoscopy and colonoscopy for evaluation of bleeding -Warfarin has been discontinued and will likely not be restarted per hematology recs 2/2 bleeding, falls, and multiple comorbidities; however final anticoagulation recommendations will come after outpatient endoscopy and colonoscopy -We will follow plan from discharge summary yesterday patient has appointment on October 16 with surgery to discuss colonoscopy and upper endoscopy and anticoagulation will be decided after these procedures by primary care and hematology (3) Supratherapeutic INR Current Visit: Yes Status: Acute Assessment and Plan: -Patient had supratherapeutic INR on admission with severe anemia and GI bleed -Patient was given 2 units of FFP and 2 units of packed red blood cells -Last INR was within normal range -Plan for now is to discontinue Coumadin pending outpatient endoscopy and colonoscopy findings (4) Acute pulmonary embolism Current Visit: Yes Status: Acute Assessment and Plan: -CT imaging revealed tiny filling defect in the right middle lobe consistent with very small pulmonary embolism -Oncology following who recommended discontinuing warfarin comparing to comorbidities and bleeding and falls -Long-term anticoagulation to be determined based on endoscopy results which will likely happen as an outpatient if the patient's hemoglobin remains stable -We will likely have to accept the risk of stroke and further thrombosis until endoscopy and colonoscopy is performed -Patient states she understands this -20 with this plan and as described in discharge summary (5) Community acquired pneumonia Current Visit: Yes Status: Acute Assessment and Plan: -Community acquired pneumonia with sepsis on admission -She states her cough and sputum has improved -Leukocytosis has improved from admission and is currently slightly elevated secondary to steroids -Continue Levaquin today and for one more day for a total of 7 days of antibiotics (6) Sepsis Current Visit: Yes Status: Acute Assessment and Plan: -Secondary to community-acquired pneumonia -Resolved -On by mouth Levaquin -Cultures negative (7) Atrial fibrillation Current Visit: Yes Status: Acute Assessment and Plan: -Continue diltiazem, hold warfarin - will likely not be on anticoagulation due to bleeding comorbidities and falls ; however long-term anticoagulation to be determined after endoscopy and colonoscopy as outpatient -She develop A. fib with RVR prior to discharge yesterday was given 5 mg of IV Cardizem and to scheduled doses of 30 mg of immediate release Cardizem. Patient 's Cardizem controlled release was increased to 180 mg for this morning and patient will be discharged after receiving this dose -Heart rate is controlled now (8) Hypertension Current Visit: Yes Status: Acute Assessment and Plan: Continue lisinopril (9) DVT prophylaxis Current Visit: Yes Status: Acute Assessment and Plan: -scds - Summary of Assessment and Plan Summary of Assessment and Plan: Patient and I continue to refuse ECF placement. Patient will be discharged home with home health care. Please see yesterday's discharge summary for further details. This is the safest discharge plan that we can provide secondary to refusal of ECF placement. Patient and daughter instructed to return for any worsening symptoms including chest pain shortness of breath fever or difficulty breathing or bleeding. - Time Spent with Patient Total time spent is greater than 50% in coordination of care (as documented) at patient's floor/unit and/or counseling patient: less than 15 minutes Plan of Care Discussed with: patient Internal Medicine: Result - Labs CBC & Chem 7: 10/05/17 04:32 10/04/17 04:34 - ABG Interpretation ABG results: ABG ABG pH 7.44 pH Units (7.32-7.45) 09/30/17 20:39 ABG pCO2 47 mmHg (35-45) H 09/30/17 20:39 ABG pO2 75 mmHg (85-104) L 09/30/17 20:39 ABG O2 Saturation 95 % (95-98) 09/30/17 20:39 PT/INR, D-dimer PT 15.8 Seconds (9.4-12.1) H D 10/02/17 00:41 Consult Discharge Plan - Plan Instructions: Pulmonary Embolism (DC) Referrals: Chris Hayes MD [Non-Partnered Physician] - 10/16/17 11:00 am (Follow up as scheduled.) Ray Dickinson MD [Partnered Physician] - 10/18/17 9:15 am (Follow up as scheduled.) Michaela Torres CNP [Primary Care Provider] - Prescriptions: levoFLOXacin [Levaquin] 750 mg PO DAILY 2 Days #2 tablet predniSONE [PredniSONE] 10 mg PO DAILY 5 Days #21 tablet (4) Acute pulmonary embolism Qualifiers: Pulmonary embolism type: other Acute cor pulmonale presence: without acute cor pulmonale Qualified Code(s): I26.99 - Other pulmonary embolism without acute cor pulmonale (5) Community acquired pneumonia Qualifiers: Laterality: unspecified laterality Qualified Code(s): J18.9 - Pneumonia, unspecified organism (6) Sepsis Qualifiers: Qualified Code(s): A41.9 - Sepsis, unspecified organism (7) Atrial fibrillation Qualifiers: Atrial fibrillation type: paroxysmal Qualified Code(s): I48.0 - Paroxysmal atrial fibrillation (8) Hypertension Qualifiers: Qualified Code(s): I10 - Essential (primary) hypertension
[2017-10-06 07:52] VITALS: BP 142/83
[2017-10-06] MEDS ORDERED: Diltiazem CD (24hr) 180 MG CAPSULE PO SCH (09:00)
[2017-10-06] MEDS: Lisinopril 20 MG TABLET PO SCH (09:05)
[2017-10-06] MEDS: predniSONE 20 MG TABLET PO SCH (09:05)
[2017-10-06] MEDS: Nicotine 14 MG PATCH.TD24 TD SCH (09:06)
== END 2017-10-06 10:51 | disposition home health service (06) | DRG 871 ==
LOC: 2ANU 18:36 → EMEROO 18:36 → 2ANU 10-01 00:11
PROVIDERS: ADMIT Internal Medicine; ATTEND Internal Medicine

== ENCOUNTER 2017-11-26 13:09 | Observation (INO) ==
--- NOTE | 2017-11-26 13:17 | Emergency Department Note ---
Disposition Clinical Impression: Abrasion, right knee, initial encounter, Laceration of left thumb, Abrasion of left wrist, initial encounter Fall Qualifiers: Encounter type: initial encounter Qualified Code(s): W19.XXXA - Unspecified fall, initial encounter Fracture of thumb, left, open Qualifiers: Encounter type: initial encounter Phalanx: unspecified phalanx Fracture alignment: nondisplaced Qualified Code(s): S62.502B - Fracture of unspecified phalanx of left thumb, initial encounter for open fracture Distal radius fracture, left Qualifiers: Encounter type: initial encounter Fracture type: closed Fracture morphology: unspecified fracture morphology Qualified Code(s): S52.502A - Unspecified fracture of the lower end of left radius, initial encounter for closed fracture Disposition: Admitted As Inpatient Condition: Fair Time of Disposition: 16:19 Fall HPI - General Stated Complaint: thumb injury Time Seen by Provider: 11/26/17 13:10 Nursing Notes Reviewed: Yes Vital Signs Reviewed: Yes - History of Present Illness HPI Narrative: 82yo female presents from home via EMS for evaluation after a fall. Patient was letting the dogs outside and fell. This was unwitnissed by family at bedside. Patient is not certain of the events surrounding the event. She denies LOC. 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 Meds: no anticoagulant or antiplatelet use. ROS: Pos: as above Neg: fever, chills, nausea, vomiting, chest pain, palpitations, neck pain, back pain, hip pain. - Related Data Home Medications Medication Instructions Recorded Confirmed Lisinopril [Zestril] 20 mg PO DAILY 09/21/15 10/18/17 Sertraline [Zoloft] 50 mg PO HS 09/21/15 10/18/17 Temazepam [Restoril] 15 mg PO HS 09/21/15 10/18/17 Omeprazole [PriLOSEC] 20 mg PO DAILY 10/01/17 10/18/17 Tamsulosin [Flomax] 0.4 mg PO DAILY 10/01/17 10/18/17 Ipratropium/Albuterol Neb [Duoneb] 3 ml IH QID 10/18/17 10/18/17 Previous Rx's Medication Instructions Recorded Diltiazem CD (24hr) [Cardizem CD] 180 mg PO DAILY 30 Days #30 10/06/17 cap.er.24h Levofloxacin [Levaquin] 500 mg PO DAILY #5 tablet 11/21/17 predniSONE [PredniSONE] 40 mg PO DAILY #10 tablet 11/21/17 Allergies Allergy/AdvReac Type Severity Reaction Status Date / Time No Known Allergies Allergy Verified 11/21/17 00:43 All systems ED: reviewed and negative except as stated. Review of Systems: As Per HPI Fall PMH - Past Medical History Medical history: Reports: COPD, coronary artery disease, other Surgical history: Reports: hysterectomy Psychiatric history: Reports: anxiety, depression TOOL MAKER history: Reports: no TOOL MAKER history - Social History Smoking Status: Former smoker Alcohol use: Reports: none Drug use: Reports: none Course Course Narrative: EKG dated 11/26/2017 at 13:33 interpreted as atrial fibrillation with rate of 96. QTC 519. Normal axis. Compared to previous EKG dated 09/30/2017 interpreted as atrial fibrillation with RVR: No acute ischemic changes or comparison. Performed a digital left thumb block and relocated patient's thumb. She had 2 lacerations that were subsequently sutured. Right ulnar aspect of wrist had a skin tear which was cleaned; unable to suture. Left eyelid was cleansed and there was a small skin tear which did not require sutures. I discussed the patient with on-call orthopedics, Dr. Paz, who agreed with outpatient follow- up regarding the patient's fractures. After this, patient was a blade in the emergency department. She only made it several steps with assistance before her legs became weak and she had to be heavily assisted back to bed. At baseline, she ambulates without assistance; no cane or walker. Because patient is a fall risk, is unable to ambulate, does not have any assistive devices at home-will admit for continued evaluation and management. I patient with the admitting hospitalist, Dr. Campbell, who agrees to accept the patient for continued evaluation and management with Ortho consultation. I discussed the above with orthopaedics. Consult placed. Cervical Spine CT 11/26/17 13:15 IMPRESSION: No acute abnormality of the cervical spine. D/ / Alli Medina MD / Alli Medina MD Interpreting Provider: Alli Medina MD Chest X-Ray 11/26/17 13:15 IMPRESSION: 1. No significant interval change. No radiographic evidence of acute cardiopulmonary process. 2. Findings suggestive of underlying COPD. D/ / Troy Odonnell MD / Troy Odonnell MD Interpreting Provider: Troy Odonnell MD Hand X-Ray 11/26/17 13:15 IMPRESSION: 1. Acute nondisplaced fracture involving the distal left radius with possible intra-articular involvement of the left distal radioulnar joint. 2. Hyperextension injury of the left thumb with an associated acute intra-articular fracture involving the anterior base of the left 1st distal phalanx. 3. No acute findings in the left elbow. 4. Positive left ulnar variance. 5. Bony demineralization. D/ / Dawit Kamara MD / Dawit Kamara MD Interpreting Provider: Dawit Kamara MD Head CT 11/26/17 13:15 IMPRESSION: 1. No acute findings in the head. 2. Mild age-appropriate diffuse atrophy with minimal to mild chronic small vessel ischemic changes. D/ / Dawit Kamara MD / Dawit Kamara MD Interpreting Provider: Dawit Kamara MD Knee X-Ray 11/26/17 13:15 IMPRESSION: 1. No acute osseous abnormality. 2. Nonspecific edema involving Hoffa's fat pad. 3. Mild lateral compartment joint space loss. D/ / 11/26/2017 14:16:22 Justyn Das MD / earno Interpreting Provider: Justyn Das MD Elbow X-Ray 11/26/17 13:21 IMPRESSION: 1. Acute nondisplaced fracture involving the distal left radius with possible intra-articular involvement of the left distal radioulnar joint. 2. Hyperextension injury of the left thumb with an associated acute intra-articular fracture involving the anterior base of the left 1st distal phalanx. 3. No acute findings in the left elbow. 4. Positive left ulnar variance. 5. Bony demineralization. D/ / Dawit Kamara MD / Dawit Kamara MD Interpreting Provider: Dawit Kamara MD Vital Signs Temperature 97.8 F 11/26/17 13:22 Pulse Rate 98 11/26/17 13:22 Respiratory Rate 18 11/26/17 13:22 Blood Pressure 164/88 11/26/17 13:22 O2 Sat by Pulse Oximetry 98 11/26/17 13:22 Temperature 98.7 F 11/26/17 18:30 Pulse Rate 79 11/26/17 18:30 Respiratory Rate 18 11/26/17 18:30 Blood Pressure 174/96 11/26/17 18:30 O2 Sat by Pulse Oximetry 96 11/26/17 18:30 Oxygen Delivery Oxygen Delivery Nasal Cannula Fall - Lab Data Result diagrams: 11/26/17 13:15 11/26/17 13:15 Lab Results 11/26/17 11/26/17 11/26/17 Range/Units 13:15 13:15 13:26 WBC 7.2 (4.3-11.1) K/mcL RBC 3.85 (3.82-4.97) M/mcL Hgb 10.6 L (11.5-15.4) g/dL Hct 33.5 L (35.3-44.9) % MCV 87.0 (83.0-100.0) fL MCH 27.5 L (28.0-33.3) pg MCHC 31.6 (31.6-35.5) g/dL RDW 21.2 H (11.5-14.5) % Plt Count 370 (140-400) K/mcL MPV 9.6 (9.4-12.4) fL Immature Gran % 1.4 (0-4) % Seg Neutrophils % 65.7 % Lymphocytes % 21.0 % Monocytes % 11.1 % Eosinophils % 0.7 % Basophils % 0.1 % Neutrophils # 4.7 (1.6-8.9) K/mcL Lymphocytes # 1.5 (0.6-4.6) K/mcL Monocytes # 0.8 (0.0-1.3) K/mcL Eosinophils # 0.1 (0.0-0.6) K/mcL Basophils # 0.0 (0.0-0.2) K/mcL PT 11.6 (9.4-12.1) Seconds INR 1.0 Sodium 142 (136-145) mEq/L Potassium 3.7 (3.5-5.1) mEq/L Chloride 103 (98-107) mEq/L Carbon Dioxide 30 H (23-29) mEq/L BUN 29 H (8-23) mg/dL Creatinine 0.73 (0.60-1.20) mg/dL Est GFR ( Amer) > 60 (> 60) Est GFR (Non-Af Amer) > 60 (> 60) BUN/Creatinine Ratio 40 H (6-26) Glucose 107 H (70-105) mg/dL Calculated Osmolality 300 (280-300) Calcium 9.2 (8.6-10.3) mg/dL Total Bilirubin 0.3 (0.3-1.0) mg/dL Direct Bilirubin 0.1 (0.0-0.2) mg/dL Indirect Bilirubin 0.2 (0.0-1.2) mg/dL AST 11 L (13-39) Units/L ALT 14 (7-52) Units/L Alkaline Phosphatase 77 (34-104) Units/L Troponin I < 0.03 (< 0.04) ng/mL Serum Total Protein 6.9 (6.4-8.9) g/dL Albumin 3.7 (3.5-5.7) g/dL Globulin 3.2 (2.4-3.5) g/dL Albumin/Globulin Ratio 1.2 (1.1-2.2) Urine Color (Yellow) Urine Clarity (Clear) Urine pH (5.0-8.0) pH Units Ur Specific [place] (1.010-1.025) Urine Protein (Neg-Trace) mg/dL Urine Glucose (UA) (Normal) mg/dL Urine Ketones (Negative) mg/dL Urine Blood (Negative) Urine Nitrite (Negative) Urine Bilirubin (Negative) Urine Urobilinogen (Normal) mg/dL Ur Leukocyte Esterase (Negative) Urine Microscopic RBC (0-3) per hpf Urine Microscopic WBC (0-3) per hpf Ur Squamous Epith Cells (None-Few) per lpf Urine Bacteria (None-Few) per hpf Hyaline Casts (None-Few) per lpf Ur Culture Indicated? (NO) 11/26/17 Range/Units 15:04 WBC (4.3-11.1) K/mcL RBC (3.82-4.97) M/mcL Hgb (11.5-15.4) g/dL Hct (35.3-44.9) % MCV (83.0-100.0) fL MCH (28.0-33.3) pg MCHC (31.6-35.5) g/dL RDW (11.5-14.5) % Plt Count (140-400) K/mcL MPV (9.4-12.4) fL Immature Gran % (0-4) % Seg Neutrophils % % Lymphocytes % % Monocytes % % Eosinophils % % Basophils % % Neutrophils # (1.6-8.9) K/mcL Lymphocytes # (0.6-4.6) K/mcL Monocytes # (0.0-1.3) K/mcL Eosinophils # (0.0-0.6) K/mcL Basophils # (0.0-0.2) K/mcL PT (9.4-12.1) Seconds INR Sodium (136-145) mEq/L Potassium (3.5-5.1) mEq/L Chloride (98-107) mEq/L Carbon Dioxide (23-29) mEq/L BUN (8-23) mg/dL Creatinine (0.60-1.20) mg/dL Est GFR ( Amer) (> 60) Est GFR (Non-Af Amer) (> 60) BUN/Creatinine Ratio (6-26) Glucose (70-105) mg/dL Calculated Osmolality (280-300) Calcium (8.6-10.3) mg/dL Total Bilirubin (0.3-1.0) mg/dL Direct Bilirubin (0.0-0.2) mg/dL Indirect Bilirubin (0.0-1.2) mg/dL AST (13-39) Units/L ALT (7-52) Units/L Alkaline Phosphatase (34-104) Units/L Troponin I (< 0.04) ng/mL Serum Total Protein (6.4-8.9) g/dL Albumin (3.5-5.7) g/dL Globulin (2.4-3.5) g/dL Albumin/Globulin Ratio (1.1-2.2) Urine Color Yellow (Yellow) Urine Clarity Cloudy A (Clear) Urine pH 7.0 (5.0-8.0) pH Units Ur Specific [place] 1.020 (1.010-1.025) Urine Protein Negative (Neg-Trace) mg/dL Urine Glucose (UA) Normal (Normal) mg/dL Urine Ketones Negative (Negative) mg/dL Urine Blood Negative (Negative) Urine Nitrite Negative (Negative) Urine Bilirubin Negative (Negative) Urine Urobilinogen Normal (Normal) mg/dL Ur Leukocyte Esterase Negative (Negative) Urine Microscopic RBC 0-3 (0-3) per hpf Urine Microscopic WBC 0-3 (0-3) per hpf Ur Squamous Epith Cells Many H (None-Few) per lpf Urine Bacteria None Seen (None-Few) per hpf Hyaline Casts None Seen (None-Few) per lpf Ur Culture Indicated? NO (NO) Attestation Statement - Attestation Attestation: I, Ismael Jackson DO, examined this patient [id number] and my medical decision-making was reviewed with Dr. Enrique Ramires, Resident Physician. I agree with the documented findings, disposition and treatment plan as described except to the extent set forth below. Please see my progress notes for details.
[2017-11-26] MEDS ORDERED: *HR* FentaNYL (PF) 100 MCG/2 ML VIAL IVP ONE ×2 (13:23→16:56)
[2017-11-26 13:36] LABS: Basophils % 0.1 %; Eosinophils # 0.1 K/mcL (0.0-0.6); Eosinophils % 0.7 %; Hematocrit 33.5 % (35.3-44.9); Hemoglobin 10.6 g/dL (11.5-15.4); Immature Granulocytes % 1.4 % (0-4); Lymphocytes # 1.5 K/mcL (0.6-4.6); Mean Corpuscular HGB Conc 31.6 g/dL (31.6-35.5); Mean Corpuscular Hemoglobin 27.5 pg (28.0-33.3); Mean Platelet Volume 9.6 fL (9.4-12.4); Monocytes # 0.8 K/mcL (0.0-1.3); Monocytes % 11.1 %; Neutrophils # 4.7 K/mcL (1.6-8.9); Platelet Count 370 K/mcL (140-400); Red Blood Count 3.85 M/mcL (3.82-4.97); Red Cell Distribution Width 21.2 % (11.5-14.5); Segmented Neutrophils % 65.7 %
[2017-11-26] MEDS ORDERED: Tdap (Boostrix) Vaccine 0.5 ML SYRINGE IM ONE (13:56)
[2017-11-26 14:04] LABS: BUN/Creatinine Ratio 40 (6-26); Blood Urea Nitrogen 29 mg/dL (8-23); Calcium 9.2 mg/dL (8.6-10.3); Carbon Dioxide 30 mEq/L (23-29); Chloride 103 mEq/L (98-107); Glucose 107 mg/dL (70-105); Osmolality,Calculated 300 (280-300); Potassium 3.7 mEq/L (3.5-5.1); Sodium 142 mEq/L (136-145); eGFR For Non-African Americans > 60 (> 60)
[2017-11-26 14:05] LABS: Troponin I < 0.03 ng/mL (< 0.04)
[2017-11-26 14:11] LABS: Alanine Aminotransferase 14 Units/L (7-52); Albumin 3.7 g/dL (3.5-5.7); Albumin/Globulin Ratio 1.2 (1.1-2.2); Alkaline Phosphatase 77 Units/L (34-104); Aspartate Amino Transferase 11 Units/L (13-39); Bilirubin,Direct 0.1 mg/dL (0.0-0.2); Bilirubin,Indirect 0.2 mg/dL (0.0-1.2); Bilirubin,Total 0.3 mg/dL (0.3-1.0); Globulin 3.2 g/dL (2.4-3.5); Total Protein 6.9 g/dL (6.4-8.9)
[2017-11-26] MEDS ORDERED: ceFAZolin 1,000 MG in Water for inj. (sterile) 20 ML 10 ML IVP ONE (14:12)
[2017-11-26 14:26] LABS: Prothrombin Time 11.6 Seconds (9.4-12.1)
--- NOTE | 2017-11-26 14:39 | Emergency Department Note ---
Disposition Clinical Impression: Fall, Abrasion, right knee, initial encounter, Fracture of thumb, left, open, Laceration of left thumb, Abrasion of left wrist, initial encounter, Distal radius fracture, left Disposition: Admitted As Inpatient Condition: Fair Instructions: Arm Fracture in Adults (ED), Finger Fracture (ED), Fall Prevention for Older Adults (ED), Splint Care (ED) Reasons to Return/Additional Instructions: Return to the emergency department if your symptoms persist or worsen. Return if you develop any new or concerning symptoms. Continue your home medications as prescribed. Recommend you take acetaminophen (Tylenol) with ibuprophen (Motrin) together every 6-8 hours as needed for pain. Do not exceed 800mg ibuprophen or 1000mg acetaminophen total in an 8 hour period. You will need to see an orthopedic physician first thing tomorrow for continued evaluation of the fracture of your left thumb and left arm. Please call the provided number at 8 AM. I have spoken with this orthopedic surgeon; he has remained and is anticipating her call. Referrals: Javier Pappas MD [Partnered Physician] - Michaela Torres CNP [Primary Care Provider] - Forms: ED Satisfaction Letter Time of Disposition: 17:09 General Adult HPI - General Chief complaint: ED Fall Stated complaint: thumb injury Time Seen by Provider: 11/26/17 13:10 Source: EMS Limitations: no limitations - History of Present Illness Pain Scale: 8 - Related Data Home Medications Medication Instructions Recorded Confirmed Lisinopril [Zestril] 20 mg PO DAILY 09/21/15 10/18/17 Sertraline [Zoloft] 50 mg PO HS 09/21/15 10/18/17 Temazepam [Restoril] 15 mg PO HS 09/21/15 10/18/17 Omeprazole [PriLOSEC] 20 mg PO DAILY 10/01/17 10/18/17 Tamsulosin [Flomax] 0.4 mg PO DAILY 10/01/17 10/18/17 Ipratropium/Albuterol Neb [Duoneb] 3 ml IH QID 10/18/17 10/18/17 Previous Rx's Medication Instructions Recorded Diltiazem CD (24hr) [Cardizem CD] 180 mg PO DAILY 30 Days #30 10/06/17 cap.er.24h Levofloxacin [Levaquin] 500 mg PO DAILY #5 tablet 11/21/17 predniSONE [PredniSONE] 40 mg PO DAILY #10 tablet 11/21/17 Allergies Allergy/AdvReac Type Severity Reaction Status Date / Time No Known Allergies Allergy Verified 11/21/17 00:43 Past Medical History - Past Medical History Medical history: Reports: COPD, coronary artery disease, other Surgical history: Reports: hysterectomy Psychiatric history: Reports: anxiety, depression MANAGEMENT EXPERT history: Reports: no MANAGEMENT EXPERT history - Social History Smoking Status: Former smoker Smokeless Tobacco Status: No Alcohol use: Reports: none Drug use: Reports: none Physical Exam - General Limitations: no limitations General appearance: alert, anxious, in distress Course Vital Signs Temperature 97.8 F 11/26/17 13:22 Pulse Rate 98 11/26/17 13:22 Respiratory Rate 18 11/26/17 13:22 Blood Pressure 164/88 11/26/17 13:22 O2 Sat by Pulse Oximetry 98 11/26/17 13:22 Temperature 97.8 F 11/26/17 13:22 Pulse Rate 83 11/26/17 16:00 Respiratory Rate 20 11/26/17 16:00 Blood Pressure 151/88 11/26/17 16:00 O2 Sat by Pulse Oximetry 95 11/26/17 16:00 Oxygen Delivery Oxygen Delivery Nasal Cannula Medical Decision Making - Lab Data Result diagrams: 11/26/17 13:15 11/26/17 13:15 Lab Results 11/26/17 11/26/17 11/26/17 Range/Units 13:15 13:15 13:26 WBC 7.2 (4.3-11.1) K/mcL RBC 3.85 (3.82-4.97) M/mcL Hgb 10.6 L (11.5-15.4) g/dL Hct 33.5 L (35.3-44.9) % MCV 87.0 (83.0-100.0) fL MCH 27.5 L (28.0-33.3) pg MCHC 31.6 (31.6-35.5) g/dL RDW 21.2 H (11.5-14.5) % Plt Count 370 (140-400) K/mcL MPV 9.6 (9.4-12.4) fL Immature Gran % 1.4 (0-4) % Seg Neutrophils % 65.7 % Lymphocytes % 21.0 % Monocytes % 11.1 % Eosinophils % 0.7 % Basophils % 0.1 % Neutrophils # 4.7 (1.6-8.9) K/mcL Lymphocytes # 1.5 (0.6-4.6) K/mcL Monocytes # 0.8 (0.0-1.3) K/mcL Eosinophils # 0.1 (0.0-0.6) K/mcL Basophils # 0.0 (0.0-0.2) K/mcL PT 11.6 (9.4-12.1) Seconds INR 1.0 Sodium 142 (136-145) mEq/L Potassium 3.7 (3.5-5.1) mEq/L Chloride 103 (98-107) mEq/L Carbon Dioxide 30 H (23-29) mEq/L BUN 29 H (8-23) mg/dL Creatinine 0.73 (0.60-1.20) mg/dL Est GFR ( Amer) > 60 (> 60) Est GFR (Non-Af Amer) > 60 (> 60) BUN/Creatinine Ratio 40 H (6-26) Glucose 107 H (70-105) mg/dL Calculated Osmolality 300 (280-300) Calcium 9.2 (8.6-10.3) mg/dL Total Bilirubin 0.3 (0.3-1.0) mg/dL Direct Bilirubin 0.1 (0.0-0.2) mg/dL Indirect Bilirubin 0.2 (0.0-1.2) mg/dL AST 11 L (13-39) Units/L ALT 14 (7-52) Units/L Alkaline Phosphatase 77 (34-104) Units/L Troponin I < 0.03 (< 0.04) ng/mL Serum Total Protein 6.9 (6.4-8.9) g/dL Albumin 3.7 (3.5-5.7) g/dL Globulin 3.2 (2.4-3.5) g/dL Albumin/Globulin Ratio 1.2 (1.1-2.2) Urine Color (Yellow) Urine Clarity (Clear) Urine pH (5.0-8.0) pH Units Ur Specific [place] (1.010-1.025) Urine Protein (Neg-Trace) mg/dL Urine Glucose (UA) (Normal) mg/dL Urine Ketones (Negative) mg/dL Urine Blood (Negative) Urine Nitrite (Negative) Urine Bilirubin (Negative) Urine Urobilinogen (Normal) mg/dL Ur Leukocyte Esterase (Negative) Urine Microscopic RBC (0-3) per hpf Urine Microscopic WBC (0-3) per hpf Ur Squamous Epith Cells (None-Few) per lpf Urine Bacteria (None-Few) per hpf Hyaline Casts (None-Few) per lpf Ur Culture Indicated? (NO) 11/26/17 Range/Units 15:04 WBC (4.3-11.1) K/mcL RBC (3.82-4.97) M/mcL Hgb (11.5-15.4) g/dL Hct (35.3-44.9) % MCV (83.0-100.0) fL MCH (28.0-33.3) pg MCHC (31.6-35.5) g/dL RDW (11.5-14.5) % Plt Count (140-400) K/mcL MPV (9.4-12.4) fL Immature Gran % (0-4) % Seg Neutrophils % % Lymphocytes % % Monocytes % % Eosinophils % % Basophils % % Neutrophils # (1.6-8.9) K/mcL Lymphocytes # (0.6-4.6) K/mcL Monocytes # (0.0-1.3) K/mcL Eosinophils # (0.0-0.6) K/mcL Basophils # (0.0-0.2) K/mcL PT (9.4-12.1) Seconds INR Sodium (136-145) mEq/L Potassium (3.5-5.1) mEq/L Chloride (98-107) mEq/L Carbon Dioxide (23-29) mEq/L BUN (8-23) mg/dL Creatinine (0.60-1.20) mg/dL Est GFR ( Amer) (> 60) Est GFR (Non-Af Amer) (> 60) BUN/Creatinine Ratio (6-26) Glucose (70-105) mg/dL Calculated Osmolality (280-300) Calcium (8.6-10.3) mg/dL Total Bilirubin (0.3-1.0) mg/dL Direct Bilirubin (0.0-0.2) mg/dL Indirect Bilirubin (0.0-1.2) mg/dL AST (13-39) Units/L ALT (7-52) Units/L Alkaline Phosphatase (34-104) Units/L Troponin I (< 0.04) ng/mL Serum Total Protein (6.4-8.9) g/dL Albumin (3.5-5.7) g/dL Globulin (2.4-3.5) g/dL Albumin/Globulin Ratio (1.1-2.2) Urine Color Yellow (Yellow) Urine Clarity Cloudy A (Clear) Urine pH 7.0 (5.0-8.0) pH Units Ur Specific [place] 1.020 (1.010-1.025) Urine Protein Negative (Neg-Trace) mg/dL Urine Glucose (UA) Normal (Normal) mg/dL Urine Ketones Negative (Negative) mg/dL Urine Blood Negative (Negative) Urine Nitrite Negative (Negative) Urine Bilirubin Negative (Negative) Urine Urobilinogen Normal (Normal) mg/dL Ur Leukocyte Esterase Negative (Negative) Urine Microscopic RBC 0-3 (0-3) per hpf Urine Microscopic WBC 0-3 (0-3) per hpf Ur Squamous Epith Cells Many H (None-Few) per lpf Urine Bacteria None Seen (None-Few) per hpf Hyaline Casts None Seen (None-Few) per lpf Ur Culture Indicated? NO (NO) Attestation Statement - Attestation Attestation: I, Ismael Jackson DO, examined this patient [id number] and my medical decision-making was reviewed with Dr. Enrique Ramires, Resident Physician. I agree with the documented findings, disposition and treatment plan as described except to the extent set forth below. Please see my progress notes for details. 82-year-old female presents to the emergency room by EMS for evaluation of a described mechanical fall. Patient was attempting the lower [employer] dog this morning for catching herself up against a fence and hitting her face up against a fence. Patient did not lose consciousness according to her. She had a injury to her left hand as well as multiple abrasions of the family is concerned about set out to the emergency room. Patient is chronically on oxygen. She is very thin and frail appearing. She does appear to be in some mild distress on presentation. Her head is atraumatic outside of what appears to be a small injury to the superior eyelid of the left eye. She has no visible signs of neurologic deficit or symptoms at this point. Her pupils are equal round reactive extraocular muscles are intact. She has no tenderness to palpation across the entire skull or maxillofacial bones at this time. She has inability to open and close the jaw without any difficulty. She has no specific midline cervical thoracic or lumbar spine tenderness. She has no chest wall deformity crepitus or injury her lungs are clear intermittently having crackles that appear to clear with coughing. Her heart is regular. Abdomen is soft nontender nondistended. She has no tenderness or deformity to the shoulders. She has no deformity or injury to the right upper extremity. She has good palpable radial pulses in the bilateral upper extremities are symmetrical. She does have an abrasion to the left lateral aspect of the elbow that will be evaluated and cleaned. There is no visible deformity but there is tenderness with movement. Patient also has what appears to be a gross dislocation versus fracture of the distal phalanx of the left thumb. She has capillary refill that is noted in sensation but she is in some moderate distress from that. No other visible injuries to the hand at this time. There is what appears to be skin irritation versus open fracture presentation this time. Antibiotic will be ordered tetanus will be given. She has tenderness to the right knee with no gross deformity. She will have a clinical is removed and evaluate for other potential etiology or injuries that need to be addressed. Otherwise she has no other visible signs of trauma or injury at this point. It was a standing height fall with no loss of consciousness. CT imaging of the head and cervical spine along with chest x-ray left elbow and left wrist will be completed with emphasis of the hand. Patient will be provided pain medication first dose of antibiotics and symptomatically control here as evaluation is completed. She is on oxygen currently at this time. Family is concerned because of other medical issues will address potential etiology outside of just a mechanical fall because they are unable to describe the events in detail. Concern is noted the patient does have some other underlying infectious etiology or metabolic related derangement to cause incident today and not distended mechanical fall. Disposition to be determined. See detailed documentation the physical exam, medical intervention , medical decision-making and disposition in the resident physician's note. 1445 Patient has what appears to be a distal radius fracture that is non-angulated and well located on the distal fragment of the wrist. No visible signs of midshaft fracture in the elbow appears to be stable. The thumb will be relocated and then cleaned and wound will be closed if need be. The patient will have a nerve block completed with incorporation of the thumb. And then reduction will be established. The remainder the labs x-ray and CT imaging are all unremarkable at this time. Patient is otherwise clinical stable. Disposition pending evaluation, consultation with on-call orthopedics 1515 thumb block was completed without any issue. The finger was relocated without any complication. No reduction of the wrist is required at this time. Laceration. Be completed in the left thumb patient with area cleaned and copiously irrigated. First dose of Avelox is been given. Orthopedic consult and disposition home and be established at that time. 1615 Laceration was repaired. medications. Ambulation trial was attempted at the bedside the patient felt very weak to the point where she almost fell down. At this time, is determined that the patient will be unable to go home. The concern is that the patient had what is most likely near syncopal event with an unwitnessed fall and now is too weak to take care of herself. No infectious, metabolic, electrolyte abnormalities are noted at this time. No visible signs of intracranial bleed hemorrhage or trauma noted outside of the fall injuries. Admission process for near syncopal that will be established at this point.
[2017-11-26] MEDS ORDERED: Lidocaine 1% 20 ML MDV INFILT STA (14:42)
[2017-11-26 15:16] LABS: Bilirubin,Urine Negative (Negative); Blood,Urine Negative (Negative); Clarity,Urine Cloudy (Clear); Color,Urine Yellow (Yellow); Glucose,Urine (UA) Normal (Normal); Ketones,Urine Negative (Negative); Leukocyte Esterase,Urine Negative (Negative); Nitrite,Urine Negative (Negative); Protein,Urine Negative (Neg-Trace); Urobilinogen,Urine Normal (Normal)
[2017-11-26 15:18] LABS: Bacteria,Urine None Seen per hpf (None-Few); Hyaline Casts,Urine None Seen per lpf (None-Few); RBC,Urine 0-3 per hpf (0-3); Squamous Epithelial Cell,Urine Many per lpf (None-Few); WBC,Urine 0-3 per hpf (0-3)
--- NOTE | 2017-11-26 17:54 | Internal Med History&Physical ---
Date of Encounter: 11/26/17 Time of Encounter: 17:30 Internal Medicine - H&P: HPI Chief complaint: Fall Admitted From: Emergency Dept Plans for Post Hospital Care: Home History of present illness: Ms. Cleaning is a 82 year old female with multiple medical problems including COPD on home oxygen, protein calorie malnutrition, atrial fibrillation and recent diagnosis of a pulmonary embolism (small PE in right middle lobe) in September 2017 for which she was previously on anticoagulation. Unfortunately she did develop a GI bleed and anticoagulation has since been stopped. She has not had endoscopy for this part was scheduled to have this done as an outpatient. Admission she was also treated for COPD exacerbation and given Levaquin as well. Patient was seen by hematology on 10/18/2017, and has been given iron infusion. She was last seen in the emergency room on November 21, at which time she was diagnosed with SYLVIE I induced angioedema right side of her tongue. She was switched to an ARB but has not started this as of yet. That time she was also found to be having a COPD exacerbation for which she was started on Levaquin for 5 days and a 10 day prednisone. A chest x-ray at that time did not show any infiltrate. Patient apparently has been doing much better over the last several days. Unfortunately this morning she tripped over her dog, sustaining an abrasion on her right knee, left. Bruise, as well as a fracture of her left thumb which was also present, with associated laceration which was repaired, as well as a distal radial fracture. She had a splint placed and the case was discussed with orthopedic surgery follow-up with her as an outpatient. Patient received a tetanus shot in the emergency department in her right thigh. After attempting to walk she was deemed to be too weak and deconditioned and was admitted. Patient denies any fevers or chills. No chest pain. Her breathing is at her baseline. She denies losing consciousness but has very poor recall of the events surrounding her fall. No seizure-like activity reported by patient. No bowel or bladder incontinence. Family is present and insisted that she tripped over her dog. Emergency department patient's vitals are stable. She is satting 95% on 2 L. On exam she is frail, malnourished. Appears comfortable. Lungs show no wheezing. Heart is a regular rate and rhythm. Abdomen is soft nontender. Extremities show no edema. She does have abrasions on her knees right knee greater than left. Labs showed a white count of 7.2, hemoglobin 10.6. Electrolytes are normal CO2 of 3929 creatinine 0.73. Urinalysis is cloudy but otherwise negative with many squamous cells. No bacteria. CT Head showed no acute process. Did show some chronic small vessel disease. Chest x-ray showed no acute process. CT of spine, cervical showed no fracture. Patient was admitted for observation. His less than 48 hours. Past Med Surg Social Fam HX - Past Medical History Source: old records reviewed Medical history: COPD, coronary artery disease, other Additional medical history: breast cancer Psychiatric history: anxiety, depression - Past Surgical History Surgical History: hysterectomy Additional surgical history: right masectomy (2001) - Social History Smoking Status: Former smoker Smokeless Tobacco Status: No Alcohol use: none Drug use: none Occupational status: retired Current living situation: Home - Independent Activity Level: Independent ambulation Recent Out of Country Travel Within the Last 8 Weeks: No Exposure or Possible Exposure to Illness During Travel: No - Family History Mother Adopted: No Family Member Ethnicity: Non- Living Status: Hx Family Cardiac Disorders: (thinks she had heart issues but unsure) Hx Family Respiratory Disorders: No Hx Family Cancer: No Hx Family GI Disorders: No Hx Family Endocrine Disorder: Yes Hx Family Neuromuscular Disorders: No Hx Family Neurologic Disorders: No Hx Family HEENT Disorders: No Hx Family Autoimmune Disorders: No Father Hx Family Cardiac Disorders: Yes Son Adopted: No Family Member Ethnicity: Non- Living Status: Still Living Hx Family Cardiac Disorders: No Hx Family Respiratory Disorders: No Hx Family Cancer: Yes (lung cancer) Hx Family GI Disorders: No Hx Family Endocrine Disorder: No Hx Family Neuromuscular Disorders: No Hx Family Neurologic Disorders: No Hx Family HEENT Disorders: No Hx Family Autoimmune Disorders: No Internal Medicine - H&P: Meds Lisinopril [Zestril] 20 mg PO DAILY 09/21/15 [History] Sertraline [Zoloft] 50 mg PO HS 09/21/15 [History] Temazepam [Restoril] 15 mg PO HS 09/21/15 [History] Omeprazole [PriLOSEC] 20 mg PO DAILY 10/01/17 [History] Tamsulosin [Flomax] 0.4 mg PO DAILY 10/01/17 [History] Diltiazem CD (24hr) [Cardizem CD] 180 mg PO DAILY 30 Days #30 cap.er.24h [Rx] Ipratropium/Albuterol Neb [Duoneb] 3 ml IH QID 10/18/17 [History] Levofloxacin [Levaquin] 500 mg PO DAILY #5 tablet 11/21/17 [Rx] predniSONE [PredniSONE] 40 mg PO DAILY #10 tablet 11/21/17 [Rx] 3 Allergy/AdvReac Type Severity Reaction Status Date / Time No Known Allergies Allergy Verified 11/21/17 00:43 All Systems PM: A 10-system review of systems was performed and is negative for pertinent findings except as documented above in the HPI. Review of systems: Other than that mentioned above, a 10 point review of systems is negative - Constitutional Vitals: Temp Pulse Resp BP Pulse Ox 97.8 F 71 20 153/87 95 11/26/17 13:22 11/26/17 17:00 11/26/17 17:00 11/26/17 17:00 11/26/17 17:00 General appearance: Present: cachectic, A&O X 3, pleasant, no acute distress, answers questions appropriately Exam: see exam - Head Head exam: Present: normocephalic Additional comments: Left periorbital ecchymoses - Eye Eye exam: Present: periorbital swelling (Left periorbital ecchymoses), periorbital tenderness, PERRL, conjuntiva pink, sclera anicteric Pupils: Present: PERRL - ENT ENT exam: Present: mucous membranes moist (Patient has ecchymoses on the right lateral aspect of her tongue which the report has been present since her visit for angioedema) - Neck Neck exam general surgery: Present: supple, trachea midline. Absent: lymphadenopathy - Respiratory Respiratory exam: Present: decreased breath sounds, prolonged expiratory phase ( barrel chest). Absent: accessory muscle use, rales, rhonchi, wheezes - Cardiovascular Cardiovascular exam: Present: irregular rhythm, systolic murmur - GI/Abdominal GI/Abdominal exam: Present: normal bowel sounds, soft, no peritoneal signs. Absent: distended, tenderness - Extremities Exam Extremities exam: Present: warm, radial pulses palpable and symmetrical. Absent : calf tenderness (Abrasions on both knees, 1" x 0.5" on right knee, 1/2 inch diameter abrasion on left knee.), cyanotic, pedal edema Internal Med - H&P Results - Labs CBC & Chem 7: 11/26/17 13:15 11/26/17 13:15 - Assessment and plan (1) Fall Current Visit: Yes Status: Acute Assessment and plan: Fall which is mechanical in nature. Plan monitor overnight. She does have a history of a pulmonary embolism which certainly could cause syncope, unfortunately she is not a candidate for anticoagulation due to her recent GI bleed. She is not showing any new respiratory symptoms which would support a new pulmonary embolism. She does appear weak and deconditioned. Patient is unsure if she lost consciousness, she was a poor historian. PT/OT Evaluation. Qualifiers: Encounter type: initial encounter Qualified Code(s): W19.XXXA - Unspecified fall, initial encounter (2) Fracture of thumb, left, open Current Visit: Yes Status: Acute Assessment and plan: As per orthopedic surgery. Laceration sutured. Outpatient follow-up Qualifiers: Encounter type: initial encounter Phalanx: unspecified phalanx Fracture alignment: nondisplaced Qualified Code(s): S62.502B - Fracture of unspecified phalanx of left thumb, initial encounter for open fracture (3) Distal radius fracture, left Current Visit: Yes Status: Acute Assessment and plan: Outpatient orthopedic surgery follow-up Qualifiers: Encounter type: initial encounter Fracture type: closed Fracture morphology: unspecified fracture morphology Qualified Code(s): S52.502A - Unspecified fracture of the lower end of left radius, initial encounter for closed fracture (4) Afib Current Visit: No Status: Acute Assessment and plan: Rate controlled, not an anticoagulation candidate Qualifiers: Atrial fibrillation type: paroxysmal Qualified Code(s): I48.0 - Paroxysmal atrial fibrillation (5) Acute pulmonary embolism Current Visit: No Status: Acute Assessment and plan: Not on anticoagulation due to recent GI bleed. Qualifiers: Pulmonary embolism type: other Acute cor pulmonale presence: without acute cor pulmonale Qualified Code(s): I26.99 - Other pulmonary embolism without acute cor pulmonale (6) Protein-calorie malnutrition, severe Current Visit: No Status: Acute Assessment and plan: Medical nutrition therapy consult (7) Hypertension Current Visit: No Status: Acute Assessment and plan: Pressures controlled. Continue current treatment. Qualifiers: Qualified Code(s): I10 - Essential (primary) hypertension (8) Chronic hypoxemic respiratory failure Current Visit: Yes Status: Acute Assessment and plan: Stable (9) COPD (chronic obstructive pulmonary disease) Current Visit: Yes Status: Acute Assessment and plan: Currently stable. Do not suspect acute exacerbation. She was recently treated for this. We will monitor. Qualifiers: COPD type: emphysema Emphysema type: unspecified Qualified Code(s): J43.9 - Emphysema, unspecified - Time Spent With Patient Total time spent is greater than 50% in coordination of care (as documented) at patient's floor/unit and/or counseling patient: 25 - 35 minutes
[2017-11-26] MEDS ORDERED: Naloxone 0.4 MG/ML INJ IVP PRN (18:05)
[2017-11-26] MEDS: Acetaminophen 325 MG TABLET PO PRN (19:30)
[2017-11-26] MEDS: Ipratropium/Albuterol Neb 3 ML IH SCH ×2 (19:59→23:03)
[2017-11-26] MEDS ORDERED: Temazepam 15 MG CAPSULE PO SCH (21:00)
[2017-11-27 01:01] LABS: Basophils % 0.2 %; Eosinophils # 0.1 K/mcL (0.0-0.6); Eosinophils % 1.5 %; Hematocrit 31.7 % (35.3-44.9); Hemoglobin 9.8 g/dL (11.5-15.4); Immature Granulocytes % 0.6 % (0-4); Lymphocytes # 0.9 K/mcL (0.6-4.6); Lymphocytes % 15.1 %; Mean Corpuscular HGB Conc 30.9 g/dL (31.6-35.5); Mean Corpuscular Volume 87.3 fL (83.0-100.0); Mean Platelet Volume 9.6 fL (9.4-12.4); Monocytes # 0.7 K/mcL (0.0-1.3); Monocytes % 11.7 %; Neutrophils # 4.4 K/mcL (1.6-8.9); Platelet Count 292 K/mcL (140-400); Red Blood Count 3.63 M/mcL (3.82-4.97); Red Cell Distribution Width 21.5 % (11.5-14.5); Segmented Neutrophils % 70.9 %
[2017-11-27 01:19] LABS: BUN/Creatinine Ratio 34 (6-26); Blood Urea Nitrogen 26 mg/dL (8-23); Calcium 8.5 mg/dL (8.6-10.3); Carbon Dioxide 29 mEq/L (23-29); Chloride 103 mEq/L (98-107); Glucose 104 mg/dL (70-105); Osmolality,Calculated 295 (280-300); Potassium 3.8 mEq/L (3.5-5.1); Sodium 140 mEq/L (136-145); eGFR For Non-African Americans > 60 (> 60)
[2017-11-27] MEDS: Acetaminophen 325 MG TABLET PO PRN ×2 (03:48→09:42)
[2017-11-27] MEDS: Ipratropium/Albuterol Neb 3 ML IH SCH ×2 (04:33→11:09)
[2017-11-27] MEDS ORDERED: Diltiazem CD (24hr) 180 MG CAPSULE PO SCH (09:00)
--- NOTE | 2017-11-27 10:13 | Internal Med Progress Note ---
Hospitalist Progress Note - Encounter Date of Encounter: 11/27/17 Time of Encounter: 10:00 - Subjective Interval History: Patient continues to be with pain. She is tired and weak but denies worsening dizziness, headaches, confusion. Reports that she is returning back to baseline but many financial and social issues at home. Both of her sons are chronically ill. She declines hospice or SNF. Does have home health nurse every Monday. Admits to poor appetite. Denies current CP, worsening SOB, abdominal pain, f/c/n /v. - Exam Vitals: Temp Pulse Resp BP Pulse Ox 97.4 F L 74 18 128/77 98 11/27/17 06:12 11/27/17 06:12 11/27/17 06:12 11/27/17 06:12 11/27/17 06:12 Exam: General appearance: Present: malnourished and chronically ill. cachectic, A&O X 3, pleasant, no acute distress, answers questions appropriately Exam: - Head Head exam: Present: normocephalic - Eye Eye exam: Present: periorbital swelling (Left periorbital ecchymoses), periorbital tenderness, conjuntiva pink, sclera anicteric - ENT ENT exam: Present: mucous membranes moist (Patient has ecchymoses on the right lateral aspect of her tongue which the report has been present since her visit for angioedema) - Neck Neck exam general surgery: Present: supple, trachea midline. Absent: lymphadenopathy - Respiratory Respiratory exam: Present: decreased breath sounds, prolonged expiratory phase ( barrel chest). Absent: accessory muscle use, rales, rhonchi, wheezes - Cardiovascular Cardiovascular exam: Present: irregular rhythm, systolic murmur - GI/Abdominal GI/Abdominal exam: Present: normal bowel sounds, soft, no peritoneal signs. Absent: distended, tenderness - Extremities Exam Extremities exam: Present: warm, radial pulses palpable and symmetrical. Absent : calf tenderness (Abrasions on both knees, 1" x 0.5" on right knee, 1/2 inch diameter abrasion on left knee.), cyanotic, pedal edema - Assessment and Plan (1) Fall Current Visit: Yes Status: Acute Assessment and Plan: Fall which is mechanical in nature. History of PE and GIB, unable to be continue anticoagulants at this time. Denies SOB, CP She does appear weak and deconditioned. CTH = negative for acute findings. Chronic small vessel ischemic changes. Left hand XR = acute nondisplaced fracture of distal left radius. Knee XR = negative for fractures. Pending post- closed reduction left hand XR. Nutrition consult for malnutrition PT/OT Evaluation. nutritional services host consulted. Patient likely discharge later today or tomorrow and follow up outpatient ortho. Continue Cefazolin day #2 Qualifiers: Encounter type: initial encounter Qualified Code(s): W19.XXXA - Unspecified fall, initial encounter (2) Fracture of thumb, left, open Current Visit: Yes Status: Acute Assessment and plan: As per orthopedic surgery. Laceration sutured. Outpatient follow-up Qualifiers: Encounter type: initial encounter Phalanx: unspecified phalanx Fracture alignment: nondisplaced Qualified Code(s): S62.502B - Fracture of unspecified phalanx of left thumb, initial encounter for open fracture (3) Distal radius fracture, left Current Visit: Yes Status: Acute Assessment and plan: Outpatient orthopedic surgery follow-up Qualifiers: Encounter type: initial encounter Fracture type: closed Fracture morphology: unspecified fracture morphology Qualified Code(s): S52.502A - Unspecified fracture of the lower end of left radius, initial encounter for closed fracture (4) Afib Current Visit: No Status: Acute Assessment and plan: Rate controlled with diltiazem, not an anticoagulation candidate Qualifiers: Atrial fibrillation type: paroxysmal Qualified Code(s): I48.0 - Paroxysmal atrial fibrillation (5) Acute pulmonary embolism Current Visit: No Status: Acute Assessment and plan: Not on anticoagulation due to recent GI bleed. Qualifiers: Pulmonary embolism type: other Acute cor pulmonale presence: without acute cor pulmonale Qualified Code(s): I26.99 - Other pulmonary embolism without acute cor pulmonale (6) Protein-calorie malnutrition, severe Current Visit: No Status: Acute Assessment and plan: Medical nutrition therapy consult (7) Hypertension Current Visit: No Status: Acute Assessment and plan: Pressures controlled. Continue current treatment. Qualifiers: Qualified Code(s): I10 - Essential (primary) hypertension (8) Chronic hypoxemic respiratory failure Current Visit: Yes Status: Acute Assessment and plan: Stable (9) COPD (chronic obstructive pulmonary disease) Current Visit: Yes Status: Acute Assessment and plan: Currently stable. Do not suspect acute exacerbation. She was recently treated for this. We will monitor. Qualifiers: COPD type: emphysema Emphysema type: unspecified Qualified Code(s): J43.9 - Emphysema, unspecified DVT Prophylaxis: SCDs. - Time Spent with Patient Total time spent is greater than 50% in coordination of care (as documented) at patient's floor/unit and/or counseling patient: Greater than 35 minutes Plan of Care Discussed with: patient Internal Medicine: Result - Labs CBC & Chem 7: 11/27/17 00:31 11/27/17 00:31 Labs: Short CBC 11/27/17 Range/Units 00:31 WBC 6.2 (4.3-11.1) K/mcL Hgb 9.8 L (11.5-15.4) g/dL Hct 31.7 L (35.3-44.9) % Plt Count 292 (140-400) K/mcL Neutrophils # 4.4 (1.6-8.9) K/mcL BMP 11/27/17 00:31 Sodium 140 Potassium 3.8 Chloride 103 Carbon Dioxide 29 BUN 26 H Creatinine 0.76 Glucose 104 Calcium 8.5 L - ABG Interpretation ABG results: PT/INR, D-dimer PT 11.6 Seconds (9.4-12.1) 11/26/17 13:26 Consult Discharge Plan - Plan Referrals: Michaela Torres, OXYGEN THERAPIST [Primary Care Provider] - (1) Fall Qualifiers: Encounter type: initial encounter Qualified Code(s): W19.XXXA - Unspecified fall, initial encounter
--- NOTE | 2017-11-27 11:51 | Discharge Summary ---
<GabbyDarin - Last Filed: 11/27/17 13:16> - NOTES TO OUTPATIENT PROVIDER Notes to Outpatient Provider: Repeat left hand XR: Interval reduction of the 1st digit DIP dislocation. There is an. intra-articular fracture at the base of the 1st digit distal phalanx. extending into the DIP joint. There is redemonstration of a distal radius fracture, which appears mildly. impacted compared to previous examination. There is intra-articular. extension of this distal radius fracture. There is widening of the. scapholunate interval. There may be an additional nondisplaced fracture involving the 5th metacarpal. Diffuse osteopenia limits evaluation for nondisplaced fractures. Orders not resulted at time of discharge: Pending orders 11/26/17 18:15 EV echocardiogram Routine Date of Encounter: 11/27/17 Time of Encounter: 09:40 - Discharge Diagnosis (1) Fall Priority: Primary Status: Acute Qualifiers: Encounter type: initial encounter Qualified Code(s): W19.XXXA - Unspecified fall, initial encounter (2) Hypertension Priority: Secondary Status: Chronic Qualifiers: Hypertension type: essential hypertension Qualified Code(s): I10 - Essential (primary) hypertension (3) Afib Priority: Secondary Status: Acute Qualifiers: Atrial fibrillation type: paroxysmal Qualified Code(s): I48.0 - Paroxysmal atrial fibrillation (4) Depression Priority: Secondary Status: Acute Qualifiers: Depression Type: unspecified Qualified Code(s): F32.9 - Major depressive disorder, single episode, unspecified (5) GI bleed Priority: Secondary Status: Acute Qualifiers: GI bleed type/associated pathology: unspecified gastrointestinal hemorrhage type Qualified Code(s): K92.2 - Gastrointestinal hemorrhage, unspecified (6) Tobacco dependence Priority: Secondary Status: Acute (7) Protein-calorie malnutrition, severe Priority: Secondary Status: Acute (8) Physical deconditioning Priority: Secondary Status: Acute (9) Pulmonary embolism Priority: Secondary Status: Acute Qualifiers: Pulmonary embolism type: other Chronicity: acute Acute cor pulmonale presence: without acute cor pulmonale Qualified Code(s): I26.99 - Other pulmonary embolism without acute cor pulmonale (10) Hyperlipidemia Priority: Secondary Status: Acute Qualifiers: Qualified Code(s): E78.5 - Hyperlipidemia, unspecified Hospital course: Ms. Cleaning is a 82 year old female with COPD on home oxygen, malnutrition, Afib, PE in september 2017 presents s/p mechanical fall. Patient tripped over her dog, does not recall LOC or head injury. She had also developed GIB recently and anticoagulation including warfarin and asa were discontinued. She has an endoscopy scheduled outpatient for GIB. In addition, she was on Levaquin for COPD exacerbation. She also received iron infusion for anemia on 10/18. History of ACEI induced angioedema at right side of tongue on 11/21 and switched to ARB. At ED, hemoglobin was stable, CT head without acute findings or hemorrhage. Imaging demonstrated nondisplaced fracture of distal left radius, currently pending repeat XR. She also had repaired laceration of right UE with splint placed. She also received Tdap booster. Orthopedics recommended follow up outpatient. On ambulation, patient become weak and she was admitted for observation, presyncope and deconditioning. Denied seizure like activity, bladder incontinence. Echo with atypical septal motion consistent with bundle branch block. LVEF 55%. no acute abnormalities. Patient has improved since admission. She will require PT/OT outpatient and follow up with outpatient orthopedic surgeon. repeat hand XR: Interval reduction of the 1st digit DIP dislocation. There is an intra-articular fracture at the base of the 1st digit distal phalanx extending into the DIP joint. There is redemonstration of a distal radius fracture, which appears mildly impacted compared to previous examination. There is intra-articular extension of this distal radius fracture. There is widening of the scapholunate interval. There may be an additional nondisplaced fracture involving the 5th metacarpal. Diffuse osteopenia limits evaluation for nondisplaced fractures. Patient to follow up with outpatient orthopedics. Discharge discussed with: patient Time spent discussing smoking cessation with patient: more than 10 minutes - Time Spent with Patient Total time spent providing and/or coordinating discharge services: Greater than 30 minutes - Discharge Medications Prescriptions: Acetaminophen [Tylenol] 650 mg PO DAILY #30 tablet cephALEXin [Keflex] 500 mg PO BID 5 Days #10 capsule Home Medications: Sertraline [Zoloft] 50 mg PO HS 09/21/15 [History] Temazepam [Restoril] 15 mg PO HS 09/21/15 [History] Omeprazole [PriLOSEC] 20 mg PO DAILY 10/01/17 [History] Tamsulosin [Flomax] 0.4 mg PO SUTUTHSA 10/01/17 [History] Diltiazem CD (24hr) [Cardizem CD] 180 mg PO DAILY 30 Days #30 cap.er.24h [Rx] predniSONE [PredniSONE] 40 mg PO DAILY #10 tablet 11/21/17 [Rx] Acetaminophen [Tylenol] 650 mg PO DAILY #30 tablet 11/27/17 [Rx] Albuterol Neb [Proventil Neb] 2.5 mg IH Q4-6H PRN 11/27/17 [History] Patient Taking Own Medication 1 each PO DAILY 11/27/17 [History] cephALEXin [Keflex] 500 mg PO BID 5 Days #10 capsule 11/27/17 [Rx] Allergies/Adverse Reactions: 3 Allergy/AdvReac Type Severity Reaction Status Date / Time No Known Allergies Allergy Verified 11/27/17 09:46 Date of admission: 11/26/17 17:14 Primary care physician: Michaela Torres CNP Consults: 11/26/17 18:07 Consult to Occupational Therapy [CONS] Routine Comment: Evaluate, develop and implement POC Reason for Consult: fall Does patient have active BEDREST order?: No Is patient medically & hemodynamically stable?: Yes Patient assessed for mobility or mobilized this visit?: No Consult to Customer Relations Representative [CONS] Routine Reason for SW Consult: fall 11/26/17 18:08 Consult to Physical Therapy [CONS] Routine Comment: Evaluate, develop and implement POC Reason for Consult: fall Does patient have active BEDREST order?: No Is patient medically & hemodynamically stable?: Yes Patient assessed for mobility or mobilized this visit?: No 11/26/17 18:17 Consult to Nutrition [CONS] Routine Comment: Consulting Provider: NUTRITION Reason for Dietary Consult: MST Score 11/27/17 00:31 Consult to Orthopedic Surgery [CONS] Routine Consulting Provider: [facility] Reason for Consult: left thumb open fracture, left wrist fracture Call Completed: Yes Discharging clinician: Darin Pierre Anticipated date of discharge: 11/27/17 - Constitutional Vitals: Temp Pulse Resp BP Pulse Ox 97.4 F L 74 18 128/77 98 11/27/17 06:12 11/27/17 06:12 11/27/17 06:12 11/27/17 06:12 11/27/17 06:12 General appearance: Present: cachectic, A&O X 3, pleasant, no acute distress, answers questions appropriately Exam: General appearance: Present: malnourished and chronically ill. cachectic, A&O X 3, pleasant, no acute distress, answers questions appropriately Exam: - Head Head exam: Present: normocephalic - Eye Eye exam: Present: periorbital swelling (Left periorbital ecchymoses), periorbital tenderness, conjuntiva pink, sclera anicteric - ENT ENT exam: Present: mucous membranes moist (Patient has ecchymoses on the right lateral aspect of her tongue which the report has been present since her visit for angioedema) - Neck Neck exam general surgery: Present: supple, trachea midline. Absent: lymphadenopathy - Respiratory Respiratory exam: Present: decreased breath sounds, prolonged expiratory phase ( barrel chest). Absent: accessory muscle use, rales, rhonchi, wheezes - Cardiovascular Cardiovascular exam: Present: irregular rhythm, systolic murmur - GI/Abdominal GI/Abdominal exam: Present: normal bowel sounds, soft, no peritoneal signs. Absent: distended, tenderness - Extremities Exam Extremities exam: Present: warm, radial pulses palpable and symmetrical. Absent : calf tenderness (Abrasions on both knees, 1" x 0.5" on right knee, 1/2 inch diameter abrasion on left knee.), cyanotic, pedal edema - Patient Status Disposition: Home, Self-Care Condition: Fair Functional capacity at discharge: bed bound Overall status at discharge: patient is progressing back to baseline - Discharge Instructions Follow Up With: Michaela Torres CNP [Primary Care Provider] - Additional Instructions: Do not bear weight with L. upper arm. Keep arm in splint. Keep dressing clean, dry, and intact. F/u with Dr. Pappas on Monday. Follow-up appointments: If there is not an appointment listed below, please call your physician and schedule a follow-up appointment. If you have congestive heart failure and your symptoms return, make an appointment with your physician. Medication List: Carry an up to date list of medications you are taking at all time. We have given you an updated medication list including any new medications that you have been prescribed. Please provide that list to your primary provider Symptoms: If your condition changes or you experience any of the following symptoms, notify your physician immediately: Unusual or worsening pain, fever, persistent nausea and vomiting, bleeding, increase in swelling (especially in your legs), sudden weight gain, extreme dizziness, chest pain, increased drainage or redness from a wound or incision. Go to the emergency department if you experience a problem with breathing. Weights: If you have a history of swelling or shortness of breath, weigh yourself daily and notify your physician if you have a weight gain of two or more pounds in one day or 5 or more pounds in a week. If you experience any of the warning signs for stroke: Sudden numbness or weakness of the face, arm or leg; especially on one side of the body, sudden confusion, trouble speaking or understanding, sudden trouble seeing in one or both eyes, sudden trouble walking, dizziness, loss of balance or coordination, sudden sever headache with no cause; Call 911 or go to the emergency room. Stroke is a medical emergency. Some risk factors for stroke: Age, cigarette smoking, diabetes, excessive alcohol consumption, family history , high blood pressure, overweight, physical inactivity, prior stroke, heart attack, diagnosis of carotid artery stenosis or other artery disease. If you smoke, STOP: Smoking or tobacco use significantly increases your risk of heart and lung disease. Your chance of disease greatly increases if you continue to smoke. For more information, call the [place] tobacco quit line for smoking cessation 6- QUIT-NOW ( ) - Diet and Activity Activity: as per physical therapy <Bashir Langley - Last Filed: 11/27/17 15:32> Date of Encounter: 11/27/17 - Discharge Diagnosis (1) Fall Status: Acute Qualifiers: Encounter type: initial encounter Qualified Code(s): W19.XXXA - Unspecified fall, initial encounter (2) Fracture of thumb, left, open Status: Acute Qualifiers: Encounter type: initial encounter Phalanx: unspecified phalanx Fracture alignment: nondisplaced Qualified Code(s): S62.502B - Fracture of unspecified phalanx of left thumb, initial encounter for open fracture (3) Distal radius fracture, left Status: Acute Qualifiers: Encounter type: initial encounter Fracture type: closed Fracture morphology: unspecified fracture morphology Qualified Code(s): S52.502A - Unspecified fracture of the lower end of left radius, initial encounter for closed fracture (4) Afib Status: Acute Qualifiers: Atrial fibrillation type: paroxysmal Qualified Code(s): I48.0 - Paroxysmal atrial fibrillation (5) Acute pulmonary embolism Status: Acute Qualifiers: Pulmonary embolism type: other Acute cor pulmonale presence: without acute cor pulmonale Qualified Code(s): I26.99 - Other pulmonary embolism without acute cor pulmonale (6) Protein-calorie malnutrition, severe Status: Acute (7) Hypertension Status: Acute Qualifiers: Qualified Code(s): I10 - Essential (primary) hypertension (8) Chronic hypoxemic respiratory failure Status: Acute (9) COPD (chronic obstructive pulmonary disease) Status: Acute Qualifiers: COPD type: emphysema Emphysema type: unspecified Qualified Code(s): J43.9 - Emphysema, unspecified Hospital course: Ms. Cleaning is a 82 year old female - Time Spent with Patient Total time spent providing and/or coordinating discharge services: Date of admission: 11/26/17 17:14 Primary care physician: Michaela Torres CNP Consults: 11/26/17 18:07 Consult to Occupational Therapy [CONS] Routine Comment: Evaluate, develop and implement POC Reason for Consult: fall Does patient have active BEDREST order?: No Is patient medically & hemodynamically stable?: Yes Patient assessed for mobility or mobilized this visit?: No Consult to Customer Relations Representative [CONS] Routine Reason for SW Consult: fall 11/26/17 18:08 Consult to Physical Therapy [CONS] Routine Comment: Evaluate, develop and implement POC Reason for Consult: fall Does patient have active BEDREST order?: No Is patient medically & hemodynamically stable?: Yes Patient assessed for mobility or mobilized this visit?: No 11/26/17 18:17 Consult to Nutrition [CONS] Routine Comment: Consulting Provider: NUTRITION Reason for Dietary Consult: MST Score 11/27/17 00:31 Consult to Orthopedic Surgery [CONS] Routine Consulting Provider: [facility] Reason for Consult: left thumb open fracture, left wrist fracture Call Completed: Yes - Constitutional Vitals: Temp Pulse Resp BP Pulse Ox 97.7 F 100 18 123/68 96 11/27/17 14:19 11/27/17 14:19 11/27/17 14:19 11/27/17 14:19 11/27/17 14:19 - Attending Attestation Independent interview and exam of this patient. I agree with the findings, assessment, and plan of Dr Pierre, family practice resident. Patient is stable for discharge. She is now showing any evidence of COPD exacerbation. She was found to have a mechanical fall. Echocardiogram came back without significant abnormality. Orthopedic Surgery recommendations noted. Gen NAD, frail Lung dimin bs bases, no wheeze Ht rrr abd soft +BS, NT Ext Left wrist in spica spint
--- NOTE | 2017-11-27 13:55 | Orthopedic Consult Note ---
Date of Encounter: 11/27/17 Time of Encounter: 12:40 Assessment and Plan (1) Fracture of thumb, left, open Status: Acute Post reduction xrays show reduction of the first digit DIPJ but intra-articular fracture to distal phalanx is displaced and will require surgical intervention on outpatient basis. Discussed with Dr. Pappas and he recommends consultation with him in the office on 11/29 for further discussion about surgical options. Continue with thumb spica splint applied in ER. Leave in place and do no remove before appt. Continue to elevate, ice, and ROM other fingers (no thumb or wrist motion), NWB. She is to receive 2 doses of IV antibiotic and then should be DC on PO antibiotic. Discussed with hospitalist that Dr. Pappas recommends keflex for 5 days. Pain control per hospitalist. Qualifiers: Encounter type: initial encounter Phalanx: unspecified phalanx Fracture alignment: nondisplaced Qualified Code(s): S62.502B - Fracture of unspecified phalanx of left thumb, initial encounter for open fracture (2) Distal radius fracture, left Status: Acute Continue in splint. Nondisplaced - currently no surgicial intervention required if stays stable. Continue ice and elevate, nonweight bearing. Qualifiers: Encounter type: initial encounter Fracture type: closed Fracture morphology: unspecified fracture morphology Qualified Code(s): S52.502A - Unspecified fracture of the lower end of left radius, initial encounter for closed fracture History of Present Illness Chief complaint: left thumb and wrist pain HPI: Ms. Cleaning is a 82 year old female who presented to the ER yesterday with left hand/wrist pain after tripping over something in her yard. Previous documentation states dog but patient tells me she is unsure what object was. She landed on outstretched arm and had immediate pain. Tolerable currently with medication. Denies any numbness or tingling to hand. There was an open laceration over the thumb which was closed in the ER and she was placed in a splint since that time. Denies any other pains. Denies chest pain, SOB, fevers at this time. Past Med Surg Social Fam HX - Past Medical History Medical history: COPD, coronary artery disease, other Additional medical history: breast cancer Psychiatric history: anxiety, depression - Past Surgical History Surgical History: hysterectomy Additional surgical history: right masectomy (2002) - Social History Smoking Status: Former smoker Smokeless Tobacco Status: No Alcohol use: none Drug use: none - Family History Mother Adopted: No Family Member Ethnicity: Non- Living Status: Hx Family Cardiac Disorders: (thinks she had heart issues but unsure) Hx Family Respiratory Disorders: No Hx Family Cancer: No Hx Family GI Disorders: No Hx Family Endocrine Disorder: Yes Hx Family Neuromuscular Disorders: No Hx Family Neurologic Disorders: No Hx Family HEENT Disorders: No Hx Family Autoimmune Disorders: No Father Hx Family Cardiac Disorders: Yes Son Adopted: No Family Member Ethnicity: Non- Living Status: Still Living Hx Family Cardiac Disorders: No Hx Family Respiratory Disorders: No Hx Family Cancer: Yes (lung cancer) Hx Family GI Disorders: No Hx Family Endocrine Disorder: No Hx Family Neuromuscular Disorders: No Hx Family Neurologic Disorders: No Hx Family HEENT Disorders: No Hx Family Autoimmune Disorders: No Medications and Allergies Sertraline [Zoloft] 50 mg PO HS 09/21/15 [History] Temazepam [Restoril] 15 mg PO HS 09/21/15 [History] Omeprazole [PriLOSEC] 20 mg PO DAILY 10/01/17 [History] Tamsulosin [Flomax] 0.4 mg PO SUTUTHSA 10/01/17 [History] Diltiazem CD (24hr) [Cardizem CD] 180 mg PO DAILY 30 Days #30 cap.er.24h [Rx] predniSONE [PredniSONE] 40 mg PO DAILY #10 tablet 11/21/17 [Rx] Acetaminophen [Tylenol] 650 mg PO DAILY #30 tablet 11/27/17 [Rx] Albuterol Neb [Proventil Neb] 2.5 mg IH Q4-6H PRN 11/27/17 [History] Patient Taking Own Medication 1 each PO DAILY 11/27/17 [History] cephALEXin [Keflex] 500 mg PO BID 5 Days #10 capsule 11/27/17 [Rx] 3 Allergy/AdvReac Type Severity Reaction Status Date / Time No Known Allergies Allergy Verified 11/27/17 09:46 All Systems Reviewed: The remainder of the systems were reviewed and are negative - Constitutional Constitutional: as per HPI - Cardiovascular Cardiovascular: as per HPI - Respiratory Respiratory: as per HPI - Musculoskeletal Musculoskeletal: as per HPI Physical Exam - Constitutional Vitals: Temp Pulse Resp BP Pulse Ox 97.4 F L 74 18 128/77 98 11/27/17 06:12 11/27/17 06:12 11/27/17 06:12 11/27/17 06:12 11/27/17 06:12 - Wrist & Hand left Location of pain: dorsal wrist, volar wrist, thumb (thumb splica splint in place with no visible skin breakdown at edges. good motion of other fingers , thumb motion restricted. brisk cap refill, good sensation distally) Results - Labs Result Diagrams: 11/27/17 00:31 11/27/17 00:31 Labs: Abnormal lab results RBC 3.63 M/mcL (3.82-4.97) L 11/27/17 00:31 Hgb 9.8 g/dL (11.5-15.4) L 11/27/17 00:31 Hct 31.7 % (35.3-44.9) L 11/27/17 00:31 MCH 27.0 pg (28.0-33.3) L 11/27/17 00:31 MCHC 30.9 g/dL (31.6-35.5) L 11/27/17 00:31 RDW 21.5 % (11.5-14.5) H 11/27/17 00:31 BUN 26 mg/dL (8-23) H 11/27/17 00:31 BUN/Creatinine Ratio 34 (6-26) H 11/27/17 00:31 Calcium 8.5 mg/dL (8.6-10.3) L 11/27/17 00:31 AST 11 Units/L (13-39) L 11/26/17 13:15 Urine Clarity Cloudy (Clear) A 11/26/17 15:04 Ur Squamous Epith Cells Many per lpf (None-Few) H 11/26/17 15:04 H & H 11/27/17 Range/Units 00:31 Hgb 9.8 L (11.5-15.4) g/dL Hct 31.7 L (35.3-44.9) % All other labs normal. - Diagnostic results Wrist/Hand x-ray: report reviewed, image reviewed Consult Discharge Plan - Plan Additional Instructions: Do not bear weight with L. upper arm. Keep arm in splint. Keep dressing clean, dry, and intact. F/u with Dr. Pappas on Monday. Follow-up appointments: If there is not an appointment listed below, please call your physician and schedule a follow-up appointment. If you have congestive heart failure and your symptoms return, make an appointment with your physician. Medication List: Carry an up to date list of medications you are taking at all time. We have given you an updated medication list including any new medications that you have been prescribed. Please provide that list to your primary provider Symptoms: If your condition changes or you experience any of the following symptoms, notify your physician immediately: Unusual or worsening pain, fever, persistent nausea and vomiting, bleeding, increase in swelling (especially in your legs), sudden weight gain, extreme dizziness, chest pain, increased drainage or redness from a wound or incision. Go to the emergency department if you experience a problem with breathing. Weights: If you have a history of swelling or shortness of breath, weigh yourself daily and notify your physician if you have a weight gain of two or more pounds in one day or 5 or more pounds in a week. If you experience any of the warning signs for stroke: Sudden numbness or weakness of the face, arm or leg; especially on one side of the body, sudden confusion, trouble speaking or understanding, sudden trouble seeing in one or both eyes, sudden trouble walking, dizziness, loss of balance or coordination, sudden sever headache with no cause; Call 911 or go to the emergency room. Stroke is a medical emergency. Some risk factors for stroke: Age, cigarette smoking, diabetes, excessive alcohol consumption, family history , high blood pressure, overweight, physical inactivity, prior stroke, heart attack, diagnosis of carotid artery stenosis or other artery disease. If you smoke, STOP: Smoking or tobacco use significantly increases your risk of heart and lung disease. Your chance of disease greatly increases if you continue to smoke. For more information, call the [place] tobacco quit line for smoking cessation QUIT-NOW ( ) Referrals: Michaela Torres CNP [Primary Care Provider] - Prescriptions: Acetaminophen [Tylenol] 650 mg PO DAILY #30 tablet cephALEXin [Keflex] 500 mg PO BID 5 Days #10 capsule - Attending Attestation Case and plan of care discussed with supervising physician who was available for all aspects of care.
[2017-11-27 14:21] VITALS: BP 123/68
--- NOTE | 2017-11-27 15:30 | Physician Discharge Referral ---
Home Health/Hosp Referral Info Transfer to: Home Health Provider in Charge Post Discharge: PCP - Diagnosis (1) Fall Priority: Primary Status: Acute (2) Hypertension Priority: Secondary Status: Chronic (3) Afib Priority: Secondary Status: Acute (4) Depression Priority: Secondary Status: Acute (5) GI bleed Priority: Secondary Status: Acute (6) Tobacco dependence Priority: Secondary Status: Acute (7) Protein-calorie malnutrition, severe Priority: Secondary Status: Acute (8) Physical deconditioning Priority: Secondary Status: Acute (9) Pulmonary embolism Priority: Secondary Status: Acute (10) Hyperlipidemia Priority: Secondary Status: Acute - Respiratory Orders Smoking Cessation: Smoking cessation has been advised. For more information, call the [place] Tobacco Quit Line at 4-418-SESQ-NOW. - Diet/Nutrition Diet/Nutrition Orders: Regular - Activity Activity Orders: Walker, Bedrest - Services Needed Following services are medically necessary services: Home Health Aide, Physical Therapy, Occupational Therapy - Transfer Medications Prescriptions: Acetaminophen [Tylenol] 650 mg PO DAILY #30 tablet cephALEXin [Keflex] 500 mg PO BID 5 Days #10 capsule Home Medications: Sertraline [Zoloft] 50 mg PO HS 09/21/15 [History] Temazepam [Restoril] 15 mg PO HS 09/21/15 [History] Omeprazole [PriLOSEC] 20 mg PO DAILY 10/01/17 [History] Tamsulosin [Flomax] 0.4 mg PO SUTUTHSA 10/01/17 [History] Diltiazem CD (24hr) [Cardizem CD] 180 mg PO DAILY 30 Days #30 cap.er.24h [Rx] predniSONE [PredniSONE] 40 mg PO DAILY #10 tablet 11/21/17 [Rx] Acetaminophen [Tylenol] 650 mg PO DAILY #30 tablet 11/27/17 [Rx] Albuterol Neb [Proventil Neb] 2.5 mg IH Q4-6H PRN 11/27/17 [History] Patient Taking Own Medication 1 each PO DAILY 11/27/17 [History] cephALEXin [Keflex] 500 mg PO BID 5 Days #10 capsule 11/27/17 [Rx] Allergies/Adverse Reactions: 3 Allergy/AdvReac Type Severity Reaction Status Date / Time No Known Allergies Allergy Verified 11/27/17 09:46 Certification: Further, I certify that my clinical findings support that this patient is homebound (i.e. absences from home require considerable and taxing effort and are for medical reasons or adventist services or infrequently or short duration when for other reasons) because: Homebound Reason: Patient requires assistance of a person or device to safely leave home Attestation: My signature below is to certify that this patient is under my care and that I, or nurse practitioner, or a physician's geological survey field assistant working with me, has a face-to -face encounter with this patient.
--- NOTE | 2017-11-30 09:14 | Electrocardiograph Report ---
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
== END 2017-11-27 15:20 | disposition home or self-care (01) ==
LOC: 3NENU 13:09 → EMEROOARM 13:09 → 3NENU 18:05
PROVIDERS: ADMIT Internal Medicine; ATTEND Internal Medicine

== ENCOUNTER 2017-12-21 08:20 | Observation (INO) ==
[2017-12-21] MEDS ORDERED: Lidocaine -MPF 1% 2 ML VIAL ONE (08:52)
[2017-12-21] MEDS ORDERED: CeFAZolin Syr 2,000MG/20 ML 2,000 MG/20 ML SYRINGE IVPB ONE (09:18)
[2017-12-21] MEDS ORDERED: Lidocaine -MPF 2% 2 ML VIAL ONE (09:23)
[2017-12-21] MEDS ORDERED: Ondansetron 4 MG/2 ML VIAL ONE (09:23)
[2017-12-21] MEDS ORDERED: *HR* Propofol 200 MG/20 ML VIAL IVP ONE (09:23)
[2017-12-21] MEDS ORDERED: Dexamethasone 4 MG/ML VIAL ONE ×2 (09:24→10:02)
[2017-12-21] MEDS ORDERED: EPHEDrine 50 MG/ML VIAL ONE (09:30)
[2017-12-21] MEDS: Albuterol 2.5 MG/3 ML NEBULIZER IH ONE ×2 (09:40→12:40)
[2017-12-21] MEDS: Ringers Solution, Lactated 1,000 ML IVC SCH (09:40)
[2017-12-21] MEDS ORDERED: ROPIVACAINE HCL/PF 0.5% 30 ML VIAL ONE ×2 (10:01→12:57)
[2017-12-21] MEDS ORDERED: Bupivacaine/Clonidine Syringe 1 EACH SYRINGE ONE (10:02)
[2017-12-21] MEDS ORDERED: *HR* FentaNYL (PF) 100 MCG/2 ML VIAL ONE (10:08)
--- NOTE | 2017-12-21 10:50 | Anesthesia Evaluation PreOp ---
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: Denies Any Significant HX Other Medical History: Other (hx breast cancer (cannot use RUE for PIV/BP cuff)) Anesthesia History: No Prior Anesthetic Complications Alcohol Use: none Drug use: none Medications and Allergies Sertraline [Zoloft] 50 mg PO HS 09/21/15 [History] Temazepam [Restoril] 15 mg PO HS 09/21/15 [History] Omeprazole [PriLOSEC] 20 mg PO DAILY 10/01/17 [History] Diltiazem CD (24hr) [Cardizem CD] 180 mg PO DAILY 30 Days #30 cap.er.24h 10/06/17 [Rx] Acetaminophen [Tylenol] 650 mg PO DAILY #30 tablet 11/27/17 [Rx] Albuterol Neb [Proventil Neb] 2.5 mg IH Q4-6H PRN 11/27/17 [History] Patient Taking Own Medication 1 each PO MOWEFR 11/27/17 [History] Calcitonin,[place],Synthetic [Calcitonin-[place]] 1 spray NS DAILY 12/05/17 [History] Oxygen 2 l IH AD 12/05/17 [History] Benzonatate [Tessalon] 200 mg PO TID PRN #30 capsule 12/15/17 [Rx] OxyCODONE/APAP 5/325 [Percocet 5/325 MG] 1 tab PO BID 12/15/17 [History] Allergy/AdvReac Type Severity Reaction Status Date / Time No Known Allergies Allergy Verified 12/05/17 14:43 - Meds/Allergy Pre-op Review Medications Reviewed: Yes Allergies Reviewed: Yes Beta Blockers on Current Med List: No (cardizem for a fib taken this AM) Anesthesia Results - Labs Laboratory Tests 11/26/17 11/29/17 12/15/17 13:26 12:16 11:41 WBC 4.0 L Hgb 9.6 L Hct 31.1 L Plt Count 275 PT 11.6 INR 1.0 Sodium 138 Potassium 4.2 Chloride 105 Carbon Dioxide 28 BUN 24 H Creatinine 0.61 Est GFR ( Amer) > 60 Est GFR (Non-Af Amer) > 60 BUN/Creatinine Ratio 39 H Glucose 98 Calculated Osmolality 290 - Imaging EKG: report reviewed, image reviewed (SUPRAVENTRICULAR RHYTHM ATYPICAL ECG) Additional studies: TTE: Impressions: LVEF 50-55%. Normal LV chamber size, wall thickness and function. Atypical septal motion consistent with bundle branch block. Mild left ventricular diastolic dysfunction. Normal right ventricular structure and function. Mild-moderate aortic regurgitation. No evidence of pulmonary hypertension. No evidence of PFO with agitated saline contrast. Anesthesia Exam Last Vital Signs Temp 98.0 F 12/21/17 09:25 Pulse 123 12/21/17 09:25 Resp 22 12/21/17 09:25 BP 156/88 12/21/17 09:25 Pulse Ox 93 12/21/17 09:25 Weight: 45 kg NPO (# of Hours): > 8 hrs - HEENT Pupil (Motor): Pupils equal, EOMI - GRADUATE CIVIL ENGINEER LOC: Oriented - Cardiac Rhythm: Regular Murmur: None - Pulmonary Breath Sounds: bilateral Clear (distant breath sounds) Respiratory Effort: Symmetrical Anesthesia Assess/Plan ASA Score: 4 Modified Pam Scale for Level of Consciousness: Cooperative, oriented, and tranquil Anesthetic Plan: Regional, MAC Monitoring Plan: Standard Monitors Recovery Plan: PACU
--- NOTE | 2017-12-21 10:53 | Discharge Summary ---
Outpatient Proc Discharge Plan - Plan Additional Instructions: Do not remove splint Elevate hand. Move fingers, not thumb, making sure to make a full fist Use ice for 1 to 2 hour 3 times a day for the next 2 days. No lifting with the operative hand No sports or gym activities follow-up in 1 week with Keely Thomas PA-C Home Medications: Sertraline [Zoloft] 50 mg PO HS 09/21/15 [History] Temazepam [Restoril] 15 mg PO HS 09/21/15 [History] Omeprazole [PriLOSEC] 20 mg PO DAILY 10/01/17 [History] Diltiazem CD (24hr) [Cardizem CD] 180 mg PO DAILY 30 Days #30 cap.er.24h 10/06/17 [Rx] Acetaminophen [Tylenol] 650 mg PO DAILY #30 tablet 11/27/17 [Rx] Albuterol Neb [Proventil Neb] 2.5 mg IH Q4-6H PRN 11/27/17 [History] Patient Taking Own Medication 1 each PO MOWEFR 11/27/17 [History] Calcitonin,[place],Synthetic [Calcitonin-[place]] 1 spray NS DAILY 12/05/17 [History] Oxygen 2 l IH AD 12/05/17 [History] Benzonatate [Tessalon] 200 mg PO TID PRN #30 capsule 12/15/17 [Rx] OxyCODONE/APAP 5/325 [Percocet 5/325 MG] 1 tab PO BID 12/15/17 [History]
--- NOTE | 2017-12-21 10:53 | History & Physical Report ---
Date of Encounter: 12/21/17 Time of Encounter: 10:05 24 Hour HP Update - Instructions Instructions: If the History and Physical is less than 30 days old and was completed prior to A.M. admission and or procedure and has NOT been updated on calendar day of procedure please complete this update prior to performing procedure. - Update Patient reports changes in Medical Condition: No Changes in examination, assessment, or condition: No Changes in Medication: No Preop tests/diagnostics Reviewed: Yes Surgery Remains Indicated: Yes Consent for Planned Operative Procedure(s) Verified: Yes - Pre-Operative Checklist Preoperative Checklist Indicated: Yes Prophylactic Antibiotic Ordered: Yes Is VTE Prophylaxis Indicated?: Yes
--- NOTE | 2017-12-21 10:55 | Anesthesia Procedures ---
Date of Encounter: 12/21/17 Time of Encounter: 10:10 Procedures: Anesthesia - Nerve Block Procedure Date: 12/21/17 Time: 10:10 Allergies/Adv Reactions: NKDA Pre-op Diagnosis: Fractured distal left radius Surgical Procedure: Left distal radius ORIF Checklist: Correct Patient Identifier, Correct procedure, History checked Correct side: Left Blood Thinner: No Monitor Applied: EKG, BP, Pulse Oximetry Supplemental Oxygen via Nasal Cannula (L/min): 2 Sedation: Fentanyl (mcg): 100 Indication: Post Op Analgesia Pre-op Neuro Deficits: No Block Type: Infraclavicular Catheter placed: No Ultrasound used: Yes Anatomy identified: Yes Visual spread of Local: Yes Neuro Stimulation: Yes Nerve Stimulator Range: 0.2 - 0.4 mA Blood on Needle Aspiration: No Smooth Injection of Local: Yes Pain with Injection of Local: No Prep: Chlorhexadine Needle: 22 x 50 mm Stimuplex Local: 0.25% Bupivicaine w/Clonidine 20 mcg/cc, Ropivacaine Volume (cc): 20 Number of Attempts: 1 Complications: None/effective block Vitals: Last Vital Signs Temp 98.0 F 12/21/17 09:25 Pulse 95 12/21/17 10:23 Resp 18 12/21/17 10:23 BP 148/88 12/21/17 10:23 Pulse Ox 99 12/21/17 10:23
--- NOTE | 2017-12-21 12:25 | Operative Note ---
Date of procedure: 12/21/17 Pre-op diagnosis: Left distal radius intra-articular fracture, 2 distal fragments Post-op diagnosis: same Procedure: Left wrist open reduction internal fixation of distal radius Implants: [employer] Geminus Anesthesia: [facility] Surgeon: Javier Pappas Was there an assistant womens volleyball coach present: No Estimated blood loss (cc): 5 Tourniquet Time (Minutes): 69 Specimen: 0 Condition: stable Disposition: PACU Procedure in Detail: Indications: Patient is a 82-year-old [id number] woman who slipped and fell sustaining a displaced open left thumb fracture. She underwent surgery 2 weeks ago. She also had a nondisplaced distal radius intra-articular fracture. On follow-up x-rays of the wrist show there is the distal radius fracture slipped with dorsal angulation. Procedure: The patient received IV antibiotics in the holding area and also underwent an axillary block by the anesthesia department. The patient was brought into the operating room and placed on the OR table in supine position with the affected upper extremity in a hand table. The patient received MAC. A tourniquet was placed on the arm close axilla and the upper extremity was then prepped and draped in usual sterile fashion. A timeout was performed. The extremity was then elevated, exsanguinated with an Xiang wrap and the tourniquet was raised to a pressure of 250 mmHg. The pins were still intact on the left thumb. Fluoroscopy was used to check that the fracture was still stable and well aligned. A 6 cm longitudinal incision was made over the volar radial aspect of the wrist, directly over the FCR tendon ending at the distal wrist flexion crease. The FCR sheath was split down the midline, the tendon was retracted over medially and the base of the sheath was also split the midline. The patient is being sent some pain and underwent general anesthesia. The deep fascia and the FPL muscle/tendon was also retraction medially exposing the pronator quadratus. This was then elevated off in an L-shaped manner subperiosteally, exposing the fracture site. A small sharp [place] was used to mobilize the fracture fragments. The joker was then used to elevate the dorsal periosteum and break up the fracture callus. The distal fracture fragments were mobilized as a unit, and reduced with the use of a large freer elevator, and provisionally pinned in place using a 0.062 K wire driven down from the tip of the radial styloid into the proximal shaft. Next a 4 hole left sided narrow plate was applied to the volar surface and secured with a bone screw through the slotted hole. Once we had appropriate position plate, it was further secured with a locking screw in hole #4 in the metaphyseal bone. The distal fragment was held against the plate restoring volar tilt, and temporary fixation wires were placed in the radial and ulnar columns securing the distal fragment. Next a compression screw was then placed distally and the ulnar column further securing the distal fragment. The remaining holes were t hen filled with locking screws in standard technique, using variable angle as needed. The K wires were removed and these holes were also filled with locking screws. The remaining holes in the shaft of the plate were then filled with locking screws in standard technique. The K wire was removed. Final fluoroscopy shots were taken and saved; checking in AP, lateral, facet views, and a 45 degree s upination view making sure the screws were not within the joint. Once satisfactory, the wound was irrigated with normal saline and the pronator quadratus was tacked back down in place with 3-0 Vicryl [id number] sutures. The tourniquet was deflated, once again irrigating the wound and obtaining hemostasis with the bipolar electrocautery. The skin incision was closed with 5-0 nylon mattress and simple sutures. Sterile dressings were applied and the patient placed into a sugar tong splint. Patient was taken to the recovery room in stable condition. The patient will be seen at postoperative week #1 for dressing changes and placed into a short arm thumb spica cast.
[2017-12-21] MEDS ORDERED: Albuterol 2.5 MG/3 ML NEBULIZER ONE (12:38)
[2017-12-21] MEDS ORDERED: Ipratropium/Albuterol Neb 3 ML IH ONE (14:06)
[2017-12-21] MEDS ORDERED: Ipratropium/Albuterol Neb 3 ML ONE (14:08)
[2017-12-21] MEDS ORDERED: Hydrocortisone Sodium Succ 100 MG/2 ML VIAL ONE (14:34)
[2017-12-21] MEDS ORDERED: Racepinephrine Neb 0.5 ML VIAL IH ONE (14:37)
[2017-12-21] MEDS ORDERED: Water for inj. (sterile) 20 ML 20 ML IV ONE (14:38)
--- NOTE | 2017-12-21 15:37 | Anesthesia Procedures ---
Date of Encounter: 12/21/17 Time of Encounter: 13:10 Procedures: Anesthesia - Nerve Block Procedure Date: 12/21/17 Time: 13:10 Allergies/Adv Reactions: nkda Pre-op Diagnosis: Left wrist pain Surgical Procedure: Left wrist ORIF Checklist: Correct Patient Identifier, Correct procedure, History checked Correct side: Left Blood Thinner: No Monitor Applied: EKG, BP, Pulse Oximetry Supplemental Oxygen via Nasal Cannula (L/min): 2 Sedation: Versed (mg): 0 Sedation: Fentanyl (mcg): 0 Indication: Post Op Analgesia Block Type: Supraclavicular Prep: Chlorhexadine Needle: 22 x 50 mm Stimuplex Local: Ropivacaine Volume (cc): 20 Number of Attempts: 1 Complications: None/effective block Comments: Rescue block in PACU without additional sedation for failed pre-op block.
--- NOTE | 2017-12-21 16:31 | Anesthesia Evaluation Post Op ---
Date of Encounter: 12/21/17 Time of Encounter: 16:29 - Vital Signs Vital Signs: Last Vital Signs Temp 12/21/17 16:00 Pulse 91 12/21/17 16:00 Resp 20 12/21/17 16:00 BP 110/77 12/21/17 16:00 Pulse Ox 90 12/21/17 16:00 - Lungs Lungs: Wheezes, Treatment Ordered (no improvement) - Airway Airway: Non-obstructed - Cardiovascular Regular Rate, Baseline Rhythm - Mental Status Mental Status: Alert & Oriented, Answers Appropriately - Pain Pain Scale: 1 (patient received supraclavicular nerve block) - Hydration Hydration: Tolerates oral liquids Notes: 12/21/17 16:31 Patient with severe COPD requiring 2L oxygen around the clock. Patient went under general anesthesia for distal radius ORIF. In PACU, she was noted to be wheezing without improvement after albuterol, duoneb, and racemic epinephrine. She had required multiple admissions for COPD in the past year, due to her severe COPD (and was noted to have a small PE upon her admission ). She's also been treated for CAP in the past year. She will be admitted to the hospitalist for further treatment. - Discharge PostOp Status: Transfer Patient to floor
[2017-12-21] MEDS ORDERED: Naloxone 0.4 MG/ML INJ IVP PRN (17:43)
[2017-12-21] MEDS ORDERED: Acetaminophen 325 MG TABLET PO PRN (17:43)
--- NOTE | 2017-12-21 18:15 | Internal Med History&Physical ---
<RainMiko Pereyra - Last Filed: 12/21/17 23:56> Date of Encounter: 12/21/17 Time of Encounter: 17:15 Internal Medicine - H&P: HPI Chief complaint: SOB/Wheezing post-surgery Admitted From: Direct Admit Plans for Post Hospital Care: Home History of present illness: Ms. Cleaning is a 82 year old female w/PMH of Afib, COPD, GERD, HTN, CAD, PE in 09/2017 (was taken off anticoagulation d/t GI bleeding), previous breast cancer w/mastectomy of right breast, anxiety, and depression presents post-surgery w/CC of SOB and wheezing that did not improve following breathing tx, albuterol, and racemic epinephrine. Pt. reports several admission to hospital d/t COPD w/i past year. Pt. had small PE in 09/2017. Reports that she uses home O2 24/ d/t SOB. Also reports chronic cough. States she smoked 1/2 PPD up until several weeks ago when she quit. Pt. reports SOB/wheezes and weakness but denies recent illness, fever, chills, nausea, vomiting, headache, changes in vision, unusual bleeding, abdominal pain, diarrhea, constipation, dizziness, lightheadedness, numbness, tingling, pre-syncope, or syncope. Past Med Surg Social Fam HX - Past Medical History Source: patient, old records reviewed Medical history: atrial fibrillation, COPD, coronary artery disease, GERD, hypertension, other Additional medical history: breast cancer Psychiatric history: anxiety, depression - Past Surgical History Surgical History: breast surgery (Right mastectomy), hysterectomy (Total) Additional surgical history: right masectomy (2001), orif - Social History Smoking Status: Former smoker Packs per day: 1/2 PPD - Reports quitting several weeks ago Smokeless Tobacco Status: No Alcohol use: none Drug use: none Current living situation: Home Activity Level: Uses cane/walker Recent Out of Country Travel Within the Last 8 Weeks: No Exposure or Possible Exposure to Illness During Travel: No - Family History Father Race: Family Member Ethnicity: Non- Living Status: Age at : 89 Cause of : PNA Hx Family Cardiac Disorders: Yes Mother Adopted: No Race: Family Member Ethnicity: Non- Living Status: Age at : 87 Cause of : DM complications Hx Family Cardiac Disorders: Yes (CAD) Hx Family Endocrine Disorder: Yes (DM) Sister Race: Family Member Ethnicity: Non- Living Status: Age at : 47 Cause of : Spinal meningitis Son Adopted: No Race: Family Member Ethnicity: Non- Living Status: Still Living Hx Family Cancer: Yes (Lung cancer) Internal Medicine - H&P: Meds RX: Sertraline [Zoloft] 50 mg PO HS 09/21/15 [History] RX: Temazepam [Restoril] 15 mg PO HS 09/21/15 [History] RX: Omeprazole [PriLOSEC] 20 mg PO DAILY 10/01/17 [History] RX: Diltiazem CD (24hr) [Cardizem CD] 180 mg PO DAILY 30 Days #30 cap.er.24h 10/06/17 [Rx] RX: Acetaminophen [Tylenol] 650 mg PO DAILY #30 tablet 11/27/17 [Rx] RX: Albuterol Neb [Proventil Neb] 2.5 mg IH Q4-6H PRN 11/27/17 [History] RX: Calcitonin,Crum,Synthetic [Calcitonin-Crum] 1 spray NS DAILY 12/05/17 [History] RX: Oxygen 2 l IH AD 12/05/17 [History] Benzonatate [Tessalon] 200 mg PO TID PRN #30 capsule 12/15/17 [Rx] Gentle Iron 28 mg PO MOWEFR 12/22/17 [History] OxyCODONE/APAP 5/325 [Percocet 5/325 MG] 1 each PO Q6HR PRN 5 Days #20 tablet 12/23/17 [Rx] Allergy/AdvReac Type Severity Reaction Status Date / Time No Known Allergies Allergy Verified 12/05/17 14:43 All Systems PM: A 10-system review of systems was performed and is negative for pertinent findings except as documented above in the HPI. - Constitutional Constitutional: as per HPI, falls, weakness, no chills, no fever(s), no night sweats - EENT Eyes: no change in vision, no discharge, no pain, no photophobia Ears: no ear discharge, no ear pain, no tinnitus Nose, mouth and throat: no dysphagia, no nasal discharge, no neck pain, no sore throat - Breasts Breasts: as per HPI - Cardiovascular Cardiovascular ROS IM: as per HPI, dyspnea, dyspnea on exertion, no chest pain, no diaphoresis, no lightheadedness, no palpitations, no syncope - Respiratory Respiratory: as per HPI, cough, dyspnea, dyspnea on exertion, wheezing, chest congestion, no excessive phlegm production - Gastrointestinal Gastrointestinal: no abdominal pain, no diarrhea, no hematemesis, no hematochezia, no melena, no nausea, no vomiting - Genitourinary Genitourinary: no change in urinary stream, no dysuria, no flank pain, no hematuria Menstruation: as per HPI, post hysterectomy - Musculoskeletal Musculoskeletal ROS IM: no numbness, no tingling - Integumentary Integumentary IM: no rash, no unusual bruising - Neurological Neurological ROS: as per HPI, weakness, no confusion, no convulsions, no focal weakness, no numbness, no tingling, no tremor(s) - Psychiatric Psychiatric: as per HPI, anxiety, depression - Endocrine Endocrine IM: as per HPI - Hematologic/Lymphatic Hematologic/Lymphatic: no easy bruising - Allergic/Immunologic Allergic/Immunologic: as per HPI - Constitutional Vitals: Temp Pulse Resp BP Pulse Ox 99.1 F 92 16 146/69 95 12/21/17 17:08 12/21/17 17:08 12/21/17 17:08 12/21/17 17:08 12/21/17 17:08 General appearance: Present: cooperative, mild distress (Pain from fxs), A&O X 3, pleasant, underweight, answers questions appropriately Exam: Pt. examined at bedside who was resting in bed. Pt. reports SOB and wheezing that is worse than usual. States she has chronic COPD and uses home O2 19/09. Pt. has cough present and uses Tessalon. Will add Mucinex and flutter valve to Xopenex txs. Pt. reports pain in left wrist and thumb r/t fxs but denies any other complaints at this time. VS: 99.1F temp, HR 92, RR 16, BP 146/69, SPO2 95% on 2 L via nasal cannula. - Head Head exam: Present: atraumatic, normocephalic - Eye Eye exam: Present: PERRL, conjuntiva pink, sclera anicteric Pupils: Present: PERRL - ENT ENT exam: Present: normal exam - Neck Neck exam general surgery: Present: normal inspection, supple, trachea midline. Absent: lymphadenopathy - Respiratory Respiratory exam: Present: decreased breath sounds, wheezes. Absent: accessory muscle use, rales, rhonchi - Cardiovascular Cardiovascular exam: Present: RRR, +S1, +S2. Absent: diastolic murmur, gallop, rubs, systolic murmur - GI/Abdominal GI/Abdominal exam: Present: normal bowel sounds, soft, no peritoneal signs. Absent: distended, tenderness - Rectal Rectal exam: Present: deferred - Additional comments: exam deferred. - Extremities Exam Extremities exam: Present: warm, radial pulses palpable and symmetrical. Absent: calf tenderness, cyanotic, pedal edema - Expanded Upper Extremities Exam Forearm wrist exam: Present: swelling, tenderness Hand wrist exam: Present: swelling, tenderness - Back Exam Back exam: Present: normal inspection - Neurological Exam Neurological exam: Present: alert, CN II-XII intact, oriented X3, no focal deficits. Absent: pronater drift, facial droop, speech deficit - Psychiatric Psychiatric exam: Present: normal affect, normal mood - Skin Skin exam: Present: dry, intact Internal Med - H&P Results - Labs CBC & Chem 7: 12/21/17 22:54 12/21/17 17:47 - Impressions ITS Impressions Finger X-Ray 12/21/17 00:00 IMPRESSION: Fluoroscopy was utilized for the purposes of ORIF of the distal radius. D/ : / 12/21/2017 15:32:04 Ozzie Quan MD / yeimi Interpreting Provider: Ozzie Quan MD Fluoroscopy 12/21/17 00:00 IMPRESSION: Fluoroscopy was utilized for the purposes of ORIF of the distal radius. D/ : / 12/21/2017 15:32:04 Ozzie Quan MD / yeimi Interpreting Provider: Ozzie Quan MD - Assessment and plan (1) SOB (shortness of breath) Status: Acute Assessment and plan: Acute on chronic SOB following surgery for fxs of left wrist. Pt. reports SOB and wheezing that did not improve following breathing tx, albuterol, and racemic epinephrine. Pt. reports several admission to hospital d/t COPD w/i past year. Pt. had small PE in 09/2017. Reports that she uses home O2 24/ d/t SOB. Also reports chronic cough. States she smoked 1/2 PPD up until several weeks ago when she quit. Will continue pts. inhalers and Xopenex breathing txs w/respiratory therapy consult and flutter valve. Supplemental O2 w/titration and SpO2 monitoring. Continuous cardiac telemetry. Pt. is moderate risk for further morbidity and complications d/t current SOB, hx of COPD and tobacco use, hx of Afib and PE w/o anticoagulation d/t GI bleeding hx, and risk factors. Observation. (2) COPD (chronic obstructive pulmonary disease) Status: Chronic Assessment and plan: Hx of chronic COPD. Reports smoking 1/2 PPD but quitting several weeks ago. Stable. Will continue pts. inhalers and Xopenex IH d/t pts. Afib hx. Mucinex and Tessalon for cough. Supplemental O2 w/titration and SpO2 monitoring. Qualifiers: COPD type: emphysema Emphysema type: unspecified Qualified Code(s): J43.9 - Emphysema, unspecified (3) HTN (hypertension) Status: Chronic Assessment and plan: Hx of chronic HTN. Monitor pt. and VS. Continue pts. Cardizem. Qualifiers: Hypertension type: essential hypertension Qualified Code(s): I10 - Essential (primary) hypertension (4) Atrial fibrillation Status: Chronic Assessment and plan: Hx of chronic Afib. Continue pts. Cardizem. Continuous cardiac telemetry. Qualifiers: Atrial fibrillation type: paroxysmal Qualified Code(s): I48.0 - Paroxysmal atrial fibrillation (5) CAD (coronary artery disease) Status: Chronic Assessment and plan: Hx of chronic CAD. Continue pts. Cardizem. Lipid panel in a.m. labs. Continuous cardiac telemetry. Qualifiers: Coronary Disease-Associated Artery/Lesion type: unspecified vessel or lesion type [place] vs. transplanted heart: [place] heart Associated angina: angina presence unspecified Qualified Code(s): I25.10 - Atherosclerotic heart disease of [place] coronary artery without angina pectoris (6) GERD (gastroesophageal reflux disease) Status: Chronic Assessment and plan: Hx of chronic GERD. Continue pts. Prilosec. IVP Zofran 4 mg Q6HR PRN for N/V. Monitor I&O. Qualifiers: Esophagitis presence: esophagitis presence not specified Qualified Code(s): K21.9 - Gastro-esophageal reflux disease without esophagitis (7) Anxiety and depression Status: Chronic Assessment and plan: Hx of chronic anxiety and depression. Continue pts. Zoloft. (8) DVT prophylaxis Status: Acute Assessment and plan: Bilateral SCDs on LEs for DVT prophylaxis. - Time Spent With Patient Total time spent is greater than 50% in coordination of care (as documented) at patient's floor/unit and/or counseling patient: Greater than 35 minutes <Kiera Mohamud - Last Filed: 12/25/17 07:58> Internal Medicine - H&P: HPI History of present illness: Ms. Cleaning is a 82 year old female All Systems PM: A 10-system review of systems was performed and is negative for pertinent fin dings except as documented above in the HPI. - Constitutional Vitals: Temp Pulse Resp BP Pulse Ox 98.3 F 78 20 91/63 94 12/23/17 10:58 12/23/17 10:58 12/23/17 10:58 12/23/17 10:58 12/23/17 10:58 Internal Med - H&P Results - Labs CBC & Chem 7: 12/23/17 05:44 12/23/17 05:44 - Impressions ITS Impressions Finger X-Ray 12/21/17 00:00 IMPRESSION: Fluoroscopy was utilized for the purposes of ORIF of the distal radius. D/ : / 12/21/2017 15:32:04 Ozzie Quan MD / yeimi Interpreting Provider: Ozzie Quan MD Fluoroscopy 12/21/17 00:00 IMPRESSION: Fluoroscopy was utilized for the purposes of ORIF of the distal radius. D/ : / 12/21/2017 15:32:04 Ozzie Quan MD / yeimi Interpreting Provider: Ozzie Quan MD Chest X-Ray 12/21/17 17:46 IMPRESSION: 1. No acute cardiopulmonary disease. D/ / Pancho Ramos MD / Pancho Rmaos MD Interpreting Provider: Pancho Ramos MD - Assessment and plan (1) Hypertension Status: Chronic Qualifiers: Hypertension type: essential hypertension Qualified Code(s): I10 - Essential (primary) hypertension (2) Atrial fibrillation Status: Chronic Qualifiers: Atrial fibrillation type: paroxysmal Qualified Code(s): I48.0 - Paroxysmal atrial fibrillation (3) Fracture of thumb, left, open Status: Resolved Qualifiers: Encounter type: subsequent encounter Phalanx: unspecified phalanx Fracture alignment: displaced Qualified Code(s): S62.502D - Fracture of unspecified phalanx of left thumb, subsequent encounter for fracture with routine healing (4) Distal radius fracture, left Status: Resolved Qualifiers: Encounter type: subsequent encounter Fracture type: closed Fracture morphology: unspecified fracture morphology Qualified Code(s): S52.502D - Unspecified fracture of the lower end of left radius, subsequent encounter for closed fracture with routine healing (5) Chronic hypoxemic respiratory failure Status: Chronic (6) COPD (chronic obstructive pulmonary disease) Status: Chronic Qualifiers: COPD type: emphysema Emphysema type: unspecified Qualified Code(s): J43.9 - Emphysema, unspecified (7) GERD (gastroesophageal reflux disease) Status: Chronic Qualifiers: Esophagitis presence: esophagitis presence not specified Qualified Code(s): K21.9 - Gastro-esophageal reflux disease without esophagitis (8) CAD (coronary artery disease) Status: Chronic Qualifiers: Coronary Disease-Associated Artery/Lesion type: [place] artery [place] vs. transplanted heart: [place] heart Associated angina: without angina Qualified Code(s): I25.10 - Atherosclerotic heart disease of [place] coronary artery without angina pectoris (9) Anxiety and depression Status: Chronic (10) SOB (shortness of breath) Status: Acute (11) Costochondritis Status: Acute - Time Spent With Patient Total time spent is greater than 50% in coordination of care (as documented) at patient's floor/unit and/or counseling patient: - Attending Attestation I personally and independently interviewed and examined the patient , and I reviewed the patient's medical record . I am in agreement with proposed assessment and proposed treatment plan. I discussed my findings and recommendation with the patient and answer his questions. The patient's medical records were edited to accurately reflect this encounter.
[2017-12-21 18:38] LABS: Basophils % 0.1 %; Hematocrit 30.3 % (35.3-44.9); Hemoglobin 9.3 g/dL (11.5-15.4); Immature Granulocytes % 0.5 % (0-4); Lymphocytes # 0.2 K/mcL (0.6-4.6); Lymphocytes % 2.2 %; Mean Corpuscular HGB Conc 30.7 g/dL (31.6-35.5); Mean Corpuscular Hemoglobin 28.5 pg (28.0-33.3); Mean Corpuscular Volume 92.9 fL (83.0-100.0); Mean Platelet Volume 10.1 fL (9.4-12.4); Monocytes # 0.1 K/mcL (0.0-1.3); Monocytes % 1.1 %; Neutrophils # 7.1 K/mcL (1.6-8.9); Platelet Count 255 K/mcL (140-400); Red Blood Count 3.26 M/mcL (3.82-4.97); Red Cell Distribution Width 17.2 % (11.5-14.5); Segmented Neutrophils % 96.1 %
[2017-12-21 18:53] LABS: Alanine Aminotransferase 13 Units/L (7-52); Albumin 3.7 g/dL (3.5-5.7); Albumin/Globulin Ratio 1.3 (1.1-2.2); Alkaline Phosphatase 86 Units/L (34-104); Aspartate Amino Transferase 16 Units/L (13-39); BUN/Creatinine Ratio 25 (6-26); Bilirubin,Total 0.3 mg/dL (0.3-1.0); Blood Urea Nitrogen 18 mg/dL (8-23); Calcium 8.9 mg/dL (8.6-10.3); Carbon Dioxide 27 mEq/L (23-29); Chloride 99 mEq/L (98-107); Globulin 2.9 g/dL (2.4-3.5); Glucose 290 mg/dL (70-105); Osmolality,Calculated 299 (280-300); Potassium 4.1 mEq/L (3.5-5.1); Sodium 138 mEq/L (136-145); Total Protein 6.6 g/dL (6.4-8.9); eGFR For Non-African Americans > 60 (> 60)
[2017-12-21] MEDS ORDERED: Ipratropium/Albuterol Neb 3 ML IH SCH (19:00)
[2017-12-21 19:13] LABS: Anisocytosis 1+ (Not Present); Platelet Estimate Normal (Normal)
[2017-12-21] MEDS: Levalbuterol Neb 1.25 MG/3 ML IH SCH ×2 (19:29→22:10)
[2017-12-21] MEDS: Temazepam 15 MG CAPSULE PO SCH (21:13)
[2017-12-21 23:09] LABS: Hematocrit 29.4 % (35.3-44.9)
[2017-12-21] MEDS ORDERED: Ondansetron 4 MG/2 ML VIAL IVP PRN (23:48)
[2017-12-22] MEDS: *HR* HYDROcodone/Acet 5/325 mg TABLET PO PRN ×2 (02:12→09:37)
[2017-12-22] MEDS ORDERED: Ketorolac 30 MG/ML VIAL IVP ONE (03:39)
[2017-12-22] MEDS: Benzonatate 100 MG CAPSULE PO PRN ×2 (03:47→09:37)
[2017-12-22] MEDS: Levalbuterol Neb 1.25 MG/3 ML IH SCH ×4 (04:25→22:15)
[2017-12-22] MEDS ORDERED: Ipratropium/Albuterol Neb 3 ML IH ONE (04:52)
[2017-12-22] MEDS ORDERED: Nitroglycerin 0.4 MG TAB.SUBL SL PRN (04:53)
[2017-12-22] MEDS ORDERED: Nitroglycerin 0.4 MG TAB.SUBL SL ONE (04:56)
[2017-12-22 05:33] LABS: Hemoglobin 8.9 g/dL (11.5-15.4); Immature Granulocytes % 0.5 % (0-4); Lymphocytes # 0.5 K/mcL (0.6-4.6); Lymphocytes % 5.7 %; Mean Corpuscular HGB Conc 30.7 g/dL (31.6-35.5); Mean Corpuscular Hemoglobin 28.1 pg (28.0-33.3); Mean Corpuscular Volume 91.5 fL (83.0-100.0); Mean Platelet Volume 10.2 fL (9.4-12.4); Monocytes # 0.6 K/mcL (0.0-1.3); Monocytes % 6.6 %; Neutrophils # 8.1 K/mcL (1.6-8.9); Platelet Count 260 K/mcL (140-400); Red Blood Count 3.17 M/mcL (3.82-4.97); Red Cell Distribution Width 17.2 % (11.5-14.5); Segmented Neutrophils % 87.2 %
[2017-12-22 05:55] LABS: Alanine Aminotransferase 11 Units/L (7-52); Albumin 3.7 g/dL (3.5-5.7); Albumin/Globulin Ratio 1.4 (1.1-2.2); Alkaline Phosphatase 86 Units/L (34-104); Aspartate Amino Transferase 15 Units/L (13-39); BUN/Creatinine Ratio 33 (6-26); Bilirubin,Total 0.3 mg/dL (0.3-1.0); Blood Urea Nitrogen 20 mg/dL (8-23); Calcium 9.3 mg/dL (8.6-10.3); Carbon Dioxide 29 mEq/L (23-29); Chloride 104 mEq/L (98-107); Chol/HDL Ratio 3.1 (0-4.9); Cholesterol 162 mg/dL (< 200); Globulin 2.7 g/dL (2.4-3.5); Glucose 165 mg/dL (70-105); HDL Cholesterol 53 mg/dL (40-59); LDL Cholesterol,Calculated 98 mg/dL (0-99); Magnesium 1.9 mg/dL (1.6-2.6); Osmolality,Calculated 294 (280-300); Potassium 4.3 mEq/L (3.5-5.1); Sodium 139 mEq/L (136-145); Total Protein 6.4 g/dL (6.4-8.9); Triglycerides 53 mg/dL (< 150); eGFR For Non-African Americans > 60 (> 60)
[2017-12-22] MEDS ORDERED: CALCITONIN SALMON SYNTHETIC NS SCH (09:00)
[2017-12-22] MEDS: Diltiazem CD (24hr) 180 MG CAPSULE PO SCH (09:37)
--- NOTE | 2017-12-22 09:39 | Internal Med Progress Note ---
Hospitalist Progress Note - Encounter Date of Encounter: 12/22/17 Time of Encounter: 09:15 - Subjective Interval History: Estela Cleaning is an 82 year old female with a hx of severe COPD who had surgery on 12/21 for an ORIF of the distal radius after a fall. In PACU after this operation, she experienced wheezing that didn't improve after treatment wit h albuterol, duoneb, and racemic epinephrine. She had a chest x-ray done that showed no acute cardiopulmonary disease. According to nursing note, this morning (12/22), patient experienced chest pain which was worse with breathing and was coughing. An EKG was done, which was normal. Her pain improved somewhat with duoneb. BP has fluctuated between 93/61 and 158/70. This morning, Hb 8.9, Hct 29.0 Glucose was 290 yesterday at 17:47, but is down to 165 at 5:03 this morning. Upon my exam, patient complained of chest pain with breathing. Pain increased with palpation. Patient was alert and oriented X3 but some of her statements indicated that she is having some confusion. She claimed to have seen her name and picture on the TV and also said that someone told her she had recently br oken her back (of which I cannot find any record). PMHx: severe COPD, Afib, small PE in 09/2017, GERD, HTN, CAD, breast CA with mastectomy of R breast, anxiety/depression ROS: General - denies fever, chills Head - headache last night, stated that percocet eliminated it. Denies dizziness. CV - chest pain when breathes. Denies edema. Resp - Pain when she breathes. Denies current wheezing. States that cough is better this morning. Abd - denies nausea, vomiting, diarrhea, abdominal pain. Has passed gas, but no bowel movements since admission. Extremity - L arm hurts more with movement. Hurts to move fingers. - Exam Vitals: Temp Pulse Resp BP Pulse Ox 98.5 F 88 20 124/68 95 12/22/17 07:36 12/22/17 07:36 12/22/17 07:36 12/22/17 07:36 12/22/17 07:36 Exam: General: Alert, Oriented to person, place, date, and president; some confusion (see above). Skin: Healing sore on dorsum of R hand without exudate. Head: normocephalic, atraumatic Eyes: pupils equal and round. Sclera non-icteric CV: RRR, no murmurs, gallops, or rubs Resp: expiratory wheezes in both lungs. no rhonchi or rales. Abd: BSx4. No tenderness or guarding. Extremities: L arm in cast. R arm tremor, patient says that the albuterol causes it. - Assessment and Plan (1) Chest pain Current Visit: Yes Status: Acute Assessment and Plan: Chest pain possibly due to muscular strain. EKG and chest x-ray have been negative. Continue to monitor. (2) SOB (shortness of breath) Current Visit: Yes Status: Acute Assessment and Plan: SOB and wheezing immediately following surgery. Patient has severe COPD and is O2 dependent. Will continue patient's inhalers and Xopenex breathing txs w/respiratory therapy consult and flutter valve. Supplemental O2 w/titration and SpO2 monitoring. Continuous cardiac telemetry. Continue to observe. Comments: Patient did not complain of SOB today, only complained of pain during breathing. (3) COPD (chronic obstructive pulmonary disease) Current Visit: Yes Status: Chronic Assessment and Plan: Hx of chronic COPD. Reports smoking 1/2 PPD but quit 13 weeks ago. Will continue inhalers and Xopenex. Mucinex and Tessalon for cough as needed. Supplemental O2 w/titration and SpO2 monitoring. (4) Distal radius fracture, left Current Visit: Yes Status: Acute Assessment and Plan: Repaired surgically and casted. Follow with orthopedic surgery. (5) Fracture of thumb, left, open Current Visit: Yes Status: Acute Assessment and Plan: Fracture has been repaired surgically. Follow with orthopedic surgery. (6) CAD (coronary artery disease) Current Visit: Yes Status: Chronic Assessment and Plan: Hx of chronic CAD. Continue Cardizem. Continuous cardiac telemetry. (7) Atrial fibrillation Current Visit: Yes Status: Chronic Assessment and Plan: Hx of chronic Afib. Continue pts. Cardizem. Continuous cardiac telemetry. (8) GERD (gastroesophageal reflux disease) Current Visit: Yes Status: Chronic Assessment and Plan: Hx of chronic GERD. Continue Prilosec. IVP Zofran 4 mg Q6HR PRN for N/V. Monitor I&O. (9) HTN (hypertension) Current Visit: Yes Status: Chronic Assessment and Plan: Hx of chronic HTN. Monitor BP. Continue Cardizem. (10) Anxiety and depression Current Visit: Yes Status: Chronic Assessment and Plan: Hx. of chronic anxiety and depression. Continue Zoloft. DVT Prophylaxis: Bilateral SCDs on LEs for DVT prophylaxis. - Time Spent with Patient Total time spent is greater than 50% in coordination of care (as documented) at patient's floor/unit and/or counseling patient: less than 15 minutes Internal Medicine: Result - Labs CBC & Chem 7: 12/22/17 12:10 12/22/17 05:03 Labs: Short CBC 12/21/17 12/21/17 12/22/17 Range/Units 17:47 22:54 05:03 WBC 7.4 D 9.3 (4.3-11.1) K/mcL Hgb 9.3 L 9.0 L 8.9 L (11.5-15.4) g/dL Hct 30.3 L 29.4 L 29.0 L (35.3-44.9) % Plt Count 255 260 (140-400) K/mcL Neutrophils # 7.1 8.1 (1.6-8.9) K/mcL BMP 12/21/17 12/22/17 17:47 05:03 Sodium 138 139 Potassium 4.1 4.3 Chloride 99 104 Carbon Dioxide 27 29 BUN 18 20 Creatinine 0.71 0.61 Glucose 290 H 165 H Calcium 8.9 9.3 Cardiac Enzymes 12/22/17 Range/Units 05:03 Troponin I < 0.03 (< 0.04) ng/mL Liver Function 12/21/17 12/22/17 Range/Units 17:47 05:03 Total Bilirubin 0.3 0.3 (0.3-1.0) mg/dL AST 16 15 (13-39) Units/L ALT 13 11 (7-52) Units/L Alkaline Phosphatase 86 86 (34-104) Units/L Albumin 3.7 3.7 (3.5-5.7) g/dL - Impressions Impressions Finger X-Ray 12/21/17 00:00 IMPRESSION: Fluoroscopy was utilized for the purposes of ORIF of the distal radius. D/ / 12/21/2017 15:32:04 Ozzie V. Quan, MD / yeimi Interpreting Provider: Ozzie Quan MD Fluoroscopy 12/21/17 00:00 IMPRESSION: Fluoroscopy was utilized for the purposes of ORIF of the distal radius. D/ / 12/21/2017 15:32:04 Ozzie Quan MD / yeimi Interpreting Provider: Ozzie Quan MD Chest X-Ray 12/21/17 17:46 IMPRESSION: 1. No acute cardiopulmonary disease. D/ / Pancho Ramos MD / Pancho Ramos MD Interpreting Provider: Pancho Ramos MD Consult Discharge Plan - Plan Additional Instructions: Do not remove splint Elevate hand. Move fingers, not thumb, making sure to make a full fist Use ice for 1 to 2 hour 3 times a day for the next 2 days. No lifting with the operative hand No sports or gym activities follow-up December 27 at 1:00 pm with Keely Thomas PA-C Home Medication List * You have been given a list of your current medications. If you have changes in your medications, update your list. * Provide a list of current medications to your primary care physician. * Carry a copy of your current medications with you in case of an emergency. Referrals: Michaela Torres, DEPOT MANAGER [Primary Care Provider] - (1) Chest pain Qualifiers: Chest pain type: chest pain on breathing Qualified Code(s): R07.1 - Chest pain on breathing; R07.81 - Pleurodynia (3) COPD (chronic obstructive pulmonary disease) Qualifiers: COPD type: emphysema Emphysema type: unspecified Qualified Code(s): J43.9 - Emphysema, unspecified (4) Distal radius fracture, left Qualifiers: Encounter type: subsequent encounter Fracture type: closed Fracture morphology: unspecified fracture morphology (5) Fracture of thumb, left, open Qualifiers: Encounter type: subsequent encounter Phalanx: unspecified phalanx Fracture alignment: displaced (6) CAD (coronary artery disease) Qualifiers: Coronary Disease-Associated Artery/Lesion type: unspecified vessel or lesion type [place] vs. transplanted heart: [place] heart Associated angina: angina presence unspecified Qualified Code(s): I25.10 - Atherosclerotic heart disease of [place] coronary artery without angina pectoris (7) Atrial fibrillation Qualifiers: Atrial fibrillation type: paroxysmal Qualified Code(s): I48.0 - Paroxysmal atrial fibrillation (8) GERD (gastroesophageal reflux disease) Qualifiers: Esophagitis presence: esophagitis presence not specified Qualified Code(s): K21.9 - Gastro-esophageal reflux disease without esophagitis (9) HTN (hypertension) Qualifiers: Hypertension type: essential hypertension Qualified Code(s): I10 - Essential (primary) hypertension
[2017-12-22] MEDS: Acetaminophen 325 MG TABLET PO SCH ×3 (12:30→23:54)
[2017-12-22 12:32] LABS: Hematocrit 28.9 % (35.3-44.9); Hemoglobin 8.8 g/dL (11.5-15.4)
[2017-12-22] MEDS: Ringers Solution, Lactated 1,000 ML IVC SCH (14:04)
[2017-12-22] MEDS: CALCITONIN NS SCH (14:05)
[2017-12-22] MEDS ORDERED: IRON GLYCINATE PO SCH (17:53)
[2017-12-22] MEDS ORDERED: GENTLE IRON PO SCH (17:53)
--- NOTE | 2017-12-22 19:32 | Event Note ---
Date of Encounter: 12/22/17 Time of Encounter: 12:15 [facility] will not allow me to cosign progress note at this time. The history, physical exam, and medical decision making was performed by the medical student either while I was physically present and actively involved or I personally re-performed the exam and medical decision making. I have verified the accuracy of the medical student's documentation with regards to the history, physical exam findings, and medical decision making on 12/22/17. Ms Cleaning is currently in observation following surgery to R wrist. She remains moderate to high risk. Ms Cleaning had dyspnea following surgery. She is now complaining of pain with inspiration on R side of chest. No fevers or chills. No cough. Is having some confusion. No GI issues. Exam alert Comfortable eating lunch. Mucus membranes dry Heart reg with no murmur and not tachy Lungs clear at this time Tender to palpation of ribs on L anterior and lateral chest wall. Abd soft No edema Splint LUE. I/P 1. Chest pain and dyspnea - most likely musculoskeletal from fall - costochondritis 2. Delirium 3. Fracture L wrist s/p ORIF 4. COPD 5. Chronic resp failure with hypoxia 6. CAD 7. Chronic atrial fibrillation 8. HTN - controlled 9. GERD Further diagnoses and plan as per progress note of today.
[2017-12-22] MEDS: *HR* OxyCODONE/APAP 5/325 TABLET PO SCH (20:01)
[2017-12-22] MEDS: Temazepam 15 MG CAPSULE PO SCH (20:01)
[2017-12-23] MEDS: Levalbuterol Neb 1.25 MG/3 ML IH SCH ×2 (03:33→09:58)
[2017-12-23] MEDS ORDERED: OXYCODONE Oral CONC 10 MG/0.5 ML ORAL.SYG SL ONE (04:12)
[2017-12-23] MEDS: Acetaminophen 325 MG TABLET PO SCH ×2 (05:54→12:55)
[2017-12-23 05:58] LABS: Basophils % 0.3 %; Eosinophils # 0.1 K/mcL (0.0-0.6); Eosinophils % 1.3 %; Hematocrit 28.3 % (35.3-44.9); Hemoglobin 8.7 g/dL (11.5-15.4); Immature Granulocytes % 0.3 % (0-4); Lymphocytes # 1.2 K/mcL (0.6-4.6); Lymphocytes % 19.5 %; Mean Corpuscular HGB Conc 30.7 g/dL (31.6-35.5); Mean Corpuscular Hemoglobin 28.3 pg (28.0-33.3); Mean Corpuscular Volume 92.2 fL (83.0-100.0); Mean Platelet Volume 9.2 fL (9.4-12.4); Monocytes # 0.6 K/mcL (0.0-1.3); Monocytes % 9.4 %; Neutrophils # 4.3 K/mcL (1.6-8.9); Platelet Count 233 K/mcL (140-400); Red Blood Count 3.07 M/mcL (3.82-4.97); Red Cell Distribution Width 17.5 % (11.5-14.5); Segmented Neutrophils % 69.2 %
[2017-12-23 06:19] LABS: Alanine Aminotransferase 11 Units/L (7-52); Albumin 3.3 g/dL (3.5-5.7); Albumin/Globulin Ratio 1.3 (1.1-2.2); Alkaline Phosphatase 75 Units/L (34-104); Aspartate Amino Transferase 15 Units/L (13-39); BUN/Creatinine Ratio 29 (6-26); Bilirubin,Total 0.3 mg/dL (0.3-1.0); Blood Urea Nitrogen 22 mg/dL (8-23); Carbon Dioxide 34 mEq/L (23-29); Chloride 105 mEq/L (98-107); Globulin 2.6 g/dL (2.4-3.5); Glucose 107 mg/dL (70-105); Osmolality,Calculated 302 (280-300); Potassium 3.8 mEq/L (3.5-5.1); Sodium 144 mEq/L (136-145); Total Protein 5.9 g/dL (6.4-8.9); eGFR For Non-African Americans > 60 (> 60)
[2017-12-23] MEDS: *HR* OxyCODONE/APAP 5/325 TABLET PO SCH (08:55)
[2017-12-23] MEDS: CALCITONIN NS SCH (08:57)
[2017-12-23] MEDS: Benzonatate 100 MG CAPSULE PO PRN (08:57)
[2017-12-23] MEDS: Diltiazem CD (24hr) 180 MG CAPSULE PO SCH (08:57)
--- NOTE | 2017-12-23 10:19 | Discharge Summary ---
- NOTES TO OUTPATIENT PROVIDER Notes to Outpatient Provider: Placed in observation following R wrist surgery. Dyspnea at baseline now. Refuses SNF and home health care. Orders not resulted at time of discharge: Pending orders 12/21/17 XR wrist complete 3V LT [XR] Routine 12/21/17 09:39 US anesthesia pain block [US] Stat 12/24/17 04:00 Complete Blood Count [HEME] AM 0400 Comprehensive Metabolic Panel AM 0400 Date of Encounter: 12/23/17 Time of Encounter: 10:10 - Discharge Diagnosis (1) Atrial fibrillation Priority: Secondary Status: Chronic Qualifiers: Atrial fibrillation type: paroxysmal Qualified Code(s): I48.0 - Paroxysmal atrial fibrillation (2) COPD (chronic obstructive pulmonary disease) Priority: Secondary Status: Chronic Qualifiers: COPD type: emphysema Emphysema type: unspecified Qualified Code(s): J43.9 - Emphysema, unspecified (3) GERD (gastroesophageal reflux disease) Priority: Secondary Status: Chronic Qualifiers: Esophagitis presence: esophagitis presence not specified Qualified Code(s): K21.9 - Gastro-esophageal reflux disease without esophagitis (4) CAD (coronary artery disease) Priority: Secondary Status: Chronic Qualifiers: Coronary Disease-Associated Artery/Lesion type: [place] artery [place] vs. transplanted heart: [place] heart Associated angina: without angina Qualified Code(s): I25.10 - Atherosclerotic heart disease of [place] coronary artery without angina pectoris (5) Anxiety and depression Priority: Secondary Status: Chronic (6) SOB (shortness of breath) Priority: Secondary Status: Acute (7) Costochondritis Priority: Primary Status: Acute (8) Distal radius fracture, left Priority: Secondary Status: Resolved Qualifiers: Encounter type: subsequent encounter Fracture type: closed Fracture morphology: unspecified fracture morphology Qualified Code(s): S52.502D - Unspecified fracture of the lower end of left radius, subsequent encounter for closed fracture with routine healing (9) Fracture of thumb, left, open Priority: Secondary Status: Resolved Qualifiers: Encounter type: subsequent encounter Phalanx: unspecified phalanx Fracture alignment: displaced Qualified Code(s): S62.502D - Fracture of unspecified phalanx of left thumb, subsequent encounter for fracture with routine healing (10) Chronic hypoxemic respiratory failure Priority: Secondary Status: Chronic (11) Hypertension Priority: Secondary Status: Chronic Qualifiers: Hypertension type: essential hypertension Qualified Code(s): I10 - Essential (primary) hypertension Hospital course: Ms. Cleaning is a 82 year old female with hx of COPD placed in observation following R wrist surgery due to complaints of chest pain and dyspnea. Ms Cleaning was placed in observation. She was treated aggressively with aerosols. Her chest pain appeared to be musculoskeletal. She was evaluated by PT/OT and recommended SNF which she refused. She had some confusion post op which appears to be related to meds. Today she is at baseline and is afebrile. She is ready for discharge home. She refuses [facility] as well. - Time Spent with Patient Total time spent providing and/or coordinating discharge services: 38min - Discharge Medications Prescriptions: OxyCODONE/APAP 5/325 [Percocet 5/325 MG] 1 each PO Q6HR PRN 5 Days #20 tablet PRN Reason: Severe Pain Home Medications: Sertraline [Zoloft] 50 mg PO HS 09/21/15 [History] Temazepam [Restoril] 15 mg PO HS 09/21/15 [History] Omeprazole [PriLOSEC] 20 mg PO DAILY 10/01/17 [History] Diltiazem CD (24hr) [Cardizem CD] 180 mg PO DAILY 30 Days #30 cap.er.24h 10/06/17 [Rx] Acetaminophen [Tylenol] 650 mg PO DAILY #30 tablet 11/27/17 [Rx] Albuterol Neb [Proventil Neb] 2.5 mg IH Q4-6H PRN 11/27/17 [History] Calcitonin,[place],Synthetic [Calcitonin-[place]] 1 spray NS DAILY 12/05/17 [History] Oxygen 2 l IH AD 12/05/17 [History] Benzonatate [Tessalon] 200 mg PO TID PRN #30 capsule 12/15/17 [Rx] Gentle Iron 28 mg PO MOWEFR 12/22/17 [History] OxyCODONE/APAP 5/325 [Percocet 5/325 MG] 1 each PO Q6HR PRN 5 Days #20 tablet 12/23/17 [Rx] Allergies/Adverse Reactions: Allergy/AdvReac Type Severity Reaction Status Date / Time No Known Allergies Allergy Verified 12/05/17 14:43 Date of admission: 12/21/17 17:43 Primary care physician: Michaela Torres CNP Consults: 12/21/17 17:44 Consult to Nutrition [CONS] Routine Comment: CHOCOLATE PLEASE! Consulting Provider: NUTRITION Reason for Dietary Consult: PO Supplementation 12/21/17 17:47 Consult to Occupational Therapy [CONS] Routine Comment: Evaluate, develop and implement POC Reason for Consult: Patient experienced fall resulting in fx of left thumb and wrist requiring surgery. Please assess pt. for ambulation strength, safety, stability, and possible home assistive/rehabilitation needs for post-discharge planning. Does patient have active BEDREST order?: Yes Is patient medically & hemodynamically stable?: Yes Patient assessed for mobility or mobilized this visit?: No Consult to Engine Turner [CONS] Routine Reason for SW Consult: Please assess patient for possible home health/rehabilitation needs for post-discharge planning. 12/21/17 17:50 Consult to Physical Therapy [CONS] Routine Comment: Evaluate, develop and implement POC Reason for Consult: Patient experienced fall resulting in fx of left thumb and wrist requiring surgery. Please assess pt. for ambulation strength, safety, stability, and possible home assistive/rehabilitation needs for post-discharge planning. Does patient have active BEDREST order?: Yes Is patient medically & hemodynamically stable?: Yes Patient assessed for mobility or mobilized this visit?: No Consult to Respiratory Therapy [CONS] Routine Reason for Consult: Please add flutter valve to breathing txs. Call Completed: Yes Discharging clinician: Seng Luna Anticipated date of discharge: 12/23/17 - Constitutional Vitals: Temp Pulse Resp BP Pulse Ox 98.1 F 79 20 124/83 97 12/23/17 07:10 12/23/17 07:10 12/23/17 10:00 12/23/17 07:10 12/23/17 10:00 General appearance: Present: cooperative, mild distress (Pain from fxs), A&O X 3, pleasant, underweight, answers questions appropriately Exam: See below - Head Head exam: Present: normocephalic - Eye Eye exam: Present: EOMI, conjuntiva pink - ENT ENT exam: Present: mucous membranes moist - Respiratory Respiratory exam: Present: prolonged expiratory phase. Absent: rhonchi, wheezes - Cardiovascular Cardiovascular exam: Present: RRR. Absent: tachycardia - GI/Abdominal GI/Abdominal exam: Present: soft. Absent: tenderness - Extremities Exam Extremities exam: Present: warm Additional comments: Splint R arm - Neurological Exam Neurological exam: Present: alert, oriented X3 - Skin Skin exam: Present: dry, warm - Patient Status Disposition: Home Health Service Condition: Fair Functional capacity at discharge: uses cane/walker Overall status at discharge: patient is progressing back to baseline - Discharge Instructions Follow Up With: Michaela Torres CNP [Primary Care Provider] - Additional Instructions: Do not remove splint Elevate hand. Move fingers, not thumb, making sure to make a full fist Use ice for 1 to 2 hour 3 times a day for the next 2 days. No lifting with the operative hand No sports or gym activities follow-up December 27 at 1:00 pm with Keely Thomas PA-C Home Medication List * You have been given a list of your current medications. If you have changes in your medications, update your list. * Provide a list of current medications to your primary care physician. * Carry a copy of your current medications with you in case of an emergency. - Diet and Activity Activity: increase activity as tolerated (As per ortho) Diet: advance to your usual diet
--- NOTE | 2017-12-23 10:23 | Physician Discharge Referral ---
Home Health/Hosp Referral Info Transfer to: Home Health ([facility]) Provider in Charge Post Discharge: PCP - Diagnosis (1) Distal radius fracture, left Priority: Primary Status: Resolved (2) Fracture of thumb, left, open Priority: Secondary Status: Resolved (3) Costochondritis Priority: Secondary Status: Acute (4) Atrial fibrillation Priority: Secondary Status: Chronic (5) COPD (chronic obstructive pulmonary disease) Priority: Secondary Status: Chronic (6) GERD (gastroesophageal reflux disease) Priority: Secondary Status: Chronic (7) HTN (hypertension) Priority: Secondary Status: Chronic (8) CAD (coronary artery disease) Priority: Secondary Status: Chronic (9) Anxiety and depression Priority: Secondary Status: Chronic (10) Afib Priority: Secondary Status: Chronic (11) Chronic hypoxemic respiratory failure Priority: Secondary Status: Chronic - Respiratory Orders Oxygen / L per min (Maintain saturation greater than 90%) Smoking Cessation: Smoking cessation has been advised. For more information, call the [place] Tobacco Quit Line at 4-538-ZJJD-NOW. - Diet/Nutrition Diet/Nutrition Orders: No Added Salt (DAKOTAH) - Activity Activity Orders: Up ad tiago, Walker - Services Needed Following services are medically necessary services: Nursing, Physical Therapy, Occupational Therapy - Transfer Medications Prescriptions: OxyCODONE/APAP 5/325 [Percocet 5/325 MG] 1 tab PO QID PRN 5 Days #20 tablet PRN Reason: Severe Pain Home Medications: Sertraline [Zoloft] 50 mg PO HS 09/21/15 [History] Temazepam [Restoril] 15 mg PO HS 09/21/15 [History] Omeprazole [PriLOSEC] 20 mg PO DAILY 10/01/17 [History] Diltiazem CD (24hr) [Cardizem CD] 180 mg PO DAILY 30 Days #30 cap.er.24h 10/06/17 [Rx] Acetaminophen [Tylenol] 650 mg PO DAILY #30 tablet 11/27/17 [Rx] Albuterol Neb [Proventil Neb] 2.5 mg IH Q4-6H PRN 11/27/17 [History] Calcitonin,[place],Synthetic [Calcitonin-[place]] 1 spray NS DAILY 12/05/17 [His tory] Oxygen 2 l IH AD 12/05/17 [History] Benzonatate [Tessalon] 200 mg PO TID PRN #30 capsule 12/15/17 [Rx] Gentle Iron 28 mg PO MOWEFR 12/22/17 [History] OxyCODONE/APAP 5/325 [Percocet 5/325 MG] 1 tab PO QID PRN 5 Days #20 tablet 12/23/17 [Rx] Allergies/Adverse Reactions: Allergy/AdvReac Type Severity Reaction Status Date / Time No Known Allergies Allergy Verified 12/05/17 14:43 Certification: Further, I certify that my clinical findings support that this patient is homebound (i.e. absences from home require considerable and taxing effort and are for medical reasons or scientology services or infrequently or short duration when for other reasons) because: Homebound Reason: Patient requires assistance of a person or device to safely leave home, Post-surgery restriction and or conditions limit ability to leave home, Severity of cardiac or pulmonary status limits activity tolerance Attestation: My signature below is to certify that this patient is under my care and that I, or nurse practitioner, or a physician's veterinary assistant working with me, has a [id number] encounter with this patient.
[2017-12-23 11:03] VITALS: BP 91/63
--- NOTE | 2017-12-23 23:16 | Electrocardiograph Report ---
[place] [address] Test Date: 2017-12-21 Pat Name: Estela Cleaning Department: 109 Room: 2A43 Gender: F Testing Director: : 1935 Requested By: Seng Luna Order Number: [id number] Reading MD: Amado Kraft Measurements Intervals [place] Rate: 78 P: 73 OK: 213 QRS: -24 QRSD: 94 T: 58 QT: 414 QTc: 448 Interpretive Statements SINUS RHYTHM WITH FIRST DEGREE AV BLOCK WITH OCCASIONAL SUPRAVENTRICULAR PREMATURE COMPLEXES SEPTAL INFARCT, AGE INDETERMINATE Electronically Signed On 12-23-2017 23:14:59 EDT by Amado Kraft
--- NOTE | 2017-12-23 23:17 | Electrocardiograph Report ---
[address] [place] [address] Test Date: 2017-12-21 Pat Name: Estela Cleaning Department: 109 Room: 2A43 Gender: F Senior Quality Assurance Specialist: : 1935 Requested By: [id number] Order Number: [id number] Reading MD: Amado Kraft Measurements Intervals [place] Rate: 78 P: 72 IA: 181 QRS: -21 QRSD: 98 T: 57 QT: 416 QTc: 449 Interpretive Statements SINUS RHYTHM WITH OCCASIONAL SUPRAVENTRICULAR PREMATURE COMPLEXES SEPTAL MYOCARDIAL INFARCTION, OF INDETERMINATE AGE Electronically Signed On 12-23-2017 23:15:54 EDT by Amado Kraft
--- NOTE | 2017-12-26 13:54 | Electrocardiograph Report ---
[place] [address] Test Date: 2017-12-22 Pat Name: Estela Cleaning Department: 109 Room: 2A43 Gender: Concrete Vibrator Operator: : 1935 Requested By: Luh Lancaster Order Number: [id number] Reading MD: Jeff Christopher Measurements Intervals [place] Rate: 82 P: 76 MS: 213 QRS: -18 QRSD: 106 T: 64 QT: 398 QTc: 437 Interpretive Statements SINUS RHYTHM WITH FIRST DEGREE AV BLOCK OCCASIONAL SUPRAVENTRICULAR PREMATURE COMPLEXES Electronically Signed On 12-26-2017 13:52:02 EDT by Jeff Christopher
== END 2017-12-23 13:30 | disposition home health service (06) ==
LOC: SAMDAYPAV 08:20 → 2ANU 08:20 → SAMDAYPAV 16:55 → 2ANU 17:01 → SUATTDRO 17:43
PROVIDERS: ADMIT Nurse Practitioner Family; ATTEND Internal Medicine

== ENCOUNTER 2018-01-16 02:41 | Inpatient (IN) ==
[2018-01-16] MEDS ORDERED: Ipratropium/Albuterol Neb 3 ML ONE (02:53)
[2018-01-16] MEDS ORDERED: methylPREDNISolone 125 MG/2 ML VIAL IVP ONE (03:13)
[2018-01-16] MEDS ORDERED: Ipratropium/Albuterol Neb 3 ML IH ONE (03:13)
[2018-01-16 04:01] LABS: VBG HCO3 33 mEq/L (21-27); VBG PCO2 62 mmHg (41-51); VBG PH 7.33 pH Units (7.32-7.42); VBG PO2 117 mmHg (25-50)
[2018-01-16 04:03] LABS: Basophils % 0.2 %; Eosinophils # 0.1 K/mcL (0.0-0.6); Eosinophils % 0.4 %; Hematocrit 28.4 % (35.3-44.9); Hemoglobin 8.6 g/dL (11.5-15.4); Immature Granulocytes % 0.6 % (0-4); Lymphocytes # 0.5 K/mcL (0.6-4.6); Mean Corpuscular HGB Conc 30.3 g/dL (31.6-35.5); Mean Corpuscular Hemoglobin 28.5 pg (28.0-33.3); Mean Platelet Volume 10.2 fL (9.4-12.4); Monocytes % 7.8 %; Platelet Count 326 K/mcL (140-400); Red Blood Count 3.02 M/mcL (3.82-4.97); Red Cell Distribution Width 15.2 % (11.5-14.5)
[2018-01-16 04:23] LABS: Troponin I < 0.03 ng/mL (< 0.04)
[2018-01-16 04:24] LABS: BUN/Creatinine Ratio 31 (6-26); Blood Urea Nitrogen 16 mg/dL (8-23); Calcium 8.9 mg/dL (8.6-10.3); Carbon Dioxide 31 mEq/L (23-29); Chloride 102 mEq/L (98-107); Glucose 185 mg/dL (70-105); Osmolality,Calculated 298 (280-300); Potassium 3.5 mEq/L (3.5-5.1); Sodium 141 mEq/L (136-145); eGFR For Non-African Americans > 60 (> 60)
[2018-01-16] MEDS ORDERED: Furosemide 40 MG/4 ML VIAL IVP ONE (04:47)
--- NOTE | 2018-01-16 04:50 | Emergency Department Note ---
Disposition Clinical Impression: Acute exacerbation of chronic obstructive airways disease Congestive heart failure Qualifiers: Heart failure type: unspecified Heart failure chronicity: unspecified Qualified Code(s): I50.9 - Heart failure, unspecified Disposition: Admitted As Inpatient Condition: Fair Time of Disposition: 04:52 SOB HPI - General Chief Complaint: ED Shortness of Breath/Dyspnea Stated Complaint: COPD Flare Time Seen by Provider: 01/16/18 03:10 Source: patient, family Mode of arrival: ambulatory Limitations: no limitations Nursing Notes Reviewed: Yes Vital Signs Reviewed: Yes - History of Present Illness Patient presents to the ED with the chief complaint difficulty breathing. Patient has a history of COPD and CHF. Since that she started having some trouble breathing earlier this evening and it feels more like her COPD. She had some breathing treatments at home that did not help. Family states they brought her in because she seemed a little more confused than usual and she normally has to come to the hospital when that happens. No fever. No chills. Is having francisca e chest tightness that is typical of her COPD. Mild increase in productive cough and yellow-green sputum. No abdominal pain. No nausea, vomiting, diarrhea. No rashes. No pain or swelling in her legs - Related Data Home Medications Medication Instructions Recorded Confirmed RX: Sertraline [Zoloft] 50 mg PO HS 09/21/15 12/22/17 RX: Temazepam [Restoril] 15 mg PO HS 09/21/15 12/22/17 RX: Omeprazole [PriLOSEC] 20 mg PO DAILY 10/01/17 12/22/17 RX: Albuterol Neb [Proventil Neb] 2.5 mg IH Q4-6H PRN 11/27/17 12/22/17 RX: Calcitonin,[place],Synthetic 1 spray NS DAILY 12/05/17 12/22/17 [Calcitonin-[place]] RX: Oxygen 2 l IH AD 12/05/17 12/22/17 Gentle Iron 28 mg PO MOWEFR 12/22/17 12/22/17 Previous Rx's Medication Instructions Recorded RX: Diltiazem CD (24hr) [Cardizem 180 mg PO DAILY 30 Days #30 10/06/17 CD] cap.er.24h RX: Acetaminophen [Tylenol] 650 mg PO DAILY #30 tablet 11/27/17 Benzonatate [Tessalon] 200 mg PO TID PRN #30 capsule 12/15/17 Allergies Allergy/AdvReac Type Severity Reaction Status Date / Time No Known Allergies Allergy Verified 01/16/18 02:42 Review of Systems: As reviewed in the HPI. All other systems reviewed are negative or normal. Past Medical History - Past Medical History Attestation: Yes The following information was validated with the patient. 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 - Social History Smoking Status: Former smoker Smokeless Tobacco Status: No Alcohol use: Reports: none Drug use: Reports: none Physical Exam CONSTITUTIONAL: [Chronically ill appearing, moderate respiratory distress] EYES: [EOMI, clear conjunctiva, PERRLA] HENT: [Normocephalic, atraumatic, dry mucus membranes, normal oropharynx] NECK: [normal inspection, full ROM, trachea midline, no obvious swelling] PULMONARY: [Coarse breath sounds, wheezing throughout, decreased breath sounds bilateral bases, breathing quickly and shallow, conversationally dyspneic at 1-2 words CARDIOVASCULAR: [regular rate, irregular rhythm, normal heart sounds, no murmurs, distal extremities are warm and well perfused] GASTROINSTESTINAL: [soft, non-tender, non-rigid, non-distended, no guarding, no rebound, normal bowel sounds] GENITOURINARY/RECTAL: [deferred] NEUROLOGIC: [Alert, oriented x3, speech limited due to respiratory distress, moves all extremities] EXTREMITIES: [Normal inspection, full ROM, no tenderness, no pedal edema, normal capillary refill] MUSCULOSKELETAL: [no gross deformities, atraumatic] SKIN: [No cyanosis, no diaphoresis, normal color, warm, no rash] PSYCHIATRIC: [normal mood and affect] - General Limitations: no limitations General appearance: alert Course Course Narrative: Patient presenting with COPD versus CHF. Will likely need admission. We will workup and admit. We will get BiPAP in the room and if she does not improve quickly after nebs. We will place on BiPAP. Patient has responded to nebs. We will not need BiPAP at this time. Patient admitted the hospitalist service. Did request a dose of Lasix and ED. Vital Signs Temperature 97.7 F 11/20/18 02:42 Pulse Rate 108 01/16/18 02:42 Respiratory Rate 20 01/16/18 02:42 Blood Pressure 144/84 01/16/18 02:42 O2 Sat by Pulse Oximetry 88 01/16/18 02:42 Temperature 97.7 F 01/16/18 02:42 Pulse Rate 108 01/16/18 02:42 Respiratory Rate 20 01/16/18 02:42 Blood Pressure 144/84 01/16/18 02:42 O2 Sat by Pulse Oximetry 88 01/16/18 02:42 Oxygen Delivery Oxygen Delivery Nasal Cannula Shortness of Breath/Dyspnea - Lab Data Result diagrams: 01/16/18 03:31 01/16/18 03:31 Lab Results 01/16/18 01/16/18 01/16/18 Range/Units 03:31 03:31 03:31 WBC 12.7 H (4.3-11.1) K/mcL RBC 3.02 L (3.82-4.97) M/mcL Hgb 8.6 L (11.5-15.4) g/dL Hct 28.4 L (35.3-44.9) % MCV 94.0 (83.0-100.0) fL MCH 28.5 (28.0-33.3) pg MCHC 30.3 L (31.6-35.5) g/dL RDW 15.2 H (11.5-14.5) % Plt Count 326 (140-400) K/mcL MPV 10.2 (9.4-12.4) fL Immature Gran % 0.6 (0-4) % Seg Neutrophils % 87.0 % Lymphocytes % 4.0 % Monocytes % 7.8 % Eosinophils % 0.4 % Basophils % 0.2 % Neutrophils # 11.0 H (1.6-8.9) K/mcL Lymphocytes # 0.5 L (0.6-4.6) K/mcL Monocytes # 1.0 (0.0-1.3) K/mcL Eosinophils # 0.1 (0.0-0.6) K/mcL Basophils # 0.0 (0.0-0.2) K/mcL VBG pH (7.32-7.42) pH Units VBG pCO2 (41-51) mmHg VBG pO2 (25-50) mmHg VBG HCO3 (21-27) mEq/L Sodium 141 (136-145) mEq/L Potassium 3.5 (3.5-5.1) mEq/L Chloride 102 (98-107) mEq/L Carbon Dioxide 31 H (23-29) mEq/L BUN 16 (8-23) mg/dL Creatinine 0.52 L (0.60-1.20) mg/dL Est GFR ( Amer) > 60 (> 60) Est GFR (Non-Af Amer) > 60 (> 60) BUN/Creatinine Ratio 31 H (6-26) Glucose 185 H (70-105) mg/dL Calculated Osmolality 298 (280-300) Lactic Acid 0.8 (0.5-2.2) mmol/L Calcium 8.9 (8.6-10.3) mg/dL Troponin I < 0.03 (< 0.04) ng/mL B-Natriuretic Peptide (Less than 100) pg/mL 01/16/18 01/16/18 Range/Units 03:31 03:57 WBC (4.3-11.1) K/mcL RBC (3.82-4.97) M/mcL Hgb (11.5-15.4) g/dL Hct (35.3-44.9) % MCV (83.0-100.0) fL MCH (28.0-33.3) pg MCHC (31.6-35.5) g/dL RDW (11.5-14.5) % Plt Count (140-400) K/mcL MPV (9.4-12.4) fL Immature Gran % (0-4) % Seg Neutrophils % % Lymphocytes % % Monocytes % % Eosinophils % % Basophils % % Neutrophils # (1.6-8.9) K/mcL Lymphocytes # (0.6-4.6) K/mcL Monocytes # (0.0-1.3) K/mcL Eosinophils # (0.0-0.6) K/mcL Basophils # (0.0-0.2) K/mcL VBG pH 7.33 (7.32-7.42) pH Units VBG pCO2 62 H (41-51) mmHg VBG pO2 117 H (25-50) mmHg VBG HCO3 33 H (21-27) mEq/L Sodium (136-145) mEq/L Potassium (3.5-5.1) mEq/L Chloride (98-107) mEq/L Carbon Dioxide (23-29) mEq/L BUN (8-23) mg/dL Creatinine (0.60-1.20) mg/dL Est GFR ( Amer) (> 60) Est GFR (Non-Af Amer) (> 60) BUN/Creatinine Ratio (6-26) Glucose (70-105) mg/dL Calculated Osmolality (280-300) Lactic Acid (0.5-2.2) mmol/L Calcium (8.6-10.3) mg/dL Troponin I (< 0.04) ng/mL B-Natriuretic Peptide 418 H (Less than 100) pg/mL Attestation Statement - Attestation Attestation: DR Resendez note: Pt seen in conjunction w/ resident DR Arsen Rivas; Please see his charting for complete documentation; I spent face to face time with the pt and agree w/ pt's treatment and disposition; cxr reviewed; sats improved prior to admission; mild/moderate increase in pulmonary congestive pattern noted on tonoights x ray vs prior; familiy reports sx just began a few hrs ago;
[2018-01-16] MEDS ORDERED: Albuterol 2.5 MG/3 ML NEBULIZER IH PRN (06:51)
[2018-01-16] MEDS: Ipratropium/Albuterol Neb 3 ML IH SCH ×6 (07:53→23:55)
--- NOTE | 2018-01-16 09:49 | Internal Med History&Physical ---
Date of Encounter: 01/16/18 Time of Encounter: 11:00 Internal Medicine - H&P: HPI Chief complaint: Mechanical fall and dyspnea with exertion Admitted From: Home Plans for Post Hospital Care: Home History of present illness: Patient is a 82-year-old female with past medical history significant for Afib (no OAC due to GI bleed), PE (09/2017), COPD, GERD, HTN, CAD, (no OAC d/t GI bleeding), previous breast cancer w/mastectomy of right breast, mood disorder and prior smoking history who presents to the ER on 01/16/18 due to mechanical fall. Patient reports a history of multiple mechanical falls and therefore no longer lives independently but lives with daughter. Patient states that while taking the dog out, the dog ran away from her and when she tried to catch him, she tripped over him falling to the ground. Patient remembers the entire event without losing consciousness. Patient reports of not being able to get up but neighbor found her and called EMS and she was brought into the ER for evaluation. In addition, patient also reports of dyspnea on exertion with lower extremity swelling for the last several days. In the ER, patient was found to have slight leukocytosis with WBC of 12.7. Chest x-ray showed mild to moderate pulmonary edema and patient was found to have a BNP of 418. He was given 1 dose of Solu-Medrol and addition to one dose of IV Lasix. Patient was also given dual nebs in the ER. She will be admitted to the medical surgical floor for COPD exacerbation with acute on chronic heart failure. Past Med Surg Social Fam HX - Past Medical History Medical history: atrial fibrillation, COPD, coronary artery disease, GERD, other Additional medical history: BREAST CA, FX to Wrist Psychiatric history: anxiety, depression - Past Surgical History Surgical History: breast surgery (Right mastectomy), hysterectomy (Total) Additional surgical history: right masectomy (2001), orif - Social History Smoking Status: Former smoker Smokeless Tobacco Status: No Alcohol use: none Drug use: none - Family History Mother Adopted: No Family Member Ethnicity: Non- Living Status: Hx Family Cardiac Disorders: Yes (CAD) Hx Family Respiratory Disorders: No Hx Family Cancer: No Hx Family GI Disorders: No Hx Family Endocrine Disorder: Yes (DM) Hx Family Neuromuscular Disorders: No Hx Family Neurologic Disorders: No Hx Family HEENT Disorders: No Hx Family Autoimmune Disorders: No Father Family Member Ethnicity: Non- Living Status: Hx Family Cardiac Disorders: Yes Son Adopted: No Family Member Ethnicity: Non- Living Status: Still Living Hx Family Cardiac Disorders: No Hx Family Respiratory Disorders: No Hx Family Cancer: Yes (Lung cancer) Hx Family GI Disorders: No Hx Family Endocrine Disorder: No Hx Family Neuromuscular Disorders: No Hx Family Neurologic Disorders: No Hx Family HEENT Disorders: No Hx Family Autoimmune Disorders: No Sister Family Member Ethnicity: Non- Living Status: Internal Medicine - H&P: Meds Sertraline [Zoloft] 50 mg PO QAM 09/21/15 [History] Temazepam [Restoril] 15 mg PO HS 09/21/15 [History] Omeprazole [PriLOSEC] 20 mg PO DAILY 10/01/17 [History] Diltiazem CD (24hr) [Cardizem CD] 180 mg PO DAILY 30 Days #30 cap.er.24h 10/06/17 [Rx] Acetaminophen [Tylenol] 650 mg PO DAILY #30 tablet 11/27/17 [Rx] Albuterol Neb [Proventil Neb] 2.5 mg IH Q4-6H PRN 11/27/17 [History] Oxygen 2 l IH AD 12/05/17 [History] Gentle Iron 28 mg PO MOWEFR 12/22/17 [History] Tamsulosin [Flomax] 0.4 mg PO DAILY 01/16/18 [History] Tramadol HCl [Ultram] 50 mg PO QID PRN 01/16/18 [History] Allergy/AdvReac Type Severity Reaction Status Date / Time No Known Allergies Allergy Verified 01/16/18 02:42 All Systems PM: A 10-system review of systems was performed and is negative for pertinent findings except as documented above in the HPI. - Constitutional Vitals: Temp Pulse Resp BP Pulse Ox 97.7 F 102 14 142/91 99 01/16/18 02:42 01/16/18 08:01 01/16/18 08:01 01/16/18 08:01 01/16/18 08:01 General appearance: Present: A&O X 3, no acute distress Exam: As above - Head Head exam: Present: atraumatic - Eye Eye exam: Present: normal appearance - ENT ENT exam: Present: mucous membranes moist - Respiratory Respiratory exam: Present: wheezes. Absent: accessory muscle use, CTAB, rales, respiratory distress, tachypnea - Cardiovascular Cardiovascular exam: Present: RRR, +S1, +S2. Absent: diastolic murmur, gallop, rubs, systolic murmur - GI/Abdominal GI/Abdominal exam: Present: normal bowel sounds, soft, no peritoneal signs. Absent: distended, tenderness - Extremities Exam Extremities exam: Present: pedal edema - Neurological Exam Neurological exam: Present: oriented X3 - Psychiatric Psychiatric exam: Present: normal mood - Skin Skin exam: Absent: pallor Internal Med - H&P Results - Labs CBC & Chem 7: 01/16/18 03:31 01/16/18 03:31 Labs: Short CBC 01/16/18 Range/Units 03:31 WBC 12.7 H (4.3-11.1) K/mcL Hgb 8.6 L (11.5-15.4) g/dL Hct 28.4 L (35.3-44.9) % Plt Count 326 (140-400) K/mcL Neutrophils # 11.0 H (1.6-8.9) K/mcL BMP 01/16/18 03:31 Sodium 141 Potassium 3.5 Chloride 102 Carbon Dioxide 31 H BUN 16 Creatinine 0.52 L Glucose 185 H Calcium 8.9 Cardiac Enzymes 01/16/18 Range/Units 03:31 Troponin I < 0.03 (< 0.04) ng/mL - ABG Interpretation ABG results: 01/16/18 03:57 VBG pH 7.33 VBG pCO2 62 H VBG pO2 117 H VBG HCO3 33 H - Impressions ITS Impressions Chest X-Ray 01/16/18 03:13 IMPRESSION: [id number] pulmonary edema with new small bilateral effusions. Hyperinflated lungs suggest a background of obstructive small airways disease such as asthma or COPD. D/ / Clement Mojica / Clement Mojica Interpreting Provider: Clement Mojica - Assessment and plan (1) Acute and chronic respiratory failure Current Visit: Yes Status: Acute Assessment and plan: Patient reports a several day history of dyspnea on exertion found to have acute on chronic respiratory failure in the ER Suspect secondary to COPD exacerbation and heart failure exacerbation. Patient currently requiring 4 L of nasal cannula and wears 2 L at home Will wean O2 back to baseline as tolerates. Management of COPD and heart failure as below Qualifiers: Respiratory failure complication: hypoxia Qualified Code(s): J96.21 - Acute and chronic respiratory failure with hypoxia (2) Acute exacerbation of chronic obstructive airways disease Current Visit: Yes Status: Acute Assessment and plan: Patient with leukocytosis on admission (WBC 12.7) and expiratory wheezes on exam Chest x-ray showed mild to moderate pulmonary edema with small bilateral effusions but no infiltrates noted. Continue IV Solu-Medrol started in the ER in addition to scheduled DuoNeb's. Will also initiate IV azithromycin (3) Congestive heart failure Current Visit: Yes Status: Acute Assessment and plan: Patient with acute on chronic diastolic heart failure Patient reports several day history of dyspnea on exertion addition to lower extremity swelling. Patient with pedal edema evident on exam Chest x-ray showed mild to moderate pulmonary edema with small bilateral effusions Echocardiogram on 11/27/17 showed LVEF of 50-55% with mild left ventricular diastolic dysfunction She is not on a diuretic at home Patient was given a dose of IV Lasix 40 mg 1 Patient to be reevaluated in the a.m. for the need for any additional diuresis Qualifiers: Heart failure type: unspecified Heart failure chronicity: unspecified Qualified Code(s): I50.9 - Heart failure, unspecified (4) Atrial fibrillation with RVR Current Visit: No Status: Acute Assessment and plan: Patient with elevated heart rate but unsure if she took her medication this morning Patient not on oral anticoagulation due to multiple falls Will resume her home dose of Cardizem and monitor (5) Fall Current Visit: No Status: Acute Assessment and plan: Patient reports of multiple mechanical falls and tripped over her dog last night. Will consult physical therapy for assessment for home safety Qualifiers: Encounter type: initial encounter Qualified Code(s): W19.XXXA - Unspecified fall, initial encounter (6) CAD (coronary artery disease) Current Visit: No Status: Chronic Assessment and plan: Continue home medications Qualifiers: Coronary Disease-Associated Artery/Lesion type: [place] artery [place] vs. t ransplanted heart: [place] heart Associated angina: without angina Qualified Code(s): I25.10 - Atherosclerotic heart disease of [place] coronary artery without angina pectoris (7) Anxiety and depression Current Visit: No Status: Chronic Assessment and plan: Continue home medications (8) GERD (gastroesophageal reflux disease) Current Visit: No Status: Chronic Assessment and plan: Continue home dose of PPI Qualifiers: Esophagitis presence: esophagitis presence not specified Qualified Code(s): K21.9 - Gastro-esophageal reflux disease without esophagitis (9) Protein-calorie malnutrition, severe Current Visit: No Status: Acute Assessment and plan: Patient with BMI of 17.2 (10) DVT prophylaxis Current Visit: No Status: Acute Assessment and plan: Subcutaneous Lovenox - Time Spent With Patient Total time spent is greater than 50% in coordination of care (as documented) at patient's floor/unit and/or counseling patient:
[2018-01-16] MEDS ORDERED: Naloxone 0.4 MG/ML INJ IVP PRN (10:27)
[2018-01-16] MEDS ORDERED: NON-FORMULARY MEDICATION 1 EACH EACH (Oxygen [Oxygen] 2 L) IH SCH (10:30)
[2018-01-16] MEDS: Azithromycin 500 MG in D5% in Water 250 ML IVPB SCH (11:29)
[2018-01-16] MEDS: methylPREDNISolone 125 MG/2 ML VIAL IVP SCH ×3 (11:29→21:13)
[2018-01-16] MEDS: Diltiazem CD (24hr) 180 MG CAPSULE PO SCH (11:29)
[2018-01-16 12:44] LABS: Bilirubin,Urine Negative (Negative); Blood,Urine Negative (Negative); Clarity,Urine Clear (Clear); Color,Urine Yellow (Yellow); Glucose,Urine (UA) Normal (Normal); Ketones,Urine Negative (Negative); Leukocyte Esterase,Urine Negative (Negative); Nitrite,Urine Negative (Negative); PH,Urine 6.5 pH Units (5.0-8.0); Protein,Urine Negative (Neg-Trace); Specific Gravity,Urine 1.011 (1.010-1.025); Urobilinogen,Urine Normal (Normal)
--- NOTE | 2018-01-16 16:32 | Electrocardiograph Report ---
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
--- NOTE | 2018-01-16 16:45 | Electrocardiograph Report ---
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
[2018-01-16] MEDS: *HR* Enoxaparin 40 MG/0.4 ML SYRINGE SQ SCH (17:44)
[2018-01-16] MEDS: Temazepam 15 MG CAPSULE PO SCH (21:11)
[2018-01-16] MEDS: traMADol 50 MG TABLET PO PRN (21:12)
[2018-01-17] MEDS: methylPREDNISolone 125 MG/2 ML VIAL IVP SCH ×4 (00:40→23:41)
[2018-01-17] MEDS: Ipratropium/Albuterol Neb 3 ML IH SCH ×5 (04:29→20:10)
[2018-01-17 05:12] LABS: Hematocrit 27.5 % (35.3-44.9); Hemoglobin 8.6 g/dL (11.5-15.4); Mean Corpuscular HGB Conc 31.3 g/dL (31.6-35.5); Mean Corpuscular Hemoglobin 28.5 pg (28.0-33.3); Mean Corpuscular Volume 91.1 fL (83.0-100.0); Mean Platelet Volume 10.5 fL (9.4-12.4); Platelet Count 362 K/mcL (140-400); Red Blood Count 3.02 M/mcL (3.82-4.97); Red Cell Distribution Width 15.4 % (11.5-14.5)
[2018-01-17] MEDS: *HR* Enoxaparin 40 MG/0.4 ML SYRINGE SQ SCH (05:28)
[2018-01-17 05:31] LABS: BUN/Creatinine Ratio 40 (6-26); Blood Urea Nitrogen 23 mg/dL (8-23); Carbon Dioxide 37 mEq/L (23-29); Chloride 99 mEq/L (98-107); Glucose 209 mg/dL (70-105); Osmolality,Calculated 306 (280-300); Potassium 3.5 mEq/L (3.5-5.1); Sodium 143 mEq/L (136-145); eGFR For Non-African Americans > 60 (> 60)
[2018-01-17] MEDS ORDERED: Diltiazem CD (24hr) 180 MG CAPSULE PO SCH (09:00)
[2018-01-17] MEDS: Azithromycin 500 MG in D5% in Water 250 ML IVPB SCH (09:19)
[2018-01-17] MEDS: Diltiazem CD (24hr) 180 MG CAPSULE PO SCH (09:19)
[2018-01-17] MEDS: Acetaminophen 325 MG TABLET PO SCH (12:41)
[2018-01-17] MEDS ORDERED: methylPREDNISolone 125 MG/2 ML VIAL IVP SCH (18:00)
[2018-01-17] MEDS ORDERED: *HR* LORazepam 2 MG/ML VIAL IVP ONE (20:40)
[2018-01-17] MEDS: Temazepam 15 MG CAPSULE PO SCH (20:43)
[2018-01-17] MEDS: Levalbuterol Neb 1.25 MG/3 ML IH SCH (21:28)
[2018-01-17] MEDS ORDERED: *HR* Metoprolol 5 MG/5 ML VIAL IVP ONE (22:27)
--- NOTE | 2018-01-17 22:40 | Internal Med Progress Note ---
Hospitalist Progress Note - Encounter Date of Encounter: 01/17/18 Time of Encounter: 19:00 - Subjective Interval History: SUBJECTIVE: The patient feels better. Her breathing is not labored anymore. She is on nasal cannula oxygen at 2 L/min. She does have mild cough with some wheezing at times. Denies chest pain. Denies abdominal pain, nausea and vomiting. She has normal urination. OBJECTIVE: Skin: Free of rash and discoloration. ENMT: Oral/pharyngeal mucosa is normal in appearance. Eyes: Sclera is white. There is no discharge from eyes. Respiratory: Normal breath sounds; I can he a few bilateral rhonchi and wheezes. CV: Heart is regular; no gallop or murmur. GI: Abdomen is soft and not tender. There is no palpable mass or visceromegaly. Neuro: There is no focal deficits. ADDITIONAL DATA: Hemoglobin is 8.6 with normal WBC and platelet count. Electrolytes are normal. Creatinine is 0.58. ASSESSMENT AND PLAN: COPD exacerbation with acute on chronic diastolic heart failure. Acute on chronic respiratory failure with hypoxia. We will continue supplemental oxygen. She is on Zithromax, IV Solu-Medrol and nebulizer treatments with DuoNeb. We will continue mild fluid restriction. Atrial fibrillation. Currently, rate controlled. Will continue Cardizem CD. GERD. Under control. We will continue Prilosec. Severe protein calorie malnutrition. I will consult nutrition. - Exam Vitals: Temp Pulse Resp BP Pulse Ox 98.5 F 141 26 160/110 95 01/17/18 21:00 01/17/18 21:00 01/17/18 21:00 01/17/18 21:00 01/17/18 21:00 Exam: xx - Assessment and Plan (1) Acute exacerbation of chronic obstructive airways disease Current Visit: Yes Status: Acute (2) Acute on chronic diastolic heart failure Current Visit: Yes Status: Acute (3) Acute and chronic respiratory failure Current Visit: Yes Status: Acute (4) Atrial fibrillation with RVR Current Visit: No Status: Acute (5) GERD (gastroesophageal reflux disease) Current Visit: No Status: Chronic (6) Protein-calorie malnutrition, severe Current Visit: No Status: Acute - Time Spent with Patient Total time spent is greater than 50% in coordination of care (as documented) at patient's floor/unit and/or counseling patient: Internal Medicine: Result - Labs CBC & Chem 7: 01/17/18 04:56 01/17/18 04:56 Labs: Short CBC 01/17/18 Range/Units 04:56 WBC 8.6 (4.3-11.1) K/mcL Hgb 8.6 L (11.5-15.4) g/dL Hct 27.5 L (35.3-44.9) % Plt Count 362 (140-400) K/mcL BMP 01/17/18 04:56 Sodium 143 Potassium 3.5 Chloride 99 Carbon Dioxide 37 H BUN 23 Creatinine 0.58 L Glucose 209 H Calcium 9.0 - Impressions Impressions Chest X-Ray 01/17/18 20:38 IMPRESSION: Mild pulmonary edema. Persistent small bibasilar lung opacities likely pleural fluid and atelectasis. No focal consolidation. D/ /17/2018 21:36:24 Kye Ortega MD / Carmenza Albarran Interpreting Provider: Kye Ortega MD Consult Discharge Plan - Plan Referrals: Michaela Torres, CONSULAR OFFICER [Primary Care Provider] - (3) Acute and chronic respiratory failure Qualifiers: Respiratory failure complication: hypoxia Qualified Code(s): J96.21 - Acute and chronic respiratory failure with hypoxia (5) GERD (gastroesophageal reflux disease) Qualifiers: Esophagitis presence: esophagitis presence not specified Qualified Code(s): K21.9 - Gastro-esophageal reflux disease without esophagitis
--- NOTE | 2018-01-18 02:40 | Event Note ---
Addendum entered and electronically signed by Miko Rodrigez CNP 01/18/18 04:06: Spent 70 minutes of critical care for this patient managing severe tachycardia (HR 140s to 150s), hypertension, dyspnea and SOB, and severe anxiety r/t hypoxia and SOB. Care included placement of orders for HTN and tachycardia (IVP metoprolol and hydralazine) w/careful monitoring, initiation of BiPAP, IVP Solu- medrol, and IVP Ativan for anxiety r/t dyspnea. Monitoring took place at pts. bedside w/nursing and respiratory staff. Original Note: Date of Encounter: 01/17/18 Time of Encounter: 20:22 Alerted by patient's nurse SUMMER Jimenez that pt. was becoming tachycardic w/HR in the 130s, SOB, having difficulty clearing secretions, coughing, and had rhonchi and wheezing in all lung [place]. Pt. had just received a DuoNeb tx when HR began fluctuating from 110s to 140s. Last BP was 160/110. Went to see the pt. who was in bed on BiPAP and appeared anxious and dyspneic. SpO2 was 96% on 3L. Instructed nurse to order stat ABG. Pt. received ordered Restoril while I was at bedside and order for 10 mg IVP hydralazine Q6HR PRN w/parameters was placed. Informed by pts. nurse at 22:25 that pts. BP one hour after hydralazine was 132/102. VS at 22:15: 97.3F temp, HR 130, RR 29, BP 133/106, SpO2 97% on BiPAP. MEWS score was 5. ABG results were: CO2 62, PO2 117, HCO3 33. Lactic acid was 1.4 (previous was 0.8). Instructed nurse to hold IVP Ativan and administer an ordered does of IVP metoprolol. VS at 00:00: 98.6F temp, HR 99, RR 26, BP 137/89, SpO2 97% on BiPAP. VS at 00:30: HR 75, RR 20, BP 139/82, SpO2 96% on BiPAP. Pts. Solu-Medrol changed from 60 mg IVP Q12HR to 60 mg IVP Q8HR. DuoNebs discontinued d/t pts. hx of Afib and Xopenex IH 1.25 Q6HR ordered w/flutter valve. Discussed pt. w/Dr. Avilez who went to see and assess the pt. Checked on pt. Q30MIN to assess for any changes. Pt. was more relaxed w/marked improvement in HR, RR, anxiety, and SOB. Pt. resting comfortably at last check. Instructed nurse to continue to monitor pt. closely and notify Dr. Avilez or myself of any changes.
[2018-01-18] MEDS: Levalbuterol Neb 1.25 MG/3 ML IH SCH ×4 (04:29→22:14)
[2018-01-18 06:19] LABS: Basophils % 0.1 %; Hematocrit 29.4 % (35.3-44.9); Immature Granulocytes % 1.4 % (0-4); Lymphocytes # 0.4 K/mcL (0.6-4.6); Lymphocytes % 4.3 %; Mean Corpuscular HGB Conc 30.6 g/dL (31.6-35.5); Mean Corpuscular Hemoglobin 28.1 pg (28.0-33.3); Mean Corpuscular Volume 91.9 fL (83.0-100.0); Mean Platelet Volume 10.4 fL (9.4-12.4); Monocytes # 0.4 K/mcL (0.0-1.3); Monocytes % 4.1 %; Neutrophils # 8.3 K/mcL (1.6-8.9); Platelet Count 384 K/mcL (140-400); Red Cell Distribution Width 15.5 % (11.5-14.5); Segmented Neutrophils % 90.1 %
[2018-01-18 06:39] LABS: Alanine Aminotransferase 56 Units/L (7-52); Albumin 3.4 g/dL (3.5-5.7); Albumin/Globulin Ratio 1.1 (1.1-2.2); Alkaline Phosphatase 90 Units/L (34-104); Aspartate Amino Transferase 49 Units/L (13-39); BUN/Creatinine Ratio 47 (6-26); Bilirubin,Total 0.3 mg/dL (0.3-1.0); Blood Urea Nitrogen 28 mg/dL (8-23); Carbon Dioxide 36 mEq/L (23-29); Chloride 98 mEq/L (98-107); Globulin 3.2 g/dL (2.4-3.5); Glucose 202 mg/dL (70-105); Osmolality,Calculated 299 (280-300); Potassium 3.9 mEq/L (3.5-5.1); Sodium 139 mEq/L (136-145); Total Protein 6.6 g/dL (6.4-8.9); eGFR For Non-African Americans > 60 (> 60)
[2018-01-18] MEDS: *HR* Enoxaparin 40 MG/0.4 ML SYRINGE SQ SCH (06:55)
[2018-01-18] MEDS: Azithromycin 500 MG in D5% in Water 250 ML IVPB SCH (09:04)
[2018-01-18] MEDS: Acetaminophen 325 MG TABLET PO SCH (09:04)
[2018-01-18] MEDS: Diltiazem CD (24hr) 180 MG CAPSULE PO SCH (09:04)
[2018-01-18] MEDS: methylPREDNISolone 125 MG/2 ML VIAL IVP SCH ×2 (09:04→16:19)
[2018-01-18] MEDS ORDERED: *HR* Metoprolol 5 MG/5 ML VIAL IVP PRN (13:33)
[2018-01-18] MEDS ORDERED: *HR* LORazepam 0.5 MG TABLET PO PRN (13:35)
--- NOTE | 2018-01-18 17:37 | Internal Med Progress Note ---
Hospitalist Progress Note - Encounter Date of Encounter: 01/18/18 Time of Encounter: 16:00 - Subjective Interval History: SUBJECTIVE: The patient does have episodes of dyspnea with fast heart rate (around 130) and a lot of anxiety. It happened last night on one occasion. It happened today afternoon on one occasion. The second 1 was treated successfully with low-dose IV Lopressor and low-dose of oral Ativan. She uses supplemental oxygen at 2 L/min nasal cannula (like at home). OBJECTIVE: Skin: Free of rash and discoloration. ENMT: Oral/pharyngeal mucosa is normal in appearance. Eyes: Sclera is white. There is no discharge from eyes. Respiratory: Normal breath sounds; I can he a few bilateral rhonchi and wheezes CV: Heart is regular; no gallop or murmur. GI: Abdomen is soft and not tender. There is no palpable mass or visceromegaly. Neuro: There is no focal deficits. ADDITIONAL DATA (from yesterday): Hemoglobin is 8.6 with normal WBC and platelet count. Electrolytes are normal. Creatinine is 0.58. ASSESSMENT AND PLAN: COPD exacerbation with acute on chronic diastolic heart failure. Acute on chronic respiratory failure with hypoxia. We will continue supplemental oxygen. She is on Zithromax, IV Solu-Medrol, Mucinex and nebulizer treatments with Xopenex. We will continue mild fluid restriction. We will use when necessary Ativan to control her anxiety. Atrial fibrillation. Currently, rate controlled. Will continue Cardizem CD. She will get when necessary IV Lopressor for heart rate over 130. GERD. Under control. We will continue Prilosec. Severe protein calorie malnutrition. I will consult nutrition. - Exam Vitals: Temp Pulse Resp BP Pulse Ox 98.9 F 99 22 155/94 97 01/18/18 16:33 01/18/18 16:33 01/18/18 16:33 01/18/18 16:33 01/18/18 16:33 Exam: x - Assessment and Plan (1) Acute exacerbation of chronic obstructive airways disease Current Visit: Yes Status: Acute (2) Acute on chronic diastolic heart failure Current Visit: Yes Status: Acute (3) Acute and chronic respiratory failure Current Visit: Yes Status: Acute (4) Atrial fibrillation with RVR Current Visit: No Status: Acute (5) GERD (gastroesophageal reflux disease) Current Visit: No Status: Chronic (6) Protein-calorie malnutrition, severe Current Visit: No Status: Acute - Time Spent with Patient Total time spent is greater than 50% in coordination of care (as documented) at patient's floor/unit and/or counseling patient: 25 - 35 minutes Plan of Care Discussed with: patient Internal Medicine: Result - Labs CBC & Chem 7: 01/18/18 05:43 01/18/18 05:43 Labs: Short CBC 01/18/18 Range/Units 05:43 WBC 9.3 (4.3-11.1) K/mcL Hgb 9.0 L (11.5-15.4) g/dL Hct 29.4 L (35.3-44.9) % Plt Count 384 (140-400) K/mcL Neutrophils # 8.3 (1.6-8.9) K/mcL BMP 01/18/18 05:43 Sodium 139 Potassium 3.9 Chloride 98 Carbon Dioxide 36 H BUN 28 H Creatinine 0.59 L Glucose 202 H Calcium 9.0 Liver Function 01/18/18 Range/Units 05:43 Total Bilirubin 0.3 (0.3-1.0) mg/dL AST 49 H (13-39) Units/L ALT 56 H (7-52) Units/L Alkaline Phosphatase 90 (34-104) Units/L Albumin 3.4 L (3.5-5.7) g/dL - Impressions Impressions Chest X-Ray 01/17/18 20:38 IMPRESSION: Mild pulmonary edema. Persistent small bibasilar lung opacities likely pleural fluid and atelectasis. No focal consolidation. D/ /17/2018 21:36:24 Kye Ortega MD / Carmenza Albarran Interpreting Provider: Kye Ortega MD Consult Discharge Plan - Plan Referrals: Micahela Torres, [employer] [Primary Care Provider] - (3) Acute and chronic respiratory failure Qualifiers: Respiratory failure complication: hypoxia Qualified Code(s): J96.21 - Acute and chronic respiratory failure with hypoxia (5) GERD (gastroesophageal reflux disease) Qualifiers: Esophagitis presence: esophagitis presence not specified Qualified Code(s): K21.9 - Gastro-esophageal reflux disease without esophagitis
[2018-01-18] MEDS: Temazepam 15 MG CAPSULE PO SCH (20:23)
--- NOTE | 2018-01-18 23:24 | Event Note ---
Date of Encounter: 01/18/18 Time of Encounter: 23:20 Alerted by pts. nurse SUMMER Jimenez that pt. and family wished to discuss plan of care after pt. is discharged. Pt. stated that she does not want to go to rehab when discharged. Instead she wishes to go home with her daughter who cares for her. Daughter confirmed this stating that plans were discussed and initiated for the pt. to receive home health care at her daughter's home several days per week. Please follow-up with Social Work to ensure that this plan comes to fruition for post-discharge planning.
[2018-01-19] MEDS: methylPREDNISolone 125 MG/2 ML VIAL IVP SCH ×4 (00:21→23:36)
[2018-01-19 04:09] LABS: Basophils % 0.1 %; Hematocrit 26.3 % (35.3-44.9); Hemoglobin 8.2 g/dL (11.5-15.4); Immature Granulocytes % 2.3 % (0-4); Lymphocytes # 0.3 K/mcL (0.6-4.6); Lymphocytes % 3.8 %; Mean Corpuscular HGB Conc 31.2 g/dL (31.6-35.5); Mean Corpuscular Hemoglobin 28.3 pg (28.0-33.3); Mean Corpuscular Volume 90.7 fL (83.0-100.0); Mean Platelet Volume 10.6 fL (9.4-12.4); Monocytes # 0.3 K/mcL (0.0-1.3); Monocytes % 3.8 %; Neutrophils # 6.6 K/mcL (1.6-8.9); Platelet Count 349 K/mcL (140-400); Red Cell Distribution Width 15.4 % (11.5-14.5)
[2018-01-19 04:28] LABS: Alanine Aminotransferase 50 Units/L (7-52); Albumin 3.1 g/dL (3.5-5.7); Alkaline Phosphatase 88 Units/L (34-104); Aspartate Amino Transferase 22 Units/L (13-39); BUN/Creatinine Ratio 54 (6-26); Bilirubin,Total 0.3 mg/dL (0.3-1.0); Blood Urea Nitrogen 31 mg/dL (8-23); Calcium 8.6 mg/dL (8.6-10.3); Carbon Dioxide 36 mEq/L (23-29); Chloride 101 mEq/L (98-107); Glucose 224 mg/dL (70-105); Osmolality,Calculated 306 (280-300); Potassium 4.2 mEq/L (3.5-5.1); Sodium 141 mEq/L (136-145); Total Protein 6.1 g/dL (6.4-8.9); eGFR For Non-African Americans > 60 (> 60)
[2018-01-19] MEDS: Levalbuterol Neb 1.25 MG/3 ML IH SCH ×4 (04:43→22:49)
[2018-01-19] MEDS: *HR* Enoxaparin 40 MG/0.4 ML SYRINGE SQ SCH (05:44)
[2018-01-19] MEDS: Diltiazem CD (24hr) 180 MG CAPSULE PO SCH (09:37)
[2018-01-19] MEDS: Acetaminophen 325 MG TABLET PO SCH (09:38)
[2018-01-19] MEDS: Azithromycin 500 MG in D5% in Water 250 ML IVPB SCH (09:39)
--- NOTE | 2018-01-19 15:03 | Internal Med Progress Note ---
Hospitalist Progress Note - Encounter Date of Encounter: 01/19/18 Time of Encounter: 14:30 - Subjective Interval History: SUBJECTIVE: The patient feels better today. He she has not had any attacks of dyspnea/anxiety since yesterday evening. Denies chest pain. She is on supplemental oxygen at 3 L/min nasal cannula (2 L/min at home). She continues off and on BiPAP treatments. Denies abdominal pain, nausea and vomiting. She has normal urination. OBJECTIVE: Skin: Free of rash and discoloration. ENMT: Oral/pharyngeal mucosa is normal in appearance. Eyes: Sclera is white. There is no discharge from eyes. Respiratory: Normal breath sounds; I can he a few bilateral rhonchi and wheezes. CV: Heart is regular; no gallop or murmur. GI: Abdomen is soft and not tender. There is no palpable mass or visceromegaly. Neuro: There is no focal deficits. ADDITIONAL DATA: Hemoglobin is 8.2 with normal WBC/platelet count. Her electrolytes are showing bicarb of 36, otherwise they are normal. Creatinine is 0.57. I am ordering a chest x-ray. ASSESSMENT AND PLAN: COPD exacerbation with acute on chronic diastolic heart failure. Acute on chronic respiratory failure with hypoxia and hypercapnia. We will continue supplemental oxygen. She is on Zithromax, IV Solu-Medrol, Mucinex and nebulizer treatments with Xopenex. We will continue mild fluid restriction. Atrial fibrillation. Currently, rate controlled. We will continue Cardizem CD. She will get when necessary IV Lopressor for heart rate over 125. GERD. Under control. We will continue Prilosec. Severe protein calorie malnutrition. I will consult nutrition. - Exam Vitals: Temp Pulse Resp BP Pulse Ox 98.3 F 111 16 146/92 98 01/19/18 07:30 01/19/18 11:38 01/19/18 11:38 01/19/18 11:38 01/19/18 11:38 Exam: x - Assessment and Plan (1) Acute exacerbation of chronic obstructive airways disease Current Visit: Yes Status: Acute (2) Acute on chronic diastolic heart failure Current Visit: Yes Status: Acute (3) Acute and chronic respiratory failure Current Visit: Yes Status: Acute (4) Atrial fibrillation with RVR Current Visit: No Status: Acute (5) GERD (gastroesophageal reflux disease) Current Visit: No Status: Chronic (6) Protein-calorie malnutrition, severe Current Visit: No Status: Acute - Time Spent with Patient Total time spent is greater than 50% in coordination of care (as documented) at patient's floor/unit and/or counseling patient: 25 - 35 minutes Plan of Care Discussed with: patient Internal Medicine: Result - Labs CBC & Chem 7: 01/19/18 03:11 01/19/18 03:11 Labs: Short CBC 01/19/18 Range/Units 03:11 WBC 7.3 (4.3-11.1) K/mcL Hgb 8.2 L (11.5-15.4) g/dL Hct 26.3 L (35.3-44.9) % Plt Count 349 (140-400) K/mcL Neutrophils # 6.6 (1.6-8.9) K/mcL BMP 01/19/18 03:11 Sodium 141 Potassium 4.2 Chloride 101 Carbon Dioxide 36 H BUN 31 H Creatinine 0.57 L Glucose 224 H Calcium 8.6 Liver Function 01/19/18 Range/Units 03:11 Total Bilirubin 0.3 (0.3-1.0) mg/dL AST 22 (13-39) Units/L ALT 50 (7-52) Units/L Alkaline Phosphatase 88 (34-104) Units/L Albumin 3.1 L (3.5-5.7) g/dL Consult Discharge Plan - Plan Referrals: Michaela Torres, BI TECHNICAL LEAD [Primary Care Provider] - (3) Acute and chronic respiratory failure Qualifiers: Respiratory failure complication: hypoxia and hypercapnia Qualified Code(s): J96.21 - Acute and chronic respiratory failure with hypoxia; J96.22 - Acute and chronic respiratory failure with hypercapnia (5) GERD (gastroesophageal reflux disease) Qualifiers: Esophagitis presence: esophagitis presence not specified Qualified Code(s): K21.9 - Gastro-esophageal reflux disease without esophagitis
[2018-01-19] MEDS: traMADol 50 MG TABLET PO PRN (18:00)
[2018-01-19] MEDS: Temazepam 15 MG CAPSULE PO SCH (20:38)
[2018-01-20 03:47] LABS: Basophils % 0.2 %; Hematocrit 28.4 % (35.3-44.9); Hemoglobin 8.9 g/dL (11.5-15.4); Immature Granulocytes % 3.3 % (0-4); Lymphocytes # 0.3 K/mcL (0.6-4.6); Lymphocytes % 3.7 %; Mean Corpuscular HGB Conc 31.3 g/dL (31.6-35.5); Mean Corpuscular Hemoglobin 28.5 pg (28.0-33.3); Mean Platelet Volume 9.9 fL (9.4-12.4); Monocytes # 0.3 K/mcL (0.0-1.3); Monocytes % 3.1 %; Neutrophils # 7.2 K/mcL (1.6-8.9); Nucleated Red Blood Cells 0.2 /100 WBC (0); Platelet Count 343 K/mcL (140-400); Red Blood Count 3.12 M/mcL (3.82-4.97); Red Cell Distribution Width 15.1 % (11.5-14.5); Segmented Neutrophils % 89.7 %
[2018-01-20] MEDS: Levalbuterol Neb 1.25 MG/3 ML IH SCH ×4 (04:01→23:03)
[2018-01-20] MEDS: *HR* Enoxaparin 40 MG/0.4 ML SYRINGE SQ SCH (04:04)
[2018-01-20 04:05] LABS: Alanine Aminotransferase 43 Units/L (7-52); Albumin 3.2 g/dL (3.5-5.7); Albumin/Globulin Ratio 1.1 (1.1-2.2); Alkaline Phosphatase 84 Units/L (34-104); Aspartate Amino Transferase 15 Units/L (13-39); BUN/Creatinine Ratio 56 (6-26); Bilirubin,Total 0.3 mg/dL (0.3-1.0); Blood Urea Nitrogen 29 mg/dL (8-23); Calcium 8.7 mg/dL (8.6-10.3); Carbon Dioxide 32 mEq/L (23-29); Chloride 99 mEq/L (98-107); Globulin 2.8 g/dL (2.4-3.5); Glucose 281 mg/dL (70-105); Osmolality,Calculated 302 (280-300); Potassium 4.2 mEq/L (3.5-5.1); Sodium 138 mEq/L (136-145); eGFR For Non-African Americans > 60 (> 60)
[2018-01-20] MEDS: methylPREDNISolone 125 MG/2 ML VIAL IVP SCH (07:59)
[2018-01-20] MEDS: Azithromycin 250 MG TABLET PO SCH (08:00)
[2018-01-20] MEDS: Acetaminophen 325 MG TABLET PO SCH (08:00)
[2018-01-20] MEDS: Diltiazem CD (24hr) 180 MG CAPSULE PO SCH (08:00)
[2018-01-20] MEDS ORDERED: Furosemide 40 MG TABLET PO ONE (12:04)
--- NOTE | 2018-01-20 17:50 | Internal Med Progress Note ---
Hospitalist Progress Note - Encounter Date of Encounter: 01/20/18 Time of Encounter: 15:30 - Subjective Interval History: SUBJECTIVE: The patient had uneventful last 24 hours. She continues to have off and on mild/moderate cough; occasionally with wheezing. She is on 3 L/min nasal cannula oxygen (2 L/min at home). Denies chest pain. Denies abdominal pain, nausea and vomiting. She makes good amounts of urine. OBJECTIVE: Skin: Free of rash and discoloration. ENMT: Oral/pharyngeal mucosa is normal in appearance. Eyes: Sclera is white. There is no discharge from eyes. Respiratory: Normal breath sounds; I can he a few bilateral rhonchi and wheezes. CV: Heart is regular; no gallop or murmur. GI: Abdomen is soft and not tender. There is no palpable mass or visceromegaly. Neuro: There is no focal deficits. ADDITIONAL DATA: Her hemoglobin is 8.9; 8.2 yesterday. WBC and platelet count are normal. BMP shows decreased bicarbonate of 32; 36 yesterday. Creatinine is 0.52. Liver function tests are normal. ASSESSMENT AND PLAN: COPD exacerbation with acute on chronic diastolic heart failure. Acute on chronic respiratory failure with hypoxia and hypercapnia. We will continue supplemental oxygen. She is on Zithromax. I am switching her from IV Solu- Medrol to by mouth prednisone. Mucinex and nebulizer treatments with Xopenex. We will continue mild fluid restriction. I will start her on Lasix at 20 mg every morning. Atrial fibrillation. Currently, rate controlled. We will continue Cardizem CD. She will get when necessary IV Lopressor for heart rate over 125. GERD. Under control. We will continue Prilosec. Severe protein calorie malnutrition. I will consult nutrition. Disposition: I anticipate her discharge on Monday (in 2 days). She will either go home or to [facility]. We will see how she does with physical therapy. - Exam Vitals: Temp Pulse Resp BP Pulse Ox 98.9 F 99 20 144/89 98 01/20/18 16:29 01/20/18 16:29 01/20/18 16:32 01/20/18 16:29 01/20/18 16:32 Exam: xx - Assessment and Plan (1) Acute exacerbation of chronic obstructive airways disease Current Visit: Yes Status: Acute (2) Acute on chronic diastolic heart failure Current Visit: Yes Status: Acute (3) Acute and chronic respiratory failure Current Visit: Yes Status: Acute (4) Atrial fibrillation with RVR Current Visit: No Status: Acute (5) GERD (gastroesophageal reflux disease) Current Visit: No Status: Chronic (6) Protein-calorie malnutrition, severe Current Visit: No Status: Acute - Time Spent with Patient Total time spent is greater than 50% in coordination of care (as documented) at patient's floor/unit and/or counseling patient: 25 - 35 minutes Plan of Care Discussed with: patient Internal Medicine: Result - Labs CBC & Chem 7: 01/20/18 03:25 01/20/18 03:25 Labs: Short CBC 01/20/18 Range/Units 03:25 WBC 8.1 (4.3-11.1) K/mcL Hgb 8.9 L (11.5-15.4) g/dL Hct 28.4 L (35.3-44.9) % Plt Count 343 (140-400) K/mcL Neutrophils # 7.2 (1.6-8.9) K/mcL BMP 01/20/18 03:25 Sodium 138 Potassium 4.2 Chloride 99 Carbon Dioxide 32 H BUN 29 H Creatinine 0.52 L Glucose 281 H Calcium 8.7 Liver Function 01/20/18 Range/Units 03:25 Total Bilirubin 0.3 (0.3-1.0) mg/dL AST 15 (13-39) Units/L ALT 43 (7-52) Units/L Alkaline Phosphatase 84 (34-104) Units/L Albumin 3.2 L (3.5-5.7) g/dL - Impressions Impressions Chest X-Ray 01/19/18 15:16 IMPRESSION: Moderate interstitial edema superimposed on a background of emphysema. Small bilateral effusions persist. D/ / Clement Mojica / Clement Mojica Interpreting Provider: Clement Mojica Consult Discharge Plan - Plan Referrals: Michaela Torres, WAITER/WAITRESS FIRST CLASS [Primary Care Provider] - (3) Acute and chronic respiratory failure Qualifiers: Respiratory failure complication: hypoxia and hypercapnia Qualified Code(s): J96.21 - Acute and chronic respiratory failure with hypoxia; J96.22 - Acute and chronic respiratory failure with hypercapnia (5) GERD (gastroesophageal reflux disease) Qualifiers: Esophagitis presence: esophagitis presence not specified Qualified Code(s): K21.9 - Gastro-esophageal reflux disease without esophagitis
[2018-01-20] MEDS: Temazepam 15 MG CAPSULE PO SCH (21:28)
[2018-01-21] MEDS: Levalbuterol Neb 1.25 MG/3 ML IH SCH ×4 (04:45→22:47)
[2018-01-21] MEDS: *HR* Enoxaparin 40 MG/0.4 ML SYRINGE SQ SCH (06:52)
[2018-01-21] MEDS: Diltiazem CD (24hr) 180 MG CAPSULE PO SCH (07:51)
[2018-01-21] MEDS: Acetaminophen 325 MG TABLET PO SCH ×4 (07:51→22:42)
[2018-01-21] MEDS: Azithromycin 250 MG TABLET PO SCH (07:51)
[2018-01-21] MEDS: predniSONE 20 MG TABLET PO SCH (07:51)
[2018-01-21] MEDS: Furosemide 20 MG/2 ML VIAL IVP SCH (07:51)
[2018-01-21] MEDS: traMADol 50 MG TABLET PO SCH ×3 (12:25→22:44)
[2018-01-21] MEDS ORDERED: ALPRAZolam 0.5 MG TABLET PO SCH (21:00)
[2018-01-21] MEDS ORDERED: *HR* LORazepam 0.5 MG TABLET PO PRN (21:56)
[2018-01-21] MEDS: Temazepam 15 MG CAPSULE PO SCH (22:44)
--- NOTE | 2018-01-22 00:31 | Internal Med Progress Note ---
Hospitalist Progress Note - Encounter Date of Encounter: 01/21/18 Time of Encounter: 15:00 - Subjective Interval History: SUBJECTIVE: She continues to have off and on mild/moderate cough; occasionally with wheezing. Her coughing spells are usually associated with anterior chest discomfort/pain. She is on 3 L/min nasal cannula oxygen (2 L/min at home). The patient continues to be very anxious. Denies abdominal pain, nausea and vomiting. She makes good amounts of urine. OBJECTIVE: Skin: Free of rash and discoloration. ENMT: Oral/pharyngeal mucosa is normal in appearance. Eyes: Sclera is white. There is no discharge from eyes. Respiratory: Normal breath sounds; I can he a few bilateral rhonchi and wheezes. CV: Heart is regular; no gallop or murmur. GI: Abdomen is soft and not tender. There is no palpable mass or visceromegaly. Neuro: There is no focal deficits. ADDITIONAL DATA: We checked her troponin today it is normal. ASSESSMENT AND PLAN: COPD exacerbation with acute on chronic diastolic heart failure. Acute on chronic respiratory failure with hypoxia and hypercapnia. We will continue supplemental oxygen. She is on Zithromax. I am switching her from IV Solu- Medrol to by mouth prednisone. Mucinex and nebulizer treatments with Xopenex. We will continue mild fluid restriction. I will start her on Lasix at 20 mg every morning. Recurrent chest pain. Likely secondary to diet respiratory muscles. I will put her on scheduled Ultracet. Anxiety. I will put her on scheduled low-dose Xanax. Atrial fibrillation. Currently, rate controlled. We will continue Cardizem CD. She will get when necessary IV Lopressor for heart rate over 125. GERD. Under control. We will continue Prilosec. Severe protein calorie malnutrition. I will consult nutrition. Disposition: She will either go home or to [facility] in 1-2 days. We will see how she does with physical therapy. - Exam Vitals: Temp Pulse Resp BP Pulse Ox 98.8 F 102 16 135/85 97 01/21/18 20:45 01/21/18 20:45 01/21/18 22:47 01/21/18 20:45 01/21/18 22:47 Exam: xx - Assessment and Plan (1) Acute exacerbation of chronic obstructive airways disease Current Visit: Yes Status: Acute (2) Acute on chronic diastolic heart failure Current Visit: Yes Status: Acute (3) Acute and chronic respiratory failure Current Visit: Yes Status: Acute (4) Chest pain Current Visit: Yes Status: Acute (5) Anxiety Current Visit: Yes Status: Acute (6) Atrial fibrillation with RVR Current Visit: No Status: Acute (7) GERD (gastroesophageal reflux disease) Current Visit: No Status: Chronic (8) Protein-calorie malnutrition, severe Current Visit: No Status: Acute - Time Spent with Patient Total time spent is greater than 50% in coordination of care (as documented) at patient's floor/unit and/or counseling patient: 25 - 35 minutes Plan of Care Discussed with: patient Internal Medicine: Result - Labs CBC & Chem 7: 01/20/18 03:25 01/20/18 03:25 Labs: Cardiac Enzymes 01/21/18 Range/Units 06:13 Troponin I < 0.03 (< 0.04) ng/mL - Impressions Impressions Chest X-Ray 01/21/18 06:01 IMPRESSION: Mildly improved edema superimposed on background emphysema and COPD. Decreased effusions. D/ / Clement Mojica / Clement Mojica Interpreting Provider: Clement Mojica Consult Discharge Plan - Plan Referrals: Michaela Torres, SUPERVISOR SCOURING [employer]ADS [Primary Care Provider] - (3) Acute and chronic respiratory failure Qualifiers: Respiratory failure complication: hypoxia and hypercapnia Qualified Code(s): J96.21 - Acute and chronic respiratory failure with hypoxia; J96.22 - Acute and chronic respiratory failure with hypercapnia (4) Chest pain Qualifiers: Chest pain type: other chest pain Qualified Code(s): R07.89 - Other chest pain; R07.8 - Other chest pain (7) GERD (gastroesophageal reflux disease) Qualifiers: Esophagitis presence: esophagitis presence not specified Qualified Code(s): K21.9 - Gastro-esophageal reflux disease without esophagitis
[2018-01-22] MEDS: Levalbuterol Neb 1.25 MG/3 ML IH SCH ×4 (04:10→22:13)
[2018-01-22] MEDS: *HR* Enoxaparin 40 MG/0.4 ML SYRINGE SQ SCH (06:40)
[2018-01-22] MEDS: Furosemide 20 MG/2 ML VIAL IVP SCH (10:07)
[2018-01-22] MEDS: traMADol 50 MG TABLET PO SCH ×4 (10:08→21:24)
[2018-01-22] MEDS: Diltiazem CD (24hr) 180 MG CAPSULE PO SCH (10:08)
[2018-01-22] MEDS: predniSONE 20 MG TABLET PO SCH (10:08)
[2018-01-22] MEDS: Acetaminophen 325 MG TABLET PO SCH ×4 (10:08→21:23)
[2018-01-22] MEDS: Azithromycin 250 MG TABLET PO SCH (10:08)
[2018-01-22] MEDS ORDERED: Insulin LISPRO 300 UNITS/3 ML VIAL SQ STA (17:13)
[2018-01-22] MEDS ORDERED: Insulin LISPRO 300 UNITS/3 ML VIAL SQ SCH (20:00)
--- NOTE | 2018-01-22 21:17 | Electrocardiograph Report ---
[address] [place] [address] Test Date: 2018-01-21 Pat Name: Estela Cleaning Department: [id number] Room: 2NE33 Gender: F Staff Occupational Therapist: : [id number] Requested By: [id number] Order Number: [id number] Reading MD: Amado Kraft Measurements Intervals [place] Rate: 99 P: [place]: 0 QRS: -10 QRSD: 89 T: 73 QT: 348 QTc: 405 Interpretive Statements ATRIAL FIBRILLATION MINIMAL VOLTAGE CRITERIA FOR LVH, CONSIDER NORMAL VARIANT ANTEROSEPTAL MYOCARDIAL INFARCTION, OF INDETERMINATE AGE Electronically Signed On 01-22-2018 21:16:01 EST by Amado Kraft
[2018-01-22] MEDS: Temazepam 15 MG CAPSULE PO SCH (21:24)
--- NOTE | 2018-01-22 23:09 | Internal Med Progress Note ---
Hospitalist Progress Note - Encounter Date of Encounter: 01/22/18 Time of Encounter: 13:00 - Subjective Interval History: SUBJECTIVE: She is hurting "everywhere". She is bothered by "everything". She continues to have coughing and wheezing. However, it seems to be decreasing in intensity day by day. She is on 3 L/min nasal cannula oxygen (2 L/min at home). The patient continues to be very anxious. Denies abdominal pain, nausea and vomiting. She makes good amounts of urine. The patient has not ambulated that for the last 3 or 4 days. Physical therapy is on the board. We will likely discharge her home tomorrow, if stable. The patient refuses discharge to [facility]. OBJECTIVE: Skin: Free of rash and discoloration. ENMT: Oral/pharyngeal mucosa is normal in appearance. Eyes: Sclera is white. There is no discharge from eyes. Respiratory: Normal breath sounds; I can he a few bilateral rhonchi and wheezes. CV: Heart is regular; no gallop or murmur. GI: Abdomen is soft and not tender. There is no palpable mass or visceromegaly. Neuro: There is no focal deficits. ADDITIONAL DATA: Chest x-ray from yesterday showed mildly improved edema, superimposed on background emphysema/COPD. It showed decreased effusions. ASSESSMENT AND PLAN: COPD exacerbation with acute on chronic diastolic heart failure. Acute on chronic respiratory failure with hypoxia and hypercapnia. We will continue supplemental oxygen. She is on Zithromax. I am switching her from IV Solu- Medrol to by mouth prednisone. Mucinex and nebulizer treatments with Xopenex. We will continue mild fluid restriction. She is on IV Lasix at 20 mg daily. Recurrent chest pain. Likely secondary to diet respiratory muscles. She is on scheduled Ultracet. Anxiety. She is on scheduled Xanax. Atrial fibrillation. Currently, rate controlled. We will continue Cardizem CD. She will get when necessary IV Lopressor for heart rate over 125 (it has not happened recently). GERD. Under control. We will continue Prilosec. Severe protein calorie malnutrition. I will consult nutrition. Disposition: She will be probably good to go tomorrow or after tomorrow. We need to see how she is doing with physical therapy, as she is going home. - Exam Vitals: Temp Pulse Resp BP Pulse Ox 97.9 F 105 16 123/81 92 01/22/18 16:17 01/22/18 16:17 01/22/18 22:13 01/22/18 22:13 01/22/18 22:13 Exam: xx - Assessment and Plan (1) Acute exacerbation of chronic obstructive airways disease Current Visit: Yes Status: Acute (2) Acute on chronic diastolic heart failure Current Visit: Yes Status: Acute (3) Acute and chronic respiratory failure Current Visit: Yes Status: Acute (4) Chest pain Current Visit: Yes Status: Acute (5) Anxiety Current Visit: Yes Status: Acute (6) Atrial fibrillation with RVR Current Visit: No Status: Acute (7) GERD (gastroesophageal reflux disease) Current Visit: No Status: Chronic (8) Protein-calorie malnutrition, severe Current Visit: No Status: Acute - Time Spent with Patient Total time spent is greater than 50% in coordination of care (as documented) at patient's floor/unit and/or counseling patient: 25 - 35 minutes Plan of Care Discussed with: patient Internal Medicine: Result - Labs CBC & Chem 7: 01/20/18 03:25 01/20/18 03:25 Consult Discharge Plan - Plan Referrals: Michaela Torres, DIE CASTING MACHINE OPERATOR [Primary Care Provider] - (3) Acute and chronic respiratory failure Qualifiers: Respiratory failure complication: hypoxia and hypercapnia Qualified Code(s): J96.21 - Acute and chronic respiratory failure with hypoxia; J96.22 - Acute and chronic respiratory failure with hypercapnia (4) Chest pain Qualifiers: Chest pain type: other chest pain Qualified Code(s): R07.89 - Other chest pain; R07.8 - Other chest pain (7) GERD (gastroesophageal reflux disease) Qualifiers: Esophagitis presence: esophagitis presence not specified Qualified Code(s): K21.9 - Gastro-esophageal reflux disease without esophagitis
[2018-01-23] MEDS: Levalbuterol Neb 1.25 MG/3 ML IH SCH ×4 (03:38→22:34)
[2018-01-23] MEDS: *HR* Enoxaparin 40 MG/0.4 ML SYRINGE SQ SCH (05:58)
[2018-01-23] MEDS: traMADol 50 MG TABLET PO SCH ×4 (09:23→21:28)
[2018-01-23] MEDS: Acetaminophen 325 MG TABLET PO SCH ×4 (09:24→21:29)
[2018-01-23] MEDS: Diltiazem CD (24hr) 180 MG CAPSULE PO SCH (09:24)
[2018-01-23] MEDS: Furosemide 20 MG/2 ML VIAL IVP SCH (09:24)
[2018-01-23] MEDS: predniSONE 20 MG TABLET PO SCH (09:24)
--- NOTE | 2018-01-23 16:03 | Discharge Summary ---
- NOTES TO OUTPATIENT PROVIDER Notes to Outpatient Provider: PCP in 5 to 7 days Orders not resulted at time of discharge: Pending orders 01/23/18 12:29 Urinalysis Reflex Cult & Micro [URIN] Routine Date of Encounter: 01/23/18 Time of Encounter: 16:00 - Discharge Diagnosis (1) Acute and chronic respiratory failure Priority: Primary Status: Acute Assessment and Plan: Patient reports a several day history of dyspnea on exertion found to have acute on chronic respiratory failure in the ER Suspect secondary to COPD exacerbation and heart failure exacerbation. Patient was requiring 4 L of nasal cannula and wears 2 to 3LNC at home. Weaned O2 back to baseline as tolerates. Management of COPD and heart failure documented. Pt is high risk for readmission due to worsening state of her already severe Emphysema/COPD. Qualifiers: Qualified Code(s): J96.21 - Acute and chronic respiratory failure with hypoxia (2) Acute on chronic diastolic heart failure Priority: Primary Status: Acute Assessment and Plan: Chest x ray showed some interstitial edema. On Lasix 20 mg IV QD. Will likely discharge on Lasix 20 mg PO daily. Recommend out pt follow up with PCP. Repeat Chest x ray 01/21/2018 XR/XR chest 1V IMPRESSION: Mildly improved edema superimposed on background emphysema and COPD. Decreased effusions. (3) Acute exacerbation of chronic obstructive airways disease Priority: Primary Status: Acute Assessment and Plan: Pt with severe COPD/emphysema. Fomer smoker. Patient with leukocytosis on admission (WBC 12.7) and expiratory wheezes on exam. Leukocytosis resolved. Chest x-ray showed mild to moderate pulmonary edema with small bilateral effusions but no infiltrates noted. Was on IV Solu-Medrol started in the ER in addition to scheduled DuoNeb's. Now on po prednisone taper. IV antibiotic discontinued. (4) Atrial fibrillation with RVR Priority: Primary Status: Acute Assessment and Plan: Patient with elevated heart rate on admission. Currently in SR and rate controlled. Continue on her home dose of Cardizem. (5) Chest pain Priority: Primary Status: Acute Assessment and Plan: Pt denies chest pain or SOB. She denies palpitations. Possibly due to afib RVR. Troponin < 0.03. EKG showed old anterior wall [place] but no acute changes. Qualifiers: Chest pain type: other chest pain Qualified Code(s): R07.89 - Other chest pain; R07.8 - Other chest pain (6) Protein-calorie malnutrition, severe Priority: Secondary Status: Chronic Assessment and Plan: Patient with BMI of 17.2nicko due to hx severe COPD (7) GERD (gastroesophageal reflux disease) Priority: Secondary Status: Chronic Assessment and Plan: Continue home dose prilosec Qualifiers: Esophagitis presence: esophagitis presence not specified Qualified Code(s): K21.9 - Gastro-esophageal reflux disease without esophagitis (8) Anxiety Priority: Secondary Status: Chronic Assessment and Plan: Ativan 0.5 mg PO Q 6 hours prn. (9) Low BMI Priority: Secondary Status: Chronic Assessment and Plan: Due to hx of emphysema (10) Hyperglycemia Priority: Primary Status: Acute Assessment and Plan: Pt denies prior history of diabetes. Possibly due to steroid use. HgbA1C 06/2016 was 5.3. Will recheck Hgb A1C today, 01/23/2018 prior to DC. Will determine what med to start at [place] based on hgb A1C and will have her follow up out pt with her PCP Hospital course: History of present illness: [place] "Patient is a 82-year-old female with past medical history significant for Afib (no OAC due to GI bleed), PE (09/2017), COPD, GERD, HTN, CAD, (no OAC due to GI bleeding), previous breast cancer w/mastectomy of right breast, mood disorder and prior smoking history who presents to the ER on 01/16/18 due to mechanical fall. Patient reports a history of multiple mechanical falls and therefore no longer lives independently but lives with daughter. Patient states that while taking the dog out, the dog ran away from her and when she tried to catch him, she tripped over him falling to the ground. Patient remembers the entire event without losing consciousness. Patient reports of not being able to get up but neighbor found her and called EMS and she was brought into the ER for evaluation. In addition, patient also reports of dyspnea on exertion with lower extremity swelling for the last several days. In the ER, patient was found to have slight leukocytosis with WBC of 12.7. Chest x-ray showed mild to moderate pulmonary edema and patient was found to have a BNP of 418. He was given 1 dose of Solu-Medrol and addition to one dose of IV Lasix. Patient was also given dual nebs in the ER. She will be admitted to the medical surgical floor for COPD exacerbation with acute on chronic heart failure." Dr. Otero See assessment and plan for hospital course. Discussed pt's medical status with daughter, Yady Self. Recommend pt getting a life line. Daughter states her and her are with the patient 19/09. Patient designated Yady to be her, next of kin for health care decisions. She also has a son but he has terminal lung CA. Pt given information by for life line if family is interested. Pt has home oxygen. Family declined to speak with social work and also declined inpt rehab. Daughter states pt will go home with [facility] services. Time spent discussing smoking cessation with patient: 3 to 10 minutes - Time Spent with Patient Total time spent providing and/or coordinating discharge services: Greater than 30 minutes - Discharge Medications Prescriptions: Blood Sugar Diagnostic [Blood Glucose Test Strip] 1 each [facility] 30 Days #30 strip Blood-Glucose Meter [Blood Glucose Monitoring] 1 each [facility] 30 Days #30 each Furosemide [Lasix] 20 mg PO DAILY 30 Days #30 tablet metFORMIN [Glucophage] 500 mg PO BIDWM 30 Days #60 tablet predniSONE [PredniSONE] See Taper PO DAILY #21 tablet Home Medications: Sertraline [Zoloft] 50 mg PO QAM 09/21/15 [History] Temazepam [Restoril] 15 mg PO HS 09/21/15 [History] Omeprazole [PriLOSEC] 20 mg PO DAILY 10/01/17 [History] Diltiazem CD (24hr) [Cardizem CD] 180 mg PO DAILY 30 Days #30 cap.er.24h 10/06/17 [Rx] Acetaminophen [Tylenol] 650 mg PO DAILY #30 tablet 11/27/17 [Rx] Albuterol Neb [Proventil Neb] 2.5 mg IH Q4-6H PRN 11/27/17 [History] Oxygen 2 l IH AD 12/05/17 [History] Gentle Iron 28 mg PO MOWEFR 12/22/17 [History] Tamsulosin [Flomax] 0.4 mg PO SUTUTHSA 01/16/18 [History] Tramadol HCl [Ultram] 50 mg PO QID PRN 01/16/18 [History] Furosemide [Lasix] 20 mg PO DAILY 30 Days #30 tablet 01/23/18 [Rx] metFORMIN [Glucophage] 500 mg PO BIDWM 30 Days #60 tablet 01/23/18 [Rx] predniSONE [PredniSONE] See Taper PO DAILY #21 tablet 01/23/18 [Rx] Blood Sugar Diagnostic [Blood Glucose Test Strip] 1 each [facility] 30 Days #30 strip 01/24/18 [Rx] Blood-Glucose Meter [Blood Glucose Monitoring] 1 each [facility] 30 Days #30 each 01/24/18 [Rx] Allergies/Adverse Reactions: Allergy/AdvReac Type Severity Reaction Status Date / Time No Known Allergies Allergy Verified 01/16/18 02:42 Date of admission: 01/18/18 14:45 Primary care physician: Michaela Torres CNP Consults: 01/16/18 10:28 Consult to Physical Therapy [CONS] Routine Comment: Evaluate, develop and implement POC Reason for Consult: Frequent falls Does patient have active BEDREST order?: No Is patient medically & hemodynamically stable?: Yes Patient assessed for mobility or mobilized this visit?: No 01/16/18 20:54 Consult to Respiratory Therapy [CONS] Routine Reason for Consult: Add flutter valve to pts breathing txs Call Completed: Yes 01/17/18 22:44 dietary consult [Consult to Nutrition] [CONS] Routine Comment: Consulting Provider: NUTRITION Reason for Dietary Consult: PO Supplementation Discharging clinician: Bailey Otero Anticipated date of discharge: 01/23/18 - Constitutional Vitals: Temp Pulse Resp BP Pulse Ox 97.4 F L 109 15 120/89 93 01/23/18 12:28 01/23/18 12:28 01/23/18 12:28 01/23/18 12:28 01/23/18 12:28 General appearance: Present: A&O X 3, no acute distress, underweight Exam: Thin - Head Head exam: Present: atraumatic, normocephalic - Eye Eye exam: Present: PERRL, conjuntiva pink, sclera anicteric Pupils: Present: PERRL - Neck Neck exam general surgery: Present: supple, trachea midline. Absent: lymphadenopathy - Respiratory Respiratory exam: Present: wheezes. Absent: accessory muscle use, rales, r honchi Additional comments: Bibasilar crackles - Cardiovascular Cardiovascular exam: Present: RRR, +S1, +S2. Absent: diastolic murmur, gallop, rubs, systolic murmur - GI/Abdominal GI/Abdominal exam: Present: normal bowel sounds, soft, no peritoneal signs. Absent: distended, tenderness - Extremities Exam Extremities exam: Present: warm, radial pulses palpable and symmetrical. Absent: calf tenderness, cyanotic, pedal edema - Neurological Exam Neurological exam: Present: CN II-XII intact, oriented X3, no focal deficits. Absent: pronater drift, facial droop, speech deficit - Skin Skin exam: Present: dry, intact - Patient Status Disposition: Home Health Service Condition: Fair Overall status at discharge: patient is progressing back to baseline - Discharge Instructions Follow Up With: Michaela Torres CNP [Primary Care Provider] - 01/29/18 2:30 pm - Diet and Activity Activity: as per physical therapy, increase activity as tolerated Diet: advance to your usual diet
[2018-01-23 16:49] LABS: Bilirubin,Urine Negative (Negative); Blood,Urine Small (Negative); Clarity,Urine Cloudy (Clear); Color,Urine Yellow (Yellow); Glucose,Urine (UA) >=1000 mg/dL (Normal); Ketones,Urine Negative (Negative); Leukocyte Esterase,Urine Trace (Negative); Nitrite,Urine Positive (Negative); PH,Urine 6.5 pH Units (5.0-8.0); Protein,Urine Negative (Neg-Trace); Specific Gravity,Urine 1.024 (1.010-1.025); Urobilinogen,Urine Normal (Normal)
[2018-01-23 16:50] LABS: Bacteria,Urine Many per hpf (None-Few); Hyaline Casts,Urine None Seen per lpf (None-Few); RBC,Urine 15-30 per hpf (0-3); Squamous Epithelial Cell,Urine Many per lpf (None-Few); WBC,Urine 0-3 per hpf (0-3)
[2018-01-23] MEDS ORDERED: D5% in Water 1,000 ML IVC PRN (16:57)
[2018-01-23] MEDS ORDERED: Dextrose Gel 15 GM/37.5 ML TUBE PO PRN ×2 (16:57)
[2018-01-23] MEDS ORDERED: *HR* Dextrose 50 % in Water (Syg) 50 ML SYRINGE IVP PRN (16:57)
[2018-01-23] MEDS ORDERED: Insulin DETEMIR 100 UNIT/ML X5UNITS SQ SCH ×3 (17:30→21:00)
[2018-01-23] MEDS ORDERED: Insulin DETEMIR 100 UNIT/ML X5UNITS SQ ONE (17:45)
[2018-01-23 17:46] LABS: Estimated Average Glucose 126 mg/dl
[2018-01-23] MEDS: Insulin LISPRO 300 UNITS/3 ML VIAL SQ SCH (18:09)
--- NOTE | 2018-01-23 18:36 | Event Note ---
Date of Encounter: 01/23/18 Time of Encounter: 18:34 Pt's discharge held due to Hyperglycemia with glucose in 400's. Hgb A1C 6.0 01/23/2018 was [address] on Levemir and SSI. Will likely DC on Metformin and SSI and have her follow up out pt with PCP.
[2018-01-23] MEDS: Temazepam 15 MG CAPSULE PO SCH (21:28)
[2018-01-24] MEDS: Levalbuterol Neb 1.25 MG/3 ML IH SCH ×3 (04:33→16:00)
[2018-01-24 05:17] LABS: Basophils % 0.1 %; Eosinophils % 0.3 %; Hematocrit 31.1 % (35.3-44.9); Hemoglobin 10.1 g/dL (11.5-15.4); Lymphocytes # 0.7 K/mcL (0.6-4.6); Lymphocytes % 6.2 %; Mean Corpuscular HGB Conc 32.5 g/dL (31.6-35.5); Mean Corpuscular Hemoglobin 28.4 pg (28.0-33.3); Mean Corpuscular Volume 87.4 fL (83.0-100.0); Mean Platelet Volume 10.9 fL (9.4-12.4); Monocytes # 0.9 K/mcL (0.0-1.3); Monocytes % 8.4 %; Neutrophils # 9.2 K/mcL (1.6-8.9); Platelet Count 286 K/mcL (140-400); Red Blood Count 3.56 M/mcL (3.82-4.97); Red Cell Distribution Width 15.8 % (11.5-14.5)
[2018-01-24] MEDS: *HR* Enoxaparin 40 MG/0.4 ML SYRINGE SQ SCH (05:48)
[2018-01-24 06:25] LABS: BUN/Creatinine Ratio 57 (6-26); Blood Urea Nitrogen 38 mg/dL (8-23); Calcium 8.8 mg/dL (8.6-10.3); Carbon Dioxide 36 mEq/L (23-29); Chloride 96 mEq/L (98-107); Glucose 100 mg/dL (70-105); Osmolality,Calculated 289 (280-300); Potassium 4.5 mEq/L (3.5-5.1); Sodium 135 mEq/L (136-145); eGFR For Non-African Americans > 60 (> 60)
[2018-01-24] MEDS ORDERED: Insulin LISPRO 300 UNITS/3 ML VIAL SQ SCH (07:30)
[2018-01-24] MEDS ORDERED: *HR* Metformin 500 MG TABLET PO SCH (08:00)
[2018-01-24] MEDS: predniSONE 20 MG TABLET PO SCH (08:57)
[2018-01-24] MEDS: traMADol 50 MG TABLET PO SCH ×3 (08:57→16:42)
[2018-01-24] MEDS: Diltiazem CD (24hr) 180 MG CAPSULE PO SCH (08:57)
[2018-01-24] MEDS: Acetaminophen 325 MG TABLET PO SCH ×3 (08:58→16:42)
[2018-01-24] MEDS: Furosemide 20 MG/2 ML VIAL IVP SCH (08:58)
[2018-01-24] MEDS ORDERED: Insulin DETEMIR 100 UNIT/ML X5UNITS SQ SCH (09:00)
[2018-01-24] MEDS: Insulin LISPRO 300 UNITS/3 ML VIAL SQ SCH ×3 (09:04→16:44)
[2018-01-24 10:07] LABS: Magnesium 2.2 mg/dL (1.6-2.6); Phosphorous 3.6 mg/dL (2.7-4.5)
[2018-01-24 10:08] LABS: Troponin I < 0.03 ng/mL (< 0.04)
[2018-01-24] MEDS ORDERED: Isovue-370 500 ML INFUS..BTL IV ONE (10:18)
--- NOTE | 2018-01-24 10:33 | Internal Med Progress Note ---
Hospitalist Progress Note - Encounter Date of Encounter: 01/24/18 Time of Encounter: 10:25 - Subjective Interval History: Pt reports having chest pain this am. She states CP comes and goes. Pain rated 6/10 and non-radiating. She also reports having LLE pain. She denies worsening SOB. She denies fever or chills, N/V or diarrhea. She denies abdominal pain. - Exam Vitals: Temp Pulse Resp BP Pulse Ox 97.7 F 130 19 132/91 94 01/24/18 08:08 01/24/18 08:08 01/24/18 08:08 01/24/18 08:08 01/24/18 08:08 Exam: General appearance: Present: A&O X 3, no acute distress, Thin. Exam: As above - Head Head exam: Present: atraumatic - Eye Eye exam: Present: normal appearance - ENT ENT exam: Present: mucous membranes moist - Respiratory Respiratory exam: Present: Positive B/L expiratory wheezes. Absent: accessory muscle use, CTAB, rales, respiratory distress, tachypnea - Cardiovascular Cardiovascular exam: Present: irregularly irregular . Absent: diastolic murmur, gallop, rubs, systolic murmur - GI/Abdominal GI/Abdominal exam: Present: normal bowel sounds, soft, no peritoneal signs. Absent: distended, tenderness - Extremities Exam Extremities exam: Present: no edema - Neurological Exam Neurological exam: Present: oriented X3 - Psychiatric Psychiatric exam: Present: normal mood - Skin Skin exam: Absent: pallor - Assessment and Plan (1) Acute and chronic respiratory failure Current Visit: Yes Status: Acute Assessment and Plan: Patient reports a several day history of dyspnea on exertion found to have acute on chronic respiratory failure in the ER. Suspect secondary to COPD exacerbation and heart failure exacerbation. Patient was requiring 4 L of nasal cannula and wears 2 to 3LNC at home. Weaned down to 2L NC her home baseline and tolerating so far. Management of COPD and heart failure documented. Pt is high risk for readmission due to worsening state of her already severe Emphysema/COPD. (2) Acute on chronic diastolic heart failure Current Visit: Yes Status: Acute Assessment and Plan: Chest x ray showed some interstitial edema. On Lasix 20 mg IV QD. Will likely discharge on Lasix 20 mg PO daily. Recommend out pt follow up with PCP. Repeat Chest x ray 01/21/2018 XR/XR chest 1V IMPRESSION: Mildly improved edema superimposed on background emphysema and COPD. Decreased effusions. Echo 11/27/217 EV/EV echocardiogram Impressions: LVEF 50-55%. Normal LV chamber size, wall thickness and function. Atypical septal motion consistent with bundle branch block. Mild left ventricular diastolic dysfunction. Normal right ventricular structure and function. Mild-moderate aortic regurgitation. No evidence of pulmonary hypertension. No evidence of PFO with agitated saline contrast. (3) Acute exacerbation of chronic obstructive airways disease Current Visit: Yes Status: Acute Assessment and Plan: Pt with severe COPD/emphysema. Former smoker. Patient with leukocytosis on admission (WBC 12.7) and expiratory wheezes on exam. Leukocytosis resolved. Chest x-ray showed mild to moderate pulmonary edema with small bilateral effusions but no infiltrates noted. Was on IV Solu-Medrol started in the ER in addition to scheduled DuoNeb's. Now on po prednisone taper. IV Zithromax discontinued after 7 days but Sputum growing Ecoli. Ecoli sensitive to Rocephin so started on IV antibiotic especially in light of worsening left lung opacity. (4) Atrial fibrillation with RVR Current Visit: No Status: Acute Assessment and Plan: Patient with elevated heart rate on admission. In SR and rate controlled, 01/23/2018 but now in Afib RVR HR between 112-122. Continue on her home dose of Cardizem. Will check electrolytes. Lopressor 2.5 mg IV prn. Pt is not a candidate for anticoagulation. She had been on Coumadin back 2016 and developed GI bleed. At that time EGD showed hemorrhagic gastropathy. In September 2017 was diagnosed with small PE. Shortly after starting treatment she developed melena. Colonoscopy showed non-bleeding polyps and diverticulosis. Pt has not been on anticoagulation due to above stated risk of bleeding. (5) Chest pain Current Visit: Yes Status: Acute Assessment and Plan: Pt reports intermittent chest pain without SOB. She denies palpitations. Possibly due to afib RVR. Troponin < 0.03 x 2. EKG on admission showed old anterior wall [place] but no acute changes. Repeat [address] depression in Lead II. Chest X ray this am 01/24/2018, showing worsening left basilar atelectasis vs PNA. Will place on Rocephin due to sputum culture showing Ecoli. (6) GERD (gastroesophageal reflux disease) Current Visit: No Status: Chronic Assessment and Plan: Continue home dose prilosec (7) Anxiety Current Visit: Yes Status: Chronic Assessment and Plan: Ativan 0.5 mg PO Q 6 hours prn. (8) History of pulmonary embolism Current Visit: Yes Status: Acute Assessment and Plan: CTA 10/10/2017 showed tiny filling defect identified within the right middle lobe lateral segmental pulmonary artery compatible with a small pulmonary embolism. Pt is high risk for GI bleed and likely why not on anti-coagualtion. Complaining of CP and LLE pain today. Will check CTA chest and LLE doppler. May consider placing IVC filter is CTA positive for worsening PE or if doppler positive for DVT. (9) Pneumonia of left lung due to Escherichia coli Current Visit: Yes Status: Acute Assessment and Plan: Pneumonia present on admission. Sputum culture collected 01/16/2018 positive for Ecoli, sensitive to Rocephin. Had completed 7 days of Zithromax. Chest X ray this am 01/24/2018, showing worsening left basilar atelectasis vs PNA. Will place on Rocephin due to sputum culture showing Ecoli. Will plane to discharge on few days of Cefdinir. (10) Abnormal urine Current Visit: Yes Status: Acute Assessment and Plan: pt repeatedly complaining of burning with urination. Urine analysis with many Sq epi. Will send urine for culture. Started on Rocephin for PNA which should cover UTI (11) Type II diabetes mellitus Current Visit: Yes Status: Acute Assessment and Plan: Pt denies prior history of diabetes. Newly diagnosed on this admission exacerbated by steroid use. HgbA1C 06/2016 was 5.3. Recheck Hgb A1C 01/23/2018 6.0. Started on Levemir 10 units BID and SSI. Will likely DC on PO anti-hyperglycemic. Metformin which was started 01/23/2018, on hold today due to needing CTA chest to r/o PE. Will benefit form out pt diabetic teaching. (12) Protein-calorie malnutrition, severe Current Visit: No Status: Chronic Assessment and Plan: Patient with BMI of 17.2, likley due to hx severe COPD (13) Low BMI Current Visit: Yes Status: Chronic Assessment and Plan: possibly due to hx of emphysema DVT Prophylaxis: Lovenox - Summary of Assessment and Plan Summary of Assessment and Plan: History of present illness: Dr. kAbar Patient is a 82-year-old female with past medical history significant for Afib (no OAC due to GI bleed), PE (09/2017), COPD, GERD, HTN, CAD, (no OAC d/t GI bleeding), previous breast cancer w/mastectomy of right breast, mood disorder and prior smoking history who presents to the ER on 01/16/18 due to mechanical fall. Patient reports a history of multiple mechanical falls and therefore no longer lives independently but lives with daughter. Patient states that while taking the dog out, the dog ran away from her and when she tried to catch him, she tripped over him falling to the ground. Patient remembers the entire event without losing consciousness. Patient reports of not being able to get up but neighbor found her and called EMS and she was brought into the ER for evaluation. In addition, patient also reports of dyspnea on exertion with lower extremity swelling for the last several days. In the ER, patient was found to have slight leukocytosis with WBC of 12.7. Chest x-ray showed mild to moderate pulmonary edema and patient was found to have a BNP of 418. He was given 1 dose of Solu-Medrol and addition to one dose of IV Lasix. Patient was also given dual nebs in the ER. She will be admitted to the medical surgical floor for COPD exacerbation with acute on chronic heart failure. - Time Spent with Patient Total time spent is greater than 50% in coordination of care (as documented) at patient's floor/unit and/or counseling patient: less than 15 minutes Plan of Care Discussed with: patient Internal Medicine: Result - Labs CBC & Chem 7: 01/24/18 05:04 01/24/18 05:53 Labs: Short CBC 01/24/18 Range/Units 05:04 WBC 11.0 (4.3-11.1) K/mcL Hgb 10.1 L (11.5-15.4) g/dL Hct 31.1 L (35.3-44.9) % Plt Count 286 (140-400) K/mcL Neutrophils # 9.2 H (1.6-8.9) K/mcL BMP 01/24/18 05:53 Sodium 135 L Potassium 4.5 Chloride 96 L Carbon Dioxide 36 H BUN 38 H Creatinine 0.67 Glucose 100 Calcium 8.8 Cardiac Enzymes 01/24/18 Range/Units 05:53 Troponin I < 0.03 (< 0.04) ng/mL Urine 01/23/18 Range/Units 16:20 Urine Color Yellow (Yellow) Urine Clarity Cloudy A (Clear) Urine pH 6.5 (5.0-8.0) pH Units Ur Specific [place] 1.024 (1.010-1.025) Urine Protein Negative (Neg-Trace) mg/dL Urine Glucose (UA) >=1000 H (Normal) mg/dL - Impressions Impressions Chest X-Ray 01/24/18 09:15 IMPRESSION: Left basilar atelectasis versus pneumonia, increased. D/ / Rigo Casey MD / Rigo Casey MD Interpreting Provider: Rigo Casey MD Consult Discharge Plan - Plan Referrals: Michaela Torres CNP [Primary Care Provider] - 01/29/18 2:30 pm Prescriptions: Blood Sugar Diagnostic [Blood Glucose Test Strip] 1 each ACHS 30 Days #30 strip Blood-Glucose Meter [Blood Glucose Monitoring] 1 each [facility] 30 Days #30 each Cephalexin [Keflex] 500 mg PO BID #10 capsule Furosemide [Lasix] 20 mg PO DAILY 30 Days #30 tablet metFORMIN [Glucophage] 500 mg PO BIDWM 30 Days #60 tablet predniSONE [PredniSONE] See Taper PO DAILY #21 tablet (1) Acute and chronic respiratory failure Qualifiers: Qualified Code(s): J96.21 - Acute and chronic respiratory failure with hypoxia (5) Chest pain Qualifiers: Chest pain type: other chest pain Qualified Code(s): R07.89 - Other chest pain; R07.8 - Other chest pain (6) GERD (gastroesophageal reflux disease) Qualifiers: Esophagitis presence: esophagitis presence not specified Qualified Code(s): K21.9 - Gastro-esophageal reflux disease without esophagitis
--- NOTE | 2018-01-24 14:14 | Electrocardiograph Report ---
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
--- NOTE | 2018-01-24 15:37 | Discharge Summary ---
- NOTES TO OUTPATIENT PROVIDER Notes to Outpatient Provider: PCP in 5 to 7 days. Recommend out pt diabetic teaching. Orders not resulted at time of discharge: Pending orders 01/24/18 11:12 Culture,Urine [RM] Routine 01/24/18 15:31 EKG [ECG 12 lead ECG] [ECG] Routine 01/25/18 04:00 BMP [Basic Metabolic Panel] AM 0400 Date of Encounter: 01/24/18 Time of Encounter: 15:35 - Discharge Diagnosis (1) Acute and chronic respiratory failure Priority: Primary Status: Acute Assessment and Plan: Patient reports a several day history of dyspnea on exertion found to have acute on chronic respiratory failure in the ER. Suspect secondary to COPD exacerbation and heart failure exacerbation. Patient was requiring 4 L of nasal cannula and wears 2 to 3LNC at home. Weaned down to 2L NC her home baseline and tolerating so far. Management of COPD and heart failure documented. Pt is high risk for readmission due to worsening state of her already severe Emphysema/COPD. Family and patiet declined SNF services and states would rather go home with [facility]. Also refused to discuss dispo options with SW. Qualifiers: Qualified Code(s): J96.21 - Acute and chronic respiratory failure with hypoxia (2) Pneumonia of left lung due to Escherichia coli Priority: Primary Status: Acute Assessment and Plan: Pneumonia present on admission. Sputum culture collected 01/16/2018 positive for Ecoli, sensitive to Rocephin. Had completed 7 days of Zithromax. Chest X ray this am 01/24/2018, showing worsening left basilar atelectasis vs PNA. Will place on Rocephin due to sputum culture showing Ecoli. Will plane to discharge on few days of Cefdinir. Qualifiers: Qualified Code(s): J15.5 - Pneumonia due to Escherichia coli (3) Acute on chronic diastolic heart failure Priority: Primary Status: Acute Assessment and Plan: Chest x ray showed some interstitial edema. On Lasix 20 mg IV QD. Will likely discharge on Lasix 20 mg PO daily. Recommend out pt follow up with PCP. Repeat Chest x ray 01/21/2018 XR/XR chest 1V IMPRESSION: Mildly improved edema superimposed on background emphysema and COPD. Decreased effusions. Echo 11/27/217 EV/EV echocardiogram Impressions: LVEF 50-55%. Normal LV chamber size, wall thickness and function. Atypical septal motion consistent with bundle branch block. Mild left ventricular diastolic dysfunction. Normal right ventricular structure and function. Mild-moderate aortic regurgitation. No evidence of pulmonary hypertension. No evidence of PFO with agitated saline contrast. (4) Acute exacerbation of chronic obstructive airways disease Priority: Primary Status: Acute Assessment and Plan: Pt with severe COPD/emphysema. Former smoker. Patient with leukocytosis on admission (WBC 12.7) and expiratory wheezes on exam. Leukocytosis resolved. Chest x-ray showed mild to moderate pulmonary edema with small bilateral effusions but no infiltrates noted. Was on IV Solu-Medrol started in the ER in addition to scheduled DuoNeb's. Now on po prednisone taper. IV Zithromax discontinued after 7 days but Sputum growing Ecoli. Ecoli sensitive to Rocephin so started on IV antibiotic especially in light of worsening left lung opacity. High risk for readmission due to severity of COPD (5) Atrial fibrillation with RVR Priority: Primary Status: Acute Assessment and Plan: Patient with elevated heart rate on admission. In SR and rate controlled, 01/23/2018 but was in Afib RVR HR between 112-122 this am. Lopressor 2.5 mg IV prn ordered here. HR down in 100's at discharge. Continue on her home dose of Cardizem. Mag and Phos wnl. Pt is not a candidate for anticoagulation. She had been on Coumadin back 2016 and developed GI bleed. At that time EGD showed hemorrhagic gastropathy. In September 2017 was diagnosed with small PE. Shortly after starting treatment she developed melena. Colonoscopy showed non-bleeding polyps and diverticulosis. Pt has not been on anticoagulation due to above stated risk of bleeding. (6) Chest pain Priority: Secondary Status: Acute Assessment and Plan: Pt reports intermittent chest pain without SOB. She denies palpitations. Possibly due to afib RVR. Troponin < 0.03 x 2. EKG on admission showed old anterior wall [place] but no acute changes. Repeat [address] depression in Lead II. Chest X ray this am 01/24/2018, showing worsening left basilar atelectasis vs PNA. Will place on Rocephin due to sputum culture showing Ecoli. Qualifiers: Chest pain type: other chest pain Qualified Code(s): R07.89 - Other chest pain; R07.8 - Other chest pain (7) GERD (gastroesophageal reflux disease) Priority: Secondary Status: Chronic Assessment and Plan: Continue home dose prilosec Qualifiers: Esophagitis presence: esophagitis presence not specified Qualified Code(s): K21.9 - Gastro-esophageal reflux disease without esophagitis (8) Anxiety Priority: Secondary Status: Chronic Assessment and Plan: Ativan 0.5 mg PO Q 6 hours prn. (9) Abnormal urine Priority: Primary Status: Acute Assessment and Plan: pt repeatedly complaining of burning with urination. Urine analysis with many Sq epi. Will send urine for culture. Started on Rocephin for PNA which should cover UTI (10) History of pulmonary embolism Priority: Secondary Status: Acute Assessment and Plan: CTA 10/10/2017 showed tiny filling defect identified within the right middle lobe lateral segmental pulmonary artery compatible with a small pulmonary embolism. Pt is high risk for GI bleed and likely why not on anti-coagualtion. Complaining of CP and LLE pain today. Will check CTA chest and LLE doppler. May consider placing IVC filter is CTA positive for worsening PE or if doppler positive for DVT. (11) Type II diabetes mellitus Priority: Primary Status: Acute Assessment and Plan: Pt denies prior history of diabetes. Newly diagnosed on this admission exacerbated by steroid use. HgbA1C 06/2016 was 5.3. Recheck Hgb A1C 01/23/2018 6.0. Started on Levemir 10 units BID and SSI. Will likely DC on PO anti-hyperglycemic. Metformin which was started 01/23/2018, on hold today due to needing CTA chest to r/o PE. Will benefit form out pt diabetic teaching. Qualifiers: Qualified Code(s): E11.9 - Type 2 diabetes mellitus without complications (12) Low BMI Priority: Secondary Status: Chronic Assessment and Plan: Due to hx of emphysema (13) Protein-calorie malnutrition, severe Priority: Secondary Status: Chronic Assessment and Plan: Patient with BMI of 17.2, likley due to hx severe COPD (14) Compression fracture Priority: Secondary Status: Acute Assessment and Plan: Incidentally found on CTA chest. Patient is not currenlty complaining of pain at this time. Continue prn pain control at home. Hospital course: History of present illness: Dr. Akbar Patient is a 82-year-old female with past medical history significant for Afib (no OAC due to GI bleed), PE (09/2017), COPD, GERD, HTN, CAD, (no OAC due to GI bleeding), previous breast cancer w/mastectomy of right breast, mood disorder and prior smoking history who presents to the ER on 01/16/18 due to mechanical fall. Patient reports a history of multiple mechanical falls and therefore no longer lives independently but lives with daughter. Patient states that while taking the dog out, the dog ran away from her and when she tried to catch him, she tripped over him falling to the ground. Patient remembers the entire event without losing consciousness. Patient reports of not being able to get up but neighbor found her and called EMS and she was brought into the ER for evaluation. In addition, patient also reports of dyspnea on exertion with lower extremity swelling for the last several days. In the ER, patient was found to have slight leukocytosis with WBC of 12.7. Chest x-ray showed mild to moderate pulmonary edema and patient was found to have a BNP of 418. He was given 1 dose of Solu-Medrol and addition to one dose of IV Lasix. Patient was also given dual nebs in the ER. She will be admitted to the medical surgical floor for COPD exacerbation with acute on chronic heart failure. Dr. Otero See Assessment and plan for hospital course. Discharge discussed with: patient - Time Spent with Patient Total time spent providing and/or coordinating discharge services: Greater than 30 minutes - Discharge Medications Prescriptions: Blood Sugar Diagnostic [Blood Glucose Test Strip] 1 each [facility] 30 Days #30 strip Blood-Glucose Meter [Blood Glucose Monitoring] 1 each [facility] 30 Days #30 each Cefdinir [Omnicef] 300 mg PO BID 10 Days #20 capsule Furosemide [Lasix] 20 mg PO DAILY 30 Days #30 tablet metFORMIN [Glucophage] 500 mg PO BIDWM 30 Days #60 tablet predniSONE [PredniSONE] See Taper PO DAILY #21 tablet Home Medications: Sertraline [Zoloft] 50 mg PO QAM 09/21/15 [History] Temazepam [Restoril] 15 mg PO HS 09/21/15 [History] Omeprazole [PriLOSEC] 20 mg PO DAILY 10/01/17 [History] Diltiazem CD (24hr) [Cardizem CD] 180 mg PO DAILY 30 Days #30 cap.er.24h 10/06/17 [Rx] Acetaminophen [Tylenol] 650 mg PO DAILY #30 tablet 11/27/17 [Rx] Albuterol Neb [Proventil Neb] 2.5 mg IH Q4-6H PRN 11/27/17 [History] Oxygen 2 l IH AD 12/05/17 [History] Gentle Iron 28 mg PO MOWEFR 12/22/17 [History] Tamsulosin [Flomax] 0.4 mg PO SUTUTHSA 01/16/18 [History] Tramadol HCl [Ultram] 50 mg PO QID PRN 01/16/18 [History] Furosemide [Lasix] 20 mg PO DAILY 30 Days #30 tablet 01/23/18 [Rx] metFORMIN [Glucophage] 500 mg PO BIDWM 30 Days #60 tablet 01/23/18 [Rx] predniSONE [PredniSONE] See Taper PO DAILY #21 tablet 01/23/18 [Rx] Blood Sugar Diagnostic [Blood Glucose Test Strip] 1 each ACHS 30 Days #30 strip 01/24/18 [Rx] Blood-Glucose Meter [Blood Glucose Monitoring] 1 each ACHS 30 Days #30 each 01/24/18 [Rx] Cefdinir [Omnicef] 300 mg PO BID 10 Days #20 capsule 01/24/18 [Rx] Allergies/Adverse Reactions: Allergy/AdvReac Type Severity Reaction Status Date / Time No Known Allergies Allergy Verified 01/16/18 02:42 Date of admission: 01/18/18 14:45 Primary care physician: Michaela Torres CNP Consults: 01/16/18 10:28 Consult to Physical Therapy [CONS] Routine Comment: Evaluate, develop and implement POC Reason for Consult: Frequent falls Does patient have active BEDREST order?: No Is patient medically & hemodynamically stable?: Yes Patient assessed for mobility or mobilized this visit?: No 01/16/18 20:54 Consult to Respiratory Therapy [CONS] Routine Reason for Consult: Add flutter valve to pts breathing txs Call Completed: Yes 01/17/18 22:44 dietary consult [Consult to Nutrition] [CONS] Routine Comment: Consulting Provider: NUTRITION Reason for Dietary Consult: PO Supplementation Discharging clinician: Bailey Otero Anticipated date of discharge: 01/24/18 - Constitutional Vitals: Temp Pulse Resp BP Pulse Ox 97.7 F 130 18 132/91 97 01/24/18 08:08 01/24/18 08:08 01/24/18 10:51 01/24/18 08:08 01/24/18 10:51 General appearance: Present: A&O X 3, no acute distress, underweight Exam: Exam: General appearance: Present: A&O X 3, no acute distress, Thin. Exam: As above - Head Head exam: Present: atraumatic - Eye Eye exam: Present: normal appearance - ENT ENT exam: Present: mucous membranes moist - Respiratory Respiratory exam: Present: Positive bibasilar rhonchi due to chronic lung disease. Absent: accessory muscle use, CTAB, rales, respiratory distress, tachypnea - Cardiovascular Cardiovascular exam: Present: irregularly irregular . Absent: diastolic murmur, gallop, rubs, systolic murmur - GI/Abdominal GI/Abdominal exam: Present: normal bowel sounds, soft, no peritoneal signs. Absent: distended, tenderness - Extremities Exam Extremities exam: Present: no edema - Neurological Exam Neurological exam: Present: oriented X3 - Psychiatric Psychiatric exam: Present: normal mood - Skin Skin exam: Absent: pallor - Patient Status Disposition: Home Health Service Condition: Fair Overall status at discharge: patient is progressing back to baseline - Discharge Instructions Follow Up With: Michaela Torres CNP [Primary Care Provider] - 01/29/18 2:30 pm - Diet and Activity Activity: as per physical therapy, increase activity as tolerated Diet: diabetic diet
--- NOTE | 2018-01-24 15:52 | Physician Discharge Referral ---
Home Health/Hosp Referral Info Transfer to: Home Health Provider in Charge Post Discharge: PCP - Diagnosis (1) Acute and chronic respiratory failure Priority: Primary Status: Acute (2) Pneumonia of left lung due to Escherichia coli Priority: Primary Status: Acute (3) Acute on chronic diastolic heart failure Priority: Primary Status: Acute (4) Acute exacerbation of chronic obstructive airways disease Priority: Primary Status: Acute (5) Atrial fibrillation with RVR Status: Acute (6) Chest pain Status: Acute (7) GERD (gastroesophageal reflux disease) Status: Chronic (8) Anxiety Status: Chronic (9) Abnormal urine Status: Acute (10) History of pulmonary embolism Status: Acute (11) Type II diabetes mellitus Status: Acute (12) Low BMI Status: Chronic (13) Protein-calorie malnutrition, severe Status: Chronic (14) Compression fracture Status: Acute - Respiratory Orders Oxygen / L per min Smoking Cessation: Smoking cessation has been advised. For more information, call the [place] [employer] Quit Line at 4-794-RWRN-NOW. - Diet/Nutrition Diet/Nutrition Orders: No Concentrated Sweets - Services Needed Following services are medically necessary services: Physical Therapy, Occupational Therapy - Transfer Medications Prescriptions: Blood Sugar Diagnostic [Blood Glucose Test Strip] 1 each [facility] 30 Days #30 strip Blood-Glucose Meter [Blood Glucose Monitoring] 1 each [facility] 30 Days #30 each Cefdinir [Omnicef] 300 mg PO BID 10 Days #20 capsule Furosemide [Lasix] 20 mg PO DAILY 30 Days #30 tablet metFORMIN [Glucophage] 500 mg PO BIDWM 30 Days #60 tablet predniSONE [PredniSONE] See Taper PO DAILY #21 tablet Home Medications: Sertraline [Zoloft] 50 mg PO [facility] 09/21/15 [History] Temazepam [Restoril] 15 mg PO 09/21/15 [History] Omeprazole [PriLOSEC] 20 mg PO DAILY 10/01/17 [History] Diltiazem CD (24hr) [Cardizem CD] 180 mg PO DAILY 30 Days #30 cap.er.24h 10/06/17 [Rx] Acetaminophen [Tylenol] 650 mg PO DAILY #30 tablet 11/27/17 [Rx] Albuterol Neb [Proventil Neb] 2.5 mg IH Q4-6H PRN 11/27/17 [History] Oxygen 2 l IH AD 12/05/17 [History] Gentle Iron 28 mg PO MOWEFR 12/22/17 [History] Tamsulosin [Flomax] 0.4 mg PO SUTUTHSA 01/16/18 [History] Tramadol HCl [Ultram] 50 mg PO QID PRN 01/16/18 [History] Furosemide [Lasix] 20 mg PO DAILY 30 Days #30 tablet 01/23/18 [Rx] metFORMIN [Glucophage] 500 mg PO BIDWM 30 Days #60 tablet 01/23/18 [Rx] predniSONE [PredniSONE] See Taper PO DAILY #21 tablet 01/23/18 [Rx] Blood Sugar Diagnostic [Blood Glucose Test Strip] 1 each [facility] 30 Days #30 strip 01/24/18 [Rx] Blood-Glucose Meter [Blood Glucose Monitoring] 1 each [facility] 30 Days #30 each 01/24/18 [Rx] Cefdinir [Omnicef] 300 mg PO BID 10 Days #20 capsule 01/24/18 [Rx] Allergies/Adverse Reactions: Allergy/AdvReac Type Severity Reaction Status Date / Time No Known Allergies Allergy Verified 01/16/18 02:42 Certification: Further, I certify that my clinical findings support that this patient is homebound (i.e. absences from home require considerable and taxing effort and are for medical reasons or hinduism services or infrequently or short duration when for other reasons) because: Homebound Reason: Patient requires assistance of a person or device to safely leave home Attestation: My signature below is to certify that this patient is under my care and that I, or nurse practitioner, or a physician's integration assistant working with me, has a [id number] encounter with this patient.
[2018-01-24 16:20] VITALS: BP 147/72
[2018-01-25] MEDS ORDERED: Furosemide 20 MG TABLET PO SCH (09:00)
[2018-01-25] MEDS ORDERED: cefTRIAXone 1,000 MG in Water for inj. (sterile) 20 ML 10 ML IVP SCH (09:00)
== END 2018-01-24 18:49 | disposition home health service (06) | DRG 177 ==
LOC: 2NENU 02:41 → EMEROOARM 02:41 → SUATTDRO 05:00 → 2NENU 05:38
PROVIDERS: ADMIT Pediatrics; ATTEND Internal Medicine

== ENCOUNTER 2018-11-16 13:45 | Inpatient (IN) ==
[~2018-11-16 13:45] MED LIST: *HR* LORazepam Oral Conc 2 MG/ML SL PRN
--- NOTE | 2018-11-16 13:57 | Pallative History & Physical ---
Date of Encounter: 11/16/18 Time of Encounter: 13:50 Assessment and Plan (1) Hospice care Current visit: Yes Status: Acute Patient will be respite care over the weekend. Will be discharged back to her home on Monday. (2) Palliative care encounter Current visit: Yes Status: Acute (3) Atrial fibrillation with RVR Current visit: No Status: Acute (4) COPD exacerbation Current visit: No Status: Acute Continue current regimen with Symbicort/Duonebs, Prednisone, supportive oxygen. Internal Medicine - H&P: HPI Admitted From: Home Plans for Post Hospital Care: Hospice - Home History of present illness: Ms. Cleaning is a 83 year old female that is a patient of [facility]. She is here for 3 day respite stay. She has been in Hospice for about 8 months for end stage COPD. She is nonambulatory at home and oxygen dependent. Daughter provides 24 hour care for her. Other medical history include congestive heart failure. Upon my visit, daughter is at bedside. Patient denies any pain or discomfort. Audible wheezes noted. States appetite has been good. + BM this am. Razo present, daughter states has been leaking and needs replaced. Vitals stable. Past Med Surg Social Fam HX - Past Medical History Medical history: atrial fibrillation, cancer, COPD, coronary artery disease, GERD, other Additional medical history: breast cancer Psychiatric history: anxiety, depression - Past Surgical History Surgical History: breast surgery, hysterectomy Additional surgical history: lymph nodes removed on R - Social History Smoking Status: Former smoker Smokeless Tobacco Status: No Alcohol use: none Drug use: none - Family History Mother Adopted: No Family Member Ethnicity: Non- Living Status: Hx Family Cardiac Disorders: Yes (CAD) Hx Family Respiratory Disorders: No Hx Family Cancer: No Hx Family GI Disorders: No Hx Family Endocrine Disorder: Yes (DM) Hx Family Neuromuscular Disorders: No Hx Family Neurologic Disorders: No Hx Family HEENT Disorders: No Hx Family Autoimmune Disorders: No Father Family Member Ethnicity: Non- Living Status: Hx Family Cardiac Disorders: Yes Son Adopted: No Family Member Ethnicity: Non- Living Status: Still Living Hx Family Cardiac Disorders: No Hx Family Respiratory Disorders: No Hx Family Cancer: Yes (Lung cancer) Hx Family GI Disorders: No Hx Family Endocrine Disorder: No Hx Family Neuromuscular Disorders: No Hx Family Neurologic Disorders: No Hx Family HEENT Disorders: No Hx Family Autoimmune Disorders: No Sister Family Member Ethnicity: Non- Living Status: Internal Medicine - H&P: Meds Sertraline [Zoloft] 50 mg PO QAM 09/21/15 [History] Temazepam [Restoril] 15 mg PO HS 09/21/15 [History] Omeprazole [PriLOSEC] 20 mg PO DAILY 10/01/17 [History] Diltiazem CD (24hr) [Cardizem CD] 180 mg PO DAILY 30 Days #30 cap.er.24h 12/14 [Rx] Acetaminophen [Tylenol] 650 mg PO DAILY #30 tablet 11/27/17 [Rx] Oxygen 2 l NS AD 12/05/17 [History] Tamsulosin [Flomax] 0.4 mg PO SUTUTHSA 01/16/18 [History] Albuterol Sulfate [Ventolin Hfa] 2 puff IH Q4H PRN 02/08/18 [History] Ipratropium/Albuterol Neb [Duoneb] 3 ml IH Q4-6H PRN 02/08/18 [History] Acetylcysteine [V-Fixiho-q-Cysteine] 600 mg PO BID 02/17/18 [History] Budesonide [Pulmicort] 0.25 mg IH DAILY 02/17/18 [History] Formoterol Fumarate [Perforomist] 20 mcg IH BID 02/17/18 [History] Iron Infusion 1 each IV AD 02/17/18 [History] Atropine 1% Opth Drops 4 drop SL Q4H PRN #1 bottle 02/23/18 [Rx] Allergy/AdvReac Type Severity Reaction Status Date / Time No Known Allergies Allergy Verified 01/16/18 02:42 - Constitutional Constitutional ROS PAL: as per HPI - EENT Ears: decreased hearing - Cardiovascular Cardiovascular ROS: dyspnea on exertion - Respiratory Respiratory: cough, wheezing, chest congestion - Gastrointestinal Gastrointestinal: as per HPI - Genitourinary Additional comments: Has razo which has been leaking - Musculoskeletal Musculoskeletal ROS IM: as per HPI - Integumentary Additional comments: several ecchymotic areas legs and arms - Neurological Neurological ROS: weakness - Psychiatric Psychiatric general PM: as per HPI Palliative Care-Exam - Constitutional General appearance: Present: thin - Head Head Exam: Present: normal inspection, normocephalic - Respiratory Respiratory exam: Present: decreased breath sounds, wheezes - Cardiovascular Cardiovascular exam: Present: +S1, +S2 - GI/Abdominal Exam GI/Abdominal exam: Present: normal bowel sounds, soft - Catheter Type: Urethral (Razo) - Extremities Exam Extremities exam: Present: normal capillary refill, normal inspection - Neurological Exam Neurological exam: Present: alert, oriented X3, strengths equal and symetr throu ghout - Skin Skin exam: Present: dry, pallor Palliative Quality Palliative Quality: Screen for Code Status: Yes, Screen for Goals of Care: Yes, Screen for Pain: Yes, If Pain Regimen Started, Initiate Bowel Regimen: NA, Screen for Nausea/Vomitting: Yes Code Status: 11/16/18 12:54 Resuscitation Status: Active [RES] Routine Comment: Resuscitation Status: DNR-Comfort Care
[2018-11-16] MEDS: Ipratropium/Albuterol Neb 3 ML IH SCH ×2 (15:50→22:58)
[2018-11-16] MEDS: Leptospermum Honey Gel 44 ML TUBE TP SCH (21:35)
[2018-11-16] MEDS: Clotrimazole/Betameth Dip CRM 45 APPL/45 GM TUBE TP SCH (21:36)
[2018-11-16] MEDS: Budesonide/Formoterol 160/4.5 1 PUFF INH IH SCH (22:58)
[2018-11-17] MEDS: Acetaminophen 325 MG TABLET PO PRN ×2 (00:01→21:47)
[2018-11-17] MEDS: Ipratropium/Albuterol Neb 3 ML IH SCH ×4 (04:03→23:12)
[2018-11-17] MEDS: Furosemide 20 MG TABLET PO SCH (09:03)
[2018-11-17] MEDS: predniSONE 10 MG TABLET PO SCH (09:03)
[2018-11-17] MEDS: Diltiazem CD (24hr) 180 MG CAPSULE PO SCH (09:03)
[2018-11-17] MEDS: Budesonide/Formoterol 160/4.5 1 PUFF INH IH SCH ×2 (09:49→23:12)
[2018-11-17] MEDS: Leptospermum Honey Gel 44 ML TUBE TP SCH ×2 (11:05→21:47)
[2018-11-17] MEDS: Clotrimazole/Betameth Dip CRM 45 APPL/45 GM TUBE TP SCH ×2 (11:05→21:47)
[2018-11-17] MEDS: Temazepam 15 MG CAPSULE PO PRN (21:46)
[2018-11-18] MEDS: Ipratropium/Albuterol Neb 3 ML IH SCH ×4 (04:40→22:18)
[2018-11-18] MEDS: Leptospermum Honey Gel 44 ML TUBE TP SCH ×2 (09:16→20:43)
[2018-11-18] MEDS: Clotrimazole/Betameth Dip CRM 45 APPL/45 GM TUBE TP SCH ×2 (09:16→20:43)
[2018-11-18] MEDS: Furosemide 20 MG TABLET PO SCH (09:16)
[2018-11-18] MEDS: predniSONE 10 MG TABLET PO SCH (09:16)
[2018-11-18] MEDS: Diltiazem CD (24hr) 180 MG CAPSULE PO SCH (09:16)
[2018-11-18] MEDS: Budesonide/Formoterol 160/4.5 1 PUFF INH IH SCH ×2 (10:12→22:18)
[2018-11-18] MEDS: Acetaminophen 325 MG TABLET PO PRN (20:42)
[2018-11-18] MEDS: Temazepam 15 MG CAPSULE PO PRN (20:42)
[2018-11-19] MEDS: Ipratropium/Albuterol Neb 3 ML IH SCH ×2 (04:21→09:30)
[2018-11-19] MEDS: Diltiazem CD (24hr) 180 MG CAPSULE PO SCH (07:58)
[2018-11-19] MEDS: Leptospermum Honey Gel 44 ML TUBE TP SCH (07:58)
[2018-11-19] MEDS: predniSONE 10 MG TABLET PO SCH (07:58)
[2018-11-19] MEDS: Furosemide 20 MG TABLET PO SCH (07:58)
[2018-11-19] MEDS: Clotrimazole/Betameth Dip CRM 45 APPL/45 GM TUBE TP SCH (07:59)
--- NOTE | 2018-11-19 09:14 | Discharge Summary ---
Date of Encounter: 11/19/18 Time of Encounter: 09:10 - Discharge Diagnosis (1) COPD exacerbation Priority: Primary Status: Chronic (2) Atrial fibrillation with RVR Priority: Secondary Status: Chronic - Hospital Course Hospital course: Ms. Cleaning is a 83 year old female who is a patient of [facility] who was admitted for a brief respite stay. During admission, she continued her current medications and had no adverse events. Zarate catheter was changed on admission, as previous one was leaking. She will be transitioned home Monday afternoon in care of her daughter. - Time Spent with Patient Total time spent providing and/or coordinating discharge services: Less than 30 minutes - Discharge Medications Prescriptions: No Action Temazepam [Restoril] 30 mg PO HS Sertraline [Zoloft] 50 mg PO QAM Omeprazole [PriLOSEC] 40 mg PO DAILY Diltiazem CD (24hr) [Cardizem CD] 180 mg PO DAILY 30 Days #30 cap.er.24h Acetaminophen [Tylenol] 650 mg PO DAILY #30 tablet Ipratropium/Albuterol Neb [Duoneb] 3 ml IH Q4-6H PRN PRN Reason: Dyspnea Atropine 1% Opth Drops 4 drop SL Q4H PRN #1 bottle PRN Reason: oral secretions Budesonide/Formoterol 160/4.5 [Symbicort 160/4.5] 2 puff IH BIDR Clotrimazole/Betamethasone Dip [Lotrisone Cream] 1 appl TP BID PRN PRN Reason: Rash DiphenhydraMINE [Benadryl] 25 mg PO HS PRN PRN Reason: Sleep Furosemide [Lasix] 20 mg PO DAILY Guaifenesin [Mucinex] 600 mg PO Q12H PRN PRN Reason: Congestion LORazepam Oral Conc [Ativan Oral Conc] 1 mg PO Q4H PRN PRN Reason: Anxiety Morphine Oral CONC [Roxanol] 0.25 - 1 ml PO Q1H PRN PRN Reason: pain/dyspnea Home Medications: Sertraline [Zoloft] 50 mg PO QAM 09/21/15 [History] Temazepam [Restoril] 30 mg PO HS 09/21/15 [History] Omeprazole [PriLOSEC] 40 mg PO DAILY 10/01/17 [History] Diltiazem CD (24hr) [Cardizem CD] 180 mg PO DAILY 30 Days #30 cap.er.24h 10/06/17 [Rx] Acetaminophen [Tylenol] 650 mg PO DAILY #30 tablet 11/27/17 [Rx] Ipratropium/Albuterol Neb [Duoneb] 3 ml IH Q4-6H PRN 02/08/18 [History] Atropine 1% Opth Drops 4 drop SL Q4H PRN #1 bottle 02/23/18 [Rx] Budesonide/Formoterol 160/4.5 [Symbicort 160/4.5] 2 puff IH BIDR 11/18/18 [History] Clotrimazole/Betamethasone Dip [Lotrisone Cream] 1 appl TP BID PRN 11/18/18 [History] DiphenhydraMINE [Benadryl] 25 mg PO HS PRN 11/18/18 [History] Furosemide [Lasix] 20 mg PO DAILY 11/18/18 [History] Guaifenesin [Mucinex] 600 mg PO Q12H PRN 11/18/18 [History] LORazepam Oral Conc [Ativan Oral Conc] 1 mg PO Q4H PRN 11/18/18 [History] Morphine Oral CONC [Roxanol] 0.25 - 1 ml PO Q1H PRN 11/18/18 [History] Allergies/Adverse Reactions: Allergy/AdvReac Type Severity Reaction Status Date / Time No Known Allergies Allergy Verified 01/16/18 02:42 Internal Medicine - DS: Prov Date of admission: 11/16/18 13:45 Primary care physician: PCP NONE Admitting clinician: Elizabeth Garcia Consults: 11/16/18 12:54 Consult to Palliative Care [CONS] Routine Comment: Consulting Provider: [facility] [place] Reason for Consult: Respite Call Completed: No Discharging clinician: Yuliet Smallwood Internal Medicine - DS: Exam - Constitutional Vitals: Vital Signs Temp Pulse Resp BP Pulse Ox 11/19/18 07:12 98.2 F 103 18 147/79 93 11/19/18 04:48 99.1 F 89 16 148/80 96 11/19/18 00:32 82 16 133/79 97 11/18/18 22:20 12 98 11/18/18 20:04 100.4 F H 91 16 163/84 93 11/18/18 17:15 98.0 F 93 15 149/77 96 11/18/18 15:46 15 95 11/18/18 11:46 98.1 F 91 15 147/82 95 11/18/18 10:14 18 98 11/18/18 09:22 98 Intake and Output 11/18/18 11/19/18 11/19/18 23:59 07:59 15:59 Output Total 400 / 400 Balance -400 / -400 Output: Catheter 400 / 400 Urethral (Zarate) 400 / 400 Other: Weight 50 kg Patient Weight 11/19/18 23:59 Weight 50 kg General appearance: no acute distress - Respiratory Respiratory exam: Present: decreased breath sounds, wheezes - Cardiovascular Cardiovascular exam: Present: +S1, +S2 - GI/Abdominal GI/Abdominal exam: Present: diminished bowel sounds, soft - Additional comments: Zarate draining clear yellow urine - Extremities Exam Extremities exam: Present: normal capillary refill, normal inspection - Neurological Exam Neurological exam: Present: alert, oriented X3, strengths equal and symetr throughout Additional comments: Oriented to name and place, needs reoriented to time. Appropriate responses to questions. NORRIS - Skin Skin exam: Present: dry, pallor, warm - Patient Status Disposition: Hospice - Home Condition: Fair Functional capacity at discharge: wheelchair bound - Discharge Instructions Follow Up With: NONE,PCP [Primary Care Provider] - (Pallative)
[2018-11-19] MEDS: Budesonide/Formoterol 160/4.5 1 PUFF INH IH SCH (09:30)
[2018-11-19 11:21] VITALS: BP 148/78
[2018-11-19] MEDS ORDERED: FLU Vac QV 19-20 (6Month+)/PF 0.5 ML SYRINGE IM ONE (11:53)
== END 2018-11-19 13:06 | disposition hospice, home (50) | DRG 951 ==
LOC: 2ANU 13:45
PROVIDERS: ADMIT Internal Medicine Hospice and Palliative Medicine; ATTEND Internal Medicine Hospice and Palliative Medicine

== ENCOUNTER 2018-12-31 13:00 | Inpatient (IN) ==
[~2018-12-31 13:00] MED LIST changes: +Morphine Sulfate Oral CONC 10 MG/0.5 ML ORAL.SYG SL PRN
[2018-12-31] MEDS: Ipratropium/Albuterol Neb 3 ML IH PRN ×2 (15:20→20:30)
[2018-12-31] MEDS ORDERED: Ipratropium/Albuterol Neb 3 ML IH SCH (16:00)
[2018-12-31] MEDS: Budesonide Neb 0.5 MG/2 ML IH SCH ×2 (20:30→20:36)
[2018-12-31] MEDS ORDERED: Budesonide/Formoterol 80/4.5 1 PUFF INH IH SCH (22:00)
[2019-01-01] MEDS: Temazepam 15 MG CAPSULE PO PRN ×2 (01:19→21:25)
[2019-01-01] MEDS: Ipratropium/Albuterol Neb 3 ML IH PRN ×3 (04:03→21:40)
[2019-01-01] MEDS: Diltiazem CD (24hr) 180 MG CAPSULE PO SCH (08:22)
[2019-01-01] MEDS: Furosemide 20 MG TABLET PO SCH (08:22)
[2019-01-01] MEDS: predniSONE 10 MG TABLET PO SCH (08:22)
[2019-01-01] MEDS: Budesonide Neb 0.5 MG/2 ML IH SCH ×2 (10:11→19:43)
[2019-01-02] MEDS: Ipratropium/Albuterol Neb 3 ML IH PRN ×4 (04:11→22:22)
[2019-01-02] MEDS: Furosemide 20 MG TABLET PO SCH (08:51)
[2019-01-02] MEDS: Acetaminophen 325 MG TABLET PO PRN (08:51)
[2019-01-02] MEDS: Azithromycin 250 MG TABLET PO SCH (08:51)
[2019-01-02] MEDS: Diltiazem CD (24hr) 180 MG CAPSULE PO SCH (08:51)
[2019-01-02] MEDS: predniSONE 10 MG TABLET PO SCH (08:52)
[2019-01-02] MEDS: Budesonide Neb 0.5 MG/2 ML IH SCH ×2 (09:37→22:21)
[2019-01-02] MEDS: Temazepam 15 MG CAPSULE PO PRN (20:35)
[2019-01-03] MEDS: Ipratropium/Albuterol Neb 3 ML IH PRN ×2 (07:25→19:53)
[2019-01-03] MEDS: Budesonide Neb 0.5 MG/2 ML IH SCH ×2 (07:25→19:53)
[2019-01-03] MEDS: Diltiazem CD (24hr) 180 MG CAPSULE PO SCH (08:42)
[2019-01-03] MEDS: predniSONE 10 MG TABLET PO SCH (08:42)
[2019-01-03] MEDS: Acetaminophen 325 MG TABLET PO PRN ×2 (08:43→20:22)
[2019-01-03] MEDS: Furosemide 20 MG TABLET PO SCH (08:43)
[2019-01-03] MEDS: Temazepam 15 MG CAPSULE PO PRN (20:23)
[2019-01-04] MEDS: Budesonide Neb 0.5 MG/2 ML IH SCH (08:04)
[2019-01-04] MEDS: Ipratropium/Albuterol Neb 3 ML IH PRN ×2 (08:04→15:39)
[2019-01-04] MEDS: predniSONE 10 MG TABLET PO SCH (08:11)
[2019-01-04] MEDS: Azithromycin 250 MG TABLET PO SCH (08:11)
[2019-01-04] MEDS: Diltiazem CD (24hr) 180 MG CAPSULE PO SCH (08:11)
[2019-01-04] MEDS: Furosemide 20 MG TABLET PO SCH (08:11)
[2019-01-04 11:59] VITALS: BP 130/74
== END 2019-01-04 15:53 | disposition hospice, home (50) | DRG 951 ==
LOC: 2ANU 13:08
PROVIDERS: ADMIT Internal Medicine Hospice and Palliative Medicine; ATTEND Internal Medicine Hospice and Palliative Medicine